=== PATIENT | female | born 1940 | race Caucasian/White ===

== ENCOUNTER → 2016-09-16 | Outpatient (CLI) | payer MEDICARE ==
[~2016-09-16] MED LIST: ALENDRONATE SOD70 M1 PO; ASPIRIN 81MG TA81 MG PO; ATENOLOL25 MG PO; ATENOLOL50 MG PO; CIPRO 500MG TA500 MG PO; CLOPIDOGREL75 M2 PO; DEXAMETHASONE 4M4 MG PO; EAC TD; FLAGYL500 MG PO; ISOSORBIDE MONO30 MG PO; LASIX20 MG PO; LEVAQUIN 750 M750 MG PO; LEVAQUIN500 MG PO; LORAZEPAM1 MG/TABLE PO; METFORMIN500 MG PO; NICODERM C21 MG/24 H TD; NITRO DUR TD; NOVOLOG MI100 UNITS/ SC; NOVOLOG MI100 UNITS1 SC; NOVOLOG MIX 70/10 M1 SC; OMNICEF 300 MG300 MG PO; PEPCID 20MG TAB20 MG PO; PREDNISONE 10MG10 MG PO; PRILOSEC20 M1 PO; SIMVASTATIN40 MG PO; SYMBICORT1 AER IH; TESSALON PERLE100 MG PO; TRAZODONE150 MG PO
[2016-09-16 08:58] LABS: BUN 17 mg/dL (7-18)
[2016-09-16 08:59] LABS: GFR (ESTIMATED) 54 ML/MIN (59-)
--- NOTE | 2016-09-18 21:43 | RADIOLOGY REPORT PS360 ---
CT ABD PELVIS W/ CONTRAST ORDERING PHYSICIAN : Alan Schulte MD PATIENT AGE: 76 years GENDER: Female INDICATION: SOA, HX OF LUNG AND RENAL CELL CANCER TECHNIQUE: Helical CT scanning performed the abdomen and pelvis following 75 cc Isovue-370. COMPARISON: 04/07/2015 CT abdomen FINDINGS ]. Lower thorax lungs clear no active disease. Heart normal size. Abdomen. Liver spleen pancreas adrenals unremarkable. Gallbladder is been removed. Generous common duct similar to previous study most likely reflects postcholecystectomy changes warrants correlation with serum bilirubin. Pancreas satisfactory. No stones along common duct evident. Aorta. Minor focal dilatation beginning just below renal arteries. Abdominal aorta up to 2.4 cm maximally in this region. . No free fluid. No free air. No acute inflammatory changes. Kidneys.. History states renal cell cancer on right.? No renal mass evident on today's or prior study. Right kidney: No lesions are seen at the right kidney on today's scan. Moderate External pelvis on right is noted right ureter is unremarkable. Left kidney appears satisfactory with no mass lesion either. No calculi or obstruction either kidney. No retroperitoneal adenopathy with no mesenteric or femoral adenopathy. Previous ventral hernia repair. GI tract Large bowel. Diverticulosis throughout the sigmoid and left colon but no diverticulitis. Moderate to generous stool throughout the colon. It The cecum appears satisfactory today. There is a moderate/generous fat at about the ileocecal valve accounts for appearance here.. Calcified area in colon hepatic flexure most likely reflects ingested focus radiopaque material within stool. Terminal ileum unremarkable. No evidence of appendicitis appendix not visualized Small bowel.: No bowel dilatation or obstruction. . Again see several areas in the normal caliber small bowel areas which have rim-like calcification-most likely reflect some form of ingested material. Coronal image [id number] involving the small bowel IMPRESSION: ... 1.No mass lesions. No adenopathy no metastatic disease. 2. No renal mass evident. Kidneys appear stable and unchanged since 2015 CT. Slightly generous right extra renal pelvis of right collecting system is stable & WNL.. 3. Diverticulosis sigmoid and left colon moderately pronounced but no diverticulitis evident. 4.. Generous common duct again noted but appears stable since 2014 most compatible with previous cholecystectomy. Warrants correlation with serum bilirubin. 5. Incidental observations: -note curious rim-like areas calcified areas throughout normal caliber small bowel. Some areas seen in hepatic flexure large bowel. It most likely reflect some form of ingested partially radiopaque material. -There was previous question regarding the cecum but it appears normal on today's study. Moderate to generous stool throughout colon.
--- NOTE | 2016-09-19 23:39 | RADIOLOGY REPORT PS360 ---
CT CHEST W/ CONTRAST ORDERING PHYSICIAN : Alan Schulte MD PATIENT AGE: 76 years GENDER: Female INDICATION: SOA, HX OF LUNG AND RENAL CELL CANCER Procedure. . Helical CT scanning performed through the chest following 75 cc Isovue-370. COMPARISON: November 11, 2015 CT chest with contrast . Also also previous CTA chest from 01/16 and 09/12/2010 FINDINGS . Again see the triangular mass with irregular margins at periphery RUL. Located Just beneath Multiple rib fractures overlying this region... Mass most evident peripherally and tapers towards right angi were and appears generous and associated fibrotic changes.. Overall This area appears Appears very similar in size with no no significant change, measuring up to 3.5 cm transverse X, 2.9 cm cm AP X nearly 15 mm height.. The rather Stellate margins unchanged. There are overlying rib fractures involving the left ribs 4, 5, 6. In fact thefifth rib is fractured in 2 locations. The sequential nature of 3 rib fractures supports old trauma with no additional lesions to be present. hyperexpansion lungs with minor chronic changes. A few areas of minor interstitial coarsening and fibrotic change bilaterally but unimpressive...... Theres minimal linear scarring anteriorly at the lingula. There is been slight progression of the small nodular density right midlung now measuring 7.3 mm previously measuring 5 mm.. It is located at the right lower lobe just posterior to the major fissure.-Best seen on axial image 42, coronal 15, sagittal slice 31. Small calcified granuloma right base just above right hemidiaphragm stable. 4 mm size. Borderline/Upper normal thickness of central airways no hilar no mediastinal adenopathy. Densely calcified coronary arteries with possible coronary stent again noted. Heart upper normal size. No pleural lesions. No hilar adenopathy or mass. No significant mediastinal adenopathy .. Unimpressive 12.5 mm x8.5 mm node at the precarinal region most likely reactive nodes combination of nodes appears stable..... Spine and sternum appear intact with The remaining osseous structures r unremarkable ............IMPRESSION............................................... 1. Slight interval progression of the small nodule right midlung. Now measuring 7.3 mm ( previously seen measuring [address] chest[address].-Warrants ongoing follow-up chest in 4-6 months 2. Stable prominent triangular mass with irregular margins at the periphery the RUL..-No significant interval change since November 2015 3. Multiple rib fractures overlying this area again noted, & unchanged... Fractures right 4, 5, 6, ribs laterally .
== END ==
LOC: RAD 08:37
PROVIDERS: Internal Medicine Adolescent Medicine
DX: R06.02 Shortness of breath (principal); R10.84 Generalized abdominal pain; Z85.118 Personal history of other malignant neoplasm of bronchus and lung; Z85.528 Personal history of other malignant neoplasm of kidney
CPT/HCPCS: Q9967

== ENCOUNTER → 2016-10-03 | Outpatient (CLI) | payer MEDICARE | LOC: CARL-LAB 09:37 | DX: R05 Cough (principal) ==

== ENCOUNTER 2016-11-25 03:54 | Inpatient (IN) | payer MEDICARE ==
[~2016-11-25] VITALS: Ht 154.9 cm; Wt 56.7 kg
[2016-11-25] VITALS (10 sets, daily range): BP systolic 114–155; BP diastolic 56–76
[~2016-11-25 03:54] MED LIST changes: -CLOPIDOGREL75 M2 PO; -PREDNISONE 10MG10 MG PO
[2016-11-25] MEDS ORDERED: CLOPIDOGREL75 M2 PO (04:16)
[2016-11-25] MEDS ORDERED: PREDNISONE 10MG10 MG PO (04:18)
[2016-11-25 04:28] LABS: HEMOGLOBIN 12.3 g/dL (12.2-16.2); LYMPH # 1.6 K/mm3 (0.7-4.5); LYMPH % 15.1 % (10-50.0)
--- NOTE | 2016-11-25 04:59 | Emergency Room Report ---
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 N Clinical Suspician of Infection? Y Mental Status: 1 - Regular (Normal Baseline) Sepsis Risk:Severe Sepsis Risk Have you (or family members/close friends) recently traveled outside the [place]? N If Yes, where/when: Have you had exposure to infectious disease within the past month? N TB? Other? Specify: Source patient, RN notes reviewed, family, RN/MD Exam Limitations clinical condition Comment This is a 76-year-old lady presenting to the emergency room by EMS complaining with shortness of breath, onset 3 days ago, associated with subjective fever, chills, body aches. Patient denies any chest pain, denies any recent travel or exposure to sick contacts. She has been recently diagnosed with RIGHT upper lung mass, consistent with a lung malignancy. She is scheduled to have a PET scan on Monday. She is oxygen dependent at home, she is a known chronic obstructive pulmonary disease patient. ALLERGIES Coded Allergies: Sulfa (Sulfonamide Antibiotics) (08/06/16) codeine (08/06/16) Home Medications Reported Medications BUDESONIDE/FORMOTEROL FUMARATE (Symbicort 80-4.5 Mcg Inhaler) 2 PUFF IH BID Ins Asp-Prt 70/Asp 30(Nvlogmx) (Novolog Mix 70-30 Flexpen Syrn) 0 UNITS SC BID #15 SYR Atenolol (Atenolol) 25 MG PO DAILY OMEPRAZOLE MAGNESIUM (Prilosec 20MG) 20 MG PO DAILY Alendronate Sodium 70 MG PO WEEKLY #4 TAB Trazodone Hcl (Trazodone HCl) 150 MG PO QHS Lorazepam (Lorazepam 1MG) 1 MG PO TID ASPIRIN (Aspirin) 81 MG PO DAILY CLOPIDOGREL BISULFATE (Clopidogrel) 75 MG PO DAILY #30 Prednisone (Prednisone 10MG) 10 MG PO Q48H #9 History Medical History General CAD? Yes Angina: Yes NE: Yes Hypertension? No Hyperlipidemia? Yes CHF? No DVT? No PE? No COPD? Yes Asthma? No Anemia? No GERD? Yes Gastric ulcers? No GI Bleed? No Hernia? Yes Thyroid Problems? No Hypothyroidism? No CVA? Yes Seizures? No Diabetes? 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 No End Stage Renal Disease? No UTI? No Stones? No BPH? No GB Disease: Yes Nephritic Syndrome? No Asplenia? No Hepatitis? No Sickle Cell Disease? No Arthritis? Yes Migraines? No Cataracts? Yes Glaucoma? No MRSA? No HIV? No TB? No Anxiety? Yes Depression? No Cancer? 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 RADIATION LUNG Family History Family Hx Diabetes Yes CAD Yes Hypertension No Hyperlipidemia No Cancer Yes TB No Social History Smoking Hx Smoker: Current Every Day Smoker Tobacco: Yes Type Cigarettes Packs/day < 1 Pack Alcohol Alcohol: No Review of Systems All Other Systems Reviewed and Negative Respiratory shortness of breath, wheezing Physical Exam Vital Signs Vital Signs Date Time Temp Pulse Resp B/P Pulse O2 O2 Flow FiO2 Ox Delivery Rate 11/25 0638 3 11/25 0624 3 11/25 0624 96 OXYGEN 3 11/25 0615 114 11/25 0615 99.0 114 24 123/65 11/25 0615 94 ROOM AIR 11/25 0556 3 11/25 0556 99.0 114 24 123/65 94 11/25 0556 99.0 114 24 123/65 94 ROOM AIR 11/25 0521 99.0 114 24 119/56 94 2 11/25 0507 99.0 114 24 119/56 94 2 11/25 0421 30 96 2 11/25 0357 98.2 122 30 155/76 96 2 General Appearance normal appearance, WD/WN, mild distress Neck normal inspection, non-tender, supple, full range of motion Respiratory Status Yes: trachea midline, chest symmetrical, non tender chest. No: respiratory distress. Lung Sounds anterior: wheezing. posterior: wheezing. bilateral: wheezing. left: wheezing. right: wheezing. 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 No Comment 05:05am-case discussed with Dr. King, covering for Dr. Schulte was of patient's presentation, physical exam, x-ray findings, laboratories. Dr. King agreeable with patient's admission, requested sliding scale insulin, IV steroids, IV abx. Care transferred Dr. King/Eris at this time. I will write bridge admission orders per hospital policy. Upon patient's arrival to the unit, the floor nurse will call Dr. King for full inpatient admission orders. Results/Orders Laboratory Tests 11/25/16 0653: Creatine Kinase Pending, CK-MB (CK-2) Rel Index Pending, CK and CKMB Interp Pending, Troponin I Pending 11/25/16 0451: Influenza Type A Ag NOT DETECTED, Influenza Type B Ag NOT DETECTED 11/25/16 0400: Lactic Acid 1.9 11/25/16 0400: Creatine Kinase 56, CK-MB (CK-2) Rel Index 3.0, CK and CKMB Interp 1.7, Troponin I < 0.02, B-Natriuretic Peptide 37 11/25/16 0400: Sodium 139, Potassium 3.8, Chloride 103, Carbon Dioxide 30, BUN 10, Creatinine 0.9, Estimated Creat Clear 48 L, Estimated GFR (MDRD) 61, Glucose 216 H, Calcium 8.8, Total Bilirubin 0.3, AST 14 L, ALT 22, Alkaline Phosphatase 122 H , Total Protein 7.3, Albumin 3.0 L, Globulin 4.3 H, Albumin/Globulin Ratio 0.7 L, WBC 10.8, RBC 4.24, Hgb 12.3, Hct 39.5, MCV 93.3, RDW 16.0, Plt Count 287, MPV 6.1 L, Gran % 75.3, Gran # 8.2 H, Lymphocytes % 15.1, Monocytes % 3.9, Eosinophils % 5.5, Basophils % 0.3, Lymphocytes # 1.6, Monocytes # 0.4, Eosinophils # 0.6 H, Basophils # 0.0, PUBS MCHC 31.2 L, MCH 29.1 Current Medication Orders Sig/Alona Start time Last Medication Dose Route Stop Time Status Admin Ceftriaxone Sodium 1 GM DAILY 11/25 0900 UNV Sodium Chloride 50 ML IV Methylprednisolone 60 MG Q12 11/25 09 UNV Sodium Succinate IV Diagnostic Test (Pha) 1 EACH W/MEALS&HS 11/25 0700 UNV 11/25 FS 01/24 0659 0611 Diagnostic Test (Pha) 1 EACH W/MEALS&HS 11/25 0700 UNV FS 01/24 0659 Insulin Human [rDNA See Dose W/MEALS&HS 11/25 0700 UNV 11/25 origin] Insts (1) SC 0612 Insulin Human [rDNA See Dose W/MEALS&HS 11/25 07 UNV origin] Insts (2) SC Albuterol/Ipratropium 3 ML Q6H6 11/25 06 UNV INH Methylprednisolone 0 .STK-MED ONE 11/25 043 DC Sodium Succinate .ROUTE Sodium Chloride 100 ML .STK-MED ONE 11/25 043 DC IV Ceftriaxone Sodium 0 .STK-MED ONE 11/25 0429 DC IV Methylprednisolone 0 .STK-MED ONE 11/25 0428 DC Sodium Succinate .ROUTE Ceftriaxone Sodium 1 GM ONCE ONE 11/25 414 DC 11/25 Sodium Chloride 50 ML IV 11/25 0444 0434 Methylprednisolone 125 MG ONCE ONE 11/25 0415 DC 11/25 Sodium Succinate IV 11/25 0416 0435 Albuterol/Ipratropium 0 .STK-MED ONE 11/25 0406 DC INH Albuterol/Ipratropium 3 ML ONCE ONE 11/25 0400 DC 11/25 INH 11/25 040 0410 Sodium Chloride 10 ML PRN PRN 11/25 0400 AC IV 11/26 0400 Dose Instructions: (1)Insulin Human [rDNA origin]: SEE ADMIN CRITERIA FOR LOW INTENSITY SS (2)Insulin Human [rDNA origin]: SEE ADMIN CRITERIA FOR LOW INTENSITY SS Orders Procedure Date/time Status DIET-1999 CALORIE ADA 11/25 B Active CARDIAC ENZYMES 11/25 1100 Active CARDIAC ENZYMES 11/25 0700 Active PT IS SMOKER-DO SMOKE CESSAT. 11/25 06 Active PT ON HOME OXYGEN QUERY NOTICE 11/25 06 Active ADM ASSESS SMOKER RESPONSE 11/25 628 Active RT Pulse Oximetry, Provide 11/25 621 Active RT O2 Installation/Change Set 11/25 06 Active RT O2 Therapy, Monitor/[place] 11/25 06 Active RT Aerosol Treatment, Provide 11/25 06 Active ELECTROCARDIOGRAM REQUEST 11/25 0516 Active Decision to admit 11/25 0508 Active INFLUENZA A&B ANTIGENS 11/25 0451 Complete RT Aerosol Treatment, Provide 11/25 0411 Active CARDIAC ENZYMES 11/25 0404 Complete BRAIN NATRIURETIC PEPTIDE 11/25 0404 Complete RT REQUEST DUONEB 11/25 0400 Active IV SALINE LOCK 11/25 0400 Active CULTURE, BLOOD 11/25 0400 Active LACTIC ACID 11/25 0400 Complete CBC WITH AUTO DIFF 11/25 0400 Complete CHEM 12 PROFILE 11/25 0400 Complete ADMIT PATIENT 11/25 UNK Active PULSE OXIMETRY REQUEST 11/25 UNK Active OXYGEN REQUEST 11/25 UNK Active RT REQUEST DUONEB 11/25 UNK Active VITAL SIGNS 11/25 UNK Active NETBACKUP ENGINEER 11/25 UNK Active POM NURSE MARIANA HOSE ORDER 11/25 UNK Active CODE STATUS 11/25 UNK Active PATIENT ACTIVITY ORDER 11/25 UNK Active 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 of ischemic chgs, no ectopy, normal QRS, normal OK, no EKG for comparison, non-spec. ST/Twave chgs, ST elevation, ST depression, LBBB, RBBB, ectopy, abnormal Q waves XRAY/CT/US XRAY/CT/US XRAY chest XR interpretation by reviewed by me Xray Results abnormal Comment RIGHT upper lung mass, his interstitial markings. Departure Departure Time of Disposition 0511 Disposition Still a Patient Clinical Impression Primary Impression: Chronic obstructive pulmonary disease with (acute) exacerbation Secondary Impressions: Acute exacerbation of chronic bronchitis Condition STABLE Referrals Alan Schulte MD (Family) ED Critical Care Critical Care No at 0700
--- NOTE | 2016-11-25 06:25 | RADIOLOGY REPORT PS360 ---
CHEST-PORTABLE HISTORY: WHEEZING ORDERING PHYSICIAN: Gerardo Green MD PATIENT AGE: 76 years COMPARISON: 08/06/2016 FINDINGS: The cardiomediastinal silhouette and pulmonary vascularity are within normal limits. Chronic parenchymal opacity once again noted involving the right upper lobe. No new areas of consolidation are evident.. No acute bony abnormalities. IMPRESSION: Chronic changes right upper lobe. No change with no acute finding
--- NOTE | 2016-11-25 07:34 | PHARMACY CLINIC NOTE ---
Patient Demographics Patient Demographics Admission date: 11/25/16 Date: 11/25/16 Time: 07 Allergies Coded Allergies: Sulfa (Sulfonamide Antibiotics) (08/06/16) codeine (08/06/16) HEIGHT- FT: 5 IN: 1.00 K.700 VTE General Information Labs: Laboratory Tests 11/25 0400 Hematology Hgb (12.2 - 16.2 g/dL) 12.3 Hct (37.0 - 47.0 %) 39.5 Plt Count (142 - 424 K/mm3) 287 Disclaimer The following section includes nursing documentation that has been pulled in for pharmacy review. Patient's VTE score: 6 Patient's VTE Risk: MOD RISK Clinical trial participant? No VTE prophylaxis NQF [id number] VTE prophylaxis ordered? Yes Type of prophylaxis/treatment: MARIANA at 0734
--- NOTE | 2016-11-25 08:03 | HISTORY AND PHYSICAL REPORT ---
Demographics: Admit date: 11/25/16 Chief complaint: Cough/congestion/shortness of air PRIMARY DIAGNOSIS: COPD EXACERBATION Allergies: Coded Allergies: Sulfa (Sulfonamide Antibiotics) (08/06/16) codeine (08/06/16) History of present illness: History of present illness: 76-year-old white female with history of emphysema, oxygen dependent, history of lung cancer, currently under active workup with possible recurrence. Came to the emergency department by EMS early this morning because of shortness of air, wheezing and coughing, found to have chronic obstructive pulmonary disease exacerbation with cough, shortness of air and slightly elevated white count was admitted to hospital for further evaluation. Past medical history: Family HX Diabetes Yes CAD Yes Hypertension No Hyperlipidemia No Cancer Yes TB No Immunization HX DT/Tetanus 5-10 Years Ago Flu 2015-FSN Pneumonia Received In Past TB Test in last year No General CAD? Yes Angina: Yes IN: Yes Hypertension? No Hyperlipidemia? Yes CHF? No DVT? No PE? No COPD? Yes Asthma? No Anemia? No GERD? Yes Gastric ulcers? No GI Bleed? No Hernia? Yes Thyroid Problems? No Hypothyroidism? No CVA? Yes Seizures? No Diabetes? 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 No UTI? No Stones? No BPH? No GB Disease: Yes Nephritic Syndrome? No Asplenia? No Hepatitis? No Sickle Cell Disease? No Arthritis? Yes Migraines? No Cataracts? Yes Glaucoma? No MRSA? No HIV? No TB? No Anxiety? Yes Depression? No Cancer? 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 Current home meds: Reported Medications BUDESONIDE/FORMOTEROL FUMARATE (Symbicort 80-4.5 Mcg Inhaler) 2 PUFF IH BID Ins Asp-Prt 70/Asp 30(Nvlogmx) (Novolog Mix 70-30 Flexpen Syrn) 0 UNITS SC BID #15 SYR Atenolol (Atenolol) 25 MG PO DAILY OMEPRAZOLE MAGNESIUM (Prilosec 20MG) 20 MG PO DAILY Alendronate Sodium 70 MG PO WEEKLY #4 TAB Trazodone Hcl (Trazodone HCl) 150 MG PO QHS Lorazepam (Lorazepam 1MG) 1 MG PO TID ASPIRIN (Aspirin) 81 MG PO DAILY CLOPIDOGREL BISULFATE (Clopidogrel) 75 MG PO DAILY #30 Prednisone (Prednisone 10MG) 10 MG PO Q48H #9 Social Hx: Smoking HX Tobacco Yes Type Cigarettes Packs/day < 1 PACK Are you/the child exposed to second-hand smoke: Yes Alcohol Alcohol: No Hx of Drug Use Drug Use? No Patien't marital status is Patient's support system is excellent Review of systems: Constitutional fever, malaise, weakness. Respiratory cough, shortness of breath, SOB with excertion. Cardiovascular No no symptoms reported Gastrointestinal/Abdominal No no symptoms reported Genitourinary No: no symptoms reported. Musculoskeletal No: no symptoms reported. Neurological No: see HPI. Exam: Lab data for last 24 hours: Laboratory Tests 11/25/16 0653: Creatine Kinase 63, CK-MB (CK-2) Rel Index 3.2, CK and CKMB Interp 2.0, Troponin I < 0.02 11/25/16 0451: Influenza Type A Ag NOT DETECTED, Influenza Type B Ag NOT DETECTED 11/25/16 0400: Lactic Acid 1.9 11/25/16 0400: Creatine Kinase 56, CK-MB (CK-2) Rel Index 3.0, CK and CKMB Interp 1.7, Troponin I < 0.02, B-Natriuretic Peptide 37 11/25/16 0400: Sodium 139, Potassium 3.8, Chloride 103, Carbon Dioxide 30, BUN 10, Creatinine 0.9, Estimated Creat Clear 48 L, Estimated GFR (MDRD) 61, Glucose 216 H, Calcium 8.8, Total Bilirubin 0.3, AST 14 L, ALT 22, Alkaline Phosphatase 122 H , Total Protein 7.3, Albumin 3.0 L, Globulin 4.3 H, Albumin/Globulin Ratio 0.7 L, WBC 10.8, RBC 4.24, Hgb 12.3, Hct 39.5, MCV 93.3, RDW 16.0, Plt Count 287, MPV 6.1 L, Gran % 75.3, Gran # 8.2 H, Lymphocytes % 15.1, Monocytes % 3.9, Eosinophils % 5.5, Basophils % 0.3, Lymphocytes # 1.6, Monocytes # 0.4, Eosinophils # 0.6 H, Basophils # 0.0, PUBS MCHC 31.2 L, MCH 29.1 Microbiology 11/26 399 BLOOD: Anaerobic Blood Culture - RECD 11/26 399 BLOOD: Aerobic Blood Culture - RECD 11/26 399 BLOOD: Anaerobic Blood Culture - RECD 11/26 399 BLOOD: Aerobic Blood Culture - RECD Admission vital signs: 1ST Vital Signs Result Date Time Pulse Ox 96 11/25 035 B/P 155/76 11/25 035 O2 Flow Rate 2 11/25 356 Temp 98.2 11/25 356 Pulse 122 11/25 035 Resp 30 11/25 035 O2 Delivery ROOM AIR 11/25 0556 Additional information: Patient is pleasant, alert, minimally dyspneic. Heart rate regular, abdomen soft lungs have expiratory wheezing but fairly good air entry with some scattered rhonchi in the RIGHT lower lung field. Plan: Problem List 1. Acute exacerbation of chronic bronchitis 2. Chronic obstructive pulmonary disease with acute exacerbation 3. Lung cancer Plan: Cautious IV steroids. Pulmonary toilet, follow-up oncology next week. at 0802
[2016-11-25 08:37] LABS: CORONAVIRUS 229E NOT DETECTED (NOT DETECTE); CORONAVIRUS HKU 1 NOT DETECTED (NOT DETECTE); CORONAVIRUS NL63 NOT DETECTED (NOT DETECTE); CORONAVIRUS OC43 NOT DETECTED (NOT DETECTE)
[2016-11-25 11:32] LABS: RHINOVIRUS/ENTEROVIRUS DETECTED (NOT DETECTE)
[2016-11-26] VITALS (8 sets, daily range): BP systolic 104–140; BP diastolic 57–67
[2016-11-26 06:20] LABS: HEMOGLOBIN 11.4 g/dL (12.2-16.2); LYMPH # 0.7 K/mm3 (0.7-4.5); LYMPH % 7.1 % (10-50.0)
--- NOTE | 2016-11-26 08:38 | ACUTE CARE PROGRESS NOTE (QUA) ---
Progress Notes Admission Date: 11/25/16 Subjective Date 11/26/16 Time 0837 Note Overall patient feels slightly better. Has had less coughing. Didn't sleep well through the night because of some cough, however. Alert, pleasant, vital signs reviewed. Anterior lung sparks have a little musical wheezing but better air entry, posterior sparks have some scattered rhonchi, heart rate regular. Abdomen soft and nontender and benign.. No edema noted. Objective Findings Last VS-Temp:98.1 B/P:131/64 Pulse:109 Resp:20 SaO2:96 OXYGEN Last weight lbs:125 oz:0 K.700 Method:Bed Scales Assessment/Plan Problem List 1. Acute exacerbation of chronic bronchitis 2. Chronic obstructive pulmonary disease with acute exacerbation 3. Lung cancer Patient condition Improving Plan: continue current care, viral chronic obstructive pulmonary disease exacerbation. Continue supportive care. This inpt stay is expected to cross 2 MNs from start of care Yes at 0838
[2016-11-26 09:53] LABS: NEUTROPHILS 93 % (42-76)
[2016-11-27 04:10] VITALS: BP 107/53
--- NOTE | 2016-11-27 07:35 | ACUTE CARE PROGRESS NOTE (QUA) ---
Progress Notes Admission Date: 11/25/16 Subjective Date 11/27/16 Time 0733 Note Overall patient feels a little better, had some nausea through the night and complains that her urine has somewhat of a malodorous character. Denies dysuria, or abdominal pain, but as noted above did have some nausea through the night. Has had very minimal sputum production. Denies significant shortness of air. On examination has wheezes and rhonchi but slightly clear air movement. Oxygen saturations on 2 L nasal cannula are appropriate and about the same as her regular readings given her oxygen dependent emphysema. Pulse rate regular. Abdomen soft and nontender, no edema. She is pleasant, alert , oriented 3. Objective Findings Last VS-Temp:98.3 B/P:107/53 Pulse:93 Resp:18 SaO2:96 OXYGEN Last weight lbs:125 oz:0 K.700 Method:Bed Scales Reviewed: allergies, medications, lab results, radiology report Assessment/Plan Problem List 1. Acute exacerbation of chronic bronchitis 2. Chronic obstructive pulmonary disease with acute exacerbation 3. Lung cancer Patient condition Improving Plan: continue current care, improving from what seems to be a viral chronic obstructive pulmonary disease exacerbation. Continue supportive care and low- dose steroids. Check urinalysis. Possible discharge tomorrow. This inpt stay is expected to cross 2 MNs from start of care Yes Antibiotic Stewardship (2) Current Culture Results Microbiology 11/25 1255 SPUTUM: Sputum Culture - COMP 11/25 1255 SPUTUM: Gram Stain - COMP 11/25 0400 BLOOD: Anaerobic Blood Culture - RECD 11/25 0400 BLOOD: Aerobic Blood Culture - RECD Infxn that will respond? Yes Right drug,dose,and route? Yes More targeted antbx? No How long atbx needed? 7 at 0753
[2016-11-27 07:46] VITALS: BP 107/53
[2016-11-27 08:00] VITALS: BP 107/57
[2016-11-27 10:35] LABS: URINE BILIRUBIN - DIPSTICK NEGATIVE (NEG); URINE BLOOD NEGATIVE (NEG)
[2016-11-27 10:42] LABS: URINE SQUAMOUS CELLS OCC #/hpf (0-5)
[2016-11-27 16:00] VITALS: BP 108/56
[2016-11-27 19:35] VITALS: BP 113/59
[2016-11-27 21:31] VITALS: BP 113/59
[2016-11-28 03:57] VITALS: BP 117/56
[2016-11-28 06:47] LABS: HEMOGLOBIN 11.9 g/dL (12.2-16.2); LYMPH # 0.7 K/mm3 (0.7-4.5); LYMPH % 9.9 % (10-50.0)
--- NOTE | 2016-11-28 07:50 | ACUTE CARE PROGRESS NOTE (QUA) ---
Progress Notes Admission Date: 11/25/16 Subjective Date 11/28/16 Time 0748 Note Overall patient feels a little better, continues to have cough and shortness of air but is slowly improving. Minimal expiratory wheezing, symmetric air movement bilaterally, heart rate regular. Abdomen soft and nontender. No edema. Objective Findings Last VS-Temp:99.2 B/P:117/56 Pulse:87 Resp:18 SaO2:98 OXYGEN Last weight lbs:125 oz:0 K.700 Method:Bed Scales Assessment/Plan Problem List 1. Acute exacerbation of chronic bronchitis 2. Chronic obstructive pulmonary disease with acute exacerbation 3. Lung cancer Patient condition Improving, Stable Plan: continue current care, very slow improvement with enterovirus infection. Continue supportive care. Possible discharge today. This inpt stay is expected to cross 2 MNs from start of care Yes Antibiotic Stewardship (2) Infxn that will respond? Yes Right drug,dose,and route? Yes More targeted antbx? No at 0763
[2016-11-28 08:00] VITALS: BP 116/74
[2016-11-28 08:49] LABS: NEUTROPHILS 89 % (42-76)
[2016-11-28 09:01] VITALS: BP 116/74
[2016-11-28] MEDS ORDERED: CIPRO 500MG TA500 MG PO (09:15)
[2016-11-28] MEDS ORDERED: DEXAMETHASONE 4M4 MG PO (09:16)
--- NOTE | 2016-11-28 11:55 | DISCHARGE SUMMARY STANDARD ---
Demographics Admit date: 11/25/16 Discharge date: 11/28/16 History of present illness History of present illness 76-year-old white female with history of emphysema, oxygen dependent, history of lung cancer, currently under active workup with possible recurrence. Came to the emergency department by EMS early this morning because of shortness of air, wheezing and coughing, found to have chronic obstructive pulmonary disease exacerbation with cough, shortness of air and slightly elevated white count was admitted to hospital for further evaluation. Hospital Course Hospital Course: Patient was admitted, cultures were done, respiratory PCR was done revealing a rhino/entero virus positivity. She was treated symptomatically with steroids, antibiotics and breathing treatments. She improved slowly but steadily, consistent with a viral illness over the next several days. This morning she was about "80%" back to her baseline and felt well enough to go home and complete therapy at home. She was discharged with Cipro, dexamethasone and followup with her oncologist next week for Discharge diagnoses Problem List 1. Acute exacerbation of chronic bronchitis 2. Chronic obstructive pulmonary disease with acute exacerbation 3. Lung cancer Medications Medications: Discharge meds are as noted. Follow up Follow up in office in: 7 DAYS with: CHRISTOPHER OATES at [id number]
== END 2016-11-28 10:50 | disposition home or self-care (01) | DRG 191 ==
LOC: ER 03:54 → 2ND 05:16
PROVIDERS: Emergency Medicine; Internal Medicine Adolescent Medicine
DX: J44.1 Chronic obstructive pulmonary disease with (acute) exacerbation (principal); C34.90 Malignant neoplasm of unspecified part of unspecified bronchus or lung; Z99.81 Dependence on supplemental oxygen; J20.6 Acute bronchitis due to rhinovirus; J44.0 Chronic obstructive pulmonary disease with (acute) lower respiratory infection; E11.9 Type 2 diabetes mellitus without complications; Z79.4 Long term (current) use of insulin

== ENCOUNTER 2017-01-11 14:30 | Inpatient (IN) | payer MEDICARE ==
[~2017-01-11] VITALS: Ht 157.5 cm; Wt 58.6 kg
[~2017-01-11 14:30] MED LIST changes: +ADULT LOW DOSE81 MG PO; -ASPIRIN 81MG TA81 MG PO; +CLOPIDOGREL75 M2 PO; +PREDNISONE 10MG10 MG PO
[2017-01-11 15:06] VITALS: BP 112/65
[2017-01-11 15:30] VITALS: BP 112/65
[2017-01-11] MEDS ORDERED: PREDNISONE 20MG20 MG PO ×2 (15:40→15:41)
[2017-01-11] MEDS ORDERED: METFORMIN 500M500 M1 PO (15:43)
[2017-01-11] MEDS ORDERED: CYCLOBENZAPRINE10 M1 PO (15:44)
[2017-01-11] MEDS ORDERED: LIVALO4 MG PO (15:44)
--- OUTSIDE RECORDS SUMMARY | 2017-01-11 16:08 | External Medical Summary Rpt ---
Author Author [facility] Organization [facility] Address Unknown Phone Unavailable Care Team Providers Care Salsa Dance Instructor Name Role Phone Johny MCCOY PCP [phone] Encounter [facility] Date(s): 12/12/16 - 12/12/16 [facility] [address] [place] [address]- [phone] Discharge Disposition: OP Self Care or Home Attending Physician: DANIEL MCCOY MD-RDT Admitting Physician: DANIEL MCCOY MD-RDT Referring Physician: DANIEL MCCOY MD-RDT Reason for Visit No data available for this section Vital Signs No data available for this section Problem List Condition Effective Status Health Informant Dates Status Cataract(Con Active patient firmed) Allergic Active patient rhinitis(Con firmed) Angina(Confi Active patient rmed) Arthritis(Co Active patient nfirmed) Back Active patient pain(Confirm ed) Bronchitis(C Active patient onfirmed) CA - Renal Active patient cancer(Confi rmed) Cardiac Active patient arrhythmia(C onfirmed) COPD(Confirm Active patient ed) Coronary Active patient artery disease(Conf irmed) Diabetes Active patient mellitus type II(Confirmed ) Fibroids(Con Active patient firmed) GERD - Active patient Gastro-esoph ageal reflux disease(Conf irmed) H/O: Active patient TIA(Confirme d) Hyperlipidem Active patient ia(Confirmed ) Impaired Active patient vision(Confi rmed) Cancer of Active patient lung(Confirm ed) Myocardial Active patient infarction(C onfirmed) Pneumonia(Co Active patient nfirmed) Sinusitis(Co Active patient nfirmed) Stented Active patient coronary artery(Confi rmed) Urinary Active patient tract infection(Co nfirmed) Allergies, Adverse Reactions, Alerts Substance Reaction Severity Status codeine vomiting Active vomiting sulfADIAZINE can't breath Active can't breath Medications albuterol-ipratropium (albuterol-ipratropium 2.5 mg-0.5 mg/3 mL inhalation solution)3 mL, Nebulized Inhalation , Three Times A Day, Refills: 0 aspirin (Aspirin Low Dose) 81 mg, Oral, Every Day, Refills: 0 atenolol (atenolol 50 mg oral tablet) 0.5 Tab, Oral, Every Day, Refills: 0 atorvastatin (atorvastatin 40 mg oral tablet) 1 Tab, Oral, Every Day, Refills: 0 Ordering provider: PHIL NELSON APRN budesonide-formoterol (Symbicort 80 mcg-4.5 mcg/inh inhalation aerosol)2 Puff, Inhalation, Two Times A Day, Refills: 0 cefdinir (cefdinir 300 mg oral capsule)1 Cap, Oral, every 12 hours, 14 Day(s), Refills: 0 clopidogrel (Plavix 75 mg oral tablet) 1 Tab, Oral, Every Day, Refills: 0 insulin aspart-insulin aspart protamine (NovoLog Mix 70/30 FlexPen)20 Units, SubCutaneous , Before Breakfast, Refills: 0 insulin aspart-insulin aspart protamine (NovoLOG Mix 70/30)30 Units, SubCutaneous , At Bedtime, Refills: 0 LORazepam (lorazepam 1 mg oral tablet)1 Tab, Oral, Three Times A Day, As Needed, for anxiety, Refills: 0 magnesium oxide (magnesium oxide 400 mg (241.3 mg elemental magnesium) oral tablet)1 Tab, Oral, Every Day, Refills: 0 nitroglycerin (Nitrostat 0.4 mg sublingual tablet)1 Tab, SubLINgual , every 5 minutes, As Needed, Chest Pain, Refills: 0 omeprazole (omeprazole 20 mg oral delayed release capsule)1 Cap, Oral, Every Day, Refills: 0 traZODone (trazodone 150 mg oral tablet) 1 Tab, Oral, At Bedtime, Refills: 0 Results No data available for this section Immunizations No data available for this section Procedures No data available for this section Social History Social History Response Type Smoking Status Current every day smoker; Years of Tobacco Use 55; Packs/Tins Daily 0.5; Month Tobacco Last Used yesterday Assessment and Plan No data available for this section Hospital Discharge Instructions No data available for this section
--- OUTSIDE RECORDS SUMMARY | 2017-01-11 16:08 | External Medical Summary Rpt ---
Author Author [facility] Organization [facility] Address Unknown Phone Unavailable Care Team Providers Care Communication Technician Name Role Phone Johny MCCOY PCP [phone] Encounter [facility] Date(s): 12/12/16 - 12/12/16 [facility] [address] [place] [address]- [phone] Discharge Disposition: OP Self Care or Home [...]
--- OUTSIDE RECORDS SUMMARY | 2017-01-11 16:08 | External Medical Summary Rpt ---
Author Author [facility] Organization [facility] Address Unknown Phone Unavailable Care Team Providers Care Rigging Man Name Role Phone Johny MCCOY PCP [phone] Encounter [facility] [id number] Date(s): 12/21/16 - 12/21/16 [facility] [address] [place] [address]- Discharge Disposition: OP Self Care or Home [...]
--- OUTSIDE RECORDS SUMMARY | 2017-01-11 16:08 | External Medical Summary Rpt ---
Author Author [facility] Organization [facility] Address Unknown Phone Unavailable Care Team Providers Care Cooling System Operator Name Role Phone Johny MCCOY PCP [phone] Encounter [facility] [id number] Date(s): 12/21/16 - 12/21/16 [facility] [address] [place] [address]- Discharge Disposition: OP Self Care or Home [...]
--- OUTSIDE RECORDS SUMMARY | 2017-01-11 16:09 | External Medical Summary Rpt ---
Author Author [facility] Organization [facility] Address Unknown Phone Unavailable Care Team Providers Care Gift Manager Name Role Phone RAUL, (REF) PCP [phone] [facility] Date(s): 08/23/16 - 08/23/16 [facility] [address] [place] [address]- Discharge Disposition: OP Self Care or Home Attending Physician: MT GARCIA MD-CAR Admitting Physician: MT GARCIA MD-CAR Referring Physician: MT GARCIA MD-CAR Reason for Visit ILLNESS, UNSPECIFIED Vital Signs Most recent 1 2 3 to oldest [Reference Range]: Temperature Oral (08/23/16 Source 6:54 AM) Temperature Fahrenheit Mode (08/23/16 6:54 AM) Temperature, 98.4 Deg F Fahrenheit (08/23/16 6:54 [96.8-99.7 AM) Deg F] Clinical 36.9 Deg C Temperature, (08/23/16 6:54 C AM) Peripheral 78 bpm (08/23/16 Pulse Rate 6:54 AM) [60-100 bpm] Heart Rate 68 bpm (08/23/16 68 bpm (08/23/16 68 bpm (08/23/16 Monitored 4:45 PM) 4:30 PM) 4:15 PM) [60-100 bpm] Respiratory 31 Breaths/Min 31 Breaths/Min 26 Breaths/Min Rate [14-20 *HI*(08/23/16 *HI*(08/23/16 *HI*(08/23/16 Breaths/Min] 4:45 PM) 4:30 PM) 4:15 PM) Blood 117/59 mmHg 117/59 mmHg 110/56 mmHg Pressure (08/23/16 4:30 (08/23/16 4:15 (08/23/16 4:00 [90-140/60-9 PM) PM) PM) 0 mmHg] Mean 81 (08/23/16 4:30 81 (08/23/16 4:15 78 (08/23/16 4:00 Arterial PM) PM) PM) Pressure (MAP)-BMDI Oxygen 97 % (08/23/16 97 % (08/23/16 97 % (08/23/16 Saturation 4:45 PM) 4:30 PM) 4:15 PM) [94-100 %] Oxygen Nasal cannula Therapy Mode (08/23/16 2:24 PM) Oxygen Flow 2 Liter/Min Rate (08/23/16 2:24 PM) Vital oxygen sat - 96 Measurements percent (08/23/16 Comment 6:54 AM) Problem List Condition Effective Status Health Informant [...] sulfADIAZINE can't breath Active can't breath Medications omeprazole (omeprazole 20 mg oral delayed release capsule)1 Cap, Oral, Every Day, Refills: 0 Results BLOOD GASES Most recent 1 2 3 to oldest [Reference Range]: tCO2 Yehuda POC 29.0 mmol/L [24.0-29.0 (08/23/16 7:08 mmol/L] AM) GENERAL CHEMISTRY Most recent 1 2 3 to oldest [Reference Range]: eGFR 99 mL/min/1.73m2 [>=60 (08/23/16 7:08 mL/min/1.73m AM) 2] eGFR 82 mL/min/1.73m2 NonAfrican (08/23/16 7:08 [>=60 AM) mL/min/1.73m 2] Sodium POC 140 mmol/L [138-146 (08/23/16 7:08 mmol/L] AM) Potassium 4.3 mmol/L POC [3.5-4.9 (08/23/16 7:08 mmol/L] AM) Chloride POC 100 mmol/L [98-109 (08/23/16 7:08 mmol/L] AM) Anion Gap 16.0 mmol/L POC (08/23/16 7:08 [10.0-20.0 AM) mmol/L] Glucose POC 229 mg/dL [70-105 *HI*(08/23/16 mg/dL] 7:08 AM) Glucose POC2 203 mg/dL [60-110 1*HI*(08/23/16 mg/dL] 11:42 AM) BUN POC 14 mg/dL [8-26 mg/dL] (08/23/16 7:08 AM) Creatinine 0.7 mg/dL POC [0.6-1.3 (08/23/16 7:08 mg/dL] AM) Ca Ioniz POC 1.23 mmol/L [1.12-1.32 (08/23/16 7:08 mmol/L] AM) 1Result Comment: Nurse Notified of ResultHEMATOLOGY Most recent 1 2 3 to oldest [Reference Range]: Platelet 222 K/uL Count (08/23/16 6:32 [163-369 AM) K/uL] Hematocrit 40.0 % (08/23/16 POC 7:08 AM) [38.0-51.0 %] Hemoglobin 13.6 Gram/dL POC (08/23/16 7:08 [12.0-17.0 AM) Gram/dL] COAGULATION Most recent 1 2 3 to oldest [Reference Range]: ACT POC 152 Second(s) 173 Second(s) 188 Second(s) [79-149 *HI*(08/23/16 *HI*(08/23/16 *HI*(08/23/16 Second(s)] 12:33 PM) 11:09 AM) 10:23 AM) Immunizations No data available for this section Procedures Procedure Date Related Body Site Diagnosis heart cath with stent Social History Social History Response Type Smoking Status Current every day smoker; Years of Tobacco Use 55; Packs/Tins Daily 0.5; Month Tobacco Last Used yesterday Assessment and Plan No data available for this section Hospital Discharge Instructions Patient EducationAngiogram, Angioplasty, or Stent Placement, Care After (Custom) (Custom) Conscious Sedation, Adult, Care After
--- OUTSIDE RECORDS SUMMARY | 2017-01-11 16:09 | External Medical Summary Rpt ---
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 LUNG Vital Signs No data available for this [...] ia(Confirmed ) Impaired Active patient vision(Confi rmed) Liver Active patient cancer(Confi rmed) Cancer of Active patient lung(Confirm ed) Myocardial Active patient infarction(C onfirmed) Pneumonia(Co Active patient nfirmed) Sinusitis(Co Active patient nfirmed) Stented Active patient coronary artery(Confi rmed) Urinary Active patient tract infection(Co nfirmed) Allergies, Adverse Reactions, Alerts Substance Reaction Severity Status codeine vomiting Active vomiting sulfADIAZINE can't breath Active can't breath Medications No data available for this section Results No data available for this section [...]
--- OUTSIDE RECORDS SUMMARY | 2017-01-11 16:09 | External Medical Summary Rpt ---
Author Author [facility] Organization [facility] Address Unknown Phone Unavailable Care Team Providers Care Food Tray Assembler Name Role Phone RAUL, (REF) PCP [phone] Encounter [facility] Date(s): 08/23/16 - 08/23/16 [facility] [address] [place] [address] Discharge Disposition: OP Self Care or Home [...]
--- OUTSIDE RECORDS SUMMARY | 2017-01-11 16:09 | External Medical Summary Rpt ---
Author Author [facility] Organization [facility] Address Unknown Phone Unavailable Care Team Providers Care Maple Products Supervisor Name Role Phone RAUL, (REF) PCP [phone] Encounter [facility] [id number] Date(s): 08/16/16 - 08/16/16 [facility] [address] [place] [address]- [phone] Discharge Disposition: OP Self Care or Home Attending Physician: CHRISTOPHER OATES MD-ONC Admitting Physician: CHRISTOPHER OATES MD-ONC Referring Physician: CHRISTOPHER OATES MD-ONC Reason for Visit No data available for [...]
--- OUTSIDE RECORDS SUMMARY | 2017-01-11 16:09 | External Medical Summary Rpt ---
Author Author [facility] Organization [facility] Address Unknown Phone Unavailable Care Team Providers Care Supervisor [employer] Products Name Role Phone RAUL, (REF) PCP [phone] Encounter [facility] Date(s): 08/15/16 - 08/16/16 [facility] [address] [place] [address]- [phone] Discharge Disposition: OP Self Care or Home [...]
--- OUTSIDE RECORDS SUMMARY | 2017-01-11 16:09 | External Medical Summary Rpt ---
Author Author [facility] Organization [facility] Address Unknown Phone Unavailable Care Team Providers Care Pie Filler Name Role Phone RAUL, (REF) PCP [phone] Encounter [facility] [id number] Date(s): 08/16/16 - 08/16/16 [facility] [address] [place] [address]- [phone] Discharge Disposition: OP Self Care or Home [...]
--- OUTSIDE RECORDS SUMMARY | 2017-01-11 16:10 | External Medical Summary Rpt ---
Author Author [facility] Organization [facility] Address Unknown Phone Unavailable Care Team Providers Care Cyber Reverse Engineer Name Role Phone RAUL, (REF) PCP [phone] Encounter [facility] [id number] Date(s): 11/14/16 - 11/15/16 [facility] [address] [place] [phone] Discharge Disposition: OP Self Care or Home [...]
--- OUTSIDE RECORDS SUMMARY | 2017-01-11 16:10 | External Medical Summary Rpt ---
Author Author , Organization [employer] Address Unknown Phone Unavailable Purpose Continuity of Care Document - through 2016
--- OUTSIDE RECORDS SUMMARY | 2017-01-11 16:10 | External Medical Summary Rpt ---
Author Author [facility] Organization [facility] Address Unknown Phone Unavailable Care Team Providers Care Transactional Attorney Name Role Phone RAUL, (REF) PCP [phone] Encounter [facility] [id number] Date(s): 11/15/16 - 11/15/16 [facility] [address] [place] [address]- [phone] Discharge Disposition: OP Self Care or Home [...]
--- OUTSIDE RECORDS SUMMARY | 2017-01-11 16:10 | External Medical Summary Rpt ---
Author Author [facility] Organization [facility] Address Unknown Phone Unavailable Care Team Providers Care Weight Inspector Name Role Phone RAUL, (REF) PCP [phone] Encounter [facility] Date(s): 08/31/16 - 09/01/16 [facility] [address] [place] [id number]- Discharge Disposition: OP Self Care or Home Attending Physician: TODD THORNTON MD-CAR Admitting Physician: TODD THORNTON MD-CAR Referring Physician: TODD THORNTON MD-CAR Reason for Visit CHEST PAIN, UNSPECIFIED Vital Signs Most recent 1 2 3 to oldest [Reference Range]: Temperature Oral (09/01/16 Oral (08/31/16 Axillary Source 3:30 AM) 7:45 PM) (08/31/16 3:30 PM) Temperature Fahrenheit Fahrenheit Fahrenheit Mode (09/01/16 3:30 (08/31/16 7:45 (08/31/16 3:30 AM) PM) PM) Temperature, 98.5 Deg F 97.4 Deg F 97.4 Deg F Fahrenheit (09/01/16 3:30 (08/31/16 6:58 (08/31/16 3:30 [96.8-99.7 AM) PM) PM) Deg F] Clinical 36.9 Deg C 36.3 Deg C 36.3 Deg C Temperature, (09/01/16 3:30 (08/31/16 6:58 (08/31/16 3:30 C AM) PM) PM) Heart Rate, 18 bpm Apical *LOW*(09/01/16 [60-100 bpm] 3:30 AM) Heart Rate 72 bpm (09/01/16 79 bpm (09/01/16 75 bpm (09/01/16 Monitored 10:30 AM) 9:04 AM) 8:57 AM) [60-100 bpm] Respiratory 18 Breaths/Min 18 Breaths/Min 18 Breaths/Min Rate [14-20 (09/01/16 3:00 (08/31/16 4:14 (08/31/16 4:08 Breaths/Min] AM) PM) PM) Blood 136/68 mmHg 137/69 mmHg 135/69 mmHg Pressure (09/01/16 10:30 (09/01/16 7:00 (09/01/16 5:25 [90-140/60-9 AM) AM) AM) 0 mmHg] Mean 86 (09/01/16 8:00 87 (09/01/16 7:00 85 (09/01/16 5:25 Arterial AM) AM) AM) Pressure (MAP)-BMDI Oxygen 99 % (09/01/16 100 % (09/01/16 100 % (09/01/16 Saturation 10:30 AM) 9:05 AM) 9:04 AM) [94-100 %] Oxygen Room air Nasal cannula Nasal cannula Therapy Mode (09/01/16 10:30 (09/01/16 9:05 (09/01/16 3:00 AM) AM) AM) Oxygen Flow 1 Liter/Min 2 Liter/Min 2 Liter/Min Rate (09/01/16 9:05 (09/01/16 3:00 (08/31/16 7:45 AM) AM) PM) Problem List Condition Effective Status Health Informant [...] sulfADIAZINE can't breath Active can't breath Medications atorvastatin (atorvastatin 40 mg oral tablet) 1 Tab, Oral, Every Day, Refills: 0 Ordering provider: PHIL NELSON APRN cefdinir (cefdinir 300 mg oral capsule)1 Cap, Oral, every 12 hours, 14 Day(s), Refills: 0 clopidogrel (Plavix 75 mg oral tablet) 1 Tab, Oral, Every Day, Refills: 0 insulin aspart-insulin aspart protamine (NovoLOG Mix 70/30)30 Units, SubCutaneous , At Bedtime, Refills: 0 Results BLOOD GASES Most recent to oldest [Reference Range]: tCO2 Yehuda POC 27.0 mmol/L [24.0-29.0 (08/31/16 8:16 mmol/L] AM) GENERAL CHEMISTRY Most recent to oldest [Reference Range]: Sodium Level 139 mmol/L [136-146 (09/01/16 3:04 mmol/L] AM) Potassium 4.5 mmol/L Level (09/01/16 3:04 [3.5-5.1 AM) mmol/L] Chloride 105 mmol/L Level (09/01/16 3:04 [102-112 AM) mmol/L] Carbon 26 mmol/L Dioxide (09/01/16 3:04 Level [21-32 AM) mmol/L] Anion Gap 12 (09/01/16 3:04 [9-20] AM) Glucose 254 mg/dL Level *HI*(09/01/16 [74-106 3:04 AM) mg/dL] Blood Urea 15 mg/dL Nitrogen (09/01/16 3:04 [7-22 mg/dL] AM) Creatinine 0.80 mg/dL Level (09/01/16 3:04 [0.55-1.02 AM) mg/dL] eGFR 85 mL/min/1.73m2 85 mL/min/1.73m2 [>=60 (09/01/16 3:04 (08/31/16 8:16 mL/min/1.73m AM) AM) 2] eGFR 70 mL/min/1.73m2 70 mL/min/1.73m2 NonAfrican (09/01/16 3:04 (08/31/16 8:16 [>=60 AM) AM) mL/min/1.73m 2] Bun/Creatini 18.8 (09/01/16 ne 3:04 AM) [8.0-20.0] Calcium 8.2 mg/dL Level *LOW*(09/01/16 [8.5-10.1 3:04 AM) mg/dL] Protein 5.5 Gram/dL Total *LOW*(09/01/16 [6.4-8.2 3:04 AM) Gram/dL] Albumin 2.8 Gram/dL Level *LOW*(09/01/16 [3.4-5.0 3:04 AM) Gram/dL] Globulin 2.7 Gram/dL [1.5-4.5 (09/01/16 3:04 Gram/dL] AM) A/G Ratio 1.0 [1.1-2.5] *LOW*(09/01/16 3:04 AM) Bilirubin 0.6 mg/dL Total (09/01/16 3:04 [0.2-1.0 AM) mg/dL] Alk Phos 106 Units/Liter [27-136 (09/01/16 3:04 Units/Liter] AM) AST [5-37 11 Units/Liter Units/Liter] (09/01/16 3:04 AM) ALT [12-78 17 Units/Liter Units/Liter] (09/01/16 3:04 AM) Sodium POC 138 mmol/L [138-146 (08/31/16 8:16 mmol/L] AM) Potassium 4.3 mmol/L POC [3.5-4.9 (08/31/16 8:16 mmol/L] AM) Chloride POC 104 mmol/L [98-109 (08/31/16 8:16 mmol/L] AM) Anion Gap 13.0 mmol/L POC (08/31/16 8:16 [10.0-20.0 AM) mmol/L] Glucose POC 118 mg/dL [70-105 *HI*(12/28/16 mg/dL] 8:16 AM) Glucose POC2 274 mg/dL 228 mg/dL 261 mg/dL [60-110 *HI*(09/01/16 *HI*(09/01/16 1*HI*(08/31/16 mg/dL] 6:39 AM) 3:17 AM) 11:41 PM) BUN POC 19 mg/dL [8-26 mg/dL] (08/31/16 8:16 AM) Creatinine 0.8 mg/dL POC [0.6-1.3 (08/31/16 8:16 mg/dL] AM) Ca Ioniz POC 1.17 mmol/L [1.12-1.32 (08/31/16 8:16 mmol/L] AM) 1Result Comment: Patient or Family Refuses Medication or treatmentHEMATOLOGY Most recent 1 2 3 to oldest [Reference Range]: WBC 6.4 K/uL [4.0-10.0 (09/01/16 3:04 K/uL] AM) RBC 3.40 Million/uL [3.93-5.22 *LOW*(09/01/16 Million/uL] 3:04 AM) Hgb 10.1 g/dL [11.2-15.7 *LOW*(09/01/16 g/dL] 3:04 AM) Hct 32.2 % [34.1-44.9 *LOW*(09/01/16 %] 3:04 AM) MCV 94.7 fL (09/01/16 [79.0-94.8 3:04 AM) fL] MCH 29.7 pg (09/01/16 [25.6-32.2 3:04 AM) pg] MCHC 31.4 Gram/dL [32.2-36.5 *LOW*(09/01/16 Gram/dL] 3:04 AM) Platelet 220 K/uL 282 K/uL Count (09/01/16 3:04 (08/31/16 8:30 [163-369 AM) AM) K/uL] MPV 9.8 fL (09/01/16 [9.4-12.4 3:04 AM) fL] RDW 16.8 % [11.6-14.4 *HI*(09/01/16 %] 3:04 AM) Neut % 59.0 % (09/01/16 [34.0-71.0 3:04 AM) %] Neut # 3.76 K/uL [1.56-6.13 (09/01/16 3:04 K/uL] AM) Lymph % 20.9 % (09/01/16 [19.3-53.1 3:04 AM) %] Lymph # 1.33 x10(3)/uL [1.00-3.90 (09/01/16 3:04 x10(3)/uL] AM) [place] % 10.2 % [3.0-9.0 %] *HI*(09/01/16 3:04 AM) [place] # 0.65 K/uL [0.16-1.00 (09/01/16 3:04 K/uL] AM) Eos % 8.5 % [0.0-7.0 %] *HI*(09/01/16 3:04 AM) Eos # 0.54 x10(3)/uL [0.00-0.80 (09/01/16 3:04 x10(3)/uL] AM) Baso % 0.5 % (09/01/16 [0.0-1.5 %] 3:04 AM) Baso # 0.03 x10(3)/uL [0.00-0.20 (09/01/16 3:04 x10(3)/uL] AM) Hematocrit 36.0 % POC *LOW*(08/31/16 [38.0-51.0 8:16 AM) %] Hemoglobin 12.2 Gram/dL POC (08/31/16 8:16 [12.0-17.0 AM) Gram/dL] Slide Review No (09/01/16 3:04 AM) IG# 0.06 x10(3)/uL [0.00-0.05 *HI*(09/01/16 x10(3)/uL] 3:04 AM) IG% 0.90 % [0.00-0.60 *HI*(09/01/16 %] 3:04 AM) COAGULATION Most recent 1 2 3 to oldest [Reference Range]: ACT POC 204 Second(s) [79-149 *HI*(08/31/16 Second(s)] 10:29 AM) Immunizations No data available for this section Procedures Procedure Date Related Body Site Diagnosis heart cath - multi Social History Social History Response Type Smoking Status Current every day smoker; Years of Tobacco Use 55; Packs/Tins Daily 0.5; Month Tobacco Last Used yesterday Assessment and Plan Extracted from: Title: [place] Author: LESLIE, Date: 09/01/16 [facility] daily progress note Subjective NAD. Sitting on bedside and denies any new CV sx. Ready to go home Health StatusProblem list:All ProblemsCataract / SNOMED CT [id number] / ConfirmedAllergic rhinitis / SNOMED CT 052056206 / ConfirmedAngina / SNOMED CT 409235171 / ConfirmedArthritis / SNOMED CT 4857744 / ConfirmedBack pain / SNOMED CT 766342251 / ConfirmedBronchitis / SNOMED CT 90358820 / ConfirmedCA - Renal cancer / SNOMED CT 0812112157 / ConfirmedCardiac arrhythmia / SNOMED CT 2265653533 / ConfirmedCOPD / SNOMED CT 03992208 / ConfirmedCoronary artery disease / SNOMED CT 9013293810 / ConfirmedDiabetes mellitus type II / SNOMED CT 96062298 / ConfirmedFibroids / SNOMED CT 953060859 / ConfirmedGERD - Gastro-esophageal reflux disease / SNOMED CT 1149865117 / ConfirmedH/O: TIA / SNOMED CT 475680395 / ConfirmedHyperlipidemia / SNOMED CT 79589609 / ConfirmedImpaired vision / SNOMED CT 59477180 / ConfirmedCancer of lung / SNOMED CT 546485232 / ConfirmedMyocardial infarction / SNOMED CT 42647079 / ConfirmedPneumonia / SNOMED CT 618967293 / ConfirmedSinusitis / SNOMED CT 11746965 / ConfirmedStented coronary artery / SNOMED CT 6701853843 / ConfirmedUrinary tract infection / SNOMED CT 293140973 / Confirmed,Active Problems (22)Allergic rhinitis Angina Arthritis Back pain Bronchitis CA - Renal cancer Cancer of lung Cardiac arrhythmia Cataract COPD Coronary artery disease Diabetes mellitus type II Fibroids GERD - Gastro-esophageal reflux disease H/O: TIA Hyperlipidemia Impaired vision Myocardial infarction Pneumonia Sinusitis Stented coronary artery Urinary tract infection Urinary tract infection / SNOMED CT 825936071 / Confirmed, Active Problems (22) Allergic rhinitis Angina Arthritis Back pain Bronchitis CA - Renal cancer Cancer of lung Cardiac arrhythmia Cataract COPD Coronary artery disease Diabetes mellitus type II Fibroids GERD - Gastro-esophageal reflux disease H/O: TIA Hyperlipidemia Impaired vision Myocardial infarction Pneumonia Sinusitis Stented coronary artery Urinary tract infection ObjectiveIntake and Ehqbfj18 hour intake, 24 hour outputVS/MeasurementsVitals Signs (last 24 hrs) Last Charted Minimum MaximumTemp 98.5 (SEP 01 03:30)97.4 (AUG 31 18:58)98.5 (SEP 01:30)Apical HR L 18 (SEP 01:30)L 18 (SEP 01:30)L 18 (SEP 01:30)Mon HR 79 (SEP 01 09:04)59 (AUG 31 16:14)85 (AUG 31 20:30)Resp Rate 18 (SEP 01 03:00)18 (AUG 31 16:08)H 28 (AUG 31 15:30)SBP 135 (SEP 01 05:25)92 (AUG 31 17:30)H 143 (AUG 31 20:00)DBP 69 (SEP 01 05:25)L 44 (SEP 01 03:30)89 (AUG 31 20:00)MAP 85 (SEP 01 05:25)60 (SEP 01 01:45)100 (AUG 31 20:45)SpO2 100 (SEP 01 09:05)L 92 (AUG 31 20:30)100 (AUG 31 16:14)General: Alert and oriented.Eye: Pupils are equal, round and reactive to light.Neck: Supple, Non-tender, No jugular venous distention.Respiratory: Lungs are clear to auscultation.Cardiovascular: Normal rate, Regular rhythm, Rt groin cath site w/o hematoma.Gastrointestinal: Soft, Non-tender.Musculoskeletal: Normal range of motion, Normal strength.Integumentary: Warm, Dry.Neurologic: Alert, Oriented.Psychiatric: Cooperative. Gastrointestinal: Soft, Non-tender. Musculoskeletal: Normal range of motion, Normal strength. Integumentary: Warm, Dry. Neurologic: Alert, Oriented. Psychiatric: Cooperative. Results Review Telemetry: SEP 01 03:04 139 | 105 | 15 / H 254 4.5 | 26 | 0.80 \\ SEP 01 03:04 \\ L 10.1 / 6.4 220 / L 32.2 \\ Cardiac Markers (Current Encounter/Past 24 Hours) No Cardiac Marker Results Found (Past 24 Hours) No Radiology Results Found Impression and PlanIMPRESSION:CAD; s/p STORM to Rt PDAHTNCOPDHLP - untxDM-type 2Hx of renal and lung CAOSAPLAN:Discharge home today. Continue current CV meds + Lipitor. Recommend TCR. F/U with Dr. Herring as scheduled. CAD; s/p STORM to Rt PDA HTN COPD HLP - untx DM-type 2 Hx of renal and lung CA LESTER PLAN: Discharge home today. Continue current CV meds + Lipitor. Recommend TCR. F/U with Dr. Herring as scheduled. Hospital Discharge Instructions Patient EducationAcute Coronary Syndrome Coronary Angiogram With Stent, Care After Groin Site Care (Custom) (Custom) ([facility]) Heart-Healthy Eating Plan, [id number]"
--- OUTSIDE RECORDS SUMMARY | 2017-01-11 16:10 | External Medical Summary Rpt ---
Author Author [facility] Organization [facility] Address Unknown Phone Unavailable Care Team Providers Care Air/Ocean Export Clerk Name Role Phone RAUL, (REF) PCP [phone] Encounter [facility] Date(s): 08/31/16 - 09/01/16 [facility] [address] [place] [id number]- Discharge Disposition: OP Self Care or Home [...] 1.33 x10(3)/uL [1.00-3.90 (09/01/16 3:04 x10(3)/uL] AM) [place] % 10.2 % [3.0-9.0 %] *HI*(09/01/16 3:04 AM) [place] # 0.65 K/uL [0.16-1.00 (09/01/16 3:04 K/uL] [...] Health StatusProblem list:All ProblemsCataract / SNOMED CT [id number] / ConfirmedAllergic rhinitis / SNOMED CT 905764970 / ConfirmedAngina / SNOMED CT 764114956 / ConfirmedArthritis / SNOMED CT 0375874 / ConfirmedBack pain / SNOMED CT 723883231 / ConfirmedBronchitis / SNOMED CT 00925035 / ConfirmedCA - Renal cancer / SNOMED CT 6410774106 / ConfirmedCardiac arrhythmia / SNOMED CT 2202611865 / ConfirmedCOPD / SNOMED CT 84787666 / ConfirmedCoronary artery disease / SNOMED CT 2814856568 / ConfirmedDiabetes mellitus type II / SNOMED CT 04169697 / ConfirmedFibroids / SNOMED CT 097289428 / ConfirmedGERD - Gastro-esophageal reflux disease / SNOMED CT 4551130261 / ConfirmedH/O: TIA / SNOMED CT 124394457 / ConfirmedHyperlipidemia / SNOMED CT 30083263 / ConfirmedImpaired vision / SNOMED CT 53323346 / ConfirmedCancer of lung / SNOMED CT 656148140 / ConfirmedMyocardial infarction / SNOMED CT 27594528 / ConfirmedPneumonia / SNOMED CT 559578059 / ConfirmedSinusitis / SNOMED CT 69706854 / ConfirmedStented coronary artery / SNOMED CT 7911368159 / ConfirmedUrinary tract infection / SNOMED CT 365812124 / Confirmed,Active Problems (22)Allergic rhinitis Angina Arthritis Back pain Bronchitis CA - Renal cancer Cancer of lung Cardiac arrhythmia Cataract COPD Coronary artery disease Diabetes mellitus type II Fibroids GERD - Gastro-esophageal reflux disease H/O: TIA Hyperlipidemia Impaired vision Myocardial infarction Pneumonia Sinusitis Stented coronary artery Urinary tract infection Urinary tract infection / SNOMED CT 734602017 / Confirmed, Active Problems (22) Allergic rhinitis Angina Arthritis Back pain Bronchitis CA - Renal cancer Cancer of lung Cardiac arrhythmia Cataract COPD Coronary artery disease Diabetes mellitus type II Fibroids GERD - Gastro-esophageal reflux disease H/O: TIA Hyperlipidemia Impaired vision Myocardial infarction Pneumonia Sinusitis Stented coronary artery Urinary tract infection ObjectiveIntake and Crivhe51 hour intake, 24 hour outputVS/MeasurementsVitals Signs (last [...] Care After Groin Site Care (Custom) (Custom) ([facility]) Heart-Healthy Eating Plan, [id number]-er-[id number]"
--- OUTSIDE RECORDS SUMMARY | 2017-01-11 16:10 | External Medical Summary Rpt ---
Author Author [facility] Organization [facility] Address Unknown Phone Unavailable Purpose Continuity of Care Document - through 2016
--- OUTSIDE RECORDS SUMMARY | 2017-01-11 16:10 | External Medical Summary Rpt ---
Author Author [facility] Organization [facility] Address Unknown Phone Unavailable Care Team Providers Care Traffic Division Commanding Officer Name Role Phone RAUL, (REF) PCP [phone] [facility] DANIE [id number] Date(s): 11/15/16 - 11/15/16 [facility] [address] [place] [address]- Discharge Disposition: OP Self Care or Home [...]
--- OUTSIDE RECORDS SUMMARY | 2017-01-11 16:10 | External Medical Summary Rpt ---
Author Author [facility] Organization [facility] Address Unknown Phone Unavailable Care Team Providers Care Freight Flow Sales Leader Name Role Phone RAUL, (REF) PCP [phone] Encounter [facility] [id number] Date(s): 11/14/16 - 11/15/16 [facility] [address] [place] [address]- [phone] Discharge Disposition: OP Self Care or Home [...]
--- OUTSIDE RECORDS SUMMARY | 2017-01-11 16:11 | External Medical Summary Rpt ---
Author Author [facility], [facility] Organization [employer] [employer] Address Unknown Phone Unavailable
--- OUTSIDE RECORDS SUMMARY | 2017-01-11 16:11 | External Medical Summary Rpt ---
Demographics Preferred Language Romanian Marital Status Unknown Caodaism Affiliation Unknown Race Unknown Ethnic Group Unknown Author Author , Organization [employer] Address Unknown Phone Unavailable Purpose Continuity of Care Document - through 2016 Immunization No patient found.
--- OUTSIDE RECORDS SUMMARY | 2017-01-11 16:11 | External Medical Summary Rpt ---
Demographics Preferred Language Canadian Marital Status Unknown Quaker Affiliation Unknown Race Unknown Ethnic Group Unknown Author Author , Organization [employer] Address Unknown Phone Unavailable Purpose Continuity of Care Document - through 2016 Immunization No patient found.
[2017-01-11 16:31] LABS: HEMOGLOBIN 10.9 g/dL (12.2-16.2); LYMPH # 1.3 K/mm3 (0.7-4.5); LYMPH % 10.3 % (10-50.0)
[2017-01-11 16:57] LABS: NEUTROPHILS 88 % (42-76)
--- NOTE | 2017-01-11 16:59 | RADIOLOGY REPORT PS360 ---
CHEST(2 VIEWS-NOT PORTABLE) HISTORY: Cough and congestion R/O PNEUMONIA ORDERING PHYSICIAN: Alan Schulte MD PATIENT AGE: 77 years COMPARISON: 11/25/2016 FINDINGS: The cardiomediastinal silhouette and pulmonary vascularity are within normal limits. Chronic parenchymal changes are once again noted in the right upper lobe. Old right-sided rib fractures are also present.. COPD. No lobar consolidation or collapse. Chronic changes are present in the lingula unchanged. No acute bony anomalies. IMPRESSION: Chronic changes, no change with no acute finding.
[2017-01-11 19:32] VITALS: BP 133/64
[2017-01-11 19:54] VITALS: BP 133/64
[2017-01-11 20:00] VITALS: BP 133/64
[2017-01-12 04:22] VITALS: BP 116/69
[2017-01-12 06:39] LABS: HEMOGLOBIN 10.4 g/dL (12.2-16.2); LYMPH % 9.5 % (10-50.0)
--- NOTE | 2017-01-12 07:21 | PHARMACY CLINIC NOTE ---
Patient Demographics Patient Demographics Admission date: 01/11/17 Date: 01/12/17 Time: 07 Allergies Coded Allergies: Sulfa (Sulfonamide Antibiotics) (08/06/16) codeine (08/06/16) HEIGHT- FT: 5 IN: 2.00 K.926 VTE General Information Labs: Laboratory Tests 01/12 01/11 0605 1610 Hematology Hgb (12.2 - 16.2 g/dL) 10.4 L 10.9 L Hct (37.0 - 47.0 %) 33.3 L 35.3 L Plt Count (142 - 424 K/mm3) 259 296 Disclaimer The following section includes nursing documentation that has been pulled in for pharmacy review. Patient's VTE score: 5 Patient's VTE Risk: LOW RISK Clinical trial participant? No VTE prophylaxis [id number] VTE prophylaxis ordered? Yes Type of prophylaxis/treatment: MARIANA at 0721
[2017-01-12 07:42] VITALS: BP 134/66
--- NOTE | 2017-01-12 08:08 | ACUTE CARE PROGRESS NOTE (QUA) ---
Progress Notes Subjective Date 01/12/17 Time 0715 Note Patient is sitting on the side of the bed eating breakfast. Reports "I don't feel good." CXR showed no acute pathology and WBC is down this morning. Alert and oriented x3. NAD. Rate and rhythm regular. Lung sounds with wheezes throughout, air flow improved, loose rhonchi on left. Abdomen soft and non- tender. No LE edema. Patient/family reports: feeling better Nursing reports: no complaints Objective Findings Last VS-Temp:97.5 B/P:134/66 Pulse:97 Resp:18 SaO2:98 OXYGEN Last weight lbs:125 oz:8 K.926 Method:Bed Scales Reviewed: medications, vital signs, lab results, radiology report Assessment/Plan Problem List 1. Acute exacerbation of chronic bronchitis Assessment/Plan: Continue IV antibiotics, duonebs and solumedrol. Sputum culture pending. Patient condition Improving Plan: continue current care This inpt stay is expected to cross 2 MNs from start of care Yes at 0807
[2017-01-12 09:00] VITALS: BP 109/48
[2017-01-12] MEDS ORDERED: ALBUTEROL2.5 MG/NEB INH (09:24)
[2017-01-12] MEDS ORDERED: IPRATROPIUM 2.2.5 ML INH (09:32)
[2017-01-12 16:07] VITALS: BP 109/48
[2017-01-12 20:06] VITALS: BP 127/62
[2017-01-12 21:04] VITALS: BP 127/62
[2017-01-13 04:56] VITALS: BP 111/57
--- NOTE | 2017-01-13 07:40 | ACUTE CARE PROGRESS NOTE (QUA) ---
Progress Notes Subjective Date 01/13/17 Time 0738 Note Overall patient feels a little better vis--vis breathing, but continues to have some shortness of air with exertion such as going to the restroom and some chest pains. She is pleasant, alert. Oriented 3. Oropharynx clear. Heart rate regular without murmurs. Lungs continue to have expiratory wheezing and some loose rhonchi but fairly symmetric air entry into both bases. No edema noted. Objective Findings Last VS-Temp:97.8 B/P:111/57 Pulse:90 Resp:20 SaO2:98 OXYGEN Last weight lbs:125 oz:8 K.926 Method:Bed Scales Assessment/Plan Problem List 1. Acute exacerbation of chronic bronchitis 2. Coronary atherosclerosis Patient condition Improving, patient is improving, albeit slowly. Continue current therapy. Add Mucomyst for sputum clearance. Echocardiogram to evaluate valve function, shortness of air and chest pain in this patient with known coronary atherosclerotic disease. This inpt stay is expected to cross 2 MNs from start of care Yes Antibiotic Stewardship (2) Current Culture Results Microbiology 01/11 1630 BLOOD: Anaerobic Blood Culture - RECD 01/11 1630 BLOOD: Aerobic Blood Culture - RECD Infxn that will respond? Yes Right drug,dose,and route? Yes More targeted antbx? No How long atbx needed? 7 at 0740
[2017-01-13 08:00] VITALS: BP 130/68
[2017-01-13 16:00] VITALS: BP 118/56
[2017-01-13 16:43] VITALS: BP 130/68
[2017-01-13 20:30] VITALS: BP 130/46
[2017-01-13 20:35] VITALS: BP 130/46
[2017-01-14] VITALS (7 sets, daily range): BP systolic 118–152; BP diastolic 52–77
[2017-01-14 07:28] LABS: HEMOGLOBIN 10.1 g/dL (12.2-16.2); LYMPH # 1.2 K/mm3 (0.7-4.5); LYMPH % 10.1 % (10-50.0)
--- NOTE | 2017-01-14 07:54 | ACUTE CARE PROGRESS NOTE (QUA) ---
Progress Notes Subjective Date 01/14/17 Time 0752 Note Patient feels somewhat better with the addition of Mucomyst nebulizer treatments. No fevers. Less chest pain. Lungs are clearer with looser rhonchi but still with fairly significant crackles in the LEFT lower lung field. RIGHT side is fairly clear. Heart rate regular. No edema. Alert, pleasant,had a good breakfast. Objective Findings Last VS-Temp:97.5 B/P:128/60 Pulse:88 Resp:18 SaO2:98 OXYGEN Last weight lbs:130 oz:3 K.052 Method:Bed Scales Assessment/Plan Problem List 1. Acute exacerbation of chronic bronchitis 2. Coronary atherosclerosis 3. Streptococcal bacteremia Patient condition Improving Plan: continue current care, long discussion last night with family. They would prefer swing bed placement. PICC line placement on Monday. Continue current antibiotic therapy. Sputum culture if possible. This inpt stay is expected to cross 2 MNs from start of care Yes Antibiotic Stewardship (2) Current Culture Results Microbiology 01/11 1630 BLOOD: Anaerobic Blood Culture - RECD 01/11 1630 BLOOD: Aerobic Blood Culture - RECD Infxn that will respond? Yes Right drug,dose,and route? Yes More targeted antbx? No How long atbx needed? 14 at 0754
[2017-01-14 10:33] LABS: NEUTROPHILS 88 % (42-76)
[2017-01-15 04:00] VITALS: BP 142/68
--- NOTE | 2017-01-15 07:27 | ACUTE CARE PROGRESS NOTE (QUA) ---
Progress Notes Subjective Date 01/15/17 Time 0726 Note Overall patient feels a little better this morning. She had trace ankle edema last night and we discontinued her IV fluids. She is eating and drinking well. Lungs have rhonchi in the LEFT base, improved. No wheezing. No use of accessory muscles. Pulse rate regular. No edema this morning. Objective Findings Last VS-Temp:97.8 B/P:142/68 Pulse:91 Resp:20 SaO2:98 OXYGEN Last weight lbs:131 oz:5 K.562 Method:Bed Scales Assessment/Plan Problem List 1. Acute exacerbation of chronic bronchitis 2. Coronary atherosclerosis 3. Streptococcal bacteremia Patient condition Improving Plan: continue current care, await final culture results. Probable swing bed transfer tomorrow. Will also need PICC line placement. This inpt stay is expected to cross 2 MNs from start of care Yes Antibiotic Stewardship (2) Infxn that will respond? Yes Right drug,dose,and route? Yes More targeted antbx? No at 6026
[2017-01-15 08:00] VITALS: BP 141/75
[2017-01-15 09:26] VITALS: BP 141/75
[2017-01-15 16:09] VITALS: BP 144/79
[2017-01-15 20:18] VITALS: BP 140/60
[2017-01-15 21:01] VITALS: BP 140/60
[2017-01-16 04:30] VITALS: BP 108/58
--- NOTE | 2017-01-16 07:26 | ACUTE CARE PROGRESS NOTE (QUA) ---
Progress Notes Subjective Date 01/16/17 Time 0725 Note Overall patient feels pretty good. No further leg swelling. Breathing is about the same. Eating breakfast well. Lungs have some rhonchi in the LEFT lung field. Good air movement. Abdomen soft and nontender. Objective Findings Last VS-Temp:97.5 B/P:108/58 Pulse:86 Resp:18 SaO2:97 OXYGEN Last weight lbs:129 oz:2 K.57 Method:Bed Scales Assessment/Plan Problem List 1. Acute exacerbation of chronic bronchitis 2. Coronary atherosclerosis 3. Streptococcal bacteremia Patient condition Improving Plan: continue current care, given streptococcal sepsis change to better coverage with ampicillin/sulbactam 3 times a day. Swing bed evaluation today. This inpt stay is expected to cross 2 MNs from start of care Yes Antibiotic Stewardship (2) Infxn that will respond? Yes Right drug,dose,and route? Yes More targeted antbx? No at 0797
[2017-01-16 08:33] VITALS: BP 123/60
--- NOTE | 2017-01-16 08:34 | RADIOLOGY REPORT PS360 ---
PROCEDURE: INDICATIONS FOR THE TEST: Chest pain X COPD Heart Murmur Tobacco SmokingX Palpitations Fatigue Syncope Edema HypertensionXDiabetes Mellitus Rheumatic Fever SOBXDOEXObesity HyperlipidemiaX Family History HD Additional History CAD PATIENT INFORMATION HEIGHT: 62 WEIGHT:125 GENDER: Female B/P:111/57 2-D/M-MODE INTERPRETATION: 2-D MEASUREMENTS OBSERVED VALUES IN CMS Right Ventricular Dimension (RVDd) 1.4 Interventricular Septum (Thickness)(IVsd) .9 Left Ventricular Internal Dimensions(LVIDd) 4.2 Left Ventricular Posterior Wall (Thickness)(LVPWd) .8 Aortic Root 2.9 Aortic Cusp Separation 1.2 Left Atrial Dimensions (LAD) 2.5 2D 1. The left atrium is normal size, left ventricle is normal size, there is no concentric left ventricular hypertrophy, visually estimated ejection fraction approximately 50%, there appears to be inferobasal wall hypokinesis. Endocardial surfaces are somewhat poorly visualized. 2. The right atrium and right ventricle are relatively normal size and function. 3. The aortic valve is minimally thickened and calcified. 4. The mitral and tricuspid valve is structurally normal. 5. Pulmonic valve is not well visualized. 6. No significant pericardial effusion noted. DOPPLER INTERROGATION: Doppler interrogation of the aortic mitral and tricuspid valvular presence of mild mitral and tricuspid regurgitation, tricuspid regurgitant jet velocity insufficient for calculation of the right ventricular systolic pressure, grade 1 diastolic dysfunction seen with tissue Doppler evidence of raised left atrial pressure. CONCLUSION: 1. Mildly enlarged left atrium, normal left ventricular size, visually estimated ejection fraction 50% with segmental wall motion abnormality described above, endocardial surfaces are somewhat poorly visualized, grade 1 diastolic dysfunction seen with tissue Doppler evidence of raised left atrial pressure. 2. Mild mitral and tricuspid regurgitation. 3. No significant pericardial effusion noted.
[2017-01-16 09:00] VITALS: BP 123/60
--- NOTE | 2017-01-16 10:56 | DISCHARGE SUMMARY STANDARD ---
Demographics Admit date: 01/11/17 Discharge date: 01/16/17 History of present illness History of present illness 77-year-old white female with long history of emphysema with recurrent exacerbations and recurrent pneumonia, who we admitted from the office on January 11. She was admitted for IV antibiotics. Please see scanned H&P in the chart for details of admission diagnoses. Hospital Course Hospital Course: Patient was admitted acute [facility]. Levaquin therapy was started and patient improved nicely. Blood cultures returned positive for Streptococcus species in the aerobic bottles from her admission culture. Sputum culture may nondiagnostic. Because of her need for long-term IV antibiotics she was transferred to the swing bed today for ongoing IV antibiotics, dual coverage for streptococcal sepsis and continued pulmonary toilet and hygiene. Of note echocardiogram and cardiac enzymes were done during her hospitalization for chest pain syndromes. These were unremarkable compared to prior evaluations. Discharge diagnoses Problem List 1. Acute exacerbation of chronic bronchitis 2. Coronary atherosclerosis 3. Streptococcal bacteremia Medications Medications: Discharge meds are as noted. Follow up Follow up in office in: 1 DAY with: Alan Schulte MD at 1316
--- NOTE | 2017-01-16 10:56 | DISCHARGE SUMMARY STANDARD ---
Demographics Admit date: 01/11/17 Discharge date: 01/16/17 History of present illness History of present illness 77-year-old white female with long history of emphysema with recurrent exacerbations and recurrent pneumonia, who we admitted from the office on January 11. She was admitted for IV antibiotics. Please see scanned H&P in the chart for details of admission diagnoses. Hospital Course Hospital Course: Patient was admitted acute [facility]. Levaquin therapy was started and patient improved nicely. Blood cultures returned positive for Streptococcus species in the aerobic bottles from her admission culture. Sputum culture may nondiagnostic. Because of her need for long-term IV antibiotics she was transferred to the swing bed today for ongoing IV antibiotics, dual coverage for streptococcal sepsis and continued pulmonary toilet and hygiene. Of note echocardiogram and cardiac enzymes were done during her hospitalization for chest pain syndromes. These were unremarkable compared to prior evaluations. Discharge diagnoses Problem List 1. Acute exacerbation of chronic bronchitis 2. Coronary atherosclerosis 3. Streptococcal bacteremia Medications Medications: Discharge meds are as noted. Follow up Follow up in office in: 1 DAY with: Alan Schulte MD at [id number]
[2017-01-16 11:10] VITALS: BP 123/60
--- NOTE | 2017-01-16 11:27 | RADIOLOGY REPORT PS360 ---
CHEST PORTABLE-PICC PLACEMENT Ordering Physician: Alan Schulte MD Patient Age: 77 years: Female HISTORY: PICC LINE INSERTIONrib density right chest. TECHNIQUE: AP portable upright chest FINDINGS PICC line Enters from right arm, transversing right subclavian vein with tip at SVC just superior to the right atria. Good position. The lungs appear stable, again noted the triangular density at the periphery of the right upper lobe is similar to studies dating back to 2015 and 16. Appears be relatively stable feature. Overlying right fourth fifth and sixth rib healing slight irregular appearing healing rib fractures noted. The left lung remains clear. Heart and mediastinal structures stable. IMPRESSION: PICC line in place. Stable position . triangular density at periphery right upper lobe again noted and similar to previous 2017 2016 chest study.Warrants ongoing follow-up... Again noting the associated slight irregular healing rib fractures overlying this area.
== END 2017-01-16 11:27 | disposition swing bed (61) | DRG 190 ==
LOC: 2ND 14:30
PROVIDERS: Internal Medicine Adolescent Medicine
PROC: 05H933Z Insertion of Infusion Device into Right Brachial Vein, Percutaneous Approach (ICD-10-PCS; principal; 2017-01-16)
DX: J44.1 Chronic obstructive pulmonary disease with (acute) exacerbation (principal); J18.9 Pneumonia, unspecified organism; E11.9 Type 2 diabetes mellitus without complications; J20.9 Acute bronchitis, unspecified; B95.5 Unspecified streptococcus as the cause of diseases classified elsewhere; Z85.118 Personal history of other malignant neoplasm of bronchus and lung; J44.0 Chronic obstructive pulmonary disease with (acute) lower respiratory infection; Z85.528 Personal history of other malignant neoplasm of kidney
CPT/HCPCS: C1751

== ENCOUNTER → 2017-02-02 | Outpatient (CLI) | payer MEDICARE ==
[~2017-02-02] MED LIST changes: +ALBUTEROL2.5 MG/NEB INH; -ATENOLOL25 MG PO; +CYCLOBENZAPRINE10 M1 PO; +HUMULIN 70100 UNITS/ SC; +IPRATROPIUM 2.2.5 ML INH; +LIVALO4 MG PO; +METFORMIN 500M500 M1 PO; +PHENERGAN W/CO473 M1 PO; +PREDNISONE 20MG20 MG PO; +ZITHROMAX Z-PA250 M2 PO
== END ==
LOC: CARL-LAB 11:40
DX: E11.9 Type 2 diabetes mellitus without complications (principal)

== ENCOUNTER → 2017-03-14 | Outpatient (CLI) | payer MEDICARE ==
[2017-03-14 13:31] LABS: URINE BILIRUBIN - DIPSTICK NEGATIVE (NEG); URINE BLOOD 3+ (NEG)
[2017-03-14 13:50] LABS: URINE SQUAMOUS CELLS OCC #/hpf (0-5)
== END ==
LOC: CARL-LAB 10:29
PROVIDERS: Internal Medicine Adolescent Medicine
DX: R35.0 Frequency of micturition (principal)

== ENCOUNTER 2017-04-02 19:55 | Inpatient (IN) | payer MEDICARE ==
[~2017-04-02] VITALS: Ht 157.5 cm; Wt 57.0 kg
[2017-04-02 20:07] VITALS: BP 153/117
--- NOTE | 2017-04-02 20:31 | Emergency Room Report ---
History of Present Illness Time Seen by 2004 Presenting Problem in Triage Pt arrived:Wheelchair Presenting Problem:AT ABOUT LUNCH TIME TODAY SHE BEGAN HAVING SOME ISSUES WITH BREATHING. FAMILY STATES THAT SHE HAS DONE WELL FOR ABOUT 10 DAYS UNTIL TODAY. HURTS WHEN SHE PEES. 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 N Clinical Suspician of Infection? N Mental Status: 1 - Regular (Normal Baseline) Sepsis Risk:Low Sepsis Risk Have you (or family members/close friends) recently traveled outside the [facility]? N If Yes, where/when: Have you had exposure to infectious disease within the past month? N TB? Other? Specify: Comment The patient has multiple complaints, states "everything" is bothering her. Her main complaint is difficulty breathing and cough. She has been battling pneumonia for 6 months. She was just released from [facility] about 10 days ago. She was sent from here because of possible problems with her heart, but family states she has no problems with her heart, but was diagnosed with pneumonia and acute kidney injury. She just finished Augmentin today. For the past 3 days her cough is worsened. Today she has increased shortness of breath. She also complains of a backache and pain on her side, which have been symptoms of her pneumonia. She has not had a fever. Sputum is clear. She has also had a couple of urinary tract infections recently, and is still complaining of dysuria. She has seen her PCP, Dr. Schulte, in follow-up on 3 days ago. She was told "her lungs sound as well as can be expected" and her creatinine had decreased from 3.1 at discharge to 2.8 on that date. ALLERGIES Coded Allergies: Sulfa (Sulfonamide Antibiotics) (03/18/17) Home Medications Active Scripts Lorazepam (Lorazepam 1MG) 1 MG PO TID #60 TAB Prov: 02/06/17 Azithromycin (Zithromax) 250 MG PO DAILY #6 TAB Prov: 02/16/17 INSUL REG 30%ISOPHAN 70% HUMAN (Humulin 70-30 Vial) 10 UNITS SC BID #1 INJ Prov: 02/16/17 Reported Medications BUDESONIDE/FORMOTEROL FUMARATE (Symbicort 80-4.5 Mcg Inhaler) 2 PUFF IH BID Ipratropium [place] (Ipratropium 0.5MG Neb Soln) 0.5 MG INH TID Aspirin (Adult Low Dose Aspirin EC) 81 MG PO DAILY ATENOLOL (Atenolol 50MG) 25 MG PO DAILY OMEPRAZOLE MAGNESIUM (Prilosec 20MG) 20 MG PO DAILY Metformin HCl (Metformin) 1,000 MG PO BID #270 TAB Pitavastatin Calcium (Livalo) 4 MG PO DAILY #30 TAB ALBUTEROL (Albuterol 0.083% Neb) 1.25 MG INH TID Fluoxetine Hcl (Fluoxetine 10MG) 10 MG PO DAILY Temazepam (Restoril 30MG) 30 MG PO QHS LISINOPRIL (Lisinopril) 5 MG PO DAILY Trazodone Hcl (Trazodone HCl) 150 MG PO QHS History Medical History General CAD? Yes Angina: Yes [place]: Yes Hypertension? No Hyperlipidemia? Yes CHF? No DVT? No PE? No COPD? Yes Asthma? No Anemia? No GERD? Yes Gastric ulcers? No GI Bleed? No Hernia? Yes Thyroid Problems? No Hypothyroidism? No CVA? Yes Seizures? No Diabetes? 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 No End Stage Renal Disease? No UTI? No Stones? No BPH? No GB Disease: Yes Nephritic Syndrome? No Asplenia? No Hepatitis? No Sickle Cell Disease? No Arthritis? Yes Migraines? No Cataracts? Yes Glaucoma? No MRSA? No HIV? No TB? No Anxiety? Yes Depression? 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 No Immunization Hx Ped.Immunizations UTD Yes DT/Tetanus 5-10 Years Ago Flu 2015-FSN Pneumonia Received In Past Surgical Hx Previous Surgery?Y PARTIAL HYSTERECTOMY - 83 COMPLETE HYST - 88 HEART ATTACK - 89 GALLBLADDER SURG - 90 HERNIA REPAIR 06/14 BILAT CATARACTS CARDIAC STENTS 2003 BLADDER CA-"LASER " SURG CYBERKNIFE RADIATION LUNG Family History Family Hx Diabetes Yes CAD Yes Hypertension No Hyperlipidemia No Cancer Yes TB No Social History Smoking Hx Smoker: Never Smoker Tobacco: No Packs/day < 1 Pack Alcohol Alcohol: No Review of Systems All Other Systems Reviewed and Negative Constitutional denies fever Respiratory cough, shortness of breath Cardiovascular chest pain Genitourinary dysuria. Musculoskeletal back pain Physical Exam Vital Signs Vital Signs Date Time Temp Pulse Resp B/P Pulse O2 O2 Flow FiO2 Ox Delivery Rate 04/02 2226 98.7 54 16 142/72 97 2 04/022 54 16 142/72 97 04/02 2150 14 04/027 86 20 176/89 98 2 04/02 2007 98.7 83 20 153/117 93 2 General Appearance normal appearance, WD/WN Eye Exam - bilateral eye normal exam, bilateral eye PERRL, bilateral eye EOMI Ear, Nose, Throat hearing grossly normal, normal ENT inspection Neck normal inspection, non-tender, supple, full range of motion Respiratory Status Yes: trachea midline, chest symmetrical, non productive cough. No: respiratory distress. Lung Sounds bilateral: normal breath sounds, lungs clear. 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 Yes Bao was queried for this patient? No Reason not queried - emergent pt cond=no time Results/Orders Laboratory Tests 04/02/170: Lactic Acid 1.9 04/02/172024: Lactic Acid Cancelled 04/02/172022: Lactic Acid 2.1 H 04/02/172022: Creatine Kinase 62, CK-MB (CK-2) Rel Index 0.8, CK and CKMB Interp < 0.5, Troponin I < 0.02 04/02/172022: B-Natriuretic Peptide 1410 H 04/02/172022: Sodium 133 L, Potassium 4.7, Chloride 95 L, Carbon Dioxide 31, BUN 21 H, Creatinine 2.3 H, Estimated Creat Clear 18 L, Estimated GFR (MDRD) 21 L, Glucose 230 H, Calcium 8.3 L, Total Bilirubin 0.4, AST 29, ALT 20, Alkaline Phosphatase 141 H, Total Protein 6.9, Albumin 2.3 L, Globulin 4.6 H, Albumin/ Globulin Ratio 0.5 L, WBC 10.1, RBC 3.39 L, Hgb 9.5 L, Hct 30.7 L, MCV 90.6, RDW 16.6, Plt Count 244, MPV 8.7, Gran % 74.8, Gran # 7.6, Lymphocytes % 18.2, Monocytes % 5.3, Eosinophils % 1.4, Basophils % 0.3, Lymphocytes # 1.9, Monocytes # 0.5, Eosinophils # 0.1, Basophils # 0.0, PUBS MCHC 30.9 L, MCH 28.0 04/02/172004: Urine Color YELLOW, Urine Appearance CLEAR, Urine pH 7.0, Ur Specific [place] <= 1.005, Urine Protein NEGATIVE, Urine Ketones NEGATIVE, Urine Blood 3+ H, Urine Nitrate NEGATIVE, Urine Bilirubin NEGATIVE, Urine Urobilinogen 0.2, Ur Leukocyte Esterase NEGATIVE, Urine RBC 20-50, Ur Squamous Epith Cells 5-10, Urine Yeast OCC, Urine Glucose 1+ H Current Medication Orders Sig/[place] Start time Last Medication Dose Route Stop Time Status Admin Aspirin 81 MG DAILY 04/03 900 UNV PO Atenolol 25 MG DAILY 04/03 900 UNV PO Lorazepam 1 MG TID 04/03 900 UNV PO Diagnostic Test (Pha) 1 EACH W/MEALS&HS 04/03 700 UNV FS 06/02 06 Insulin Human [rDNA See Dose W/MEALS&HS 04/03 700 UNV origin] Insts (1) SC Albuterol/Ipratropium 3 ML QIDRT 04/03 600 UNV INH Acetaminophen 650 MG Q4HP PRN 04/02 2215 UNV PO Miscellaneous 0 CONSULT PHARMACY 04/02 2215 UNV Information * 04/03 1012 Miscellaneous 0 CONSULT PHARMACY 04/02 2215 UNV Information * 04/03 1013 Nicotine 21 MG DAILYP PRN 04/02 2215 UNV TD Ondansetron HCl 4 MG Q8HP PRN 04/02 2215 UNV 04/02 IV 2306 Sodium Chloride 10 ML PRN PRN 04/02 2215 UNV IV Sodium Chloride 100 ML .STK-MED ONE 04/02 2156 DC IV Cefepime HCl 1 GM ONCE ONE 04/02 2145 DC 04/02 Sodium Chloride 50 ML IV 04/02 2214 2151 Fluconazole 150 MG ONCE ONE 04/02 2145 DC 04/02 PO 04/02 2146 2150 Levofloxacin/Dextrose 100 ML ONCE ONE 04/02 2145 DCr 04/02 IV 04/02 2244 2151 Cefepime HCl 0 .STK-MED ONE 04/02 2140 DC IV Fluconazole 0 .STK-MED ONE 04/02 214 DC PO Levofloxacin/Dextrose 100 ML .STK-MED ONE 04/02 214 DC IV Sodium Chloride 50 ML .STK-MED ONE 04/02 2140 DC IV Lorazepam 0 .STK-MED ONE 04/02 2139 DC .ROUTE Lorazepam 1 MG ONCE ONE 04/02 2115 DC 04/02 PO 04/02 2116 215 Sodium Chloride 10 ML PRN PRN 04/02 2015 AC IV 04/03 2014 Dose Instructions: (1)Insulin Human [rDNA origin]: SEE ADMIN CRITERIA FOR MEDIUM INTENSITY Orders Procedure Date/time Status DIET-2000 CALORIE ADA 04/03 B Active CBC WITH AUTO DIFF 04/03 600 Active BASIC METABOLIC PROFILE 04/03 600 Active LACTIC ACID FOLLOW UP 04/02 2146 Complete Decision to admit 04/02 2130 Active CARDIAC ENZYMES 04/02 2053 Complete BRAIN NATRIURETIC PEPTIDE 04/02 2053 Complete CULTURE, SPUTUM 04/02 2025 Active CULTURE, BLOOD 04/02 2025 Active URINALYSIS/COMPLETE 04/02 2025 Complete ELECTROCARDIOGRAM REQUEST 04/02 2015 Active CHEST-PORTABLE 04/02 2015 Active IV SALINE LOCK 04/02 2015 Active LACTIC ACID 04/02 2015 Complete CBC WITH AUTO DIFF 04/02 2015 Complete CHEM 12 PROFILE 04/02 2015 Complete ADMIT PATIENT 04/02 UNK Active 12 LEAD EKG-[place] (INITIAL) 04/02 UNK Active PULSE OXIMETRY REQUEST 04/02 UNK Active OXYGEN REQUEST 04/02 UNK Active RT REQUEST DUONEB 04/02 UNK Active VITAL SIGNS 04/02 UNK Active POM NURSE MARIANA HOSE ORDER 04/02 UNK Active IV SALINE LOCK 04/02 UNK Active CODE STATUS 04/02 UNK Active PATIENT ACTIVITY ORDER 04/02 UNK Active CM/EKG CM/EKG Comments EKG interpreted by Ed Landry MD: Rhythm: sinus Rate: 81 [place]: normal Ectopy: none Conduction: normal ST Segment Changes: none T Wave Changes: none Q Waves: none No evidence of acute ischemia or injury The patient is tremulous and there is significant baseline artifact present, unable to obtain a better tracing XRAY/CT/US XRAY/CT/US XRAY chest Comment X-ray interpreted by Ed Landry M.D.: chronic scar RIGHT upper lobe. Bibasilar airspace disease, LEFT pleural effusion Progress - 9:14 PM: Patient and family request medication for her nerves. She has an active prescription for lorazepam 1 mg. 9:29 PM: I have discussed the case with Dr. King for Dr. Schulte who agrees to admit the patient to the hospital. We discussed the patient's clinical information, including history, exam, laboratory and radiology results and ED course. Per hospital procedure, I will write temporary bridge inpatient orders on the patient. Specific orders requested by the admitting physician: Levaquin and cefepime. One dose of Diflucan. Recheck labs in the morning. Departure Departure Disposition Still a Patient Clinical Impression Primary Impression: Pneumonia Qualifiers: Pneumonia type: due to unspecified organism Laterality: bilateral Lung location: lower lobe of lung Qualified Code: J18.9 - Pneumonia, unspecified organism Condition STABLE Referrals Alan Schulte MD (Family) ED Critical Care Critical Care No at [id number]
[2017-04-02 20:38] LABS: HEMOGLOBIN 9.5 g/dL (12.2-16.2); LYMPH # 1.9 K/mm3 (0.7-4.5); LYMPH % 18.2 % (10-50.0)
[2017-04-02 20:48] LABS: URINE BILIRUBIN - DIPSTICK NEGATIVE (NEG); URINE BLOOD 3+ (NEG)
--- OUTSIDE RECORDS SUMMARY | 2017-04-02 21:02 | External Medical Summary Rpt ---
Author Author [facility] Organization [facility] Address Unknown Phone Unavailable Care Team Providers Care Marketing Information Coordinator Name Role Phone Johny MCCOY PCP [phone] Encounter [facility] Date(s): 03/18/17 - 03/22/17 [facility] [address] [id number] [phone] Discharge Disposition: IP Self Care / Home Attending Physician: IRMA SALGUERO Admitting Physician: IRMA SALGUERO Referring Physician: IRMA SALGUERO Reason for Visit CHEST PAIN, UNSPECIFIED Vital Signs Most recent 1 2 3 to oldest [Reference Range]: Temperature Oral Oral Oral Source (03/22/17 7:13 AM) (03/22/17 4:10 AM) (03/22/17 3:41 AM) Temperature Fahrenheit Fahrenheit Fahrenheit Mode (03/22/17 7:13 AM) (03/22/17 4:10 AM) (03/22/17 3:41 AM) Temperature, 98.3 Deg F 97.9 Deg F 97.6 Deg F Fahrenheit (03/22/17 7:13 AM) (03/22/17 4:10 AM) (03/22/17 3:41 AM) [96.8-99.7 Deg F] Clinical 36.8 Deg C 36.6 Deg C 36.4 Deg C Temperature, (03/22/17 7:13 AM) (03/22/17 4:10 AM) (03/22/17 3:41 AM) C Heart Rate 82 bpm 80 bpm 81 bpm Monitored (03/22/17 8:06 AM) (03/22/17 7:48 AM) (03/22/17 7:13 AM) [60-100 bpm] Respiratory 18 Breaths/Min 18 Breaths/Min 20 Breaths/Min Rate [14-20 (03/22/17 8:06 AM) (03/22/17 7:48 AM) (03/22/17 7:00 AM) Breaths/Min] Blood 145/65 mmHg 154/85 mmHg 135/76 mmHg Pressure *HI* *HI* (03/21/17 11:10 [90-140/60-9 (03/22/17 7:13 AM) (03/22/17 4:10 AM) PM) 0 mmHg] Mean 92 mmHg 108 mmHg 96 mmHg (03/21/17 Arterial (03/22/17 7:13 AM) (03/22/17 4:10 AM) 11:10 PM) Pressure (MAP) Mean 101 103 94 (03/21/17 11:10 Arterial (03/22/17 7:13 AM) (03/22/17 4:10 AM) PM) Pressure (MAP)-BMDI Oxygen 98 % 97 % 97 % (03/21/17 Saturation (03/22/17 7:13 AM) (03/22/17 4:10 AM) 11:10 PM) [94-100 %] Oxygen Nasal cannula Nasal cannula Nasal cannula Therapy Mode (03/22/17 7:53 AM) (03/22/17 7:48 AM) (03/22/17 7:13 AM) Oxygen Flow 2.5 Liter/Min 2 Liter/Min 2 Liter/Min Rate (03/22/17 7:48 AM) (03/22/17 7:13 AM) (03/22/17 12:32 AM) Height Estimated Source (03/18/17 2:05 PM) Height Entry [place] Format (03/18/17 2:05 PM) Height/Lengt 5 ft h, LIBYAN (03/18/17 2:05 PM) (ft) Height/Lengt 2 Inch h LIBYAN (03/18/17 2:05 PM) CLINICALHEIG 157.48 cm HT (03/18/17 2:05 PM) Weight Bed scale Source (03/18/17 2:05 PM) Weight Entry [place] Format (03/18/17 2:05 PM) Weight 118 lb [place] lb (03/18/17 2:05 PM) CLINICALWEIG 53.64 kg HT (03/18/17 2:05 PM) Body Surface 1.53 m2 Area (BSA) (03/18/17 2:05 PM) Body Mass 21.6 kg/m2 Index (03/18/17 2:05 PM) [19.0-24.0 kg/m2] Transfer Body 50 kg Weight (03/18/17 2:05 PM) Problem List Condition Effective Status Health Informant Dates Status Cataract(Con Active patient firmed) Allergic Active patient rhinitis(Con firmed) Anemia(Confi Active patient rmed) Angina(Confi Active patient rmed) Arthritis(Co Active patient [...] TIA(Confirme d) Hyperlipidem Active patient ia(Confirmed ) Hypokalemia( Active patient Confirmed) Hypomagnesem Active patient ia(Confirmed ) Hyponatremia Active patient (Confirmed) Impaired Active patient vision(Confi rmed) Cancer of Active patient lung(Confirm ed) Myocardial Active patient infarction(C onfirmed) Pneumonia(Co Active patient nfirmed) Sinusitis(Co Active patient nfirmed) Stented Active patient coronary artery(Confi rmed) Urinary Active patient tract infection(Co nfirmed) Allergies, Adverse Reactions, Alerts Substance Reaction Severity Status codeine vomiting Active vomiting erythromycin Active sulfADIAZINE can't breath Active can't breath Medications albuterol-ipratropium (albuterol-ipratropium 2.5 mg-0.5 mg/3 mL inhalation solution)3 mL, Nebulized Inhalation , Three Times A Day, Refills: 0 aspirin (Aspirin Low Dose) 81 mg, Oral, Every Day, Refills: 0 atenolol (atenolol 50 mg oral tablet) 0.5 Tab, Oral, Every Day, Refills: 0 atorvastatin (atorvastatin 40 mg oral tablet) 1 Tab, Oral, At Bedtime, Refills: 0 bifidobacterium-lactobacillus (Probiotic Formula oral capsule)1 Cap, Oral, Every Day, Refills: 0 budesonide-formoterol (Symbicort 80 mcg-4.5 mcg/inh inhalation aerosol)2 Puff, Inhalation, Two Times A Day, Refills: 0 clopidogrel (Plavix 75 mg oral tablet) 1 Tab, Oral, Every Day, , Refills: 0 insulin aspart-insulin aspart protamine (insulin aspart-insulin aspart protamine 70/30)20 Units, SubCutaneous , Before Breakfast, Refills: 0 insulin aspart-insulin aspart protamine (insulin aspart-insulin aspart protamine 70/30)15 Units, SubCutaneous , Before Dinner, Refills: 0 LORazepam (lorazepam 1 mg oral tablet)1 Tab, Oral, Three Times A Day, As Needed, for anxiety, Refills: 0 nitroglycerin (Nitrostat 0.4 mg sublingual tablet)1 Tab, SubLINgual , every 5 minutes, As Needed, Chest Pain, Refills: 0 omeprazole (omeprazole 20 mg oral delayed release capsule)1 Cap, Oral, Every Day, Refills: 0 traZODone (trazodone 150 mg oral tablet) 1 Tab, Oral, At Bedtime, Refills: 0 Results GENERAL CHEMISTRY Most recent 1 2 3 to oldest [Reference Range]: Sodium Level 138 mmol/L 132 mmol/L 131 mmol/L [136-146 (03/22/17 5:23 AM) *LOW*(03/21/17 *LOW*(03/20/17 mmol/L] 4:56 AM) 6:44 AM) Potassium 4.3 mmol/L 4.4 mmol/L 4.5 mmol/L Level (03/22/17 5:23 AM) (03/21/17 4:56 AM) (03/20/17 6:44 AM) [3.5-5.1 mmol/L] Chloride 107 mmol/L 102 mmol/L 97 mmol/L Level (03/22/17 5:23 AM) (03/21/17 4:56 AM) *LOW*(03/20/17 [102-112 6:44 AM) mmol/L] Carbon 20 mmol/L 20 mmol/L 22 mmol/L Dioxide *LOW*(03/22/17 *LOW*(03/21/17 (03/20/17 6:44 AM) Level [21-32 5:23 AM) 4:56 AM) mmol/L] Anion Gap 15 (03/22/17 5:23 14 (03/21/17 4:56 16 (03/20/17 6:44 [9-20] AM) AM) AM) Glucose 155 mg/dL 136 mg/dL 121 mg/dL Level *HI*(03/22/17 5:23 *HI*(03/21/17 4:56 *HI*(03/20/17 6:44 [74-106 AM) AM) AM) mg/dL] Blood Urea 29 mg/dL 34 mg/dL 35 mg/dL Nitrogen *HI*(03/22/17 5:23 *HI*(03/21/17 4:56 *HI*(03/20/17 6:44 [7-22 mg/dL] AM) AM) AM) Creatinine 3.10 mg/dL 3.20 mg/dL 3.00 mg/dL Level *HI*(03/22/17 5:23 *HI*(03/21/17 4:56 *HI*(03/20/17 6:44 [0.55-1.02 AM) AM) AM) mg/dL] eGFR 18 mL/min/1.73m2 17 mL/min/1.73m2 18 mL/min/1.73m2 [>=60 *LOW*(03/22/17 *LOW*(03/21/17 *LOW*(03/20/17 mL/min/1.73m 5:23 AM) 4:56 AM) 6:44 AM) 2] eGFR 15 mL/min/1.73m2 14 mL/min/1.73m2 15 mL/min/1.73m2 NonAfrican *LOW*(03/22/17 *LOW*(03/21/17 *LOW*(03/20/17 [>=60 5:23 AM) 4:56 AM) 6:44 AM) mL/min/1.73m 2] Bun/Creatini 9.4 (03/22/17 5:23 10.6 (03/21/17 11.7 (03/20/17 ne AM) 4:56 AM) 6:44 AM) [8.0-20.0] Calcium 8.3 mg/dL 8.1 mg/dL 8.2 mg/dL Level *LOW*(03/22/17 *LOW*(03/21/17 *LOW*(03/20/17 [8.5-10.1 5:23 AM) 4:56 AM) 6:44 AM) mg/dL] Protein 6.0 Gram/dL 7.0 Gram/dL Total *LOW*(03/19/17 1(03/18/17 6:10 [6.4-8.2 12:30 AM) PM) Gram/dL] Albumin 2.2 Gram/dL 2.6 Gram/dL Level *LOW*(03/19/17 *LOW*(03/18/17 [3.4-5.0 12:30 AM) 6:10 PM) Gram/dL] Globulin 3.8 Gram/dL 4.4 Gram/dL [1.5-4.5 (03/19/17 12:30 (03/18/17 6:10 PM) Gram/dL] AM) A/G Ratio 0.6 *LOW*(03/19/17 0.6 *LOW*(03/18/17 [1.1-2.5] 12:30 AM) 6:10 PM) (03/19/17 12:30 AM) (03/18/17 6:10 PM) Bilirubin 0.5 mg/dL 0.8 mg/dL Total (03/19/17 12:30 2(03/18/17 6:10 [0.2-1.3 AM) PM) mg/dL] Alk Phos 110 Units/Liter 131 Units/Liter [27-136 (03/19/17 12:30 3(03/18/17 6:10 Units/Liter] AM) PM) AST [5-37 24 Units/Liter 32 Units/Liter Units/Liter] (03/19/17 12:30 (03/18/17 6:10 PM) AM) ALT [12-78 25 Units/Liter 28 Units/Liter Units/Liter] (03/19/17 12:30 (03/18/17 6:10 PM) AM) Magnesium 1.8 mg/dL Level (03/18/17 6:10 PM) [1.5-2.4 mg/dL] Phosphorus 4.8 mg/dL [2.3-4.9 (03/19/17 12:30 mg/dL] AM) Device Notified Nurse Notified Nurse No action Require Comment 1 RBV *NA*(03/22/17 RBV *NA*(03/21/17 *NA*(03/21/17 6:39 AM) 9:20 PM) 7:16 PM) Glucose POC2 160 mg/dL 112 mg/dL 204 mg/dL [70-110 *HI*(03/22/17 6:39 *HI*(03/21/17 9:20 *HI*(03/21/17 7:16 mg/dL] AM) PM) PM) Hgb A1C 8.60 % [4.20-6.30 *HI*(03/19/17 %] 12:30 AM) Lipase Level 63 Units/Liter [73-393 *LOW*(03/18/17 Units/Liter] 6:10 PM) eAVG Glucose 200 mg/dL *NA*(03/19/17 12:30 AM) 1Result Comment: Released without repeat.2Result Comment: Released without repeat.3Result Comment: Released without repeat.CARDIAC SPECIFIC MARKERS Most recent 1 2 3 to oldest [Reference Range]: CK [26-192 25 Units/Liter 20 Units/Liter 39 Units/Liter Units/Liter] *LOW*(03/21/17 *LOW*(03/19/17 (03/18/17 6:10 PM) 4:56 AM) 12:30 AM) Troponin I <0.015 ng/mL <0.015 ng/mL Ultra (03/18/17 10:40 (03/18/17 6:25 PM) [0.015-0.045 PM) ng/mL] CK MB <0.50 ng/mL <0.50 ng/mL 0.80 ng/mL [0.50-3.60 (03/19/17 9:00 AM) (03/19/17 12:30 1(03/18/17 6:10 ng/mL] AM) PM) 1Result Comment: Released without repeat.HEMATOLOGY Most recent 1 2 3 to oldest [Reference Range]: WBC 9.1 K/uL (03/21/17 10.7 K/uL 12.8 K/uL [4.0-10.0 4:56 AM) *HI*(03/20/17 6:44 *HI*(03/19/17 K/uL] AM) 12:30 AM) RBC 3.25 Million/uL 3.43 Million/uL 3.64 Million/uL [3.93-5.22 *LOW*(03/21/17 *LOW*(03/20/17 *LOW*(03/19/17 Million/uL] 4:56 AM) 6:44 AM) 12:30 AM) Hgb 8.9 g/dL 9.4 g/dL 9.9 g/dL [11.2-15.7 *LOW*(03/21/17 *LOW*(03/20/17 *LOW*(03/19/17 g/dL] 4:56 AM) 6:44 AM) 12:30 AM) Hct 29.1 % 30.2 % 32.6 % [34.1-44.9 *LOW*(03/21/17 *LOW*(03/20/17 *LOW*(03/19/17 %] 4:56 AM) 6:44 AM) 12:30 AM) MCV 89.5 fL (03/21/17 88.0 fL (03/20/17 89.6 fL (03/19/17 [79.0-94.8 4:56 AM) 6:44 AM) 12:30 AM) fL] MCH 27.4 pg (03/21/17 27.4 pg (03/20/17 27.2 pg (03/19/17 [25.6-32.2 4:56 AM) 6:44 AM) 12:30 AM) pg] MCHC 30.6 Gram/dL 31.1 Gram/dL 30.4 Gram/dL [32.2-36.5 *LOW*(03/21/17 *LOW*(03/20/17 *LOW*(03/19/17 Gram/dL] 4:56 AM) 6:44 AM) 12:30 AM) Platelet 224 K/uL (03/21/17 211 K/uL (03/20/17 210 K/uL (03/19/17 Count 4:56 AM) 6:44 AM) 12:30 AM) [163-369 K/uL] MPV 10.8 fL (03/21/17 10.9 fL (03/20/17 10.4 fL (03/19/17 [9.4-12.4 4:56 AM) 6:44 AM) 12:30 AM) fL] RDW 18.1 % 17.6 % 17.5 % [11.6-14.4 *HI*(03/21/17 4:56 *HI*(03/20/17 6:44 *HI*(03/19/17 %] AM) AM) 12:30 AM) Neut % 76.4 % 74.1 % 77.6 % [34.0-71.0 *HI*(03/21/17 4:56 *HI*(03/20/17 6:44 *HI*(03/19/17 %] AM) AM) 12:30 AM) Neut # 6.93 K/uL 7.94 K/uL 9.95 K/uL [1.56-6.13 *HI*(03/21/17 4:56 *HI*(03/20/17 6:44 *HI*(03/19/17 K/uL] AM) AM) 12:30 AM) Lymph % 13.6 % 15.6 % 13.6 % [19.3-53.1 *LOW*(03/21/17 *LOW*(03/20/17 *LOW*(03/19/17 %] 4:56 AM) 6:44 AM) 12:30 AM) Lymph # 1.23 x10(3)/uL 1.67 x10(3)/uL 1.74 x10(3)/uL [1.00-3.90 (03/21/17 4:56 AM) (03/20/17 6:44 AM) (03/19/17 12:30 x10(3)/uL] AM) [place] % 7.2 % (03/21/17 8.2 % (03/20/17 7.3 % (03/19/17 [3.0-9.0 %] 4:56 AM) 6:44 AM) 12:30 AM) [place] # 0.65 K/uL 0.88 K/uL 0.94 K/uL [0.16-1.00 (03/21/17 4:56 AM) (03/20/17 6:44 AM) (03/19/17 12:30 K/uL] AM) Eos % 1.4 % (03/21/17 0.9 % (03/20/17 0.5 % (03/19/17 [0.0-7.0 %] 4:56 AM) 6:44 AM) 12:30 AM) Eos # 0.13 x10(3)/uL 0.10 x10(3)/uL 0.07 x10(3)/uL [0.00-0.80 (03/21/17 4:56 AM) (03/20/17 6:44 AM) (03/19/17 12:30 x10(3)/uL] AM) Baso % 0.3 % (03/21/17 0.3 % (03/20/17 0.2 % (03/19/17 [0.0-1.5 %] 4:56 AM) 6:44 AM) 12:30 AM) Baso # 0.03 x10(3)/uL 0.03 x10(3)/uL 0.03 x10(3)/uL [0.00-0.20 (03/21/17 4:56 AM) (03/20/17 6:44 AM) (03/19/17 12:30 x10(3)/uL] AM) Slide Review No (03/21/17 4:56 No (03/20/17 6:44 No (03/19/17 12:30 AM) AM) AM) IG# 0.10 x10(3)/uL 0.10 x10(3)/uL 0.10 x10(3)/uL [0.00-0.05 *HI*(03/21/17 4:56 *HI*(03/20/17 6:44 *HI*(03/19/17 x10(3)/uL] AM) AM) 12:30 AM) IG% 1.10 % 0.90 % 0.80 % [0.00-0.60 *HI*(03/21/17 4:56 *HI*(03/20/17 6:44 *HI*(03/19/17 %] AM) AM) 12:30 AM) COAGULATION Most recent 1 2 3 to oldest [Reference Range]: PT [9.5-11.3 10.7 Second(s) Second(s)] (03/18/17 6:10 PM) INR 1.0 (03/18/17 6:10 [0.0-1.1] PM) PTT 29.9 Second(s) [24.5-29.5 *HI*(03/18/17 6:10 Second(s)] PM) URINALYSIS Most recent 1 2 3 to oldest [Reference Range]: Urine Type. U CleanCatch *NA*(03/18/17 4:04 PM) Urine Color Hetal *NA*(03/18/17 4:04 PM) Urine Cloudy Appearance *ABN*(03/18/17 4:04 PM) Urine 1.013 (03/18/17 Specific 4:04 PM) [place] [1.005-1.030 ] Urine pH 5.5 *LOW*(03/18/17 Dipstick 4:04 PM) [6.0-8.0] (03/18/17 4:04 PM) Urine Trace Leukocyte *ABN*(03/18/17 Esterase 4:04 PM) [Negative] Urine Negative (03/18/17 Nitrite 4:04 PM) [Negative] Urine 100 *ABN*(03/18/17 Protein 4:04 PM) Dipstick (03/18/17 4:04 PM) [Negative] Urine 100 *ABN*(03/18/17 Glucose 4:04 PM) Dipstick (03/18/17 4:04 PM) [Negative] Urine Negative (03/18/17 Ketones 4:04 PM) Dipstick [Negative] Urine 0.2 EU/dL Urobilinogen (03/18/17 4:04 PM) Dipstick Urine Negative (03/18/17 Bilirubin 4:04 PM) Dipstick [Negative] Urine Blood Large Dipstick *ABN*(03/18/17 [Negative] 4:04 PM) Ur RBC 50-100 /HPF *ABN*(03/18/17 4:04 PM) Ur WBC 2-5 /HPF *ABN*(03/18/17 4:04 PM) Ur Bacteria 1+ *ABN*(03/18/17 4:04 PM) (03/18/17 4:04 PM) Ur Squamous 2-5 /HPF Epithelial *ABN*(03/18/17 Cells 4:04 PM) Ur Renal 0-2 /HPF Epithelial *ABN*(03/18/17 Cells 4:04 PM) Ur Granular 5-10 /LPF Casts *ABN*(03/18/17 4:04 PM) Microbiology Reports TEST: Blood Culture STATUS: Order in Progress BODY SITE: SOURCE: Blood COLLECTED DATE/TIME: 03/18/17 4:14 PMPRELIMINARY REPORTNo growth at 4 days.TEST: Urine Culture STATUS: Auth (Verified) BODY SITE: SOURCE: Urine, Clean Catch COLLECTED DATE/TIME: 03/18/17 3:59 PMFINAL REPORTNo growthTEST: Blood Culture STATUS: Order in Progress BODY SITE: SOURCE: Blood COLLECTED DATE/TIME: 03/18/17 3:59 PMPRELIMINARY REPORTNo growth at 4 days.TEST: MRSA Surveillance STATUS: Auth (Verified) BODY SITE: SOURCE: Nasal COLLECTED DATE/TIME: 03/18/17 3:23 PMFINAL REPORTNo MRSA isolated For Infection Control surveillance only Immunizations No data available for this section Procedures No data available for this section Social History Social History Response Type Smoking Status Current every day smoker; Years of Tobacco Use 55; Packs/Tins Daily 0.5; Month Tobacco Last Used yesterday Assessment and Plan Extracted from: Title: Discharge Note Author: ORQUIDEA GALLARDO Date: 03/22/17 Milady, DO-INT Discharge Plan Non small cell lung cancer-recently treated for post obs pneumonia Known RLL mass Chest pain most likely sec to above. Cardiology signed off acute renal failure cr likely plateau'ing poss contrast induced nephropathy had dye exposure earlier this month 03/10 cr was 1.1; bun is elevated c/w intravasc volume depletion pt insistent upon keeping cbh appt for rad onc eval, declines to consider furlough out to appt and return to inpt here for further tx hx Renal Cancer with chronic hematuria no evidence uti as culture data negative CAD s/p stents >6months ago -okay to hold plavix per cardiology in view of hematuria Advanced COPD Moderate Malnutrition DM 2 , uncontrolled a1c 8.6 Physical deconditioning Hyponatremia -resolved anemia of chronic disease stable ck was good at 25 GI px pepcid DVT px: PCS only. No chemical px due to hematuria DNR Discussed with patient,daughter . Signature Line Electronically Signed on 03/21/2017 01:59 PM ORQUIDEA GALLARDO DO-INT [3] Discharge Orders Discharge - Ordered -- Start: 03/22/17 9:45:00 EDT, Discharge to: Home, Other DC instructions: Plan for home in am if Cr <3 If Cr > 3 pt to remain inpt, contact me for further instructions Patient Discharge Condition stable f/u/ with pcp and/or Dr. Cardona within the next couple of days ada, renal diet Discharge Disposition home greater than 50% time spent in counseling and care coordination time 44 mins anemia of chronic disease stable ck was good at 25 GI px pepcid DVT px: PCS only. No chemical px due to hematuria DNR Discussed with patient,daughter . Signature Line Electronically Signed on 03/21/2017 01:59 PM ORQUIDEA GALLARDO DO-INT [3] Discharge Orders Discharge - Ordered -- Start: 03/22/17 9:45:00 EDT, Discharge to: Home, Other DC instructions: Plan for home in am if Cr <3 If Cr > 3 pt to remain inpt, contact me for further instructions Patient Discharge Condition stable f/u/ with pcp and/or Dr. Cardona within the next couple of days ada, renal diet Discharge Disposition home greater than 50% time spent in counseling and care coordination time 44 mins Extracted from: Title: Progress Note Author: ORQUIDEA GALLARDO Date: 03/21/17 Milady DO-CARIN Basic Information feeling generally ok no new complaints states is urinating quite a lot, at least 5 times daily eating without problem chronic cough Review of SystemsConstitutional: No fever, No chills.Respiratory: Cough, No shortness of breath, No hemoptysis, No wheezing.Gastrointestinal: No nausea.Hematology/LymphaticsMusculoskeletal: No back pain.IntegumentaryNeurologic: Alert and oriented X4. Musculoskeletal: No back pain. Integumentary Neurologic: Alert and oriented X4. Health StatusAllergies:Allergic Reactions (Selected)Severity Not DocumentedCodeine- Vomiting and vomiting.Erythromycin- No reactions were documented.SulfADIAZINE- Can't breath and can't breath.,Allergies (1) ActiveReactionerythromycinNone DocumentedCurrent medications: (Selected)Inpatient MedicationsOrderedLORazepam: 1 mg, Oral, TID, PRN: AnxietyMarinol: 2.5 mg, Oral, BIDACMiraLax: 17 Gram, Oral, Daily, PRN: ConstipationNitrostat: 0.4 mg, SubLINgual, Q5Min, PRN: Chest PainNorco 5 mg-325 mg oral tablet: 1 Tab, Oral, Q4H, PRN: Pain (Moderate 4-6)Normal Saline Flush: 10 mL, IntraVENous, [id number] Saline Flush: 10 mL, IntraVENous, Q12H, PRN: IV UseNovoLOG Mix 70/30: 15 Units, SubCutaneous, AC DinnerNovoLOG Mix 70/30: 20 Units, SubCutaneous, AC BreakfastPepcid: 20 mg, Oral, DailySodium Chloride 0.9% 1,000 mL: 150 mL/Hr, IntraVENousTylenol: 650 mg, Oral, Q4H, PRN: Pain (Mild 1-3)Zofran: 4 mg, IV Push, Q4H, PRN: Nauseaalbuterol-ipratropium 2.5 mg-0.5 mg/3 mL inhalation solution: 3 mL, Nebulized Inhalation, [id number]: 81 mg, Oral, Dailyatenolol: 25 mg, Oral, Dailyatorvastatin: 40 mg, Oral, At Bedtimebudesonide: 0.5 mg, Nebulized Inhalation, BIDdoxycycline: 100 mg, Oral, BIDinsulin regular sliding scale: Scale A, SubCutaneous, K5Qggpiqhuvkjpua acidophilus: 1 Cap, Oral, BIDmorphine: 2 mg, IV Push, Q4H, PRN: Pain (Severe 7-10)traZODone: 150 mg, Oral, At BedtimeDocumented MedicationsDocumentedAspirin Low Dose: 81 mg, Oral, Daily, 0 Refill(s)Macrobid 100 mg oral capsule: 1 Cap, Oral, BID, for 10 Day(s), 20 Cap, 0 Refill(s)Nitrostat 0.4 mg sublingual tablet: 1 Tab, SubLINgual, Q5Min, PRN: Chest Pain, 100 Tab, 0 Refill(s)NovoLOG Mix 70/30: 20 Units, SubCutaneous, At Bedtime, 0 Refill(s)NovoLog Mix 70/30 FlexPen: 30 Units, SubCutaneous, AC Breakfast, 0 Refill(s)Plavix 75 mg oral tablet: 1 Tab, Oral, Daily, 90 Tab, 0 Refill(s)Probiotic Formula oral capsule: 1 Cap, Oral, Daily, 0 Refill(s)Symbicort 80 mcg-4.5 mcg/inh inhalation aerosol: 2 Puff, Inhalation, BID, 0 Refill(s)albuterol-ipratropium 2.5 mg-0.5 mg/3 mL inhalation solution: 3 mL, Nebulized Inhalation, TID, 0 Refill(s)atenolol 50 mg oral tablet: 0.5 Tab, Oral, Daily, 30 Tab, 0 Refill(s)atorvastatin 40 mg oral tablet: 1 Tab, Oral, At Bedtime, 0 Refill(s)lorazepam 1 mg oral tablet: 1 Tab, Oral, TID, PRN: for anxiety, 0 Refill(s)omeprazole 20 mg oral delayed release capsule: 1 Cap, Oral, Daily, 30 Cap, 0 Refill(s)trazodone 150 mg oral tablet: 1 Tab, Oral, At Bedtime, 30 Tab, 0 Refill(s),Medications (23) ActiveScheduled: (14)#NaCl 0.9% *FLUSH* inj 10 mL 10 mL, IntraVENous, [id number]-buudhemsnde inh 3 mL 3 mL, Nebulized Inhalation, [id number] 81 mg chew tab 81 mg 1 Tab, Oral, Dailyatenolol 25 mg tab 25 mg 1 Tab, Oral, Dailyatorvastatin 40 mg tab 40 mg 1 Tab, Oral, At Bedtimebudesonide 0.5 mg/2 mL inh susp 0.5 mg 2 mL, Nebulized Inhalation, BIDdoxycycline hyclate 100 mg cap 100 mg 1 Cap, Oral, BIDdronabinol 2.5 mg cap 2.5 mg 1 Cap, Oral, BIDACfamotidine 20 mg tab 20 mg 1 Tab, Oral, Dailyinsulin NovoLOG 70/30 1 unit/0.01 mL inj 20 Units 0.2 mL, SubCutaneous, AC Breakfastinsulin NovoLOG 70/30 1 unit/0.01 mL inj 15 Units 0.15 mL, SubCutaneous, AC Dinnerinsulin regular 1 unit/0.01 mL inj 3mL Scale A, SubCutaneous, U2Unngxirretanzf acidophilus cap 1 Cap, Oral, BIDtraZODone 50 mg tab 150 mg 3 Tab, Oral, At BedtimeContinuous: (1)NaCl 0.9% 1,000 mL 1,000 mL, IntraVENous, 150 mL/HrPRN: (8)#NaCl 0.9% *FLUSH* inj 10 mL 10 mL, IntraVENous, C83Fgrsetbmdvetbk 325 mg tab 650 mg 2 Tab, Oral, X5Qwbmdabcweyymj/HYDROcodone 325/5 mg tab 1 Tab, Oral, D4EZWKiojlgj 1 mg tab 1 mg 1 Tab, Oral, TIDmorphine 2 mg/1 ml cpjt inj 2 mg 1 mL, IV Push, C3Silvsdnkglfmzp 0.4 mg tab # 25 btl 0.4 mg 1 Tab, SubLINgual, K7Ttviypprmllvch 4 mg/2 mL inj 4 mg 2 mL, IV Push, T0Ooiibrymaeytf glycol 3350 pwd 17 g pkt 17 Gram 1 Packet, Oral, DailyProblem list:No problem items selected or recorded.,Active Problems (26)Allergic rhinitis Anemia Angina Arthritis Back pain Bronchitis CA - Renal cancer Cancer of lung Cardiac arrhythmia Cataract COPD Coronary artery disease Diabetes mellitus type II Fibroids GERD - Gastro-esophageal reflux disease H/O: TIA Hyperlipidemia Hypokalemia Hypomagnesemia Hyponatremia Impaired vision Myocardial infarction Pneumonia Sinusitis Stented coronary artery Urinary tract infection insulin NovoLOG 70/30 1 unit/0.01 mL inj 15 Units 0.15 mL, SubCutaneous, AC Dinner insulin regular 1 unit/0.01 mL inj 3mL Scale A, SubCutaneous, Q6H lactobacillus acidophilus cap 1 Cap, Oral, BID traZODone 50 mg tab 150 mg 3 Tab, Oral, At Bedtime Continuous: (1) NaCl 0.9% 1,000 mL 1,000 mL, IntraVENous, 150 mL/Hr PRN: (8) #NaCl 0.9% *FLUSH* inj 10 mL 10 mL, IntraVENous, Q12H acetaminophen 325 mg tab 650 mg 2 Tab, Oral, Q4H acetaminophen/HYDROcodone 325/5 mg tab 1 Tab, Oral, Q4H LORazepam 1 mg tab 1 mg 1 Tab, Oral, TID morphine 2 mg/1 ml cpjt inj 2 mg 1 mL, IV Push, Q4H nitroglycerin 0.4 mg tab # 25 btl 0.4 mg 1 Tab, SubLINgual, Q5Min ondansetron 4 mg/2 mL inj 4 mg 2 mL, IV Push, Q4H polyethylene glycol 3350 pwd 17 g pkt 17 Gram 1 Packet, Oral, Daily Problem list: No problem items selected or recorded., Active Problems (26) Allergic rhinitis Anemia Angina Arthritis Back pain Bronchitis CA - Renal cancer Cancer of lung Cardiac arrhythmia Cataract COPD Coronary artery disease Diabetes mellitus type II Fibroids GERD - Gastro-esophageal reflux disease H/O: TIA Hyperlipidemia Hypokalemia Hypomagnesemia Hyponatremia Impaired vision Myocardial infarction Pneumonia Sinusitis Stented coronary artery Urinary tract infection Physical ExaminationI/O: VS/MeasurementsVitals Signs (last 24 hrs) Last Charted Minimum MaximumTemp 97.6 (MAR 21 10:51)97.6 (MAR 21 10:51)98 (MAR 21 08:21)Mon HR 78 (MAR 21 12:38)70 (MAR 21 03:12)84 (MAR 20 16:45)Resp Rate 20 (MAR 21 10:51)18 (MAR 20 20:02)20 (MAR 21 10:51)SBP 136 (MAR 21 10:51)115 (MAR 20 20:02)H 152 (MAR 21 08:21)DBP 83 (MAR 21 10:51)63 (MAR 20 20:02)84 (MAR 21 08:21)MAP 102 (MAR 21 10:51)80 (MAR 20 20:02)107 (MAR 21 08:21)SpO2 96 (MAR 21 10:51)95 (MAR 21 08:21)97 (MAR 21 08:31)General: Alert and oriented, No acute distress, lying comfortably in bed, some moist cough.Eye: Pupils are equal, round and reactive to light, Extraocular movements are intact, Normal conjunctiva.HENT: Normocephalic, No pharyngeal erythema.Respiratory: Respirations are non-labored, Symmetrical chest wall expansion, scattered rhonchi.Cardiovascular: Regular rhythm, No murmur, Normal peripheral perfusion, No edema.Gastrointestinal: Soft, Non-tender, Non-distended, Normal bowel sounds.Integumentary: Warm, Dry, Intact.Neurologic: Alert, Oriented, No focal deficits, Cranial Nerves II-XII are grossly intact.Psychiatric: Cooperative, Appropriate mood & affect. Integumentary: Warm, Dry, Intact. Neurologic: Alert, Oriented, No focal deficits, Cranial Nerves II-XII are grossly intact. Psychiatric: Cooperative, Appropriate mood & affect. Review / Management MAR 21 04:56 L 132 | 102 | H 34 / H 136 4.4 | L 20 | H 3.20 \\ MAR 21 04:56 \\ L 8.9 / 9.1 224 / L 29.1 \\No Radiology Results FoundResults review:Labs (Last four charted values)WBC 9.1(MAR 21)H 10.7(MAR 20)H 12.8(MAR 19)H 13.2(MAR 18)HB L 8.9(MAR 21)L 9.4(MAR 17)L 9.9(MAR 16)L 11.0(MAR 18)HCT L 29.1(MAR 21)L 30.2(MAR 20)L 32.6(MAR 19)35.8(MAR 18)Plt 224(MAR 21)211(MAR 17)210(MAR 16)231(MAR 15)Na L 132(MAR 21)L 131(MAR 17)L 131(MAR 16)L 128(MAR 15)K 4.4(MAR 21)4.5(MAR 20)3.8(MAR 19)4.3(MAR 15)Cl 102(MAR 21)L 97(MAR 17)L 97(MAR 16)L 94(MAR 15)CO2 L 20(MAR 21)22(MAR 17)24(MAR 19)23(MAR 18)BUN H 34(MAR 18)H 35(MAR 17)H 26(MAR 16)H 23(MAR 15)Cr H 3.20(MAR 18)H 3.00(MAR 17)H 2.00(MAR 16)H 1.90(MAR 15)Glu R H 136(MAR 18)H 121(MAR 17)H 218(MAR 16)H 264(MAR 18)Ca L 8.1(MAR 18)L 8.2(MAR 17)L 7.8(MAR 16)L 8.4(MAR 15)PT 10.7(MAR 18)INR 1.0(MAR 18)PTT H 29.9(MAR 18)AST 24(MAR 16)32(MAR 18)ALT 25(CORETTA 16)28(MAR 18)ALK P 110(MAR 16)131(MAR 15)T Bili 0.5(MAR 16)0.8(MAR 18)PTN L 6.0(MAR 16)7.0(MAR 18)ALB L 2.2(MAR 16)L 2.6(MAR 18)Lipase L 63(MAR 18)Troponin <0.015(MAR 15)<0.015(MAR 18). Plt 224(MAR 21)211(MAR 17)210(MAR 16)231(MAR 15) Na L 132(MAR 18)L 131(MAR 17)L 131(MAR 16)L 128(MAR 15) K 4.4(MAR 18)4.5(MAR 20)3.8(MAR 19)4.3(MAR 18) Cl 102(MAR 21)L 97(MAR 17)L 97(MAR 16)L 94(MAR 15) CO2 L 20(MAR 21)22(MAR 20)24(MAR 19)23(MAR 18) BUN H 34(MAR 21)H 35(MAR 17)H 26(MAR 16)H 23(MAR 15) Cr H 3.20(MAR 18)H 3.00(MAR 17)H 2.00(MAR 16)H 1.90(MAR 18) Glu R H 136(MAR 18)H 121(MAR 17)H 218(MAR 16)H 264(MAR 15) Ca L 8.1(MAR 18)L 8.2(MAR 17)L 7.8(MAR 19)L 8.4(MAR 18) PT 10.7(MAR 18) INR 1.0(MAR 18) PTT H 29.9(MAR 15) AST 24(MAR 16)32(MAR 15) ALT 25(MAR 16)28(MAR 15) ALK P 110(MAR 16)131(MAR 15) T Bili 0.5(MAR 16)0.8(MAR 18) PTN L 6.0(MAR 16)7.0(MAR 18) ALB L 2.2(MAR 16)L 2.6(MAR 18) Lipase L 63(MAR 18) Troponin <0.015(MAR 15)<0.015(MAR 18) . Impression and PlanImpression:-Non small cell lung cancer-recently treated for post obs pneumoniaKnown RLL massChest pain most likely sec to above. Cardiology signed offacute renal failure cr likely plateau'ing poss contrast induced nephropathy had dye exposure earlier this month 03/10 cr was 1.1; bun is elevated c/w intravasc volume depletion cont ivf, repeat am cr; pt greatly desiring to keep [facility] appt tomorrow for rad onc eval d/w her that if cr same/better she could be discharged with close f/u as outpt if worsened, would like to keep inpt for further eval/tx, and we could likely let her out on furlough for her appthx Renal Cancer with chronic hematuria no evidence uti as culture data negativeCAD s/p stents >6months ago -okay to hold plavix per cardiology in view of hematuriaAdvanced COPDModerate MalnutritionDM 2 , uncontrolled a1c 8.6Physical deconditioningHyponatremia -change ivf to nsanemia of chronic disease stableck was good at 25GI px pepcidDVT px: PCS only. No chemical px due to hematuriaDNRDiscussed with patient, rnpt eager to return home and wants to be able to keep her appt with rad onc at [facility] tomorrowdispo will be dependent upon renal function at this pointtime spent 32 minutes. CAD s/p stents >6months ago -okay to hold plavix per cardiology in view of hematuria Advanced COPD Moderate Malnutrition DM 2 , uncontrolled a1c 8.6 Physical deconditioning Hyponatremia -change ivf to ns anemia of chronic disease stable ck was good at 25 GI px pepcid DVT px: PCS only. No chemical px due to hematuria DNR Discussed with patient, rn pt eager to return home and wants to be able to keep her appt with rad onc at [facility] tomorrow dispo will be dependent upon renal function at this point time spent 32 minutes . 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 Patient denies any hematuria over the last few days, and reports no changes to her baseline voiding symptoms, denies any flank pain. -No further urologic recommendations -Urine culture negative -Follow up with Dr. Cardona in the office as previously scheduled Adde I have seen patient and discussed with resident. I agree with ndum resident exam, assessment and plan. by SEJAL VIDES JR, MD-U RO on 21 March 2017 16:3 6:12 EDT Extracted from: Title: Progress Note Author: ORQUIDEA GALLARDO Date: 03/20/17 E, DO-INT Basic Information feeling quite a bit better hoping to go home urinating a lot, eating and drinking chest pain mostly gone Review of SystemsConstitutional: No fever, No chills.Respiratory: Cough, No shortness of breath, No hemoptysis, No wheezing.Gastrointestinal: No nausea.Genitourinary: Hematuria, pt states unchanged, No dysuria.Hematology/LymphaticsMusculoskeletal: No back pain.IntegumentaryNeurologic: Alert and oriented X4.Psychiatric: No anxiety, No depression. Musculoskeletal: No back pain. Integumentary Neurologic: Alert and oriented X4. Psychiatric: No anxiety, No depression. Health StatusAllergies:Allergic Reactions (Selected)Severity Not DocumentedCodeine- Vomiting and vomiting.Erythromycin- No reactions were documented.SulfADIAZINE- Can't breath and can't breath.,Allergies (1) ActiveReactionerythromycinNone DocumentedCurrent medications: (Selected)Inpatient MedicationsOrderedLORazepam: 1 mg, Oral, TID, PRN: AnxietyMarinol: 2.5 mg, Oral, BIDACMiraLax: 17 Gram, Oral, Daily, PRN: ConstipationNitrostat: 0.4 mg, SubLINgual, Q5Min, PRN: Chest PainNorco 5 mg-325 mg oral tablet: 1 Tab, Oral, Q4H, PRN: Pain (Moderate 4-6)Normal Saline Flush: 10 mL, IntraVENous, [id number] Saline Flush: 10 mL, IntraVENous, Q12H, PRN: IV UseNovoLOG Mix 70/30: 15 Units, SubCutaneous, AC DinnerNovoLOG Mix 70/30: 20 Units, SubCutaneous, AC BreakfastPepcid: 20 mg, Oral, DailySodium Chloride 0.45% 1,000 mL: 150 mL/Hr, IntraVENousSodium Chloride 0.9%: 500 mL, 500 mL/Hr, IntraVENous, 1-TimeTylenol: 650 mg, Oral, Q4H, PRN: Pain (Mild 1-3)Zofran: 4 mg, IV Push, Q4H, PRN: Nauseaalbuterol-ipratropium 2.5 mg-0.5 mg/3 mL inhalation solution: 3 mL, Nebulized Inhalation, I7KTtzokznlsb: 81 mg, Oral, Dailyatenolol: 25 mg, Oral, Dailyatorvastatin: 40 mg, Oral, At Bedtimebudesonide: 0.5 mg, Nebulized Inhalation, BIDdoxycycline: 100 mg, Oral, BIDinsulin regular sliding scale: Scale A, SubCutaneous, I8Qijvfdoxvrnjmg acidophilus: 1 Cap, Oral, BIDmorphine: 2 mg, IV Push, Q4H, PRN: Pain (Severe 7-10)traZODone: 150 mg, Oral, At BedtimeDocumented MedicationsDocumentedAspirin Low Dose: 81 mg, Oral, Daily, 0 Refill(s)Macrobid 100 mg oral capsule: 1 Cap, Oral, BID, for 10 Day(s), 20 Cap, 0 Refill(s)Nitrostat 0.4 mg sublingual tablet: 1 Tab, SubLINgual, Q5Min, PRN: Chest Pain, 100 Tab, 0 Refill(s)NovoLOG Mix 70/30: 20 Units, SubCutaneous, At Bedtime, 0 Refill(s)NovoLog Mix 70/30 FlexPen: 30 Units, SubCutaneous, AC Breakfast, 0 Refill(s)Plavix 75 mg oral tablet: 1 Tab, Oral, Daily, 90 Tab, 0 Refill(s)Probiotic Formula oral capsule: 1 Cap, Oral, Daily, 0 Refill(s)Symbicort 80 mcg-4.5 mcg/inh inhalation aerosol: 2 Puff, Inhalation, BID, 0 Refill(s)albuterol-ipratropium 2.5 mg-0.5 mg/3 mL inhalation solution: 3 mL, Nebulized Inhalation, TID, 0 Refill(s)atenolol 50 mg oral tablet: 0.5 Tab, Oral, Daily, 30 Tab, 0 Refill(s)atorvastatin 40 mg oral tablet: 1 Tab, Oral, At Bedtime, 0 Refill(s)lorazepam 1 mg oral tablet: 1 Tab, Oral, TID, PRN: for anxiety, 0 Refill(s)omeprazole 20 mg oral delayed release capsule: 1 Cap, Oral, Daily, 30 Cap, 0 Refill(s)trazodone 150 mg oral tablet: 1 Tab, Oral, At Bedtime, 30 Tab, 0 Refill(s),Medications (24) ActiveScheduled: (15)#NaCl 0.9% *FLUSH* inj 10 mL 10 mL, IntraVENous, F11Jjnhndcwqa-vaxipygmbsa inh 3 mL 3 mL, Nebulized Inhalation, V0WPrkqojdvnn 81 mg chew tab 81 mg 1 Tab, Oral, Dailyatenolol 25 mg tab 25 mg 1 Tab, Oral, Dailyatorvastatin 40 mg tab 40 mg 1 Tab, Oral, At Bedtimebudesonide 0.5 mg/2 mL inh susp 0.5 mg 2 mL, Nebulized Inhalation, BIDdoxycycline hyclate 100 mg cap 100 mg 1 Cap, Oral, BIDdronabinol 2.5 mg cap 2.5 mg 1 Cap, Oral, BIDACfamotidine 20 mg tab 20 mg 1 Tab, Oral, Dailyinsulin NovoLOG 70/30 1 unit/0.01 mL inj 20 Units 0.2 mL, SubCutaneous, AC Breakfastinsulin NovoLOG 70/30 1 unit/0.01 mL inj 15 Units 0.15 mL, SubCutaneous, AC Dinnerinsulin regular 1 unit/0.01 mL inj 3mL Scale A, SubCutaneous, A2Igrpfpzwiadekh acidophilus cap 1 Cap, Oral, BIDNaCl 0.9% 500 mL, IntraVENous, 1-TimetraZODone 50 mg tab 150 mg 3 Tab, Oral, At BedtimeContinuous: (1)NaCl 0.45% 1,000 mL 1,000 mL, IntraVENous, 150 mL/HrPRN: (8)#NaCl 0.9% *FLUSH* inj 10 mL 10 mL, IntraVENous, Z20Ijwnubgshcrbxm 325 mg tab 650 mg 2 Tab, Oral, K6Snsytrkylquelu/HYDROcodone 325/5 mg tab 1 Tab, Oral, Y8EZSBrseihc 1 mg tab 1 mg 1 Tab, Oral, TIDmorphine 2 mg/1 ml cpjt inj 2 mg 1 mL, IV Push, L2Pmjezroncqcgvd 0.4 mg tab # 25 btl 0.4 mg 1 Tab, SubLINgual, B8Spypabyvxjpvcs 4 mg/2 mL inj 4 mg 2 mL, IV Push, J2Qtfhecbaupzli glycol 3350 pwd 17 g pkt 17 Gram 1 Packet, Oral, DailyProblem list:No problem items selected or recorded.,Active Problems (26)Allergic rhinitis Anemia Angina Arthritis Back pain Bronchitis CA - Renal cancer Cancer of lung Cardiac arrhythmia Cataract COPD Coronary artery disease Diabetes mellitus type II Fibroids GERD - Gastro-esophageal reflux disease H/O: TIA Hyperlipidemia Hypokalemia Hypomagnesemia Hyponatremia Impaired vision Myocardial infarction Pneumonia Sinusitis Stented coronary artery Urinary tract infection insulin NovoLOG 70/30 1 unit/0.01 mL inj 15 Units 0.15 mL, SubCutaneous, AC Dinner insulin regular 1 unit/0.01 mL inj 3mL Scale A, SubCutaneous, Q6H lactobacillus acidophilus cap 1 Cap, Oral, BID NaCl 0.9% 500 mL, IntraVENous, 1-Time traZODone 50 mg tab 150 mg 3 Tab, Oral, At Bedtime Continuous: (1) NaCl 0.45% 1,000 mL 1,000 mL, IntraVENous, 150 mL/Hr PRN: (8) #NaCl 0.9% *FLUSH* inj 10 mL 10 mL, IntraVENous, Q12H acetaminophen 325 mg tab 650 mg 2 Tab, Oral, Q4H acetaminophen/HYDROcodone 325/5 mg tab 1 Tab, Oral, Q4H LORazepam 1 mg tab 1 mg 1 Tab, Oral, TID morphine 2 mg/1 ml cpjt inj 2 mg 1 mL, IV Push, Q4H nitroglycerin 0.4 mg tab # 25 btl 0.4 mg 1 Tab, SubLINgual, Q5Min ondansetron 4 mg/2 mL inj 4 mg 2 mL, IV Push, Q4H polyethylene glycol 3350 pwd 17 g pkt 17 Gram 1 Packet, Oral, Daily Problem list: No problem items selected or recorded., Active Problems (26) Allergic rhinitis Anemia Angina Arthritis Back pain Bronchitis CA - Renal cancer Cancer of lung Cardiac arrhythmia Cataract COPD Coronary artery disease Diabetes mellitus type II Fibroids GERD - Gastro-esophageal reflux disease H/O: TIA Hyperlipidemia Hypokalemia Hypomagnesemia Hyponatremia Impaired vision Myocardial infarction Pneumonia Sinusitis Stented coronary artery Urinary tract infection Physical ExaminationI/O: VS/MeasurementsVitals Signs (last 24 hrs) Last Charted Minimum MaximumTemp 98.7 (MAR 20 11:30)96.9 (MAR 20 03:00)98.7 (MAR 20 07:06)Mon HR 84 (MAR 20 16:57)76 (MAR 19 20:22)95 (MAR 20 00:00)Resp Rate 16 (MAR 20 11:30)16 (MAR 20 11:30)18 (MAR 20 00:00)SBP 127 (MAR 20:30)106 (MAR 20 07:06)131 (MAR 20 03:00)DBP 64 (MAR 20 11:30)63 (MAR 20 07:06)H 94 (MAR 20 03:00)MAP 85 (MAR 20 11:30)77 (MAR 20 07:06)106 (MAR 20 03:00)SpO2 97 (MAR 20:30)L 91 (MAR 20 03:00)97 (MAR 20 00:00)General: Alert and oriented, No acute distress, sitting up in chair in dressing gown/pajamasnad, nontoxic, pleasant.Eye: Pupils are equal, round and reactive to light, Extraocular movements are intact, Normal conjunctiva.HENT: Normocephalic, No pharyngeal erythema.Neck: Supple, Non-tender, No thyromegaly.Respiratory: Respirations are non-labored, Symmetrical chest wall expansion, No chest wall tenderness, Decreased breath sounds bilaterally; rll very diminished with some few ralesno wheezes.Cardiovascular: Regular rhythm, No murmur, Normal peripheral perfusion, No edema.Gastrointestinal: Soft, Non-tender, Non-distended, Normal bowel sounds.Integumentary: Warm, Dry, Intact.Neurologic: Alert, Oriented, No focal deficits, Cranial Nerves II-XII are grossly intact.Psychiatric: Cooperative, Appropriate mood & affect. Gastrointestinal: Soft, Non-tender, Non-distended, Normal bowel sounds. Integumentary: Warm, Dry, Intact. Neurologic: Alert, Oriented, No focal deficits, Cranial Nerves II-XII are grossly intact. Psychiatric: Cooperative, Appropriate mood & affect. Review / Management MAR 20 06:44 L 131 | L 97 | H 35 / H 121 4.5 | 22 | H 3.00 \\ MAR 20 06:44 \\ L 9.4 / H 10.7 211 / L 30.2 \\ No Radiology Results Found Results review: Labs (Last four charted values) WBC H 10.7(MAR 20)H 12.8(MAR 19)H 13.2(MAR 18) HB L 9.4(MAR 20)L 9.9(MAR 19)L 11.0(MAR 18) HCT L 30.2(MAR 20)L 32.6(MAR 19)35.8(MAR 18) Plt 211(MAR 20)210(MAR 16)231(MAR 18) Na L 131(MAR 20)L 131(MAR 19)L 128(MAR 18) K 4.5(MAR 20)3.8(MAR 19)4.3(MAR 18) Cl L 97(MAR 20)L 97(MAR 19)L 94(MAR 18) CO2 22(MAR 20)24(MAR 19)23(MAR 18) BUN H 35(MAR 20)H 26(MAR 19)H 23(MAR 18) Cr H 3.00(MAR 20)H 2.00(MAR 19)H 1.90(MAR 18) Glu R H 121(MAR 20)H 218(MAR 19)H 264(MAR 18) Ca L 8.2(MAR 20)L 7.8(MAR 19)L 8.4(MAR 18) PT 10.7(MAR 18) INR 1.0(MAR 18) PTT H 29.9(MAR 18) AST 24(MAR 19)32(MAR 18) ALT 25(MAR 19)28(MAR 18) ALK P 110(MAR 19)131(MAR 18) T Bili 0.5(MAR 19)0.8(MAR 18) PTN L 6.0(MAR 19)7.0(MAR 18) ALB L 2.2(MAR 19)L 2.6(MAR 18) Lipase L 63(MAR 18) Troponin <0.015(MAR 18)<0.015(MAR 18) . Impression and PlanImpression:-Non small cell lung cancer-recently treated for post obs pneumoniaKnown RLL massChest pain most likely sec to above. Cardiology signed offacute renal failure cr still climbing had dye exposure earlier this month 03/10 cr was 1.1; bun is elevated c/w intravasc volume depletion increase ivf and bolus; will need recheck cr am; if not plateau'd/improving, will need renal u/s, further evaluationhx Renal Cancer with chronic hematuria no evidence uti as culture data negativeCAD s/p stents >6months ago -okay to hold plavix per cardiology in view of hematuriaAdvanced COPDModerate MalnutritionDM 2 , uncontrolled a1c 8.6Physical deconditioningHyponatremia -change ivf to nsanemia of chronic disease recheck am also chronic blood losses d/t hematuriacheck ck as pt on statinGI px pepcidDVT px: PCS only. No chemical px due to hematuriaDNRDiscussed with patient and family, rnpt eager to return home and wants to be able to keep her appt with rad onc at [facility] on mondaydispo will be dependent upon renal function at this pointtime spent 39 minutes. CAD s/p stents >6months ago -okay to hold plavix per cardiology in view of hematuria Advanced COPD Moderate Malnutrition DM 2 , uncontrolled a1c 8.6 Physical deconditioning Hyponatremia -change ivf to ns anemia of chronic disease recheck am also chronic blood losses d/t hematuria check ck as pt on statin GI px pepcid DVT px: PCS only. No chemical px due to hematuria DNR Discussed with patient and family, rn pt eager to return home and wants to be able to keep her appt with rad onc at [facility] on monday dispo will be dependent upon renal function at this point time spent 39 minutes . Extracted from: Title: Progress Note Author: IRMA SALGUERO Date: 03/19/17 Basic Information Subjective: -continues to have chest tightness -would like better pain control Review of SystemsConstitutional: Weakness, Fatigue, No fever, No chills.Eye: No visual disturbances.Ear/Nose/Mouth/ThroatRespiratory: Shortness of breath, Cough, Sputum production, No hemoptysis, No wheezing.Cardiovascular: No palpitations Chest pain: Anterior.Gastrointestinal: No nausea.Genitourinary: Hematuria, No dysuria.Hematology/LymphaticsMusculoskeletal: No back pain.IntegumentaryNeurologic: Alert and oriented X4.Psychiatric: No anxiety, No depression. Hematology/Lymphatics Musculoskeletal: No back pain. Integumentary Neurologic: Alert and oriented X4. Psychiatric: No anxiety, No depression. Health StatusAllergies:Allergic Reactions (Selected)Severity Not DocumentedCodeine- Vomiting and vomiting.Erythromycin- No reactions were documented.SulfADIAZINE- Can't breath and can't breath.,Allergies (1) ActiveReactionerythromycinNone DocumentedCurrent medications: (Selected)Inpatient MedicationsOrderedLORazepam: 1 mg, Oral, TID, PRN: AnxietyMiraLax: 17 Gram, Oral, Daily, PRN: ConstipationNitrostat: 0.4 mg, SubLINgual, Q5Min, PRN: Chest PainNorco 5 mg-325 mg oral tablet: 1 Tab, Oral, Q4H, PRN: Pain (Moderate 4-6)Normal Saline Flush: 10 mL, IntraVENous, R27CYskoay Saline Flush: 10 mL, IntraVENous, Q12H, PRN: IV UseNovoLOG Mix 70/30: 15 Units, SubCutaneous, AC DinnerNovoLOG Mix 70/30: 20 Units, SubCutaneous, AC BreakfastPepcid: 20 mg, Oral, DailySodium Chloride 0.45% 1,000 mL: 75 mL/Hr, IntraVENousTylenol: 650 mg, Oral, Q4H, PRN: Pain (Mild 1-3)Zofran: 4 mg, IV Push, Q4H, PRN: NauseaZosyn + Sodium Chloride 0.9% 50 mL: 2.25 Gram, 16.67 mL/Hr, IV Piggyback, K8Xyhhxabady-muozqlohjhi 2.5 mg-0.5 mg/3 mL inhalation solution: 3 mL, Nebulized Inhalation, W8OMmhqjiwsvr: 81 mg, Oral, Dailyatenolol: 25 mg, Oral, Dailyatorvastatin: 40 mg, Oral, At Bedtimebudesonide: 0.5 mg, Nebulized Inhalation, BIDdoxycycline: 100 mg, Oral, BIDinsulin regular sliding scale: Scale A, SubCutaneous, O6Ynedavhxzkhnxm acidophilus: 1 Cap, Oral, BIDmorphine: 2 mg, IV Push, Q4H, PRN: Pain (Severe 7-10)traZODone: 150 mg, Oral, At BedtimeDocumented MedicationsDocumentedAspirin Low Dose: 81 mg, Oral, Daily, 0 Refill(s)Macrobid 100 mg oral capsule: 1 Cap, Oral, BID, for 10 Day(s), 20 Cap, 0 Refill(s)Nitrostat 0.4 mg sublingual tablet: 1 Tab, SubLINgual, Q5Min, PRN: Chest Pain, 100 Tab, 0 Refill(s)NovoLOG Mix 70/30: 20 Units, SubCutaneous, At Bedtime, 0 Refill(s)NovoLog Mix 70/30 FlexPen: 30 Units, SubCutaneous, AC Breakfast, 0 Refill(s)Plavix 75 mg oral tablet: 1 Tab, Oral, Daily, 90 Tab, 0 Refill(s)Probiotic Formula oral capsule: 1 Cap, Oral, Daily, 0 Refill(s)Symbicort 80 mcg-4.5 mcg/inh inhalation aerosol: 2 Puff, Inhalation, BID, 0 Refill(s)albuterol-ipratropium 2.5 mg-0.5 mg/3 mL inhalation solution: 3 mL, Nebulized Inhalation, TID, 0 Refill(s)atenolol 50 mg oral tablet: 0.5 Tab, Oral, Daily, 30 Tab, 0 Refill(s)atorvastatin 40 mg oral tablet: 1 Tab, Oral, At Bedtime, 0 Refill(s)lorazepam 1 mg oral tablet: 1 Tab, Oral, TID, PRN: for anxiety, 0 Refill(s)omeprazole 20 mg oral delayed release capsule: 1 Cap, Oral, Daily, 30 Cap, 0 Refill(s)trazodone 150 mg oral tablet: 1 Tab, Oral, At Bedtime, 30 Tab, 0 Refill(s),Medications (23) ActiveScheduled: (14)#NaCl 0.9% *FLUSH* inj 10 mL 10 mL, IntraVENous, U36Xclxgnbmip-novmmldehtw inh 3 mL 3 mL, Nebulized Inhalation, T6KWbldhpreja 81 mg chew tab 81 mg 1 Tab, Oral, Dailyatenolol 25 mg tab 25 mg 1 Tab, Oral, Dailyatorvastatin 40 mg tab 40 mg 1 Tab, Oral, At Bedtimebudesonide 0.5 mg/2 mL inh susp 0.5 mg 2 mL, Nebulized Inhalation, BIDdoxycycline hyclate 100 mg cap 100 mg 1 Cap, Oral, BIDfamotidine 20 mg tab 20 mg 1 Tab, Oral, Dailyinsulin NovoLOG 70/30 1 unit/0.01 mL inj 20 Units 0.2 mL, SubCutaneous, AC Breakfastinsulin NovoLOG 70/30 1 unit/0.01 mL inj 15 Units 0.15 mL, SubCutaneous, AC Dinnerinsulin regular 1 unit/0.01 mL inj 3mL Scale A, SubCutaneous, Q7Qnelxotmmtshwu acidophilus cap 1 Cap, Oral, BIDpiperacillin-tazobactam + NaCl 0.9% 50 mL 2.25 Gram, IV Piggyback, Z8MivlSTFnfm 50 mg tab 150 mg 3 Tab, Oral, At BedtimeContinuous: (1)NaCl 0.45% 1,000 mL 1,000 mL, IntraVENous, 75 mL/HrPRN: (8)#NaCl 0.9% *FLUSH* inj 10 mL 10 mL, IntraVENous, K08Qjmwjubpyjzwjp 325 mg tab 650 mg 2 Tab, Oral, S8Mrqzspysbqrgpi/HYDROcodone 325/5 mg tab 1 Tab, Oral, D8QIHUfkrsaq 1 mg tab 1 mg 1 Tab, Oral, TIDmorphine 2 mg/1 ml cpjt inj 2 mg 1 mL, IV Push, F5Axxaneijykkypg 0.4 mg tab # 25 btl 0.4 mg 1 Tab, SubLINgual, B5Icpfsjagmxpnkj 4 mg/2 mL inj 4 mg 2 mL, IV Push, L1Szsbficibgvpu glycol 3350 pwd 17 g pkt 17 Gram 1 Packet, Oral, DailyProblem list:No problem items selected or recorded.,Active Problems (26)Allergic rhinitis Anemia Angina Arthritis Back pain Bronchitis CA - Renal cancer Cancer of lung Cardiac arrhythmia Cataract COPD Coronary artery disease Diabetes mellitus type II Fibroids GERD - Gastro-esophageal reflux disease H/O: TIA Hyperlipidemia Hypokalemia Hypomagnesemia Hyponatremia Impaired vision Myocardial infarction Pneumonia Sinusitis Stented coronary artery Urinary tract infection lactobacillus acidophilus cap 1 Cap, Oral, BID piperacillin-tazobactam + NaCl 0.9% 50 mL 2.25 Gram, IV Piggyback, Q6H traZODone 50 mg tab 150 mg 3 Tab, Oral, At Bedtime Continuous: (1) NaCl 0.45% 1,000 mL 1,000 mL, IntraVENous, 75 mL/Hr PRN: (8) #NaCl 0.9% *FLUSH* inj 10 mL 10 mL, IntraVENous, Q12H acetaminophen 325 mg tab 650 mg 2 Tab, Oral, Q4H acetaminophen/HYDROcodone 325/5 mg tab 1 Tab, Oral, Q4H LORazepam 1 mg tab 1 mg 1 Tab, Oral, TID morphine 2 mg/1 ml cpjt inj 2 mg 1 mL, IV Push, Q4H nitroglycerin 0.4 mg tab # 25 btl 0.4 mg 1 Tab, SubLINgual, Q5Min ondansetron 4 mg/2 mL inj 4 mg 2 mL, IV Push, Q4H polyethylene glycol 3350 pwd 17 g pkt 17 Gram 1 Packet, Oral, Daily Problem list: No problem items selected or recorded., Active Problems (26) Allergic rhinitis Anemia Angina Arthritis Back pain Bronchitis CA - Renal cancer Cancer of lung Cardiac arrhythmia Cataract COPD Coronary artery disease Diabetes mellitus type II Fibroids GERD - Gastro-esophageal reflux disease H/O: TIA Hyperlipidemia Hypokalemia Hypomagnesemia Hyponatremia Impaired vision Myocardial infarction Pneumonia Sinusitis Stented coronary artery Urinary tract infection Physical ExaminationI/O: VS/MeasurementsVitals Signs (last 24 hrs) Last Charted Minimum MaximumTemp 97.4 (MAR 19 11:04)97.4 (MAR 19:04)H 100.2 (MAR 19 03:18)Mon HR 76 (MAR 19 11:55)71 (MAR 18 23:15)89 (MAR 18 15:00)Resp Rate 19 (MAR 19:04)16 (MAR 18 15:00)20 (MAR 18 18:00)SBP 104 (MAR 19:04)102 (MAR 19 03:18)129 (MAR 18 18:26)DBP 77 (MAR 19 11:04)L 36 (MAR 19 06:55)77 (MAR 19 11:04)MAP 86 (MAR 19 11:04)60 (MAR 19 06:55)96 (MAR 18 15:00)SpO2 97 (MAR 19 11:04)L 93 (MAR 18 23:15)97 (MAR 19 06:55)General: Alert and oriented, No acute distress.Eye: Pupils are equal, round and reactive to light, Extraocular movements are intact, Normal conjunctiva, Vision unchanged.HENT: Normocephalic, No pharyngeal erythema.Neck: Supple, Non-tender, No jugular venous distention, No lymphadenopathy, No thyromegaly.Respiratory: Respirations are non-labored, Symmetrical chest wall expansion, No chest wall tenderness, rochi bilaterally , Decreased breath sounds bilaterally.Cardiovascular: Regular rhythm, No murmur, Normal peripheral perfusion, No edema.Gastrointestinal: Soft, Non-tender, Non-distended, Normal bowel sounds.Genitourinary: No costovertebral angle tenderness, No lesions.Lymphatics: No lymphadenopathy neck, axilla, groin.Musculoskeletal: Normal range of motion, No swelling, Decrease strength.Integumentary: Warm, Dry, Intact.Neurologic: Alert, Oriented, No focal deficits.Psychiatric: Cooperative, Appropriate mood & affect. Integumentary: Warm, Dry, Intact. Neurologic: Alert, Oriented, No focal deficits. Psychiatric: Cooperative, Appropriate mood & affect. Review / Management MAR 19 00:30 L 131 | L 97 | H 26 / H 218 3.8 | 24 | H 2.00 \\ MAR 19 00:30 \\ L 9.9 / H 12.8 210 / L 32.6 \\ Radiology Results (Last 48 hours)[id number] -- 03/18/2017 14:39CR Chest 1 Vw Portable (03/18/2017 16:20) Result: PORTABLE CHEST 03/18/2017 3:59 PM HISTORY: Dyspnea.COMPARISON: March 07, 2007.FINDINGS: The heart is stable in size. The lung sparks demonstrate nosignificant change in the right upper lobe masslike opacity. There is nopneumothorax. IMPRESSION: There has been no significant interval change in the rightupper lobe masslike opacity.Continued follow-up recommended. Images reviewed, interpreted, and dictated by Dr. Julieth Argueta.Transcribed by Ellis Crooks have personally viewed, interpreted and dictated the examination. Ihave read and agree with the above final transcribed report.Results review:Labs (Last four charted values)WBC H 12.8(MAR 19)H 13.2(MAR 18)HB L 9.9(MAR 19)L 11.0(MAR 18)HCT L 32.6(MAR 19)35.8(MAR 18)Plt 210(MAR 16)231(MAR 15)Na L 131(MAR 19)L 128(MAR 15)K 3.8(MAR 16)4.3(MAR 18)Cl L 97(MAR 19)L 94(MAR 18)CO2 24(MAR 19)23(MAR 15)BUN H 26(MAR 16)H 23(MAR 15)Cr H 2.00(MAR 16)H 1.90(MAR 18)Glu R H 218(MAR 19)H 264(MAR 18)Ca L 7.8(MAR 19)L 8.4(MAR 18)PT 10.7(MAR 18)INR 1.0(MAR 18)PTT H 29.9(MAR 18)AST 24(MAR 19)32(MAR 18)ALT 25(MAR 19)28(MAR 18)ALK P 110(MAR 19)131(MAR 18)T Bili 0.5(MAR 19)0.8(MAR 18)PTN L 6.0(MAR 19)7.0(MAR 18)ALB L 2.2(MAR 19)L 2.6(MAR 18)Lipase L 63(MAR 18)Troponin <0.015(MAR 18)<0.015(MAR 18). WBC H 12.8(MAR 19)H 13.2(MAR 18) HB L 9.9(MAR 19)L 11.0(MAR 15) HCT L 32.6(MAR 19)35.8(MAR 15) Plt 210(MAR 16)231(MAR 15) Na L 131(MAR 19)L 128(MAR 18) K 3.8(MAR 19)4.3(MAR 18) Cl L 97(MAR 19)L 94(MAR 18) CO2 24(MAR 19)23(MAR 15) BUN H 26(MAR 16)H 23(MAR 15) Cr H 2.00(MAR 16)H 1.90(MAR 18) Glu R H 218(MAR 19)H 264(MAR 15) Ca L 7.8(MAR 19)L 8.4(MAR 18) PT 10.7(MAR 18) INR 1.0(MAR 18) PTT H 29.9(MAR 18) AST 24(MAR 19)32(MAR 15) ALT 25(MAR 19)28(MAR 18) ALK P 110(MAR 19)131(MAR 18) T Bili 0.5(MAR 19)0.8(MAR 18) PTN L 6.0(MAR 19)7.0(MAR 18) ALB L 2.2(MAR 19)L 2.6(MAR 18) Lipase L 63(MAR 18) Troponin <0.015(MAR 18)<0.015(MAR 18) . Impression and PlanImpression:-Non small cell lung cancer-recently treated for post obs pneumoniaKnown RLL mass with ass LADChest pain most likely sec to above. Cardiology signed offRenal Cancer with hematuriaUTICAD s/p stents >6months ago -okay to hold plavix per cardiology in view of hematuriaAdvanced COPDAnorexiaModerate MalnutritionDM 2 a1c 8.6Physical deconditioningHyponatremia -Decrease intake and possible SIADHIncrease IV fluids from 75 to 100Encourage oral intakeContinue zosyn /doxyFollow up on culturesContinue to hold plavixAppreciate Cardiology urology and oncology recommendationsSupportive managementSymptomatic treatment-needs better pain controlMarinol addedNutrition assesment per dietitianPT/OTGI px pepcidDVT px: PCS only. No chemical px due to hematuriaDNRDiscussed with patient and RNtime spent 37 minutesi reviewd chart , consultation notes , lab , imaging , MAR , vitals , made necessary medication changes , ordered lab ,discussed in details with PT , family and RNNote : Voice recognition / audiology technician technology used for some documentation in this chart in attempt to mitigate substantial inefficiencies created by this electronic health record technology. As a result, there may be some typos and/or non-sensical language introduced into the chart that either are overlooked in editing/review and/or that I am unable to correct as patient care needs require me to prioritize my attention to bedside patient care rather than electronic documentation. Supportive management Symptomatic treatment-needs better pain control Marinol added Nutrition assesment per dietitian PT/OT GI px pepcid DVT px: PCS only. No chemical px due to hematuria DNR Discussed with patient and RN time spent 37 minutes i reviewd chart , consultation notes , lab , imaging , MAR , vitals , made necessary medication changes , ordered lab ,discussed in details with PT , family and RN Note : Voice recognition / audiology technician technology used for some documentation in this chart in attempt to mitigate substantial inefficiencies created by this electronic health record technology. As a res ult, there may be some typos and/or non-sensical language introduced into the chart that either are overlooked in editing/review and/or that I am unable to correct as patient care needs require me to prioritize my attention to bedside patient care rather than electronic documentation. Extracted from: Title: [place] Author: TODD GANT Date: 03/19/17 [facility] Ana María-BHARAT daily progress note Subjective NAD. Constant chest tightness. Health StatusCurrent medications: (Selected)Inpatient MedicationsOrderedLORazepam: 1 mg, Oral, TID, PRN: AnxietyMiraLax: 17 Gram, Oral, Daily, PRN: ConstipationNitrostat: 0.4 mg, SubLINgual, Q5Min, PRN: Chest PainNorco 5 mg-325 mg oral tablet: 1 Tab, Oral, Q4H, PRN: Pain (Moderate 4-6)Normal Saline Flush: 10 mL, IntraVENous, O64IOxwqih Saline Flush: 10 mL, IntraVENous, Q12H, PRN: IV UseNovoLOG Mix 70/30: 15 Units, SubCutaneous, AC DinnerNovoLOG Mix 70/30: 20 Units, SubCutaneous, AC BreakfastPepcid: 20 mg, Oral, DailySodium Chloride 0.45% 1,000 mL: 75 mL/Hr, IntraVENousTylenol: 650 mg, Oral, Q4H, PRN: Pain (Mild 1-3)Zofran: 4 mg, IV Push, Q4H, PRN: NauseaZosyn + Sodium Chloride 0.9% 50 mL: 2.25 Gram, 16.67 mL/Hr, IV Piggyback, W9Caomjmtcbu-lpdqxoegikr 2.5 mg-0.5 mg/3 mL inhalation solution: 3 mL, Nebulized Inhalation, J6SKblwjxechr: 81 mg, Oral, Dailyatenolol: 25 mg, Oral, Dailyatorvastatin: 40 mg, Oral, At Bedtimebudesonide: 0.5 mg, Nebulized Inhalation, BIDdoxycycline: 100 mg, Oral, BIDinsulin regular sliding scale: Scale A, SubCutaneous, V5Dcaffiarfrkfib acidophilus: 1 Cap, Oral, BIDmorphine: 2 mg, IV Push, Q4H, PRN: Pain (Severe 7-10)traZODone: 150 mg, Oral, At BedtimeProblem list:Active Problems (26)Allergic rhinitis Anemia Angina Arthritis Back pain Bronchitis CA - Renal cancer Cancer of lung Cardiac arrhythmia Cataract COPD Coronary artery disease Diabetes mellitus type II Fibroids GERD - Gastro-esophageal reflux disease H/O: TIA Hyperlipidemia Hypokalemia Hypomagnesemia Hyponatremia Impaired vision Myocardial infarction Pneumonia Sinusitis Stented coronary artery Urinary tract infection lactobacillus acidophilus: 1 Cap, Oral, BID morphine: 2 mg, IV Push, Q4H, PRN: Pain (Severe 7-10) traZODone: 150 mg, Oral, At Bedtime Problem list: Active Problems (26) Allergic rhinitis Anemia Angina Arthritis Back pain Bronchitis CA - Renal cancer Cancer of lung Cardiac arrhythmia Cataract COPD Coronary artery disease Diabetes mellitus type II Fibroids GERD - Gastro-esophageal reflux disease H/O: TIA Hyperlipidemia Hypokalemia Hypomagnesemia Hyponatremia Impaired vision Myocardial infarction Pneumonia Sinusitis Stented coronary artery Urinary tract infection ObjectiveIntake and Ktswxz38 hour intake, 24 hour outputVS/MeasurementsVital Signs/Vital Measures03/19/2017 7:55 EDT Oxygen Flow Rate 2 Liter/Min03/19/2017 6:55 EDT Temperature, Fahrenheit 99.8 Deg F HI Heart Rate Monitored 84 bpm Respiratory Rate 17 Breaths/Min Systolic Blood Pressure 108 mmHg Diastolic Blood Pressure 36 mmHg LOW Mean Arterial Pressure (MAP) 60 mmHg,Vitals Signs (last 24 hrs) Last Charted Minimum MaximumTemp H 99.8 (MAR 19 06:55)97.8 (MAR 18 15:00)H 100.2 (MAR 19 03:18)Mon HR 81 (MAR 19 08:03)71 (MAR 18 23:15)89 (MAR 18 15:00)Resp Rate 17 (MAR 19 06:55)16 (MAR 18 15:00)20 (MAR 18 18:00)SBP 108 (MAR 19 06:55)102 (MAR 19 03:18)129 (MAR 18 18:26)DBP L 36 (MAR 19:55)L 36 (MAR 19 06:55)64 (MAR 18 23:15)MAP 60 (MAR 19 06:55)60 (MAR 19 06:55)96 (MAR 18 15:00)SpO2 97 (MAR 19 06:55)L 93 (MAR 18 23:15)97 (MAR 19 06:55)General: Alert and oriented, No acute distress.HENT: Oral mucosa is moist.Neck: Supple, Non-tender, No jugular venous distention.Respiratory: bilateral rhonci present.Cardiovascular: Normal rate, Regular rhythm, No murmur.Gastrointestinal: Soft, Normal bowel sounds.Integumentary: Warm, Dry.Neurologic: Alert, Oriented.Psychiatric: Cooperative, Appropriate mood & affect. Neck: Supple, Non-tender, No jugular venous distention. Respiratory: bilateral rhonci present. Cardiovascular: Normal rate, Regular rhythm, No murmur. Gastrointestinal: Soft, Normal bowel sounds. Integumentary: Warm, Dry. Neurologic: Alert, Oriented. Psychiatric: Cooperative, Appropriate mood & affect. Results ReviewTelemetryAdmission WeightTodays Weight MAR 19 00:30 L 131 | L 97 | H 26 / H 218 3.8 | 24 | H 2.00 \\ MAR 19 00:30 \\ L 9.9 / H 12.8 210 / L 32.6 \\Cardiac Markers (Current Encounter/Past 24 Hours)CK MB <0.50 ng/mL 03/19/2017 01:36CK 20 Units/Liter LOW 03/19/2017 01:36 Radiology Results (Last 48 hours)[id number] -- 03/18/2017 14:39CR Chest 1 Vw Portable (03/18/2017 16:20) Result: PORTABLE CHEST 03/18/2017 3:59 PM HISTORY: Dyspnea.COMPARISON: March 07, 2007.FINDINGS: The heart is stable in size. The lung sparks demonstrate nosignificant change in the right upper lobe masslike opacity. There is nopneumothorax. IMPRESSION: There has been no significant interval change in the rightupper lobe masslike opacity.Continued follow-up recommended. Images reviewed, interpreted, and dictated by Dr. Julieth Argueta.Transcribed by Ellis Crooks have personally viewed, interpreted and dictated the examination. Ihave read and agree with the above final transcribed report.08/31/16IMPRESSION:Successful percutaneous coronary intervention of the ostial proximal part ofthe RPDA with one drug-eluting stent.03/10/17 Impression: Visually estimated ejection fraction 60% +/- 5%. Normal left ventricular systolic function. Systolic strain pattern suggests a focal area of hypokinesis of the inferolateral segment. No hemodynamically significant valvular heart disease.03/09/17CONCLUSION:1. Myocardial perfusion imaging showing no evidence of ischemia.There is evidence of a pre-existing inferolateral infarct.2. Normal LV systolic function. Radiology Results (Last 48 hours) [id number] -- 03/18/2017 14:39 CR Chest 1 Vw Portable (03/18/2017 16:20) Result: PORTABLE CHEST 03/18/2017 3:59 PM HISTORY: Dyspnea.COMPARISON: March 07, 2007.FINDINGS: The heart is stable in size. The lung sparks demonstrate nosignificant change in the right up per lobe masslike opacity. There is nopneumothorax. IMPRESSION: There has been no significant interval change in the rightupper lobe masslike opacity.Continued follow-up recommended. Images re viewed, interpreted, and dictated by Dr. Julieth Argueta.Transcribed by Ellis Crooks have personally viewed, interpreted and dictated the examination. Ihave read and agree with the above final transcribed report. 08/31/16 IMPRESSION: Successful percutaneous coronary intervention of the ostial proximal part of the RPDA with one drug-eluting stent. 03/10/17 Impression: Visually estimated ejection fraction 60% +/- 5%. Normal left ventricular systolic function. Systolic strain pattern suggests a focal area of hypokinesis of the inferolateral segment. No hemodynamically significant valvular heart disease. 03/09/17 CONCLUSION: 1. Myocardial perfusion imaging showing no evidence of ischemia. There is evidence of a pre-existing inferolateral infarct. 2. Normal LV systolic function. Impression and PlanIMPRESSION:1. Atypical CP in setting of recent pneumonia and newly diagnosed Adenocarcinoma of the lung2. Hx CAD; s/p STORM to Rt PDA 08/31/16Stress 03/09/17 shows no ischemia and old InfLat MT. Normal EF.3. Acute on chronic respiratory failurea. New progressively enlarging spiculated RLL mass (4 cm)/prominent 16 mm hilar lymph node. Hx of lung CA.b. O2 dependent COPD with ongoing tobacco use4. Gross Hematuria5. HLD6. DM II-Uncontrolled.7. Hx of renal and lung CA8. OSA9. Hrxpnwrvpdfz79. Edvdoyv62. Renal InsuffPLAN;03/19/17Pt has ruled out for MT. Recent negative cardiac workup. Atypical chest pain secondary to noncardiac etiology. Will sign off. Reconsult if needed.03/18/17Spoke with Dr Gant.Atypical chest painin the setting of recently diagnosised right lung mass and pneumonia. Cardiac workup last week negative. Will trend troponins.Pt having gross hematuria. Okay to hold Plavix since last stent was >6 months ago and risk outweighs benefit at this point. Continue ASA and BB. 11. Renal Insuff PLAN; 03/19/17 Pt has ruled out for MT. Recent negative cardiac workup. Atypical chest pain secondary to noncardiac etiology. Will sign off. Reconsult if needed. 03/18/[address] Gant. Atypical chest painin the setting of recently diagnosised right lung mass and pneumonia. Cardiac workup last week negative. Will trend troponins. Pt having gross hematuria. Okay to hold Plavix since last stent was >6 months ago and risk outweighs benefit at this point. Continue ASA and BB. Extracted from: Title: RX Consult: Author: Flor Chan, Date: 03/18/17 Zosyn Pharm.D. Resident Consult: ZosynIndication: Possible UTIConsulted by: Dr. Samantha Palencia: Patient is a 77 year old female with a PMH significant for CAD, non-small cell lung cancer and COPD. The patient complains of chest pain and hematuria and is being evaluated for possible UTI, hematuria and possible pneumonia.Other antibiotics:Doxycycline 100 mg Q12h (03/18, day 1)Zosyn as dosed per pharmacy (03/18, day 1) Allergies (1) ActiveReactionerythromycinNone Documented Vitals Signs (last 24 hrs) Last Charted Minimum MaximumTemp 97.8 (MAR 18 15:00)97.8 (MAR 18 15:00)97.8 (MAR 18 15:00)Mon HR 89 (MAR 18 15:00)89 (MAR 18 15:00)89 ([place] 15 15:00)Resp Rate 16 (MAR 18:00)16 (MAR 18:00)16 (MAR 18:)SBP 128 (MAR 18:00)128 (MAR 18:00)128 (MAR 18:)DBP 60 (MAR 18:00)60 (MAR 18:00)60 (MAR 18:)MAP 83 (MAR 18:00)83 (MAR 18:00)96 (MAR 18:00)SpO2 96 (MAR 18:)96 (MAR 18:00)96 (MAR 18:)I/O - new admitHeight 157 cmWeight 54 kgPrevious admission: The patient received Zosyn load of 4.5 mg IV 1-time, followed by 3.375 mg IV q6h (03/07/2017 - 03/10/2017) for pneumonia. Serum creatinine on 03/10/2017 at discharge was 1.1.Cultures:Blood x2 - pendingUrine - pendingSputum - pendingA/P1. Give Zosyn 4.5 mg IV 1-time (03/18 at 18:00) per pharmacy dose optimazation protocol.2. Patient is new admit. Labs have not been drawn yet. Based on age, and possible site of infection, will start Zosyn 2.25 mg IV Q6h, 03/18 at 00:00.3. Will monitor BMP and dose appropriately based on renal function .4. Pt taking PO meds. Change doxy to po.Thank you for the consult.Flor Chan, [id number] - [id number] Previous admission: The patient received Zosyn load of 4.5 mg IV 1-time, followed by 3.375 mg IV q6h (03/07/2017 - 03/10/2017) for pneumonia. Serum creatinine on 03/10/2017 at discharge was 1.1. Cultures: Blood x2 - pending Urine - pending Sputum - pending A/P 1. Give Zosyn 4.5 mg IV 1-time (03/18 at 18:00) per pharmacy dose optimazation protocol. 2. Patient is new admit. Labs have not been drawn yet. Based on age, and possible site of infection, will start Zosyn 2.25 mg IV Q6h, 7/15 at 00:00. 3. Will monitor BMP and dose appropriately based on renal function . 4. Pt taking PO meds. Change doxy to po. Thank you for the consult. Flor Chan, PharmD [phone] Hospital Discharge Instructions Patient EducationAcute Kidney Injury Blood Glucose Monitoring, Adult Chest Wall Pain Chest Wall Pain, Mkma-ej-Vjgb Diabetes and Sick Day Management Hematuria, Adult Malnutrition Urinary Tract Infection Urinary Tract Infection, Bllu-zo-Mbsr"
--- OUTSIDE RECORDS SUMMARY | 2017-04-02 21:02 | External Medical Summary Rpt ---
Author Author [facility] Organization [facility] Address Unknown Phone Unavailable Care Team Providers Care Buffet Attendant Name Role Phone Johny MCCOY PCP [phone] Encounter [facility] Date(s): 03/18/17 - 03/22/17 [facility] [address] [place] [id number]- Discharge Disposition: IP Self Care / Home [...] Estimated Source (03/18/17 2:05 PM) Height Entry [place] Format (03/18/17 2:05 PM) Height/Lengt 5 ft h, HONDURAN (03/18/17 2:05 PM) (ft) Height/Lengt 2 Inch h HONDURAN (03/18/17 2:05 PM) CLINICALHEIG 157.48 cm HT (03/18/17 2:05 PM) Weight Bed scale Source (03/18/17 2:05 PM) Weight Entry [place] Format (03/18/17 2:05 PM) Weight 118 lb Iranian lb (03/18/17 2:05 PM) CLINICALWEIG 53.64 kg HT (03/18/17 2:05 PM) Body Surface 1.53 m2 Area (BSA) (03/18/17 2:05 PM) Body Mass 21.6 kg/m2 Index (03/18/17 2:05 PM) [19.0-24.0 kg/m2] [place] Body 50 kg Weight (03/18/17 2:05 PM) [...] (03/20/17 6:44 AM) (03/19/17 12:30 x10(3)/uL] AM) [place] % 7.2 % (03/21/17 8.2 % (03/20/17 7.3 % (03/19/17 [3.0-9.0 %] 4:56 AM) 6:44 AM) 12:30 AM) [place] # 0.65 K/uL 0.88 K/uL 0.94 K/uL [...] PM) Urine 1.013 (03/18/17 Specific 4:04 PM) [place] [1.005-1.030 ] Urine pH 5.5 *LOW*(03/18/17 Dipstick [...] (Moderate 4-6)Normal Saline Flush: 10 mL, IntraVENous, N84KRlfxbo Saline Flush: 10 mL, IntraVENous, Q12H, PRN: IV UseNovoLOG Mix 70/30: 15 Units, SubCutaneous, AC DinnerNovoLOG Mix 70/30: 20 Units, SubCutaneous, AC BreakfastPepcid: 20 mg, Oral, DailySodium Chloride 0.9% 1,000 mL: 150 mL/Hr, IntraVENousTylenol: 650 mg, Oral, Q4H, PRN: Pain (Mild 1-3)Zofran: 4 mg, IV Push, Q4H, PRN: Nauseaalbuterol-ipratropium 2.5 mg-0.5 mg/3 mL inhalation solution: 3 mL, Nebulized Inhalation, M8UKhggmnecyn: 81 mg, Oral, Dailyatenolol: 25 mg, Oral, Dailyatorvastatin: 40 mg, Oral, At Bedtimebudesonide: 0.5 mg, Nebulized Inhalation, BIDdoxycycline: 100 mg, Oral, BIDinsulin regular sliding scale: Scale A, SubCutaneous, D2Wxwihsvkhrscae acidophilus: 1 Cap, Oral, BIDmorphine: 2 mg, [...] *FLUSH* inj 10 mL 10 mL, IntraVENous, X54Zaryzgnvjk-wrsdrvxjpgu inh 3 mL 3 mL, Nebulized Inhalation, G1CIssuymfhlz 81 mg chew tab 81 mg 1 [...] unit/0.01 mL inj 3mL Scale A, SubCutaneous, S4Fcqlrkhqgdxbyc acidophilus cap 1 Cap, Oral, BIDtraZODone 50 mg tab 150 mg 3 Tab, Oral, At BedtimeContinuous: (1)NaCl 0.9% 1,000 mL 1,000 mL, IntraVENous, 150 mL/HrPRN: (8)#NaCl 0.9% *FLUSH* inj 10 mL 10 mL, IntraVENous, C75Dvsmvnyoieiamu 325 mg tab 650 mg 2 Tab, Oral, X8Hqoznwgjzcpeyf/HYDROcodone 325/5 mg tab 1 Tab, Oral, R0VGQWyaduvq 1 mg tab 1 mg 1 Tab, Oral, TIDmorphine 2 mg/1 ml cpjt inj 2 mg 1 mL, IV Push, I4Pdlywjfeenrnkg 0.4 mg tab # 25 btl 0.4 mg 1 Tab, SubLINgual, D4Lzdgbiemwavsji 4 mg/2 mL inj 4 mg 2 mL, IV Push, M4Ojwkwxrscokkl glycol 3350 pwd 17 g pkt 17 [...] am cr; pt greatly desiring to keep [facility] appt tomorrow for rad onc eval d/w [...] keep her appt [facility] tomorrowdispo will be dependent upon renal function [...] keep her appt with rad onc at [facility] tomorrow dispo will be dependent upon renal [...] (Moderate 4-6)Normal Saline Flush: 10 mL, IntraVENous, Z99GImxakn Saline Flush: 10 mL, IntraVENous, Q12H, PRN: [...] mL inhalation solution: 3 mL, Nebulized Inhalation, W9AIacnrxotmz: 81 mg, Oral, Dailyatenolol: 25 mg, Oral, Dailyatorvastatin: 40 mg, Oral, At Bedtimebudesonide: 0.5 mg, Nebulized Inhalation, BIDdoxycycline: 100 mg, Oral, BIDinsulin regular sliding scale: Scale A, SubCutaneous, Y3Bzdeheypszmfld acidophilus: 1 Cap, Oral, BIDmorphine: 2 mg, [...] *FLUSH* inj 10 mL 10 mL, IntraVENous, K58Vfzvsyrdpx-qcztwpmhdeu inh 3 mL 3 mL, Nebulized Inhalation, Z5YLuquviinzr 81 mg chew tab 81 mg 1 [...] unit/0.01 mL inj 3mL Scale A, SubCutaneous, P8Gcusyibkrbvghh acidophilus cap 1 Cap, Oral, BIDNaCl 0.9% 500 mL, IntraVENous, 1-TimetraZODone 50 mg tab 150 mg 3 Tab, Oral, At BedtimeContinuous: (1)NaCl 0.45% 1,000 mL 1,000 mL, IntraVENous, 150 mL/HrPRN: (8)#NaCl 0.9% *FLUSH* inj 10 mL 10 mL, IntraVENous, K43Ujfxqbgtqqyktl 325 mg tab 650 mg 2 Tab, Oral, H1Ossgsayiaikjbb/HYDROcodone 325/5 mg tab 1 Tab, Oral, O1CBFSjowlxb 1 mg tab 1 mg 1 Tab, Oral, TIDmorphine 2 mg/1 ml cpjt inj 2 mg 1 mL, IV Push, V5Exxefusvppffwp 0.4 mg tab # 25 btl 0.4 mg 1 Tab, SubLINgual, H4Ivldjguvgbxlbw 4 mg/2 mL inj 4 mg 2 mL, IV Push, P2Rxfwtfvfmhohc glycol 3350 pwd 17 g pkt 17 [...] keep her appt with rad onc at [facility] on mondaydispo will be dependent upon renal [...] keep her appt with rad onc at [facility] on monday dispo will be dependent upon [...] (Moderate 4-6)Normal Saline Flush: 10 mL, IntraVENous, S66TEmdrff Saline Flush: 10 mL, IntraVENous, Q12H, PRN: IV UseNovoLOG Mix 70/30: 15 Units, SubCutaneous, AC DinnerNovoLOG Mix 70/30: 20 Units, SubCutaneous, AC BreakfastPepcid: 20 mg, Oral, DailySodium Chloride 0.45% 1,000 mL: 75 mL/Hr, IntraVENousTylenol: 650 mg, Oral, Q4H, PRN: Pain (Mild 1-3)Zofran: 4 mg, IV Push, Q4H, PRN: NauseaZosyn + Sodium Chloride 0.9% 50 mL: 2.25 Gram, 16.67 mL/Hr, IV Piggyback, R4Kyywfuthum-jkemfsyvuak 2.5 mg-0.5 mg/3 mL inhalation solution: 3 mL, Nebulized Inhalation, A6VJdphzesyop: 81 mg, Oral, Dailyatenolol: 25 mg, Oral, Dailyatorvastatin: 40 mg, Oral, At Bedtimebudesonide: 0.5 mg, Nebulized Inhalation, BIDdoxycycline: 100 mg, Oral, BIDinsulin regular sliding scale: Scale A, SubCutaneous, B4Dhfjjmexaevoiy acidophilus: 1 Cap, Oral, BIDmorphine: 2 mg, [...] *FLUSH* inj 10 mL 10 mL, IntraVENous, C79Pyzgibwgxp-gwevesvihxv inh 3 mL 3 mL, Nebulized Inhalation, P2LOukokwrjmq 81 mg chew tab 81 mg 1 [...] unit/0.01 mL inj 3mL Scale A, SubCutaneous, U7Myedjkkpdlqooi acidophilus cap 1 Cap, Oral, BIDpiperacillin-tazobactam + NaCl 0.9% 50 mL 2.25 Gram, IV Piggyback, O3DpsaQUNsvz 50 mg tab 150 mg 3 Tab, Oral, At BedtimeContinuous: (1)NaCl 0.45% 1,000 mL 1,000 mL, IntraVENous, 75 mL/HrPRN: (8)#NaCl 0.9% *FLUSH* inj 10 mL 10 mL, IntraVENous, X84Aoryudyjfjmopt 325 mg tab 650 mg 2 Tab, Oral, D6Yiemglmahgjnhh/HYDROcodone 325/5 mg tab 1 Tab, Oral, U0ZDVPmhxfge 1 mg tab 1 mg 1 Tab, Oral, TIDmorphine 2 mg/1 ml cpjt inj 2 mg 1 mL, IV Push, P2Nuxjrvqtrrgabu 0.4 mg tab # 25 btl 0.4 mg 1 Tab, SubLINgual, P6Ytyxookyqacbei 4 mg/2 mL inj 4 mg 2 mL, IV Push, N7Jjmmzvjqzxwhv glycol 3350 pwd 17 g pkt 17 [...] L 32.6 \\ Radiology Results (Last 48 hours)[id number] -- 03/18/2017 14:39CR Chest 1 Vw Portable [...] family and RNNote : Voice recognition / tech brazer tester technology used for some documentation in this [...] and RN Note : Voice recognition / tech brazer tester technology used for some documentation in this [...] (Moderate 4-6)Normal Saline Flush: 10 mL, IntraVENous, U16WIdipgc Saline Flush: 10 mL, IntraVENous, Q12H, PRN: IV UseNovoLOG Mix 70/30: 15 Units, SubCutaneous, AC DinnerNovoLOG Mix 70/30: 20 Units, SubCutaneous, AC BreakfastPepcid: 20 mg, Oral, DailySodium Chloride 0.45% 1,000 mL: 75 mL/Hr, IntraVENousTylenol: 650 mg, Oral, Q4H, PRN: Pain (Mild 1-3)Zofran: 4 mg, IV Push, Q4H, PRN: NauseaZosyn + Sodium Chloride 0.9% 50 mL: 2.25 Gram, 16.67 mL/Hr, IV Piggyback, E7Sqylcxhhqc-hzxfxlwkdzb 2.5 mg-0.5 mg/3 mL inhalation solution: 3 mL, Nebulized Inhalation, J3FOefrskkuej: 81 mg, Oral, Dailyatenolol: 25 mg, Oral, Dailyatorvastatin: 40 mg, Oral, At Bedtimebudesonide: 0.5 mg, Nebulized Inhalation, BIDdoxycycline: 100 mg, Oral, BIDinsulin regular sliding scale: Scale A, SubCutaneous, C5Kapkxnxjekvnac acidophilus: 1 Cap, Oral, BIDmorphine: 2 mg, [...] coronary artery Urinary tract infection ObjectiveIntake and Odfrti94 hour intake, 24 hour outputVS/MeasurementsVital Signs/Vital Measures03/19/2017 [...] LOW 03/19/2017 01:36 Radiology Results (Last 48 hours)[id number] -- 03/18/2017 14:39CR Chest 1 Vw Portable [...] systolic function. Radiology Results (Last 48 hours) [id number] -- 03/18/2017 14:39 CR Chest 1 Vw [...] 03/09/17 shows no ischemia and old InfLat [place]. Normal EF.3. Acute on chronic respiratory failurea. New progressively enlarging spiculated RLL mass (4 cm)/prominent 16 mm hilar lymph node. Hx of lung CA.b. O2 dependent COPD with ongoing tobacco use4. Gross Hematuria5. HLD6. DM II-Uncontrolled.7. Hx of renal and lung CA8. OSA9. Xilbceguucaz96. Jnefbng58. Renal InsuffPLAN;03/19/17Pt has ruled out for [place]. Recent negative cardiac workup. Atypical chest pain [...] PLAN; 03/19/17 Pt has ruled out for [place]. Recent negative cardiac workup. Atypical chest pain [...] to po.Thank you for the consult.Flor Chan, [id number] - [phone] Previous admission: The patient received [...] you for the consult. Flor Chan, PharmD [phone] Hospital Discharge Instructions Patient EducationAcute Kidney Injury Blood Glucose Monitoring, Adult Chest Wall Pain Chest Wall Pain, Ycly-jt-Gzsa Diabetes and Sick Day Management Hematuria, Adult Malnutrition Urinary Tract Infection Urinary Tract Infection, Tuep-ey-Zpsi"
--- OUTSIDE RECORDS SUMMARY | 2017-04-02 21:03 | External Medical Summary Rpt ---
Author Author , JUSTIN JEFFRIESABDULKADIR Address Unknown Phone [email or web address] Purpose Continuity of Care Document - 01-11-2017 through 2016 Results Labs Lab Lab Date Result Refere Interp Status Commen Order Detail nces retati t Range on Urinalysis dipstick W Reflex Microscopic panel in Urine (03-18-2017 11:00) Bacteri 4+ O complet a 017 ed [Presen 11:00 ce] in Urine sedimen t by Light microsc opy Coarse 5-10 NONE complet Granula 017 ed r Casts 11:00 [Presen ce] in Urine sedimen t by Light microsc opy Erythro TNTC 0 complet cytes 017 ed [Presen 11:00 ce] in Urine sedimen t by Light microsc opy Epithel 10-20 0#/hp complet ial 017 f - ed cells.s 11:00 5#/hp quamous f [Presen ce] in Urine sedimen t by Microsc opy high power field Leukocy 20-50 O complet gloria 017 wbc/hpf ed [#/volu 11:00 me] in Urine Urinalysis dipstick W Reflex Microscopic panel in Urine (03-18-2017 11:00) Appeara TURBID CLEAR complet nce of 017 ed Urine 11:00 Bilirub NEGATIV NEG complet in 017 E ed [Presen 11:00 ce] in Urine by Test strip Erythro 3+ NEG Abnorma complet cytes 017 l ed [Presen 11:00 ce] in Urine Color DK YELLOW complet of 017 YELLOW ed Urine 11:00 Ketones NEGATIV NEG complet 017 E ed [Presen 11:00 ce] in Urine by Automat ed test strip Mucus NEGATIV NEG complet [Presen 017 E ed ce] in 11:00 Urine sedimen t by Light microsc opy Nitrite NEGATIV NEG complet 017 E ed [Presen 11:00 ce] in Urine by Test strip Urobili 0.2 NEG complet nogen 017 ed [Presen 11:00 ce] in Urine by Test strip Differential panel, method unspecified - (03-18-2017 10:02) Anisocy 1+ complet tosis 017 ed [Presen 10:02 ce] in Blood Hypochr 2+ complet omia 017 ed [Presen 10:02 ce] in Blood LYMPH 10 % 10% - Normal complet 017 50% ed 10:02 Blood 1+ complet smear 017 ed finding 10:02 [Identi fier] in Blood by Light microsc opy Platele NORMAL complet ts 017 ed [Presen 10:02 ce] in Blood by Light microsc opy Blood product special preparation [Type] (02-14-2017 18:26) Blood BLOOD complet product 017 UNIT ed 18:26 RELEASE special prepara tion [Type] Blood product special preparation [Type] (02-14-2017 11:15) Blood BLOOD complet product 017 UNIT ed 11:15 RELEASE special prepara tion [Type] Blood type & Crossmatch panel in Blood (02-14-2017 07:25) Blood NEGATIV NEGATIV complet group 017 E E ed antibod 07:25 y screen [Presen ce] in Serum or Plasma Rh POSITIV complet [Type] 017 E ed in 07:25 Blood ABO O complet group 017 ed [Type] 07:25 in Blood Blood type & Crossmatch panel in Blood (02-14-2017 07:25) Major COMPAT complet crossma 017 ed tch 07:25 [interp retatio n] Major COMPAT complet crossma 017 ed tch 07:25 [interp retatio n] by Immedia te spin Differential panel, method unspecified - (02-09-2017 12:00) LYMPH 9 % 10% - Low complet 017 50% ed 12:00 Platele NORMAL complet ts 017 ed [Presen 12:00 ce] in Blood by Light microsc opy Mycoplasma pneumoniae IgM Ab [Presence] in Serum by Immunoassay (02-09-2017 12:00) Mycopla NON-NAVA NONREAC complet sma 017 CTIVE TIVE ed pneumon 12:00 iae IgM Ab [Presen ce] in Serum by Immunoa ssay Urinalysis dipstick W Reflex Microscopic panel in Urine (02-06-2017 12:45) Bacteri 1+ O complet a 017 ed [Presen 12:45 ce] in Urine sedimen t by Light microsc opy Mucus 1+ OCC complet [Presen 017 ed ce] in 12:45 Urine sedimen t by Light microsc opy Epithel 5-10 0#/hp complet ial 017 f - ed cells.s 12:45 5#/hp quamous f [Presen ce] in Urine sedimen t by Microsc opy high power field Leukocy 5-10 O complet gloria 017 wbc/hpf ed [#/volu 12:45 me] in Urine Urinalysis dipstick W Reflex Microscopic panel in Urine (02-06-2017 12:45) Appeara CLEAR CLEAR complet nce of 017 ed Urine 12:45 Bilirub NEGATIV NEG complet in 017 E ed [Presen 12:45 ce] in Urine by Test strip Erythro TRACE-L NEG complet cytes 017 YSED ed [Presen 12:45 ce] in Urine Color YELLOW YELLOW complet of 017 ed Urine 12:45 Ketones 1+ NEG Abnorma complet 017 l ed [Presen 12:45 ce] in Urine by Automat ed test strip Mucus TRACE NEG Abnorma complet [Presen 017 l ed ce] in 12:45 Urine sedimen t by Light microsc opy Nitrite NEGATIV NEG complet 017 E ed [Presen 12:45 ce] in Urine by Test strip Urobili 1.0 NEG complet nogen 017 ed [Presen 12:45 ce] in Urine by Test strip Hemoglobin A1c in Blood (02-02-2017 10:00) Hemoglo 8.6 % 0.0% High complet bin A1c 017 - ed in 10:00 7.0% Blood Differential panel, method unspecified - (01-23-2017 06:00) Hypochr 1+ complet omia 017 ed [Presen 06:00 ce] in Blood LYMPH 4 % 10% - Low complet 017 50% ed 06:00 Platele NORMAL complet ts 017 ed [Presen 06:00 ce] in Blood by Light microsc opy Bacteria identified in Blood by Aerobe culture (01-11-2017 16:10) Bacteri RESULTS complet a 017 : PCR- ed identif 16:10 STREPTO ied in COCCUS Blood by Aerobe culture Bacteri GRAM complet a 017 STAIN- ed identif 16:10 GRAM ied in POSITIV Blood E COCCI by IN Aerobe CHAINS culture Bacteri ID: complet a 017 STREPTO ed identif 16:10 COCCUS ied in THORALT Blood DENISSE; by SENSITI Aerobe VITY culture SENT TO Bacteri [facility] complet a 017 PER R ed identif 16:10 LARISSA MT ied in Blood by Aerobe culture Bacteri RESULTS complet a 017 CALLED ed identif 16:10 TO: ied in PRICILA.DIM Blood B by Aerobe 7 1005 culture Bacteri [place] complet a 017 yke,Fany ed identif 16:10 herine ied in Blood by Aerobe culture Bacteri Strepto complet a 017 coccus ed identif 16:10 species ied in Blood by Aerobe culture
--- OUTSIDE RECORDS SUMMARY | 2017-04-02 21:03 | External Medical Summary Rpt ---
Author Author , JUSTIN JEFFRIESABDULKADIR Address Unknown Phone [email or web address] Purpose Continuity of Care Document - 01-11-2017 [...]
--- OUTSIDE RECORDS SUMMARY | 2017-04-02 21:03 | External Medical Summary Rpt ---
Demographics Preferred Language [place] Marital Status Unknown Islam Affiliation Unknown Race Unknown Ethnic Group Unknown Author Author , NEERU ANDERSON Address Unknown Phone Immunization Unable to retrieve immunization data due to connection failure with Immunization Registry. Please try again later.
--- OUTSIDE RECORDS SUMMARY | 2017-04-02 21:03 | External Medical Summary Rpt ---
Demographics Preferred Language [place] Marital Status Unknown Anabaptist Affiliation Unknown Race Unknown Ethnic Group Unknown Author Author , NEERU ANDERSON Address Unknown Phone Immunization Unable to retrieve immunization data due to connection failure with Immunization Registry. Please try again later.
--- OUTSIDE RECORDS SUMMARY | 2017-04-02 21:07 | External Medical Summary Rpt ---
Author Author [employer] Banks, [employer] Organization [employer] Address Unknown Phone Unavailable Results Comprehensive metabolic 2000 panel in Serum or Plasma Observa Value Referen Units Interpr Notes Date tion ce etation Range Albumin/G 1.1 - 1.8 No Low No Mar 28 lobulin informati informati 2016 [Mass on in on in 10:15 AM ratio] in source source Serum or data data Plasma Albumin 3.4 - 5.0 gm/dL Low No Mar 28 [Mass/vol informati 2016 ume] in on in 10:15 AM Serum or source Plasma data Alkaline 46 - 116 U/L High No Mar 28 phosphata informati 2016 se on in 10:15 AM [Enzymati source c data activity/ volume] in Serum or Plasma Bilirubin 0.2 - 1.0 mg/dL Normal No Mar 28 .total informati 2016 [Mass/vol on in 10:15 AM ume] in source Serum or data Plasma Urea 7 - 18 mg/dL High No Mar 28 nitrogen informati 2016 [Mass/vol on in 10:15 AM ume] in source Serum or data Plasma Calcium 8.5 - mg/dL Low No Mar 28 [Mass/vol 10.1 informati 2016 ume] in on in 10:15 AM Serum or source Plasma data Chloride 98 - 107 mmoL/L Normal No Mar 28 [Moles/vo informati 2016 lume] in on in 10:15 AM Serum or source Plasma data Carbon 21.0 - mmoL/L Normal No Mar 28 dioxide, 32.0 informati 2016 total on in 10:15 AM [Moles/vo source lume] in data Serum or Plasma Creatinin 0.55 - mg/dL High No Mar 28 e 1.02 informati 2016 [Mass/vol on in 10:15 AM ume] in source Serum or data Plasma Estimated 59- ML/MIN Low alert REFERENCE Mar 28 RANGE: 2017 glomerula >60 10:15 AM r ML/MIN/1. filtratio 73 SQUARE n rate METERSIf (GF this patient is -A merican, then multiply theresult by 1.210. Globulin 1.3 - 3.2 gm/dL High No Mar 28 [Mass/vol informati 2016 ume] in on in 10:15 AM Serum source data Glucose 74 - 106 mg/dL High No Mar 28 [Mass/vol informati 2016 ume] in on in 10:15 AM Serum or source Plasma data Potassium 3.5 - 5.1 mmoL/L High No Mar 28 inform2016 [Moles/vo on in 10:15 AM lume] in source Serum or data Plasma Sodium 136 - 145 mmoL/L Normal No Mar 28 [Moles/vo informati 2016 lume] in on in 10:15 AM Serum or source Plasma data Aspartate 15 - 37 U/L Normal No Mar 282016 aminotran on in 10:15 AM sferase source [Enzymati data c activity/ volume] in Serum or Plasma Alanine 12 - 78 U/L Normal No Mar 28 aminotran 2016 sferase on in 10:15 AM [Enzymati source c data activity/ volume] in Serum or Plasma Protein 6.4 - 8.2 gm/dL Normal No Mar 28 [Mass/vol informati 2016 ume] in on in 10:15 AM Serum or source Plasma data CBC W Auto Differential panel in Blood Observa Value Referen Units Interpr Notes Date tion ce etation Range Basophils 0 - 0.2 K/MM3 Normal No Mar 282016 [#/volume on in 10:15 AM ] in source Blood by data Automated count Basophils 0.1 - 2.0 % Normal No Mar 28 inform2016 leukocyte on in 10:15 AM s in source Blood by data Automated count Eosinophi 0.0 - 0.4 K/mm3 Normal No Mar 28 ls informati 2016 [#/volume on in 10:15 AM ] in source Blood by data Automated count Eosinophi 0.1 - % Normal No Mar 28 ls/100 12.0 inform2016 leukocyte on in 10:15 AM s in source Blood by data Automated count Granulocy 1.8 - 7.8 K/mm3 High No Mar 28 gloria inform2016 [#/volume on in 10:15 AM ] in source Blood by data Automated count Granulocy 37.0 - % High No Mar 28 gloria/100 80.0 informati 2016 leukocyte on in 10:15 AM s in source Blood by data Automated count Hematocri 37.0 - % Low No Mar 28 t [Volume 47.0 informati 2016 on in 10:15 AM Fraction] source of Blood data Hemoglobi 12.2 - g/dL Low No Mar 28 n 16.2 informati 2016 [Mass/vol on in 10:15 AM ume] in source Blood data Lymphocyt 0.7 - 4.5 K/mm3 Normal No Mar 28 es inform2016 [#/volume on in 10:15 AM ] in source Unspecifi data ed specimen by Automated count Lymphocyt 10 - 50.0 % Normal No Mar 28 es informati 2016 [#/volume on in 10:15 AM ] in source Unspecifi data ed specimen by Automated count Erythrocy 27 - 31.2 pg Normal No Mar 28 te mean 2016 corpuscul on in 10:15 AM ar source hemoglobi data n [Entitic mass] Erythrocy 31.8 - g/dl Low No Mar 28 te mean 35.4 inform2016 corpuscul on in 10:15 AM ar source hemoglobi data n concentra tion [Mass/vol ume] by Automated count Erythrocy 82.2 - fl Normal No Mar 28 te mean 97.8 informati 2016 corpuscul on in 10:15 AM ar volume source [Entitic data volume] by Automated count Monocytes 0.1 - 1.0 K/mm3 Normal No Mar 282016 [#/volume on in 10:15 AM ] in source Blood by data Automated count Monocytes 1.7 - 9.3 % Normal No Mar 28 /100 2016 leukocyte on in 10:15 AM s in source Blood by data Automated count Platelet 7.4 - fl Normal No Mar 28 mean 10.4 informati 2016 volume on in 10:15 AM [Entitic source volume] data in Blood by Automated count Platelets 142 - 424 K/mm3 Normal No Mar 28 inform2016 [#/volume on in 10:15 AM ] in source Blood data Erythrocy 4.2 - 5.4 M/mm3 Low No Mar 28 gloria informati 2016 [#/volume on in 10:15 AM ] in source Amniotic data fluid Erythrocy 11.5 - % Normal No Mar 28 te 17.5 2016 distribut on in 10:15 AM ion width source [Entitic data volume] by Automated count Leukocyte 4.8 - K/MM3 High No Mar 28 s 10.8 informati 2017 [#/volume on in 10:15 AM ] in source Blood data Urinalysis dipstick W Reflex Microscopic panel in Urine Observa Value Referen Units Interpr Notes Date tion ce etation Range Appeara TURBID CLEAR No No No Mar 18 nce of informa informa informa 2017 Urine tion in tion in tion in 11:00 source source source AM data data data Bacteri 4+ O No No No Mar 18 a informa informa informa 2016 [Presen tion in tion in tion in 11:00 ce] in source source source AM Urine data data data sedimen t by Light microsc opy Bilirub NEGATIV NEG No No No Mar 18 in E informa informa informa 2016 [Presen tion in tion in tion in 11:00 ce] in source source source AM Urine data data data by Test strip Erythro 3+ NEG No Abnorma No Mar 18 cytes informa l informa 2016 [Presen tion in tion in 11:00 ce] in source source AM Urine data data Coarse 5-10 NONE #/hpf No No Mar 18 Granula informa informa 2017 r Casts tion in tion in 11:00 source source AM [Presen data data ce] in Urine sedimen t by Light microsc opy Color DK YELLOW No No No Mar 18 of YELLOW informa informa informa 2016 Urine tion in tion in tion in 11:00 source source source AM data data data Glucose NEG No High No Mar 18 [Mass/vol informati informati 2017 ume] in on in on in 11:00 AM Urine by source source Test data data strip Ketones NEGATIV NEG mg/dL No No Mar 18 E informa informa 2016 [Presen tion in tion in 11:00 ce] in source source AM Urine data data by Automat ed test strip Mucus NEGATIV NEG No No No Mar 18 [Presen E informa informa informa 2017 ce] in tion in tion in tion in 11:00 Urine source source source AM sedimen data data data t by Light microsc opy Nitrite NEGATIV NEG No No No Mar 18 E informa informa informa 2016 [Presen tion in tion in tion in 11:00 ce] in source source source AM Urine data data data by Test strip pH of 5.0 - 8.5 No Normal No Mar 18 Urine informati informati 2017 on in on in 11:00 AM source source data data Protein NEG mg/dL High No Mar 18 [Mass/vol informati 2017 ume] in on in 11:00 AM Urine by source Automated data test strip Erythro TNTC 0 rbc/hpf No No Mar 18 cytes informa informa 2016 [Presen tion in tion in 11:00 ce] in source source AM Urine data data sedimen t by Light microsc opy Specific 1.005 - No Normal No Mar 18 gravity 1.030 informati informati 2017 of Urine on in on in 11:00 AM source source data data Epithel 10-20 0 - 5 #/hpf No No Mar 18 ial informa informa 2017 cells.s tion in tion in 11:00 quamous source source AM data data [Presen ce] in Urine sedimen t by Microsc opy high power field Urobili 0.2 NEG E.U./dL No No Mar 18 nogen informa informa 2016 [Presen tion in tion in 11:00 ce] in source source AM Urine data data by Test strip Leukocy [20 O wbc/hpf No No Mar 18 gloria wbc/hpf informa informa 2016 [#/volu ; 50 tion in tion in 11:00 me] in wbc/hpf source source AM Urine ] data data Urinalysis dipstick W Reflex Microscopic panel in Urine Observa Value Referen Units Interpr Notes Date tion ce etation Range Appeara TURBID CLEAR No No No Mar 18 nce of informa informa informa 2017 Urine tion in tion in tion in 11:00 source source source AM data data data Bilirub NEGATIV NEG No No No Mar 18 in E informa informa informa 2016 [Presen tion in tion in tion in 11:00 ce] in source source source AM Urine data data data by Test strip Erythro 3+ NEG No Abnorma No Mar 18 cytes informa l informa 2016 [Presen tion in tion in 11:00 ce] in source source AM Urine data data Color DK YELLOW No No No Mar 18 of YELLOW informa informa informa 2017 Urine tion in tion in tion in 11:00 source source source AM data data data Glucose NEG No High No Mar 18 [Mass/vol informati informati 2016 ume] in on in on in 11:00 AM Urine by source source Test data data strip Ketones NEGATIV NEG mg/dL No No Mar 18 E informa informa 2016 [Presen tion in tion in 11:00 ce] in source source AM Urine data data by Automat ed test strip Mucus NEGATIV NEG No No No Mar 18 [Presen E informa informa informa 2016 ce] in tion in tion in tion in 11:00 Urine source source source AM sedimen data data data t by Light microsc opy Nitrite NEGATIV NEG No No No Mar 18 E informa informa informa 2016 [Presen tion in tion in tion in 11:00 ce] in source source source AM Urine data data data by Test strip pH of 5.0 - 8.5 No Normal No Mar 18 Urine informati informati 2016 on in on in 11:00 AM source source data data Protein NEG mg/dL High No Mar 18 [Mass/vol informati 2016 ume] in on in 11:00 AM Urine by source Automated data test strip Specific 1.005 - No Normal No Mar 18 gravity 1.030 informati informati 2016 of Urine on in on in 11:00 AM source source data data Urobili 0.2 NEG E.U./dL No No Mar 18 nogen informa informa 2016 [Presen tion in tion in 11:00 ce] in source source AM Urine data data by Test strip INR in Blood by Coagulation assay Observa Value Referen Units Interpr Notes Date tion ce etation Range IS PATIENT ON ANTICOAGULANTS? N PTT RESULTS MUST BE CALLED IF PT ON HEPARIN!!! Y INR in 0.9 - 1.1 No Normal INDICATIO Mar 18 Blood by informati N 2017 Coagulati on in 10:02 AM on assay source INR data RANGETHER APY FOR DVT, PE, ATRIAL FIB; 2.0 - 3.0PROPHY LAXIS FOR VTETHERAP Y FOR MECHANICA L HEART 2.5 - 3.5VALVE; PREVENTIO N OF SYSTEMICE MBOLISM SECONDARY TO AMI Prothromb 9.4 - SECONDS Normal No Mar 18 in time 11.8 informati 2016 (PT) in on in 10:02 AM Platelet source poor data plasma by Coagulati on assay Activated partial thrombplastin time (aPTT) in Platelet poor plasma by Coagulation assay Observa Value Referen Units Interpr Notes Date tion ce etation Range IS PATIENT ON ANTICOAGULANTS? N PTT RESULTS MUST BE CALLED IF PT ON HEPARIN!!! Y Activated 23.6 - SECONDS Normal No Mar 18 partial 34.0 2016 thrombpla on in 10:02 AM stin time source (aPTT) data in Platelet poor plasma by Coagulati on assay CBC W Auto Differential panel in Blood Observa Value Referen Units Interpr Notes Date tion ce etation Range Basophils 0 - 0.2 K/MM3 Normal No Mar 182016 [#/volume on in 10:02 AM ] in source Blood by data Automated count Basophils 0.1 - 2.0 % Normal No Mar 182016 leukocyte on in 10:02 AM s in source Blood by data Automated count Eosinophi 0.0 - 0.4 K/mm3 Normal No Mar 18 ls 2016 [#/volume on in 10:02 AM ] in source Blood by data Automated count Eosinophi 0.1 - % Normal No Mar 18 ls/100 12.0 2016 leukocyte on in 10:02 AM s in source Blood by data Automated count Granulocy 1.8 - 7.8 K/mm3 High No Mar 18 gloria 2016 [#/volume on in 10:02 AM ] in source Blood by data Automated count Granulocy 37.0 - % High No Mar 18 gloria/100 80.0 2016 leukocyte on in 10:02 AM s in source Blood by data Automated count Hematocri 37.0 - % Low No Mar 18 t [Volume 47.0 2016 on in 10:02 AM Fraction] source of Blood data Hemoglobi 12.2 - g/dL Low No Mar 18 n 16.2 2016 [Mass/vol on in 10:02 AM ume] in source Blood data Lymphocyt 0.7 - 4.5 K/mm3 Normal No Mar 18 es 2016 [#/volume on in 10:02 AM ] in source Unspecifi data ed specimen by Automated count Lymphocyt 10 - 50.0 % Low No Mar 18 es 2016 [#/volume on in 10:02 AM ] in source Unspecifi data ed specimen by Automated count Erythrocy 27 - 31.2 pg Normal No Mar 18 te mean 2016 corpuscul on in 10:02 AM ar source hemoglobi data n [Entitic mass] Erythrocy 31.8 - g/dl Low No Mar 18 te mean 35.4 2016 corpuscul on in 10:02 AM ar source hemoglobi data n concentra tion [Mass/vol ume] by Automated count Erythrocy 82.2 - fl Normal No Mar 18 te mean 97.8 2016 corpuscul on in 10:02 AM ar volume source [Entitic data volume] by Automated count Monocytes 0.1 - 1.0 K/mm3 Normal No Mar 182016 [#/volume on in 10:02 AM ] in source Blood by data Automated count Monocytes 1.7 - 9.3 % Normal No Mar 18 /100 inform2016 leukocyte on in 10:02 AM s in source Blood by data Automated count Platelet 7.4 - fl Normal No Mar 18 mean 10.4 2016 volume on in 10:02 AM [Entitic source volume] data in Blood by Automated count Platelets 142 - 424 K/mm3 Normal No Mar 182016 [#/volume on in 10:02 AM ] in source Blood data Erythrocy 4.2 - 5.4 M/mm3 Low No Mar 18 gloria 2016 [#/volume on in 10:02 AM ] in source Amniotic data fluid Erythrocy 11.5 - % Normal No Mar 18 te 17.5 2016 distribut on in 10:02 AM ion width source [Entitic data volume] by Automated count Leukocyte 4.8 - K/MM3 High No Mar 18 s 10.8 2016 [#/volume on in 10:02 AM ] in source Blood data Differential panel, method unspecified - Observa Value Referen Units Interpr Notes Date tion ce etation Range Anisocy 1+ No No No No Mar 18 tosis informa informa informa informa 2016 [Presen tion in tion in tion in tion in 10:02 ce] in source source source source AM Blood data data data data Neutrophi 0 - 8 % Normal No Mar 18 ls.band informati 2017 form/100 on in 10:02 AM leukocyte source s in data Blood by Automated count Hypochr 2+ No No No No Mar 18 omia informa informa informa informa 2017 [Presen tion in tion in tion in tion in 10:02 ce] in source source source source AM Blood data data data data LYMPH 10 10 - 50 % Normal No Mar 18 informa 2017 tion in 10:02 source AM data Blood 1+ No No No No Mar 18 smear informa informa informa informa 2017 finding tion in tion in tion in tion in 10:02 source source source source AM [Identi data data data data fier] in Blood by Light microsc opy Monocytes 2 - 9 % Normal No Mar 18 / informati 2017 leukocyte on in 10:02 AM s in source Blood by data Automated count Platele NORMAL No No No No Mar 18 ts informa informa informa informa 2016 [Presen tion in tion in tion in tion in 10:02 ce] in source source source source AM Blood data data data data by Light microsc opy Neutrophi 42 - 76 % High No Mar 18 ls ati 2016 [#/volume on in 10:02 AM ] in source Blood by data Automated count Cells No #CELLS No No Mar 18 Counted informati informati informati 2016 Total [#] on in on in on in 10:02 AM in Blood source source source data data data Lactate [Moles/volume] in Blood Observa Value Referen Units Interpr Notes Date ti ce etation Range Lactate 0.4 - 2.0 mmol/L Normal No Mar 18 [Moles/vo informati 2016 lume] in on in 10:02 AM Blood source data Comprehensive metabolic 2000 panel in Serum or Plasma Observa Value Referen Units Interpr Notes Date ti ce etation Range Albumin/G 1.1 - 1.8 No Low No Feb 21 lobulin informati informati 2016 [Mass on in on in 10:00 AM ratio] in source source Serum or data data Plasma Albumin 3.4 - 5.0 gm/dL Low No Feb 21 [Mass/vol informati 2016 ume] in on in 10:00 AM Serum or source Plasma data Alkaline 46 - 116 U/L High No Feb 21 phosphata informati 2016 se on in 10:00 AM [Enzymati source c data activity/ volume] in Serum or Plasma Bilirubin 0.2 - 1.0 mg/dL Normal No Feb 21 .total informati 2016 [Mass/vol on in 10:00 AM ume] in source Serum or data Plasma Urea 7 - 18 mg/dL Normal No Feb 20 nitrogen informati 2017 [Mass/vol on in 10:00 AM ume] in source Serum or data Plasma Calcium 8.5 - mg/dL Normal No Feb 20 [Mass/vol 10.1 informati 2017 ume] in on in 10:00 AM Serum or source Plasma data Chloride 98 - 107 mmoL/L Low No Feb 20 [Moles/vo informati 2017 lume] in on in 10:00 AM Serum or source Plasma data Carbon 21.0 - mmoL/L Normal No Feb 21 dioxide, 32.0 informati 2017 total on in 10:00 AM [Moles/vo source lume] in data Serum or Plasma Creatinin 0.55 - mg/dL Normal No Feb 21 e 1.02 informati 2016 [Mass/vol on in 10:00 AM ume] in source Serum or data Plasma Estimated 59- ML/MIN No REFERENCE Feb 21 informati RANGE: 2017 glomerula on in >60 10:00 AM r source ML/MIN/1. filtratio data 73 SQUARE n rate METERSIf (GF this patient is -A merican, then multiply theresult by 1.210. Globulin 1.3 - 3.2 gm/dL High No Feb 20 [Mass/vol informati 2016 ume] in on in 10:00 AM Serum source data Glucose 74 - 106 mg/dL High No Feb 20 [Mass/vol informati 2017 ume] in on in 10:00 AM Serum or source Plasma data Potassium 3.5 - 5.1 mmoL/L Normal No Feb 20 informati 2016 [Moles/vo on in 10:00 AM lume] in source Serum or data Plasma Sodium 136 - 145 mmoL/L Low No Chris 20 [Moles/vo informati 2017 lume] in on in 10:00 AM Serum or source Plasma data Aspartate 15 - 37 U/L Low No Feb 21 informati 2016 aminotran on in 10:00 AM sferase source [Enzymati data c activity/ volume] in Serum or Plasma Alanine 12 - 78 U/L Normal No Feb 20 aminotran informati 2017 sferase on in 10:00 AM [Enzymati source c data activity/ volume] in Serum or Plasma Protein 6.4 - 8.2 gm/dL Low No Chris 20 [Mass/vol informati 2017 ume] in on in 10:00 AM Serum or source Plasma data CBC W Auto Differential panel in Blood Observa Value Referen Units Interpr Notes Date tion ce etation Range Basophils 0 - 0.2 K/MM3 Normal No Feb 212016 [#/volume on in 10:00 AM ] in source Blood by data Automated count Basophils 0.1 - 2.0 % Normal No Feb 21 /100 inform2016 leukocyte on in 10:00 AM s in source Blood by data Automated count Eosinophi 0.0 - 0.4 K/mm3 Normal No Feb 21 ls informati 2016 [#/volume on in 10:00 AM ] in source Blood by data Automated count Eosinophi 0.1 - % Normal No Feb 21 ls/100 12.0 inform2016 leukocyte on in 10:00 AM s in source Blood by data Automated count Granulocy 1.8 - 7.8 K/mm3 Normal No Feb 21 gloria 2016 [#/volume on in 10:00 AM ] in source Blood by data Automated count Granulocy 37.0 - % Normal No Feb 21 gloria/100 80.0 2016 leukocyte on in 10:00 AM s in source Blood by data Automated count Hematocri 37.0 - % Normal No Feb 21 t [Volume 47.0 2016 on in 10:00 AM Fraction] source of Blood data Hemoglobi 12.2 - g/dL No No Feb 21 n 16.2 informati 2016 [Mass/vol on in on in 10:00 AM ume] in source source Blood data data Lymphocyt 0.7 - 4.5 K/mm3 Normal No Feb 21 es 2016 [#/volume on in 10:00 AM ] in source Unspecifi data ed specimen by Automated count Lymphocyt 10 - 50.0 % Normal No Feb 21 es 2016 [#/volume on in 10:00 AM ] in source Unspecifi data ed specimen by Automated count Erythrocy 27 - 31.2 pg Normal No Feb 21 te mean 2016 corpuscul on in 10:00 AM ar source hemoglobi data n [Entitic mass] Erythrocy 31.8 - g/dl Low No Feb 21 te mean 35.4 2016 corpuscul on in 10:00 AM ar source hemoglobi data n concentra tion [Mass/vol ume] by Automated count Erythrocy 82.2 - fl Normal No Feb 20 te mean 97.8 2016 corpuscul on in 10:00 AM ar volume source [Entitic data volume] by Automated count Monocytes 0.1 - 1.0 K/mm3 Normal No Feb 20 inform2016 [#/volume on in 10:00 AM ] in source Blood by data Automated count Monocytes 1.7 - 9.3 % Normal No Feb 20 /100 inform2016 leukocyte on in 10:00 AM s in source Blood by data Automated count Platelet 7.4 - fl Normal No Feb 20 mean 10.4 inform2016 volume on in 10:00 AM [Entitic source volume] data in Blood by Automated count Platelets 142 - 424 K/mm3 No No Feb 20 ati 2016 [#/volume on in on in 10:00 AM ] in source source Blood data data Erythrocy 4.2 - 5.4 M/mm3 Normal No Feb 21 gloria 2016 [#/volume on in 10:00 AM ] in source Amniotic data fluid Erythrocy 11.5 - % High No Feb 21 te 17.5 2016 distribut on in 10:00 AM ion width source [Entitic data volume] by Automated count Leukocyte 4.8 - K/MM3 Normal No Feb 20 s 10.8 2016 [#/volume on in 10:00 AM ] in source Blood data CBC W Auto Differential panel in Blood Observa Value Referen Units Interpr Notes Date tion ce etation Range Basophils 0 - 0.2 K/MM3 Normal No Feb 15 2016 6:15 [#/volume on in AM ] in source Blood by data Automated count Basophils 0.1 - 2.0 % Normal No Feb 15 /100 informati 2016 6:15 leukocyte on in AM s in source Blood by data Automated count Eosinophi 0.0 - 0.4 K/mm3 Normal No Feb 15 ls informati 2016 6:15 [#/volume on in AM ] in source Blood by data Automated count Eosinophi 0.1 - % Low No Feb 15 ls/100 12.0 inform2016 6:15 leukocyte on in AM s in source Blood by data Automated count Granulocy 1.8 - 7.8 K/mm3 Normal No Feb 15 gloria informati 2016 6:15 [#/volume on in AM ] in source Blood by data Automated count Granulocy 37.0 - % High No Feb 15 gloria/100 80.0 informati 2017 6:15 leukocyte on in AM s in source Blood by data Automated count Hematocri 37.0 - % Low No Feb 15 t [Volume 47.0 informati 2017 6:15 on in AM Fraction] source of Blood data Hemoglobi 12.2 - g/dL Low No Feb 15 n 16.2 informati 2017 6:15 [Mass/vol on in AM ume] in source Blood data Lymphocyt 0.7 - 4.5 K/mm3 Normal No Feb 15 es informati 2017 6:15 [#/volume on in AM ] in source Unspecifi data ed specimen by Automated count Lymphocyt 10 - 50.0 % Normal No Feb 15 es informati 2017 6:15 [#/volume on in AM ] in source Unspecifi data ed specimen by Automated count Erythrocy 27 - 31.2 pg Normal No Feb 15 te mean informati 2016 6:15 corpuscul on in AM ar source hemoglobi data n [Entitic mass] Erythrocy 31.8 - g/dl Low No Feb 15 te mean 35.4 informati 2017 6:15 corpuscul on in AM ar source hemoglobi data n concentra tion [Mass/vol ume] by Automated count Erythrocy 82.2 - fl Normal No Feb 15 te mean 97.8 informati 2017 6:15 corpuscul on in AM ar volume source [Entitic data volume] by Automated count Monocytes 0.1 - 1.0 K/mm3 Normal No Feb 15 informati 2017 6:15 [#/volume on in AM ] in source Blood by data Automated count Monocytes 1.7 - 9.3 % Normal No Chris 15 /100 informati 2017 6:15 leukocyte on in AM s in source Blood by data Automated count Platelet 7.4 - fl Normal No Feb 15 mean 10.4 informati 2017 6:15 volume on in AM [Entitic source volume] data in Blood by Automated count Platelets 142 - 424 K/mm3 Normal No Feb 15 informati 2017 6:15 [#/volume on in AM ] in source Blood data Erythrocy 4.2 - 5.4 M/mm3 Low No Feb 15 gloria informati 2017 6:15 [#/volume on in AM ] in source Amniotic data fluid Erythrocy 11.5 - % High No Feb 15 te 17.5 informati 2017 6:15 distribut on in AM ion width source [Entitic data volume] by Automated count Leukocyte 4.8 - K/MM3 No No Feb 15 s 10.8 informati informati 2017 6:15 [#/volume on in on in AM ] in source source Blood data data Comprehensive metabolic 2000 panel in Serum or Plasma Observa Value Referen Units Interpr Notes Date tion ce etation Range Albumin/G 1.1 - 1.8 No Low No Feb 15 lobulin informati informati 2017 6:15 [Mass on in on in AM ratio] in source source Serum or data data Plasma Albumin 3.4 - 5.0 gm/dL Low No Feb 15 [Mass/vol informati 2017 6:15 ume] in on in AM Serum or source Plasma data Alkaline 46 - 116 U/L Normal No Feb 15 phosphata informati 2017 6:15 se on in AM [Enzymati source c data activity/ volume] in Serum or Plasma Bilirubin 0.2 - 1.0 mg/dL Normal No Chris 15 .total informati 2017 6:15 [Mass/vol on in AM ume] in source Serum or data Plasma Urea 7 - 18 mg/dL No No Feb 15 nitrogen informati informati 2017 6:15 [Mass/vol on in on in AM ume] in source source Serum or data data Plasma Calcium 8.5 - mg/dL Low No Feb 15 [Mass/vol 10.1 informati 2017 6:15 ume] in on in AM Serum or source Plasma data Chloride 98 - 107 mmoL/L Normal No Feb 15 [Moles/vo informati 2017 6:15 lume] in on in AM Serum or source Plasma data Carbon 21.0 - mmoL/L Normal No Feb 15 dioxide, 32.0 informati 2017 6:15 total on in AM [Moles/vo source lume] in data Serum or Plasma Creatinin 0.55 - mg/dL Normal No Feb 15 e 1.02 informati 2017 6:15 [Mass/vol on in AM ume] in source Serum or data Plasma Creatinin 50 - 200 ML/MIN Normal No Feb 15 e renal informati 2017 6:15 clearance on in AM source predicted data by Cockcroft -Gault formula Estimated 59- ML/MIN No REFERENCE Chris 15 informati RANGE: 2017 6:15 glomerula on in >60 AM r source ML/MIN/1. filtratio data 73 SQUARE n rate METERSIf (GF this patient is -A merican, then multiply theresult by 1.210. Globulin 1.3 - 3.2 gm/dL High No Feb 15 [Mass/vol informati 2016 6:15 ume] in on in AM Serum source data Glucose 74 - 106 mg/dL High No Feb 15 [Mass/vol informati 2016 6:15 ume] in on in AM Serum or source Plasma data Potassium 3.5 - 5.1 mmoL/L High No Feb 16 informati 2016 6:15 [Moles/vo on in AM lume] in source Serum or data Plasma Sodium 136 - 145 mmoL/L Normal No Feb 15 [Moles/vo informati 2017 6:15 lume] in on in AM Serum or source Plasma data Aspartate 15 - 37 U/L Normal No Feb 16 informati 2016 6:15 aminotran on in AM sferase source [Enzymati data c activity/ volume] in Serum or Plasma Alanine 12 - 78 U/L Normal No Feb 15 aminotran informati 2016 6:15 sferase on in AM [Enzymati source c data activity/ volume] in Serum or Plasma Protein 6.4 - 8.2 gm/dL Low No Feb 15 [Mass/vol informati 2016 6:15 ume] in on in AM Serum or source Plasma data Glucose [Mass/volume] in Capillary blood by Glucometer Observa Value Referen Units Interpr Notes Date ti etation Range Glucose 70 - 110 mg/dl High No Feb 15 [Mass/vol informati 2016 6:09 ume] in on in AM Capillary source blood by data Glucomete r Glucose [Mass/volume] in Capillary blood by Glucometer Observa Value Referen Units Interpr Notes Date ti etation Range Glucose 70 - 110 mg/dl High No Feb 14 [Mass/vol informati 2016 8:06 ume] in on in PM Capillary source blood by data Glucomete r Glucose [Mass/volume] in Capillary blood by Glucometer Observa Value Referen Units Interpr Notes Date ti etation Range Glucose 70 - 110 mg/dl High No Feb 14 [Mass/vol alert informati 2017 4:31 ume] in on in PM Capillary source blood by data Glucomete r MISCELLANEOUS TEST Observa Value Referen Units Interpr Notes Date ti ce etation Range MISC TEST FOR PROCALCITONIN # [id number] TEST: RESULTS: REFERENCE: PROCALCITONIN 0.15 HIGH 0.00-0.08 THE CHANGE OF PCT CONCENTRATION OVER TIME PROVIDES PROGNOSTIC INFORMATION ABOUT THE RISK OF MORTALITY WITHIN 28 DAYS FOR PATIENTS DIAGNOSED WITH SEVERE SEPSIS OR SEPTIC SHOCK COMING FROM THE EMERGENCY DEPARTMENT, ICU, OTHER MEDICAL WARDS, OR DIRECTLY FROM OUTSIDE THE HOSPITAL. DATA SUPPORTS THE USE OF PCT DETERMINATIONS FROM THE DAY DEVERE SEPSIS OR SEPTIC SHOCK IS FIRST DIAGNOSED (DAY 0) OR THE DAY THEREAFTER (DAY 1) AND THE FOURTH DAY AFTER DIAGNOSIS (DAY 4) FOR THE CLASSIFICATION OF PATIENTS INTO HIGHER AND LOWER RISK FOR MORTALITY WITHIN 28 DAYS ACCORDING TO THE WORKFLOW BELOW: DELTA PCT= PCT DAY 0 (OR DAY 1)-PCT DAY 4 X 100% PCT DAY 0 (OR DAY 1) A DECREASE OF PCT LEVELS BELOW OR EQUAL TO 80% DEFINES A POSITIVE DELTA PCT TEST RESULT REPRESENTING A HIGHER RISK FOR 28-DAY ALL-CAUSE MORTALITY OF PATIENTS DIAGNOSED WITH SEVERE SEPSIS OR SEPTIC SHOCK. A DECREASE OF PCT LEVELS OF MORE THAN 80% DEFINES A NEGATIVE DELTA PCT TEST RESULT REPRESENTING A LOWER RISK FPR 28-DAY ALL-CAUSE MORTALITY OF PATIENTS DIAGNOSED WITH SEVERE SEPSIS OR SEPTIC SHOCK. TO DETERMINE DELTA PCT RESULTS FROM THE ABSOLUTE PCT CONCENTRATIONS OF A PATIENT OBTAINED ON THE DAY SEVERE SEPSOS OR SEPTIC SHOCK WAS FIRST DIAGNOSED (OR 24 HOURS LATER) AND ON DAY 4, GO TO [id number] TEST: RESULTS: REFERENCE: PROCALCITONIN 0.15 HIGH 0.00-0.08 THE CHANGE OF PCT CONCENTRATION OVER TIME PROVIDES PROGNOSTIC INFORMATION ABOUT THE RISK OF MORTALITY WITHIN 28 DAYS FOR PATIENTS DIAGNOSED WITH SEVERE SEPSIS OR SEPTIC SHOCK COMING FROM THE EMERGENCY DEPARTMENT, ICU, OTHER MEDICAL WARDS, OR DIRECTLY FROM OUTSIDE THE HOSPITAL. DATA SUPPORTS THE USE OF PCT DETERMINATIONS FROM THE DAY DEVERE SEPSIS OR SEPTIC SHOCK IS FIRST DIAGNOSED (DAY 0) OR THE DAY THEREAFTER (DAY 1) AND THE FOURTH DAY AFTER DIAGNOSIS (DAY 4) FOR THE CLASSIFICATION OF PATIENTS INTO HIGHER AND LOWER RISK FOR MORTALITY WITHIN 28 DAYS ACCORDING TO THE WORKFLOW BELOW: DELTA PCT= PCT DAY 0 (OR DAY 1)-PCT DAY 4 X 100% PCT DAY 0 (OR DAY 1) A DECREASE OF PCT LEVELS BELOW OR EQUAL TO 80% DEFINES A POSITIVE DELTA PCT TEST RESULT REPRESENTING A HIGHER RISK FOR 28-DAY ALL-CAUSE MORTALITY OF PATIENTS DIAGNOSED WITH SEVERE SEPSIS OR SEPTIC SHOCK. A DECREASE OF PCT LEVELS OF MORE THAN 80% DEFINES A NEGATIVE DELTA PCT TEST RESULT REPRESENTING A LOWER RISK FPR 28-DAY ALL-CAUSE MORTALITY OF PATIENTS DIAGNOSED WITH SEVERE SEPSIS OR SEPTIC SHOCK. TO DETERMINE DELTA PCT RESULTS FROM THE ABSOLUTE PCT CONCENTRATIONS OF A PATIENT OBTAINED ON THE DAY SEVERE SEPSOS OR SEPTIC SHOCK WAS FIRST DIAGNOSED (OR 24 HOURS LATER) AND ON DAY 4, GO TO [id number] Glucose [Mass/volume] in Capillary blood by Glucometer Observa Value Referen Units Interpr Notes Date ti ce etation Range Glucose 70 - 110 mg/dl High No Feb 14 [Mass/vol informati 2017 ume] in on in 12:08 PM Capillary source blood by data Glucomete r Glucose [Mass/volume] in Capillary blood by Glucometer Observa Value Referen Units Interpr Notes Date ce etation Range Glucose 70 - 110 mg/dl High No Feb 14 [Mass/vol informati 2017 6:45 ume] in on in AM Capillary source blood by data Glucomete r Glucose [Mass/volume] in Capillary blood by Glucometer Observa Value Referen Units Interpr Notes Date ce etation Range Glucose 70 - 110 mg/dl High No Feb 13 [Mass/vol informati 2017 9:36 ume] in on in PM Capillary source blood by data Glucomete r Hemoglobin & Hematocrit panel in Blood Observa Value Referen Units Interpr Notes Date etation Range 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: POST TRANSFUSION Hematocri 37.0 - % Low No Feb 14 t [Volume 47.0 informati 2017 9:11 on in PM Fraction] source of Blood data Hemoglobi 12.2 - g/dL Low No Feb 14 n 16.2 informati 2017 9:11 [Mass/vol on in PM ume] in source Blood data Blood product special preparation [Type] Observa Value Referen Units Interpr Notes Date ti ce etation Range Blood BLOOD No No No BLOOD Feb 13 product UNIT informa informa informa UNIT # 2017 RELEASE ti in in in : W0382 6:26 PM special source source source 17 data data data [id number] prepara O tion POSRELE [Type] ASED 7 MirA madeleine Glucose [Mass/volume] in Capillary blood by Glucometer Observa Value Referen Units Interpr Notes Date ti ce etation Range Glucose 70 - 110 mg/dl High No Feb 14 [Mass/vol informati 2016 4:37 ume] in on in PM Capillary source blood by data Glucomete r Glucose [Mass/volume] in Capillary blood by Glucometer Observa Value Referen Units Interpr Notes Date ti ce etation Range Glucose 70 - 110 mg/dl High No Feb 14 [Mass/vol informati 2016 ume] in on in 11:53 AM Capillary source blood by data Glucomete r Blood product special preparation [Type] Observa Value Referen Units Interpr Notes Date ti ce etation Range Blood BLOOD No No No BLOOD Feb 14 product UNIT informa informa informa UNIT # 2017 RELEASE tion in ti in in : W0382 11:15 special source source source 17 AM data data data [id number] prepara RELEASE tion D [Type] 7Boyers ,Lucind aO POSITIV E Blood type & Crossmatch panel in Blood Observa Value Referen Units Interpr Notes Date ti ce etation Range Major COMPAT No No No No Feb 14 crossma informa informa informa informa 2017 tch tion in tion in tion in ti in 7:25 AM [interp source source source source retatio data data data data n] Major COMPAT No No No No Feb 14 crossma informa informa informa informa 2017 tch tion in tion in tion in tion in 7:25 AM [interp source source source source retatio data data data data n] by Im[employer] te spin Blood type & Crossmatch panel in Blood Observa Value Referen Units Interpr Notes Date ti ce etation Range Hold? Y Blood NEGATIV NEGATIV No No No Feb 14 group E E informa informa informa 2017 antibod tion in tion in tion in 7:25 AM y source source source screen data data data [Presen ce] in Serum or Plasma Rh POSITIV No No No No Feb 14 [Type] E informa informa informa informa 2017 in tion in tion in tion in tion in 7:25 AM Blood source source source source data data data data ABO O No No No No Feb 14 group informa informa informa informa 2017 [Type] tion in tion in tion in tion in 7:25 AM in source source source source Blood data data data data Blood type & Crossmatch panel in Blood Observa Value Referen Units Interpr Notes Date ti ce etation Range Hold? Y Major COMPAT No No No No Feb 14 crossma informa informa informa informa 2017 tch tion in tion in tion in tion in 7:25 AM [interp source source source source retatio data data data data n] Major COMPAT No No No No Feb 14 crossma informa informa informa informa 2017 tch tion in tion in tion in tion in 7:25 AM [interp source source source source retatio data data data data n] by Immedia te spin Basic metabolic panel in Blood Observa Value Referen Units Interpr Notes Date ce etation Range Urea 7 - 18 mg/dL Low No Feb 14 nitrogen informati 2016 6:30 [Mass/vol on in AM ume] in source Serum or data Plasma Calcium 8.5 - mg/dL Low No Feb 14 [Mass/vol 10.1 informati 2016 6:30 ume] in on in AM Serum or source Plasma data Chloride 98 - 107 mmoL/L Normal No Feb 14 [Moles/vo informati 2016 6:30 lume] in on in AM Serum or source Plasma data Carbon 21.0 - mmoL/L Normal No Feb 14 dioxide, 32.0 informati 2016 6:30 total on in AM [Moles/vo source lume] in data Serum or Plasma Creatinin 0.55 - mg/dL Normal No Feb 14 e 1.02 informati 2017 6:30 [Mass/vol on in AM ume] in source Serum or data Plasma Creatinin 50 - 200 ML/MIN Normal No Feb 14 e renal informati 2017 6:30 clearance on in AM source predicted data by Cockcroft -Gault formula Estimated 59- ML/MIN No REFERENCE Feb 14 informati RANGE: 2017 6:30 glomerula on in >60 AM r source ML/MIN/1. filtratio data 73 SQUARE n rate METERSIf (GF this patient is -A merican, then multiply theresult by 1.210. Glucose 74 - 106 mg/dL High No Feb 14 [Mass/vol informati 2016 6:30 ume] in on in AM Serum or source Plasma data Potassium 3.5 - 5.1 mmoL/L Normal No Feb 14 informati 2016 6:30 [Moles/vo on in AM lume] in source Serum or data Plasma Sodium 136 - 145 mmoL/L Normal No Feb 14 [Moles/vo informati 2016 6:30 lume] in on in AM Serum or source Plasma data CBC W Auto Differential panel in Blood Observa Value Referen Units Interpr Notes Date tion ce etation Range Basophils 0 - 0.2 K/MM3 Normal No Feb 14 informati 2016 6:30 [#/volume on in AM ] in source Blood by data Automated count Basophils 0.1 - 2.0 % Normal No Feb 14 / informati 2017 6:30 leukocyte on in AM s in source Blood by data Automated count Eosinophi 0.0 - 0.4 K/mm3 Normal No Feb 14 ls informati 2016 6:30 [#/volume on in AM ] in source Blood by data Automated count Eosinophi 0.1 - % Normal No Feb 14 ls/100 12.0 informati 2017 6:30 leukocyte on in AM s in source Blood by data Automated count Granulocy 1.8 - 7.8 K/mm3 Normal No Feb 14 gloria informati 2016 6:30 [#/volume on in AM ] in source Blood by data Automated count Granulocy 37.0 - % Normal No Feb 14 gloria/100 80.0 informati 2016 6:30 leukocyte on in AM s in source Blood by data Automated count Hematocri 37.0 - % Low No Feb 14 t [Volume 47.0 informati 2016 6:30 on in AM Fraction] source of Blood data Hemoglobi 12.2 - g/dL Low alert Feb 14 n 16.2 2016 6:30 [Mass/vol CRITICAL AM ume] in RESULTS Blood RESU LTS CALLED TO: IVAN 02/14/17 0646 Clementina Lawrence e Lymphocyt 0.7 - 4.5 K/mm3 Normal No Feb 14 es informati 2016 6:30 [#/volume on in AM ] in source Unspecifi data ed specimen by Automated count Lymphocyt 10 - 50.0 % Normal No Feb 14 es informati 2016 6:30 [#/volume on in AM ] in source Unspecifi data ed specimen by Automated count Erythrocy 27 - 31.2 pg Normal No Feb 13 te mean informati 2016 6:30 corpuscul on in AM ar source hemoglobi data n [Entitic mass] Erythrocy 31.8 - g/dl Low No Feb 14 te mean 35.4 informati 2017 6:30 corpuscul on in AM ar source hemoglobi data n concentra tion [Mass/vol ume] by Automated count Erythrocy 82.2 - fl Normal No Feb 14 te mean 97.8 informati 2016 6:30 corpuscul on in AM ar volume source [Entitic data volume] by Automated count Monocytes 0.1 - 1.0 K/mm3 Normal No Feb 13 informati 2016 6:30 [#/volume on in AM ] in source Blood by data Automated count Monocytes 1.7 - 9.3 % Normal No Feb 13 /100 informati 2017 6:30 leukocyte on in AM s in source Blood by data Automated count Platelet 7.4 - fl Normal No Feb 14 mean 10.4 informati 2017 6:30 volume on in AM [Entitic source volume] data in Blood by Automated count Platelets 142 - 424 K/mm3 Normal No Feb 13 informati 2016 6:30 [#/volume on in AM ] in source Blood data Erythrocy 4.2 - 5.4 M/mm3 Low No Feb 14 gloria informati 2017 6:30 [#/volume on in AM ] in source Amniotic data fluid Erythrocy 11.5 - % High No Feb 14 te 17.5 informati 2017 6:30 distribut on in AM ion width source [Entitic data volume] by Automated count Leukocyte 4.8 - K/MM3 Low No Feb 14 s 10.8 informati 2016 6:30 [#/volume on in AM ] in source Blood data Glucose [Mass/volume] in Capillary blood by Glucometer Observa Value Referen Units Interpr Notes Date tion ce etation Range Glucose 70 - 110 mg/dl High No Feb 14 [Mass/vol informati 2017 6:16 ume] in on in AM Capillary source blood by data Glucomete r Glucose [Mass/volume] in Capillary blood by Glucometer Observa Value Referen Units Interpr Notes Date tion ce etation Range Glucose 70 - 110 mg/dl High No Feb 13 [Mass/vol informati 2017 1:02 ume] in on in AM Capillary source blood by data Glucomete r Glucose [Mass/volume] in Capillary blood by Glucometer Observa Value Referen Units Interpr Notes Date tion ce etation Range Glucose 70 - 110 mg/dl High No Feb 12 [Mass/vol informati 2016 8:48 ume] in on in PM Capillary source blood by data Glucomete r Glucose [Mass/volume] in Capillary blood by Glucometer Observa Value Referen Units Interpr Notes Date tion ce etation Range Glucose 70 - 110 mg/dl Low No Feb 12 [Mass/vol informati 2016 4:57 ume] in on in PM Capillary source blood by data Glucomete r Glucose [Mass/volume] in Capillary blood by Glucometer Observa Value Referen Units Interpr Notes Date ti ce etation Range Glucose 70 - 110 mg/dl High No Feb 12 [Mass/vol informati 2017 ume] in on in 11:48 AM Capillary source blood by data Glucomete r Glucose [Mass/volume] in Capillary blood by Glucometer Observa Value Referen Units Interpr Notes Date ti ce etation Range Glucose 70 - 110 mg/dl High No Feb 13 [Mass/vol informati 2016 5:59 ume] in on in AM Capillary source blood by data Glucomete r Basic metabolic panel in Blood Observa Value Referen Units Interpr Notes Date ti ce etation Range Urea 7 - 18 mg/dL Low No Feb 13 nitrogen informati 2017 5:05 [Mass/vol on in AM ume] in source Serum or data Plasma Calcium 8.5 - mg/dL Low No Feb 12 [Mass/vol 10.1 informati 2017 5:05 ume] in on in AM Serum or source Plasma data Chloride 98 - 107 mmoL/L Normal No Feb 12 [Moles/vo informati 2017 5:05 lume] in on in AM Serum or source Plasma data Carbon 21.0 - mmoL/L Normal No Feb 13 dioxide, 32.0 informati 2017 5:05 total on in AM [Moles/vo source lume] in data Serum or Plasma Creatinin 0.55 - mg/dL Normal No Feb 12 e 1.02 informati 2016 5:05 [Mass/vol on in AM ume] in source Serum or data Plasma Creatinin 50 - 200 ML/MIN Normal No Feb 13 e renal informati 2016 5:05 clearance on in AM source predicted data by Cockcroft -Gault formula Estimated 59- ML/MIN No REFERENCE Feb 13 informati RANGE: 2017 5:05 glomerula on in >60 AM r source ML/MIN/1. filtratio data 73 SQUARE n rate METERSIf (GF this patient is -A merican, then multiply theresult by 1.210. Glucose 74 - 106 mg/dL High No Feb 13 [Mass/vol informati 2016 5:05 ume] in on in AM Serum or source Plasma data Potassium 3.5 - 5.1 mmoL/L Low alert Feb 13 2016 5:05 [Moles/vo CRITICAL AM lume] in RESULTS Serum or Plasma RESU LTS CALLED TO: S CALL RN 02/13/17 0557 Nisha Kirkland Sodium 136 - 145 mmoL/L Normal No Feb 13 [Moles/vo informati 2016 5:05 lume] in on in AM Serum or source Plasma data CBC W Auto Differential panel in Blood Observa Value Referen Units Interpr Notes Date tion ce etation Range Basophils 0 - 0.2 K/MM3 Normal No Feb 13 informati 2016 5:05 [#/volume on in AM ] in source Blood by data Automated count Basophils 0.1 - 2.0 % Normal No Feb 13 informati 2016 5:05 leukocyte on in AM s in source Blood by data Automated count Eosinophi 0.0 - 0.4 K/mm3 Normal No Feb 13 ls informati 2016 5:05 [#/volume on in AM ] in source Blood by data Automated count Eosinophi 0.1 - % Normal No Feb 13 ls/100 12.0 informati 2016 5:05 leukocyte on in AM s in source Blood by data Automated count Granulocy 1.8 - 7.8 K/mm3 Normal No Feb 13 gloria informati 2016 5:05 [#/volume on in AM ] in source Blood by data Automated count Granulocy 37.0 - % Normal No Chris 12 gloria/100 80.0 informati 2017 5:05 leukocyte on in AM s in source Blood by data Automated count Hematocri 37.0 - % Low No Feb 13 t [Volume 47.0 informati 2016 5:05 on in AM Fraction] source of Blood data Hemoglobi 12.2 - g/dL Low No Feb 12 n 16.2 informati 2017 5:05 [Mass/vol on in AM ume] in source Blood data Lymphocyt 0.7 - 4.5 K/mm3 Normal No Feb 13 es informati 2017 5:05 [#/volume on in AM ] in source Unspecifi data ed specimen by Automated count Lymphocyt 10 - 50.0 % Normal No Feb 13 es informati 2016 5:05 [#/volume on in AM ] in source Unspecifi data ed specimen by Automated count Erythrocy 27 - 31.2 pg Normal No Feb 13 te mean informati 2016 5:05 corpuscul on in AM ar source hemoglobi data n [Entitic mass] Erythrocy 31.8 - g/dl Low No Feb 13 te mean 35.4 informati 2016 5:05 corpuscul on in AM ar source hemoglobi data n concentra tion [Mass/vol ume] by Automated count Erythrocy 82.2 - fl Normal No Feb 13 te mean 97.8 informati 2017 5:05 corpuscul on in AM ar volume source [Entitic data volume] by Automated count Monocytes 0.1 - 1.0 K/mm3 Normal No Feb 12 informati 2017 5:05 [#/volume on in AM ] in source Blood by data Automated count Monocytes 1.7 - 9.3 % Normal No Feb 12 /100 informati 2017 5:05 leukocyte on in AM s in source Blood by data Automated count Platelet 7.4 - fl Normal No Feb 12 mean 10.4 informati 2017 5:05 volume on in AM [Entitic source volume] data in Blood by Automated count Platelets 142 - 424 K/mm3 Normal No Feb 12 informati 2017 5:05 [#/volume on in AM ] in source Blood data Erythrocy 4.2 - 5.4 M/mm3 Low No Feb 12 gloria informati 2017 5:05 [#/volume on in AM ] in source Amniotic data fluid Erythrocy 11.5 - % High No Feb 12 te 17.5 informati 2016 5:05 distribut on in AM ion width source [Entitic data volume] by Automated count Leukocyte 4.8 - K/MM3 Low No Feb 12 s 10.8 informati 2017 5:05 [#/volume on in AM ] in source Blood data Glucose [Mass/volume] in Capillary blood by Glucometer Observa Value Referen Units Interpr Notes Date ti ce etation Range Glucose 70 - 110 mg/dl High No Feb 11 [Mass/vol informati 2016 8:26 ume] in on in PM Capillary source blood by data Glucomete r Glucose [Mass/volume] in Capillary blood by Glucometer Observa Value Referen Units Interpr Notes Date ti ce etation Range Glucose 70 - 110 mg/dl High No Feb 11 [Mass/vol informati 2016 5:28 ume] in on in PM Capillary source blood by data Glucomete r Glucose [Mass/volume] in Capillary blood by Glucometer Observa Value Referen Units Interpr Notes Date ti ce etation Range Glucose 70 - 110 mg/dl High No Feb 12 [Mass/vol informati 2016 ume] in on in 11:46 AM Capillary source blood by data Glucomete r Glucose [Mass/volume] in Capillary blood by Glucometer Observa Value Referen Units Interpr Notes Date ti ce etation Range Glucose 70 - 110 mg/dl High No Feb 12 [Mass/vol informati 2016 6:40 ume] in on in AM Capillary source blood by data Glucomete r Basic metabolic panel in Blood Observa Value Referen Units Interpr Notes Date ti etation Range Urea 7 - 18 mg/dL Low No Feb 12 nitrogen informati 2017 4:20 [Mass/vol on in AM ume] in source Serum or data Plasma Calcium 8.5 - mg/dL Low No Feb 12 [Mass/vol 10.1 informati 2017 4:20 ume] in on in AM Serum or source Plasma data Chloride 98 - 107 mmoL/L Normal No Feb 12 [Moles/vo informati 2017 4:20 lume] in on in AM Serum or source Plasma data Carbon 21.0 - mmoL/L Normal No Feb 12 dioxide, 32.0 informati 2017 4:20 total on in AM [Moles/vo source lume] in data Serum or Plasma Creatinin 0.55 - mg/dL Normal No Feb 11 e 1.02 informati 2017 4:20 [Mass/vol on in AM ume] in source Serum or data Plasma Creatinin 50 - 200 ML/MIN Normal No Feb 12 e renal informati 2016 4:20 clearance on in AM source predicted data by Cockcroft -Gault formula Estimated 59- ML/MIN No REFERENCE Feb 12 informati RANGE: 2017 4:20 glomerula on in >60 AM r source ML/MIN/1. filtratio data 73 SQUARE n rate METERSIf (GF this patient is -A merican, then multiply theresult by 1.210. Glucose 74 - 106 mg/dL High No Feb 12 [Mass/vol informati 2016 4:20 ume] in on in AM Serum or source Plasma data Potassium 3.5 - 5.1 mmoL/L Low alert Feb 12 2016 4:20 [Moles/vo CRITICAL AM lume] in RESULTS Serum or Plasma RESU LTS CALLED TO: Sherif CHICAS RN 02/12/17 0559 Nisha Kirkland Sodium 136 - 145 mmoL/L Normal No Feb 12 [Moles/vo informati 2016 4:20 lume] in on in AM Serum or source Plasma data CBC W Auto Differential panel in Blood Observa Value Referen Units Interpr Notes Date tion ce etation Range Basophils 0 - 0.2 K/MM3 Normal No Feb 12 informati 2016 4:20 [#/volume on in AM ] in source Blood by data Automated count Basophils 0.1 - 2.0 % Normal No Feb 12 informati 2016 4:20 leukocyte on in AM s in source Blood by data Automated count Eosinophi 0.0 - 0.4 K/mm3 Normal No Feb 12 ls informati 2016 4:20 [#/volume on in AM ] in source Blood by data Automated count Eosinophi 0.1 - % Normal No Feb 12 ls/100 12.0 informati 2016 4:20 leukocyte on in AM s in source Blood by data Automated count Granulocy 1.8 - 7.8 K/mm3 Normal No Feb 12 gloria informati 2016 4:20 [#/volume on in AM ] in source Blood by data Automated count Granulocy 37.0 - % High No Feb 12 gloria 80.0 informati 2016 4:20 leukocyte on in AM s in source Blood by data Automated count Hematocri 37.0 - % Low No Feb 12 t [Volume 47.0 informati 2017 4:20 on in AM Fraction] source of Blood data Hemoglobi 12.2 - g/dL Low No Feb 12 n 16.2 informati 2017 4:20 [Mass/vol on in AM ume] in source Blood data Lymphocyt 0.7 - 4.5 K/mm3 Low No Feb 12 es informati 2017 4:20 [#/volume on in AM ] in source Unspecifi data ed specimen by Automated count Lymphocyt 10 - 50.0 % Normal No Feb 12 es informati 2017 4:20 [#/volume on in AM ] in source Unspecifi data ed specimen by Automated count Erythrocy 27 - 31.2 pg Normal No Feb 12 te mean informati 2017 4:20 corpuscul on in AM ar source hemoglobi data n [Entitic mass] Erythrocy 31.8 - g/dl Normal No Feb 12 te mean 35.4 informati 2017 4:20 corpuscul on in AM ar source hemoglobi data n concentra tion [Mass/vol ume] by Automated count Erythrocy 82.2 - fl Normal No Feb 12 te mean 97.8 informati 2017 4:20 corpuscul on in AM ar volume source [Entitic data volume] by Automated count Monocytes 0.1 - 1.0 K/mm3 Normal No Feb 12 informati 2017 4:20 [#/volume on in AM ] in source Blood by data Automated count Monocytes 1.7 - 9.3 % Normal No Feb 11 /100 informati 2017 4:20 leukocyte on in AM s in source Blood by data Automated count Platelet 7.4 - fl Normal No Feb 12 mean 10.4 informati 2017 4:20 volume on in AM [Entitic source volume] data in Blood by Automated count Platelets 142 - 424 K/mm3 Normal No Feb 12 informati 2017 4:20 [#/volume on in AM ] in source Blood data Erythrocy 4.2 - 5.4 M/mm3 Low No Feb 12 gloria informati 2017 4:20 [#/volume on in AM ] in source Amniotic data fluid Erythrocy 11.5 - % High No Feb 12 te 17.5 informati 2017 4:20 distribut on in AM ion width source [Entitic data volume] by Automated count Leukocyte 4.8 - K/MM3 Low No Feb 11 s 10.8 informati 2017 4:20 [#/volume on in AM ] in source Blood data Glucose [Mass/volume] in Capillary blood by Glucometer Observa Value Referen Units Interpr Notes Date tion ce etation Range Glucose 70 - 110 mg/dl High No Feb 10 [Mass/vol informati 2017 8:40 ume] in on in PM Capillary source blood by data Glucomete r Glucose [Mass/volume] in Capillary blood by Glucometer Observa Value Referen Units Interpr Notes Date tion ce etation Range Glucose 70 - 110 mg/dl High No Feb 10 [Mass/vol informati 2017 4:58 ume] in on in PM Capillary source blood by data Glucomete r Glucose [Mass/volume] in Capillary blood by Glucometer Observa Value Referen Units Interpr Notes Date ti ce etation Range Glucose 70 - 110 mg/dl High No Feb 10 [Mass/vol alert informati 2017 ume] in on in 11:58 AM Capillary source blood by data Glucomete r Glucose [Mass/volume] in Capillary blood by Glucometer Observa Value Referen Units Interpr Notes Date ti ce etation Range Glucose 70 - 110 mg/dl No No Feb 10 [Mass/vol informati informati 2017 5:56 ume] in on in on in AM Capillary source source blood by data data Glucomete r Glucose [Mass/volume] in Capillary blood by Glucometer Observa Value Referen Units Interpr Notes Date ti ce etation Range Glucose 70 - 110 mg/dl High No Feb 9 [Mass/vol alert informati 2017 8:32 ume] in on in PM Capillary source blood by data Glucomete r Glucose [Mass/volume] in Capillary blood by Glucometer Observa Value Referen Units Interpr Notes Date tion ce etation Range Glucose 70 - 110 mg/dl High No Chris 9 [Mass/vol informati 2017 4:10 ume] in on in PM Capillary source blood by data Glucomete r Glucose [Mass/volume] in Capillary blood by Glucometer Observa Value Referen Units Interpr Notes Date tion ce etation Range Glucose 70 - 110 mg/dl High No Chris 9 [Mass/vol informati 2017 ume] in on in 11:11 AM Capillary source blood by data Glucomete r Basic metabolic panel in Blood Observa Value Referen Units Interpr Notes Date tion ce etation Range Urea 7 - 18 mg/dL No No Feb 9 nitrogen informati informati 2016 6:38 [Mass/vol on in on in AM ume] in source source Serum or data data Plasma Calcium 8.5 - mg/dL Low No Feb 9 [Mass/vol 10.1 informati 2016 6:38 ume] in on in AM Serum or source Plasma data Chloride 98 - 107 mmoL/L Normal No Feb 9 [Moles/vo informati 2016 6:38 lume] in on in AM Serum or source Plasma data Carbon 21.0 - mmoL/L Normal No Feb 10 dioxide, 32.0 informati 2017 6:38 total on in AM [Moles/vo source lume] in data Serum or Plasma Creatinin 0.55 - mg/dL No No Feb 9 e 1.02 informati informati 2016 6:38 [Mass/vol on in on in AM ume] in source source Serum or data data Plasma Creatinin 50 - 200 ML/MIN No No Feb 10 e renal informati informati 2016 6:38 clearance on in on in AM source source predicted data data by Cockcroft -Gault formula Estimated 59- ML/MIN No REFERENCE Feb 10 informati RANGE: 2017 6:38 glomerula on in >60 AM r source ML/MIN/1. filtratio data 73 SQUARE n rate METERSIf (GF this patient is -A merican, then multiply theresult by 1.210. Glucose 74 - 106 mg/dL High No Feb 9 [Mass/vol informati 2016 6:38 ume] in on in AM Serum or source Plasma data Potassium 3.5 - 5.1 mmoL/L Normal No Feb 10 informati 2016 6:38 [Moles/vo on in AM lume] in source Serum or data Plasma Sodium 136 - 145 mmoL/L Low No Feb 9 [Moles/vo informati 2017 6:38 lume] in on in AM Serum or source Plasma data CBC W Auto Differential panel in Blood Observa Value Referen Units Interpr Notes Date tion ce etation Range Basophils 0 - 0.2 K/MM3 Normal No Feb 9 informati 2016 6:38 [#/volume on in AM ] in source Blood by data Automated count Basophils 0.1 - 2.0 % Normal No Feb 10 / informati 2017 6:38 leukocyte on in AM s in source Blood by data Automated count Eosinophi 0.0 - 0.4 K/mm3 Normal No Feb 9 ls informati 2017 6:38 [#/volume on in AM ] in source Blood by data Automated count Eosinophi 0.1 - % Low No Feb 9 ls/100 12.0 informati 2017 6:38 leukocyte on in AM s in source Blood by data Automated count Granulocy 1.8 - 7.8 K/mm3 Normal No Feb 9 gloria informati 2017 6:38 [#/volume on in AM ] in source Blood by data Automated count Granulocy 37.0 - % Normal No Feb 10 gloria/100 80.0 informati 2017 6:38 leukocyte on in AM s in source Blood by data Automated count Hematocri 37.0 - % Low No Feb 10 t [Volume 47.0 informati 2017 6:38 on in AM Fraction] source of Blood data Hemoglobi 12.2 - g/dL Low No Feb 10 n 16.2 informati 2017 6:38 [Mass/vol on in AM ume] in source Blood data Lymphocyt 0.7 - 4.5 K/mm3 Normal No Feb 10 es informati 2017 6:38 [#/volume on in AM ] in source Unspecifi data ed specimen by Automated count Lymphocyt 10 - 50.0 % Normal No Feb 10 es informati 2017 6:38 [#/volume on in AM ] in source Unspecifi data ed specimen by Automated count Erythrocy 27 - 31.2 pg Normal No Feb 9 te mean informati 2017 6:38 corpuscul on in AM ar source hemoglobi data n [Entitic mass] Erythrocy 31.8 - g/dl Normal No Feb 10 te mean 35.4 informati 2017 6:38 corpuscul on in AM ar source hemoglobi data n concentra tion [Mass/vol ume] by Automated count Erythrocy 82.2 - fl Normal No Feb 10 te mean 97.8 informati 2017 6:38 corpuscul on in AM ar volume source [Entitic data volume] by Automated count Monocytes 0.1 - 1.0 K/mm3 Normal No Feb 9 informati 2017 6:38 [#/volume on in AM ] in source Blood by data Automated count Monocytes 1.7 - 9.3 % Normal No Feb 9 /100 informati 2017 6:38 leukocyte on in AM s in source Blood by data Automated count Platelet 7.4 - fl Normal No Feb 9 mean 10.4 informati 2017 6:38 volume on in AM [Entitic source volume] data in Blood by Automated count Platelets 142 - 424 K/mm3 Normal No Chris 9 informati 2017 6:38 [#/volume on in AM ] in source Blood data Erythrocy 4.2 - 5.4 M/mm3 Low No Feb 9 gloria informati 2017 6:38 [#/volume on in AM ] in source Amniotic data fluid Erythrocy 11.5 - % High No Feb 9 te 17.5 informati 2017 6:38 distribut on in AM ion width source [Entitic data volume] by Automated count Leukocyte 4.8 - K/MM3 Low No Feb 9 s 10.8 informati 2017 6:38 [#/volume on in AM ] in source Blood data Glucose [Mass/volume] in Capillary blood by Glucometer Observa Value Referen Units Interpr Notes Date ti ce etation Range Glucose 70 - 110 mg/dl High No Feb 9 [Mass/vol informati 2017 6:03 ume] in on in AM Capillary source blood by data Glucomete r Lactate [Moles/volume] in Serum or Plasma Observa Value Referen Units Interpr Notes Date ti ce etation Range Lactate 0.4 - 2.0 MMOL/L Normal No Feb 8 [Moles/vo informati 2017 lume] in on in 11:15 PM Serum or source Plasma data Glucose [Mass/volume] in Capillary blood by Glucometer Observa Value Referen Units Interpr Notes Date ti ce etation Range Glucose 70 - 110 mg/dl High No Feb 8 [Mass/vol informati 2017 8:48 ume] in on in PM Capillary source blood by data Glucomete r Lactate [Moles/volume] in Blood Observa Value Referen Units Interpr Notes Date ti ce etation Range Lactate 0.4 - 2.0 mmol/L High An Feb 8 [Moles/vo elevated 2017 7:03 lume] in Lactic PM Blood Acid is suggestiv e of sepsis and shouldbe repeated within 6 hours of initial testing. Glucose [Mass/volume] in Capillary blood by Glucometer Observa Value Referen Units Interpr Notes Date tion ce etation Range Glucose 70 - 110 mg/dl High No Feb 8 [Mass/vol alert informati 2017 4:48 ume] in on in PM Capillary source blood by data Glucomete r DIARRHEA PANEL,PCR Observa Value Referen Units Interpr Notes Date tion ce etation Range Adenovi NOT NOT No No No Chris 8 betsy DETECTE DETECTE informa informa informa 2017 40+41 D tion in tion in tion in 2:40 PM Ag source source source [Presen data data data ce] in Stool Aeromon NOT NOT No No No Chris 8 as DETECTE DETECTE informa informa informa 2017 salmoni D tion in tion in tion in 2:40 PM clifton source source source [Presen data data data ce] in Unspeci fied specime n Astrovi NOT NOT No No No Chris 8 betsy DETECTE DETECTE informa informa informa 2017 [Presen D tion in tion in tion in 2:40 PM ce] in source source source Stool data data data by Electro n microsc opy Campylo NOT NOT No No No Chris 8 bacter DETECTE DETECTE informa informa informa 2017 sp Ab D tion in tion in tion in 2:40 PM [Presen source source source ce] in data data data Serum Clostri NOT NOT No No No Chris 8 dium DETECTE DETECTE informa informa informa 2017 diffici D tion in tion in tion in 2:40 PM le source source source toxin data data data A+B [Presen ce] in Stool Cryptos NOT NOT No No No Chris 8 poridiu DETECTE DETECTE informa informa informa 2017 m sp Ag D tion in tion in tion in 2:40 PM source source source [Presen data data data ce] in Unspeci fied specime n Cyclosp NOT NOT No No No Chris 8 ora DETECTE DETECTE informa informa informa 2017 cayetan D tion in tion in tion in 2:40 PM denisse source source source [Presen data data data ce] in Unspeci fied specime n Escheri NOT NOT No No No Chris 8 adria DETECTE DETECTE informa informa informa 2017 coli D tion in tion in tion in 2:40 PM [Presen source source source ce] in data data data Unspeci fied specime n by Culture FDA method Escheri NOT NOT No No No Chris 8 adria DETECTE DETECTE informa informa informa 2017 coli D tion in tion in tion in 2:40 PM [Presen source source source ce] in data data data Unspeci fied specime n by Culture FDA method Escheri NOT NOT No No No Feb 09 adria DETECTE DETECTE informa informa informa 2016 coli D tion in tion in tion in 2:40 PM Shiga-l source source source jovi data data data toxin 1 assa Escheri NOT NOT No No No Feb 09 adria DETECTE DETECTE informa informa informa 2016 coli D tion in tion in tion in 2:40 PM [id number] source source source data data data [Presen ce] in Stool by Organis m specifi c culture Entamoe NOT NOT No No No Feb 09 ba DETECTE DETECTE informa informa informa 2017 histoly D tion in tion in tion in 2:40 PM juan antonio source source source [Presen data data data ce] in Stool by Trichro me stain Giardia NOT NOT No No No Feb 09 DETECTE DETECTE informa informa informa 2016 lamblia D tion in tion in tion in 2:40 PM Ag source source source [Presen data data data ce] in Stool Norovir NOT NOT No No No Feb 09 us Ag DETECTE DETECTE informa informa informa 2016 [Presen D tion in tion in tion in 2:40 PM ce] in source source source Stool data data data Stool NOT NOT No No No Feb 09 Plesiom DETECTE DETECTE informa informa informa 2017 onas D tion in tion in tion in 2:40 PM shigell source source source oides data data data DNA detec Rotavir NOT NOT No No No Feb 09 us RNA DETECTE DETECTE informa informa informa 2017 detecti D tion in tion in tion in 2:40 PM on by source source source probe data data data and tar Salmone NOT NOT No No No Feb 09 lla sp DETECTE DETECTE informa informa informa 2017 DNA D tion in tion in tion in 2:40 PM [Identi source source source fier] data data data in Unspeci fied specime n by Probe & target amplifi cation method Caliciv NOT NOT No No No Feb 09 irus DETECTE DETECTE informa informa informa 2016 [Identi D tion in tion in tion in 2:40 PM fier] source source source in data data data Stool by Electro n microsc opy Escheri NOT NOT No No No Feb 09 adria DETECTE DETECTE informa informa informa 2016 coli D tion in tion in tion in 2:40 PM [Presen source source source ce] in data data data Unspeci fied specime n by Culture FDA method Escheri NOT NOT No No No Feb 09 adria DETECTE DETECTE informa informa informa 2016 coli D tion in tion in tion in 2:40 PM SXT source source source gene+H7 data data data gene [Identi fier] in Unspeci fied specime n by Probe & target amplifi cation method Vibrio NOT NOT No No No Feb 09 cholera DETECTE DETECTE informa informa informa 2016 e DNA D tion in tion in tion in 2:40 PM [Presen source source source ce] in data data data Unspeci fied specime n by Probe & target amplifi cation method Vibrio NOT NOT No No No Feb 09 sp DNA DETECTE DETECTE informa informa informa 2016 [Identi D tion in tion in tion in 2:40 PM fier] source source source in data data data Unspeci fied specime n by Probe & target amplifi cation method Vibrio NOT NOT No No No Feb 09 sp DETECTE DETECTE informa informa informa 2016 identif D tion in tion in tion in 2:40 PM ied in source source source Stool data data data by Organis m specifi c culture CBC W Auto Differential panel in Blood Observa Value Referen Units Interpr Notes Date tion ce etation Range Granulocy 1.8 - 7.8 K/mm3 Normal No Feb 09 gloria 2016 [#/volume on in 12:00 PM ] in source Blood by data Automated count Granulocy 37.0 - % High No Feb 09 gloria/100 80.0 2016 leukocyte on in 12:00 PM s in source Blood by data Automated count Hematocri 37.0 - % Low No Feb 09 t [Volume 47.0 ati 2016 on in 12:00 PM Fraction] source of Blood data Hemoglobi 12.2 - g/dL Low No Feb 09 n 16.2 2016 [Mass/vol on in 12:00 PM ume] in source Blood data Lymphocyt 0.7 - 4.5 K/mm3 Low No Feb 8 es 2016 [#/volume on in 12:00 PM ] in source Unspecifi data ed specimen by Automated count Lymphocyt 10 - 50.0 % Low No Feb 8 es 2016 [#/volume on in 12:00 PM ] in source Unspecifi data ed specimen by Automated count Erythrocy 27 - 31.2 pg Normal No Feb 8 te mean 2016 corpuscul on in 12:00 PM ar source hemoglobi data n [Entitic mass] Erythrocy 31.8 - g/dl Normal No Feb 09 te mean 35.4 2016 corpuscul on in 12:00 PM ar source hemoglobi data n concentra tion [Mass/vol ume] by Automated count Erythrocy 82.2 - fL Normal No Feb 09 te mean 97.8 2016 corpuscul on in 12:00 PM ar volume source [Entitic data volume] by Automated count Monocytes 0.1 - 1.0 K/mm3 Normal No Feb 092016 [#/volume on in 12:00 PM ] in source Blood by data Automated count Monocytes 1.7 - 9.3 % Normal No Feb 8 2016 leukocyte on in 12:00 PM s in source Blood by data Automated count Platelets 142 - 424 K/mm3 Normal No Feb 8 2016 [#/volume on in 12:00 PM ] in source Blood data Erythrocy 4.2 - 5.4 M/mm3 Low No Feb 8 gloria 2016 [#/volume on in 12:00 PM ] in source Amniotic data fluid Erythrocy 11.5 - % High No Feb 8 te 17.5 2016 distribut on in 12:00 PM ion width source [Entitic data volume] by Automated count Leukocyte 4.8 - K/mm3 Normal No Feb 09 s 10.8 2016 [#/volume on in 12:00 PM ] in source Blood data Differential panel, method unspecified - Observa Value Referen Units Interpr Notes Date tion ce etation Range LYMPH 9 10 - 50 % Low No Feb 8 inform2016 tion in 12:00 source PM data Monocytes 2 - 9 % Normal No Feb 8 /100 2016 leukocyte on in 12:00 PM s in source Blood by data Automated count Platele NORMAL No No No No Chris 8 ts informa informa informa informa 2016 [Presen tion in tion in tion in tion in 12:00 ce] in source source source source PM Blood data data data data by Light microsc opy Neutrophi 42 - 76 % High No Chris 8 ls informati 2016 [#/volume on in 12:00 PM ] in source Blood by data Automated count Cells No #CELLS No No Chris 8 Counted informati informati informati 2016 Total [#] on in on in on in 12:00 PM in Blood source source source data data data Mycoplasma pneumoniae IgM Ab [Presence] in Serum by Immunoassay Observa Value Referen Units Interpr Notes Date tion ce etation Range Mycopla NON-NAVA NONREAC No No No Chris 8 sma CTIVE TIVE informa informa informa 2016 pneumon tion in tion in tion in 12:00 iae IgM source source source PM Ab data data data [Presen ce] in Serum by Immunoa ssay Basic metabolic panel in Blood Observa Value Referen Units Interpr Notes Date tion ce etation Range Urea 7 - 18 mg/dL Normal No Chris 8 nitrogen inform2016 [Mass/vol on in 12:00 PM ume] in source Serum or data Plasma Calcium 8.5 - mg/dL Normal No Chris 8 [Mass/vol 10.1 informati 2016 ume] in on in 12:00 PM Serum or source Plasma data Chloride 98 - 107 mmoL/L Low No Feb 8 [Moles/vo informati 2017 lume] in on in 12:00 PM Serum or source Plasma data Carbon 21.0 - mmoL/L Normal No Feb 8 dioxide, 32.0 informati 2017 total on in 12:00 PM [Moles/vo source lume] in data Serum or Plasma Creatinin 0.55 - mg/dL Normal No Feb 8 e 1.02 informati 2016 [Mass/vol on in 12:00 PM ume] in source Serum or data Plasma Estimated 59- ML/MIN No REFERENCE Chris 8 informati RANGE: 2017 glomerula on in >60 12:00 PM r source ML/MIN/1. filtratio data 73 SQUARE n rate METERSIf (GF this patient is -A merican, then multiply theresult by 1.210. Glucose 74 - 106 mg/dL High No Chris 8 [Mass/vol informati 2017 ume] in on in 12:00 PM Serum or source Plasma data Potassium 3.5 - 5.1 mmoL/L Normal No Feb 09 inform2016 [Moles/vo on in 12:00 PM lume] in source Serum or data Plasma Sodium 136 - 145 mmoL/L Low No Feb 8 [Moles/vo informati 2017 lume] in on in 12:00 PM Serum or source Plasma data Urinalysis dipstick W Reflex Microscopic panel in Urine Observa Value Referen Units Interpr Notes Date tion ce etation Range Collected by nurse? Y Hold specimen in OE? N Appeara CLEAR CLEAR No No No Feb 06 nce of informa informa informa 2017 Urine tion in tion in tion in 12:45 source source source PM data data data Bacteri 1+ O No No No Feb 06 a informa informa informa 2016 [Presen tion in tion in tion in 12:45 ce] in source source source PM Urine data data data sedimen t by Light microsc opy Bilirub NEGATIV NEG No No No Feb 06 in E informa informa informa 2016 [Presen tion in tion in tion in 12:45 ce] in source source source PM Urine data data data by Test strip Erythro TRACE-L NEG No No No Feb 06 cytes YSED informa informa informa 2016 [Presen tion in tion in tion in 12:45 ce] in source source source PM Urine data data data Color YELLOW YELLOW No No No Feb 06 of informa informa informa 2017 Urine tion in tion in tion in 12:45 source source source PM data data data Eosinophi NONE #/lpf No No Feb 06 ls/100 informati informati 2017 leukocyte on in on in 12:45 PM s in source source Urine data data sediment by Manual count Glucose NEG No High No Feb 06 [Mass/vol informati informati 2017 ume] in on in on in 12:45 PM Urine by source source Test data data strip Ketones 1+ NEG mg/dL Abnorma No Feb 06 l informa 2017 [Presen tion in 12:45 ce] in source PM Urine data by Automat ed test strip Mucus TRACE NEG No Abnorma No Feb 06 [Presen informa l informa 2016 ce] in tion in tion in 12:45 Urine source source PM sedimen data data t by Light microsc opy Mucus 1+ OCC No No No Feb 06 [Presen informa informa informa 2016 ce] in tion in tion in tion in 12:45 Urine source source source PM sedimen data data data t by Light microsc opy Nitrite NEGATIV NEG No No No Feb 06 E informa informa informa 2016 [Presen tion in tion in tion in 12:45 ce] in source source source PM Urine data data data by Test strip pH of 5.0 - 8.5 No Normal No Chris 5 Urine informati informati 2017 on in on in 12:45 PM source source data data Protein NEG mg/dL High No Feb 5 [Mass/vol informati 2017 ume] in on in 12:45 PM Urine by source Automated data test strip Specific 1.005 - No Normal No Chris 5 gravity 1.030 informati informati 2017 of Urine on in on in 12:45 PM source source data data Epithel 5-10 0 - 5 #/hpf No No Feb 5 ial informa informa 2017 cells.s tion in tion in 12:45 quamous source source PM data data [Presen ce] in Urine sedimen t by Microsc opy high power field Urobili 1.0 NEG E.U./dL No No Chris 5 nogen informa informa 2016 [Presen tion in tion in 12:45 ce] in source source PM Urine data data by Test strip Leukocy [5 O wbc/hpf No No Chris 5 gloria wbc/hpf informa informa 2016 [#/volu ; 10 tion in tion in 12:45 me] in wbc/hpf source source PM Urine ] data data Urinalysis dipstick W Reflex Microscopic panel in Urine Observa Value Referen Units Interpr Notes Date tion ce etation Range Collected by nurse? Y Hold specimen in OE? N Appeara CLEAR CLEAR No No No Chris 5 nce of informa informa informa 2017 Urine tion in tion in tion in 12:45 source source source PM data data data Bilirub NEGATIV NEG No No No Chris 5 in E informa informa informa 2016 [Presen tion in tion in tion in 12:45 ce] in source source source PM Urine data data data by Test strip Erythro TRACE-L NEG No No No Chris 5 cytes YSED informa informa informa 2017 [Presen tion in tion in tion in 12:45 ce] in source source source PM Urine data data data Color YELLOW YELLOW No No No Chris 5 of informa informa informa 2017 Urine tion in tion in tion in 12:45 source source source PM data data data Glucose NEG No High No Chris 5 [Mass/vol informati informati 2017 ume] in on in on in 12:45 PM Urine by source source Test data data strip Ketones 1+ NEG mg/dL Abnorma No Chris 5 l informa 2017 [Presen tion in 12:45 ce] in source PM Urine data by Automat ed test strip Mucus TRACE NEG No Abnorma No Chris 5 [Presen informa l informa 2016 ce] in tion in tion in 12:45 Urine source source PM sedimen data data t by Light microsc opy Nitrite NEGATIV NEG No No No Chris 5 E informa informa informa 2016 [Presen tion in tion in tion in 12:45 ce] in source source source PM Urine data data data by Test strip pH of 5.0 - 8.5 No Normal No Chris 5 Urine informati informati 2017 on in on in 12:45 PM source source data data Protein NEG mg/dL High No Chris 5 [Mass/vol informati 2017 ume] in on in 12:45 PM Urine by source Automated data test strip Specific 1.005 - No Normal No Chris 5 gravity 1.030 informati informati 2017 of Urine on in on in 12:45 PM source source data data Urobili 1.0 NEG E.U./dL No No Chris 5 nogen informa informa 2017 [Presen tion in tion in 12:45 ce] in source source PM Urine data data by Test strip Glucose [Mass/volume] in Capillary blood by Glucometer Observa Value Referen Units Interpr Notes Date tion ce etation Range Glucose 70 - 110 mg/dl High No Chris 5 [Mass/vol informati 2017 ume] in on in 12:22 PM Capillary source blood by data Glucomete r Comprehensive metabolic 2000 panel in Serum or Plasma Observa Value Referen Units Interpr Notes Date tion ce etation Range Albumin/G 1.1 - 1.8 No Low No Chris 5 lobulin informati informati 2017 6:25 [Mass on in on in AM ratio] in source source Serum or data data Plasma Albumin 3.4 - 5.0 gm/dL Low No Chris 5 [Mass/vol informati 2017 6:25 ume] in on in AM Serum or source Plasma data Alkaline 46 - 116 U/L Normal No Chris 5 phosphata informati 2017 6:25 se on in AM [Enzymati source c data activity/ volume] in Serum or Plasma Bilirubin 0.2 - 1.0 mg/dL Normal No Chris 5 .total informati 2017 6:25 [Mass/vol on in AM ume] in source Serum or data Plasma Urea 7 - 18 mg/dL Normal No Chris 5 nitrogen informati 2017 6:25 [Mass/vol on in AM ume] in source Serum or data Plasma Calcium 8.5 - mg/dL Low No Chris 5 [Mass/vol 10.1 informati 2017 6:25 ume] in on in AM Serum or source Plasma data Chloride 98 - 107 mmoL/L Low No Chris 5 [Moles/vo informati 2017 6:25 lume] in on in AM Serum or source Plasma data Carbon 21.0 - mmoL/L Normal No Chris 5 dioxide, 32.0 informati 2017 6:25 total on in AM [Moles/vo source lume] in data Serum or Plasma Creatinin 0.55 - mg/dL Normal No Chris 5 e 1.02 informati 2017 6:25 [Mass/vol on in AM ume] in source Serum or data Plasma Creatinin 50 - 200 ML/MIN Normal No Chris 5 e renal informati 2017 6:25 clearance on in AM source predicted data by Cockcroft -Gault formula Estimated 59- ML/MIN No REFERENCE Chris 5 informati RANGE: 2017 6:25 glomerula on in >60 AM r source ML/MIN/1. filtratio data 73 SQUARE n rate METERSIf (GF this patient is -A merican, then multiply theresult by 1.210. Globulin 1.3 - 3.2 gm/dL High No Chris 5 [Mass/vol informati 2017 6:25 ume] in on in AM Serum source data Glucose 74 - 106 mg/dL High No Chris 5 [Mass/vol informati 2017 6:25 ume] in on in AM Serum or source Plasma data Potassium 3.5 - 5.1 mmoL/L Normal No Chris 5 informati 2016 6:25 [Moles/vo on in AM lume] in source Serum or data Plasma Sodium 136 - 145 mmoL/L Low No Chris 5 [Moles/vo informati 2016 6:25 lume] in on in AM Serum or source Plasma data Aspartate 15 - 37 U/L No No Chris 5 informati informati 2016 6:25 aminotran on in on in AM sferase source source [Enzymati data data c activity/ volume] in Serum or Plasma Alanine 12 - 78 U/L Normal No Feb 5 aminotran informati 2016 6:25 sferase on in AM [Enzymati source c data activity/ volume] in Serum or Plasma Protein 6.4 - 8.2 gm/dL Low No Feb 5 [Mass/vol informati 2016 6:25 ume] in on in AM Serum or source Plasma data CBC W Auto Differential panel in Blood Observa Value Referen Units Interpr Notes Date tion ce etation Range Basophils 0 - 0.2 K/MM3 Normal No Feb 5 informati 2016 6:25 [#/volume on in AM ] in source Blood by data Automated count Basophils 0.1 - 2.0 % Normal No Chris 5 /100 informati 2017 6:25 leukocyte on in AM s in source Blood by data Automated count Eosinophi 0.0 - 0.4 K/mm3 Normal No Chris 5 ls informati 2016 6:25 [#/volume on in AM ] in source Blood by data Automated count Eosinophi 0.1 - % Normal No Chris 5 ls/100 12.0 informati 2016 6:25 leukocyte on in AM s in source Blood by data Automated count Granulocy 1.8 - 7.8 K/mm3 Normal No Chris 5 gloria informati 2016 6:25 [#/volume on in AM ] in source Blood by data Automated count Granulocy 37.0 - % Normal No Chris 5 gloria/100 80.0 informati 2016 6:25 leukocyte on in AM s in source Blood by data Automated count Hematocri 37.0 - % Low No Feb 5 t [Volume 47.0 informati 2016 6:25 on in AM Fraction] source of Blood data Hemoglobi 12.2 - g/dL Low No Feb 5 n 16.2 informati 2016 6:25 [Mass/vol on in AM ume] in source Blood data Lymphocyt 0.7 - 4.5 K/mm3 Normal No Chris 5 es informati 2017 6:25 [#/volume on in AM ] in source Unspecifi data ed specimen by Automated count Lymphocyt 10 - 50.0 % Normal No Chris 5 es informati 2017 6:25 [#/volume on in AM ] in source Unspecifi data ed specimen by Automated count Erythrocy 27 - 31.2 pg Normal No Feb 5 te mean informati 2016 6:25 corpuscul on in AM ar source hemoglobi data n [Entitic mass] Erythrocy 31.8 - g/dl Low No Feb 06 te mean 35.4 informati 2017 6:25 corpuscul on in AM ar source hemoglobi data n concentra tion [Mass/vol ume] by Automated count Erythrocy 82.2 - fl Normal No Feb 06 te mean 97.8 informati 2016 6:25 corpuscul on in AM ar volume source [Entitic data volume] by Automated count Monocytes 0.1 - 1.0 K/mm3 Normal No Feb 5 informati 2017 6:25 [#/volume on in AM ] in source Blood by data Automated count Monocytes 1.7 - 9.3 % Normal No Chris 5 /100 informati 2017 6:25 leukocyte on in AM s in source Blood by data Automated count Platelet 7.4 - fl Low No Feb 06 mean 10.4 informati 2017 6:25 volume on in AM [Entitic source volume] data in Blood by Automated count Platelets 142 - 424 K/mm3 Normal No Chris 5 informati 2017 6:25 [#/volume on in AM ] in source Blood data Erythrocy 4.2 - 5.4 M/mm3 Low No Feb 5 gloria informati 2017 6:25 [#/volume on in AM ] in source Amniotic data fluid Erythrocy 11.5 - % High No Feb 5 te 17.5 informati 2017 6:25 distribut on in AM ion width source [Entitic data volume] by Automated count Leukocyte 4.8 - K/MM3 Low No Feb 5 s 10.8 informati 2017 6:25 [#/volume on in AM ] in source Blood data Glucose [Mass/volume] in Capillary blood by Glucometer Observa Value Referen Units Interpr Notes Date tion ce etation Range Glucose 70 - 110 mg/dl High No Feb 5 [Mass/vol informati 2017 6:23 ume] in on in AM Capillary source blood by data Glucomete r Glucose [Mass/volume] in Capillary blood by Glucometer Observa Value Referen Units Interpr Notes Date tion ce etation Range Glucose 70 - 110 mg/dl High No Chris 4 [Mass/vol alert informati 2017 8:08 ume] in on in PM Capillary source blood by data Glucomete r Lactate [Moles/volume] in Blood Observa Value Referen Units Interpr Notes Date tion ce etation Range Lactate 0.4 - 2.0 mmol/L Normal No Chris 4 [Moles/vo informati 2017 lume] in on in 12:15 PM Blood source data Acetone [Mass/volume] in Serum or Plasma Observa Value Referen Units Interpr Notes Date tion ce etation Range Acetone NOT No No No Chris 4 [Mass/vol DETECTD informati informati informati 2017 ume] in on in on in on in 11:45 AM Serum or source source source Plasma data data data Comprehensive metabolic 2000 panel in Serum or Plasma Observa Value Referen Units Interpr Notes Date tion ce etation Range Albumin/G 1.1 - 1.8 No Low No Chris 4 lobulin informati informati 2017 [Mass on in on in 11:45 AM ratio] in source source Serum or data data Plasma Albumin 3.4 - 5.0 gm/dL Low No Chris 4 [Mass/vol informati 2017 ume] in on in 11:45 AM Serum or source Plasma data Alkaline 46 - 116 U/L Normal No Chris 4 phosphata informati 2017 se on in 11:45 AM [Enzymati source c data activity/ volume] in Serum or Plasma Bilirubin 0.2 - 1.0 mg/dL Normal No Chris 4 .total informati 2017 [Mass/vol on in 11:45 AM ume] in source Serum or data Plasma Urea 7 - 18 mg/dL Normal No Chris 4 nitrogen informati 2017 [Mass/vol on in 11:45 AM ume] in source Serum or data Plasma Calcium 8.5 - mg/dL Normal No Chris 4 [Mass/vol 10.1 informati 2017 ume] in on in 11:45 AM Serum or source Plasma data Chloride 98 - 107 mmoL/L Low No Chris 4 [Moles/vo informati 2017 lume] in on in 11:45 AM Serum or source Plasma data Carbon 21.0 - mmoL/L Normal No Feb 05 dioxide, 32.0 informati 2017 total on in 11:45 AM [Moles/vo source lume] in data Serum or Plasma Creatinin 0.55 - mg/dL Normal No Feb 4 e 1.02 informati 2017 [Mass/vol on in 11:45 AM ume] in source Serum or data Plasma Creatinin 50 - 200 ML/MIN Normal No Feb 05 e renal informati 2017 clearance on in 11:45 AM source predicted data by Cockcroft -Gault formula Estimated 59- ML/MIN No REFERENCE Chris 4 informati RANGE: 2017 glomerula on in >60 11:45 AM r source ML/MIN/1. filtratio data 73 SQUARE n rate METERSIf (GF this patient is -A merican, then multiply theresult by 1.210. Globulin 1.3 - 3.2 gm/dL High No Feb 4 [Mass/vol informati 2016 ume] in on in 11:45 AM Serum source data Glucose 74 - 106 mg/dL High No Feb 4 [Mass/vol informati 2016 ume] in on in 11:45 AM Serum or source Plasma data Potassium 3.5 - 5.1 mmoL/L Normal MAY BE Chris 4 ELEVATED 2016 [Moles/vo DUE TO 11:45 AM lume] in SLIGHT Serum or HEMOLYSIS Plasma Sodium 136 - 145 mmoL/L Low No Feb 4 [Moles/vo informati 2017 lume] in on in 11:45 AM Serum or source Plasma data Aspartate 15 - 37 U/L Normal MAY BE Chris ELEVATED 2017 aminotran DUE TO 11:45 AM sferase SLIGHT [Enzymati HEMOLYSIS c activity/ volume] in Serum or Plasma Alanine 12 - 78 U/L Normal No Chris 4 aminotran informati 2017 sferase on in 11:45 AM [Enzymati source c data activity/ volume] in Serum or Plasma Protein 6.4 - 8.2 gm/dL Normal No Feb 4 [Mass/vol informati 2016 ume] in on in 11:45 AM Serum or source Plasma data CBC W Auto Differential panel in Blood Observa Value Referen Units Interpr Notes Date tion ce etation Range Basophils 0 - 0.2 K/MM3 Normal No Feb 05 inform2016 [#/volume on in 11:45 AM ] in source Blood by data Automated count Basophils 0.1 - 2.0 % Normal No Feb 4 /100 inform2016 leukocyte on in 11:45 AM s in source Blood by data Automated count Eosinophi 0.0 - 0.4 K/mm3 Normal No Chris 4 ls informati 2016 [#/volume on in 11:45 AM ] in source Blood by data Automated count Eosinophi 0.1 - % Normal No Feb 4 ls/100 12.0 inform2016 leukocyte on in 11:45 AM s in source Blood by data Automated count Granulocy 1.8 - 7.8 K/mm3 Normal No Chris 4 gloria inform2016 [#/volume on in 11:45 AM ] in source Blood by data Automated count Granulocy 37.0 - % High No Chris 4 gloria/100 80.0 inform2016 leukocyte on in 11:45 AM s in source Blood by data Automated count Hematocri 37.0 - % Low No Feb 4 t [Volume 47.0 informati 2016 on in 11:45 AM Fraction] source of Blood data Hemoglobi 12.2 - g/dL Low No Feb 05 n 16.2 inform2016 [Mass/vol on in 11:45 AM ume] in source Blood data Lymphocyt 0.7 - 4.5 K/mm3 Low No Feb 4 es inform2016 [#/volume on in 11:45 AM ] in source Unspecifi data ed specimen by Automated count Lymphocyt 10 - 50.0 % Normal No Feb 4 es inform2016 [#/volume on in 11:45 AM ] in source Unspecifi data ed specimen by Automated count Erythrocy 27 - 31.2 pg Normal No Feb 05 te mean inform2016 corpuscul on in 11:45 AM ar source hemoglobi data n [Entitic mass] Erythrocy 31.8 - g/dl Low No Feb 05 te mean 35.4 inform2016 corpuscul on in 11:45 AM ar source hemoglobi data n concentra tion [Mass/vol ume] by Automated count Erythrocy 82.2 - fl Normal No Feb 05 te mean 97.8 inform2016 corpuscul on in 11:45 AM ar volume source [Entitic data volume] by Automated count Monocytes 0.1 - 1.0 K/mm3 Normal No Feb 4 inform2016 [#/volume on in 11:45 AM ] in source Blood by data Automated count Monocytes 1.7 - 9.3 % Normal No Chris 4 /100 inform 2017 leukocyte on in 11:45 AM s in source Blood by data Automated count Platelet 7.4 - fl Low No Feb 4 mean 10.4 inform2016 volume on in 11:45 AM [Entitic source volume] data in Blood by Automated count Platelets 142 - 424 K/mm3 Normal No Feb 4 inform2016 [#/volume on in 11:45 AM ] in source Blood data Erythrocy 4.2 - 5.4 M/mm3 Low No Feb 4 gloria inform2016 [#/volume on in 11:45 AM ] in source Amniotic data fluid Erythrocy 11.5 - % High No Feb 05 te 17.5 informati 2016 distribut on in 11:45 AM ion width source [Entitic data volume] by Automated count Leukocyte 4.8 - K/MM3 Normal No Feb 4 s 10.8 inform2016 [#/volume on in 11:45 AM ] in source Blood data Hemoglobin A1c in Blood Observa Value Referen Units Interpr Notes ti etation Range Hemoglo 8.6 0.0 - % High < 6% Feb 02 bin A1c 7.0 NON-MARIELA 2017 in BETIC 10:00 Blood LEVEL< AM 7% CONTROL LED DIABETI C LEVEL> 8% POORLY CONTROL LED DIABETI C LEVEL Glucose [Mass/volume] in Capillary blood by Glucometer Observa Value Referen Units Interpr Notes Date ti etation Range Glucose 70 - 110 mg/dl No No January 27 [Mass/vol informati informati 2017 6:34 ume] in on in on in AM Capillary source source blood by data data Glucomete r Glucose [Mass/volume] in Capillary blood by Glucometer Observa Value Referen Units Interpr Notes Date tion ce etation Range Glucose 70 - 110 mg/dl High No January 26 [Mass/vol informati 2016 9:02 ume] in on in PM Capillary source blood by data Glucomete r Glucose [Mass/volume] in Capillary blood by Glucometer Observa Value Referen Units Interpr Notes Date ti ce etation Range Glucose 70 - 110 mg/dl High No January 26 [Mass/vol alert informati 2017 4:23 ume] in on in PM Capillary source blood by data Glucomete r Glucose [Mass/volume] in Capillary blood by Glucometer Observa Value Referen Units Interpr Notes Date tion ce etation Range Glucose 70 - 110 mg/dl No No January 26 [Mass/vol informati informati 2016 ume] in on in on in 11:20 AM Capillary source source blood by data data Glucomete r Glucose [Mass/volume] in Capillary blood by Glucometer Observa Value Referen Units Interpr Notes Date tion ce etation Range Glucose 70 - 110 mg/dl High No January 26 [Mass/vol informati 2016 9:21 ume] in on in AM Capillary source blood by data Glucomete r Glucose [Mass/volume] in Capillary blood by Glucometer Observa Value Referen Units Interpr Notes Date tion ce etation Range Glucose 70 - 110 mg/dl No No January 26 [Mass/vol informati informati 2016 6:39 ume] in on in on in AM Capillary source source blood by data data Glucomete r Glucose [Mass/volume] in Capillary blood by Glucometer Observa Value Referen Units Interpr Notes Date tion ce etation Range Glucose 70 - 110 mg/dl High No January 25 [Mass/vol informati 2016 8:21 ume] in on in PM Capillary source blood by data Glucomete r Glucose [Mass/volume] in Capillary blood by Glucometer Observa Value Referen Units Interpr Notes Date tion ce etation Range Glucose 70 - 110 mg/dl High No January 25 [Mass/vol informati 2016 4:34 ume] in on in PM Capillary source blood by data Glucomete r Glucose [Mass/volume] in Capillary blood by Glucometer Observa Value Referen Units Interpr Notes Date tion ce etation Range Glucose 70 - 110 mg/dl High No January 25 [Mass/vol informati 2016 ume] in on in 11:57 AM Capillary source blood by data Glucomete r Glucose [Mass/volume] in Capillary blood by Glucometer Observa Value Referen Units Interpr Notes Date tion ce etation Range Glucose 70 - 110 mg/dl Normal No January 25 [Mass/vol informati 2016 6:53 ume] in on in AM Capillary source blood by data Glucomete r Glucose [Mass/volume] in Capillary blood by Glucometer Observa Value Referen Units Interpr Notes Date tion ce etation Range Glucose 70 - 110 mg/dl No No January 25 [Mass/vol informati informati 2016 2:15 ume] in on in on in AM Capillary source source blood by data data Glucomete r Glucose [Mass/volume] in Serum or Plasma Observa Value Referen Units Interpr Notes Date tion ce etation Range 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: FINGERSTICK TO LOW TO READ Glucose 74 - 106 mg/dL Low alert No January 25 [Mass/vol informati 2016 1:44 ume] in on in AM Serum or source Plasma data Glucose [Mass/volume] in Capillary blood by Glucometer Observa Value Referen Units Interpr Notes Date ti ce etation Range Glucose 70 - 110 mg/dl High No January 24 [Mass/vol informati 2016 8:22 ume] in on in PM Capillary source blood by data Glucomete r Glucose [Mass/volume] in Capillary blood by Glucometer Observa Value Referen Units Interpr Notes Date ti etation Range Glucose 70 - 110 mg/dl High No January 24 [Mass/vol alert informati 2016 5:11 ume] in on in PM Capillary source blood by data Glucomete r Glucose [Mass/volume] in Capillary blood by Glucometer Observa Value Referen Units Interpr Notes Date ti etation Range Glucose 70 - 110 mg/dl No No January 24 [Mass/vol informati informati 2017 ume] in on in on in 11:54 AM Capillary source source blood by data data Glucomete r Glucose [Mass/volume] in Capillary blood by Glucometer Observa Value Referen Units Interpr Notes Date ti etation Range Glucose 70 - 110 mg/dl High No January 24 [Mass/vol informati 2016 6:14 ume] in on in AM Capillary source blood by data Glucomete r Glucose [Mass/volume] in Capillary blood by Glucometer Observa Value Referen Units Interpr Notes Date ti ce etation Range Glucose 70 - 110 mg/dl High No January 23 [Mass/vol informati 2016 8:52 ume] in on in PM Capillary source blood by data Glucomete r Glucose [Mass/volume] in Capillary blood by Glucometer Observa Value Referen Units Interpr Notes Date ti ce etation Range Glucose 70 - 110 mg/dl High No January 23 [Mass/vol informati 2016 4:52 ume] in on in PM Capillary source blood by data Glucomete r Glucose [Mass/volume] in Capillary blood by Glucometer Observa Value Referen Units Interpr Notes Date ti etation Range Glucose 70 - 110 mg/dl High No January 23 [Mass/vol informati 2016 ume] in on in 11:21 AM Capillary source blood by data Glucomete r Glucose [Mass/volume] in Capillary blood by Glucometer Observa Value Referen Units Interpr Notes Date ti ce etation Range Glucose 70 - 110 mg/dl High No January 23 [Mass/vol informati 2016 6:27 ume] in on in AM Capillary source blood by data Glucomete r CBC W Auto Differential panel in Blood Observa Value Referen Units Interpr Notes Date ti ce etation Range Basophils 0 - 0.2 K/MM3 Normal No January 23 informati 2016 6:00 [#/volume on in AM ] in source Blood by data Automated count Basophils 0.1 - 2.0 % Low No January 23 / informati 2016 6:00 leukocyte on in AM s in source Blood by data Automated count Eosinophi 0.0 - 0.4 K/mm3 Normal No January 23 ls informati 2016 6:00 [#/volume on in AM ] in source Blood by data Automated count Eosinophi 0.1 - % Low January 23 ls/100 12.0 informati 2016 6:00 leukocyte on in AM s in source Blood by data Automated count Granulocy 1.8 - 7.8 K/mm3 High No January 23 gloria informati 2016 6:00 [#/volume on in AM ] in source Blood by data Automated count Granulocy 37.0 - % High No January 23 gloria/100 80.0 informati 2016 6:00 leukocyte on in AM s in source Blood by data Automated count Hematocri 37.0 - % Low No January 23 t [Volume 47.0 informati 2016 6:00 on in AM Fraction] source of Blood data Hemoglobi 12.2 - g/dL Low No January 23 n 16.2 informati 2016 6:00 [Mass/vol on in AM ume] in source Blood data Lymphocyt 0.7 - 4.5 K/mm3 Normal No January 23 es informati 2016 6:00 [#/volume on in AM ] in source Unspecifi data ed specimen by Automated count Lymphocyt 10 - 50.0 % Low No January 23 es informati 2016 6:00 [#/volume on in AM ] in source Unspecifi data ed specimen by Automated count Erythrocy 27 - 31.2 pg Normal No January 23 te mean informati 2016 6:00 corpuscul on in AM ar source hemoglobi data n [Entitic mass] Erythrocy 31.8 - g/dl Low No January 23 te mean 35.4 informati 2016 6:00 corpuscul on in AM ar source hemoglobi data n concentra tion [Mass/vol ume] by Automated count Erythrocy 82.2 - fl Normal No January 23 te mean 97.8 informati 2016 6:00 corpuscul on in AM ar volume source [Entitic data volume] by Automated count Monocytes 0.1 - 1.0 K/mm3 Normal No January 23 informati 2016 6:00 [#/volume on in AM ] in source Blood by data Automated count Monocytes 1.7 - 9.3 % Normal No January 23 / informati 2016 6:00 leukocyte on in AM s in source Blood by data Automated count Platelet 7.4 - fl Low No January 23 mean 10.4 informati 2016 6:00 volume on in AM [Entitic source volume] data in Blood by Automated count Platelets 142 - 424 K/mm3 No No January 23 informati informati 2016 6:00 [#/volume on in on in AM ] in source source Blood data data Erythrocy 4.2 - 5.4 M/mm3 Low No January 23 gloria informati 2016 6:00 [#/volume on in AM ] in source Amniotic data fluid Erythrocy 11.5 - % Normal No January 23 te 17.5 informati 2016 6:00 distribut on in AM ion width source [Entitic data volume] by Automated count Leukocyte 4.8 - K/MM3 High No January 23 s 10.8 informati 2016 6:00 [#/volume on in AM ] in source Blood data Differential panel, method unspecified - Observa Value Referen Units Interpr Notes Date tion ce etation Range Neutrophi 0 - 8 % Normal No January 23 ls.band informati 2016 6:00 form/100 on in AM leukocyte source s in data Blood by Automated count Hypochr 1+ No No No No January 23 omia informa informa informa informa 2016 [Presen tion in tion in tion in tion in 6:00 AM ce] in source source source source Blood data data data data LYMPH 4 10 - 50 % Low No January 23 informa 2017 tion in 6:00 AM source data Monocytes 2 - 9 % Low No January 23 /100 informati 2017 6:00 leukocyte on in AM s in source Blood by data Automated count Platele NORMAL No No No No January 23 ts informa informa informa informa 2016 [Presen tion in tion in tion in tion in 6:00 AM ce] in source source source source Blood data data data data by Light microsc opy Neutrophi 42 - 76 % High No January 23 ls informati 2016 6:00 [#/volume on in AM ] in source Blood by data Automated count Cells No #CELLS No No January 23 Counted informati informati informati 2016 6:00 Total [#] on in on in on in AM in Blood source source source data data data Basic metabolic panel in Blood Observa Value Referen Units Interpr Notes Date tion ce etation Range Urea 7 - 18 mg/dL Normal No January 23 nitrogen informati 2016 6:00 [Mass/vol on in AM ume] in source Serum or data Plasma Calcium 8.5 - mg/dL Low No January 23 [Mass/vol 10.1 informati 2016 6:00 ume] in on in AM Serum or source Plasma data Chloride 98 - 107 mmoL/L Low No January 23 [Moles/vo informati 2016 6:00 lume] in on in AM Serum or source Plasma data Carbon 21.0 - mmoL/L High No January 23 dioxide, 32.0 informati 2016 6:00 total on in AM [Moles/vo source lume] in data Serum or Plasma Creatinin 0.55 - mg/dL Normal No January 23 e 1.02 informati 2016 6:00 [Mass/vol on in AM ume] in source Serum or data Plasma Creatinin 50 - 200 ML/MIN Normal No January 23 e renal informati 2016 6:00 clearance on in AM source predicted data by Cockcroft -Gault formula Estimated 59- ML/MIN No REFERENCE January 23 informati RANGE: 2017 6:00 glomerula on in >60 AM r source ML/MIN/1. filtratio data 73 SQUARE n rate METERSIf (GF this patient is -A merican, then multiply theresult by 1.210. Glucose 74 - 106 mg/dL High No January 23 [Mass/vol informati 2016 6:00 ume] in on in AM Serum or source Plasma data Potassium 3.5 - 5.1 mmoL/L Normal No January 23 informati 2016 6:00 [Moles/vo on in AM lume] in source Serum or data Plasma Sodium 136 - 145 mmoL/L Low No January 23 [Moles/vo informati 2016 6:00 lume] in on in AM Serum or source Plasma data Glucose [Mass/volume] in Capillary blood by Glucometer Observa Value Referen Units Interpr Notes Date tion ce etation Range Glucose 70 - 110 mg/dl High No January 23 [Mass/vol informati 2016 ume] in on in 12:17 AM Capillary source blood by data Glucomete r Glucose [Mass/volume] in Capillary blood by Glucometer Observa Value Referen Units Interpr Notes Date tion ce etation Range Glucose 70 - 110 mg/dl High No January 22 [Mass/vol alert informati 2016 9:16 ume] in on in PM Capillary source blood by data Glucomete r Glucose [Mass/volume] in Capillary blood by Glucometer Observa Value Referen Units Interpr Notes Date tion ce etation Range Glucose 70 - 110 mg/dl High No January 22 [Mass/vol informati 2016 4:25 ume] in on in PM Capillary source blood by data Glucomete r Glucose [Mass/volume] in Capillary blood by Glucometer Observa Value Referen Units Interpr Notes Date tion ce etation Range Glucose 70 - 110 mg/dl High No January 22 [Mass/vol informati 2016 ume] in on in 11:22 AM Capillary source blood by data Glucomete r Glucose [Mass/volume] in Capillary blood by Glucometer Observa Value Referen Units Interpr Notes Date tion ce etation Range Glucose 70 - 110 mg/dl High No January 22 [Mass/vol informati 2016 ume] in on in 10:44 AM Capillary source blood by data Glucomete r Glucose [Mass/volume] in Capillary blood by Glucometer Observa Value Referen Units Interpr Notes Date tion ce etation Range Glucose 70 - 110 mg/dl High No January 22 [Mass/vol informati 2016 6:43 ume] in on in AM Capillary source blood by data Glucomete r Glucose [Mass/volume] in Capillary blood by Glucometer Observa Value Referen Units Interpr Notes Date tion ce etation Range Glucose 70 - 110 mg/dl High No January 21 [Mass/vol informati 2016 8:05 ume] in on in PM Capillary source blood by data Glucomete r Glucose [Mass/volume] in Capillary blood by Glucometer Observa Value Referen Units Interpr Notes Date etation Range Glucose 70 - 110 mg/dl High No January 21 [Mass/vol informati 2016 4:14 ume] in on in PM Capillary source blood by data Glucomete r Glucose [Mass/volume] in Capillary blood by Glucometer Observa Value Referen Units Interpr Notes Date ti etation Range Glucose 70 - 110 mg/dl High No January 21 [Mass/vol informati 2016 3:12 ume] in on in PM Capillary source blood by data Glucomete r Glucose [Mass/volume] in Capillary blood by Glucometer Observa Value Referen Units Interpr Notes Date etation Range Glucose 70 - 110 mg/dl High No January 21 [Mass/vol alert informati 2016 1:06 ume] in on in PM Capillary source blood by data Glucomete r Glucose [Mass/volume] in Capillary blood by Glucometer Observa Value Referen Units Interpr Notes Date etation Range Glucose 70 - 110 mg/dl High No January 21 [Mass/vol alert informati 2016 ume] in on in 11:15 AM Capillary source blood by data Glucomete r Glucose [Mass/volume] in Capillary blood by Glucometer Observa Value Referen Units Interpr Notes Date etation Range Glucose 70 - 110 mg/dl High No January 21 [Mass/vol alert informati 2016 6:21 ume] in on in AM Capillary source blood by data Glucomete r Glucose [Mass/volume] in Capillary blood by Glucometer Observa Value Referen Units Interpr Notes Date ti etation Range Glucose 70 - 110 mg/dl High No January 20 [Mass/vol alert informati 2016 9:43 ume] in on in PM Capillary source blood by data Glucomete r Glucose [Mass/volume] in Capillary blood by Glucometer Observa Value Referen Units Interpr Notes Date ti etation Range Glucose 70 - 110 mg/dl High No January 20 [Mass/vol informati 2016 4:40 ume] in on in PM Capillary source blood by data Glucomete r Glucose [Mass/volume] in Capillary blood by Glucometer Observa Value Referen Units Interpr Notes Date tion ce etation Range Glucose 70 - 110 mg/dl No No January 20 [Mass/vol informati informati 2016 ume] in on in on in 12:03 PM Capillary source source blood by data data Glucomete r Glucose [Mass/volume] in Capillary blood by Glucometer Observa Value Referen Units Interpr Notes Date ti ce etation Range Glucose 70 - 110 mg/dl High No January 20 [Mass/vol informati 2016 8:24 ume] in on in AM Capillary source blood by data Glucomete r Glucose [Mass/volume] in Capillary blood by Glucometer Observa Value Referen Units Interpr Notes Date ti ce etation Range Glucose 70 - 110 mg/dl High No January 20 [Mass/vol informati 2016 6:34 ume] in on in AM Capillary source blood by data Glucomete r Glucose [Mass/volume] in Capillary blood by Glucometer Observa Value Referen Units Interpr Notes Date ti etation Range Glucose 70 - 110 mg/dl High No January 19 [Mass/vol informati 2016 9:04 ume] in on in PM Capillary source blood by data Glucomete r Glucose [Mass/volume] in Capillary blood by Glucometer Observa Value Referen Units Interpr Notes Date ti etation Range Glucose 70 - 110 mg/dl High No January 19 [Mass/vol alert informati 2016 4:12 ume] in on in PM Capillary source blood by data Glucomete r Glucose [Mass/volume] in Capillary blood by Glucometer Observa Value Referen Units Interpr Notes Date ti etation Range Glucose 70 - 110 mg/dl High No January 19 [Mass/vol informati 2016 ume] in on in 11:27 AM Capillary source blood by data Glucomete r Glucose [Mass/volume] in Capillary blood by Glucometer Observa Value Referen Units Interpr Notes Date ti ce etation Range Glucose 70 - 110 mg/dl High No January 19 [Mass/vol informati 2016 7:00 ume] in on in AM Capillary source blood by data Glucomete r Glucose [Mass/volume] in Capillary blood by Glucometer Observa Value Referen Units Interpr Notes Date ti ce etation Range Glucose 70 - 110 mg/dl High No January 18 [Mass/vol informati 2017 8:54 ume] in on in PM Capillary source blood by data Glucomete r Glucose [Mass/volume] in Capillary blood by Glucometer Observa Value Referen Units Interpr Notes Date ti ce etation Range Glucose 70 - 110 mg/dl High No January 18 [Mass/vol alert informati 2016 4:56 ume] in on in PM Capillary source blood by data Glucomete r Glucose [Mass/volume] in Capillary blood by Glucometer Observa Value Referen Units Interpr Notes Date tion ce etation Range Glucose 70 - 110 mg/dl High No January 18 [Mass/vol informati 2016 ume] in on in 11:22 AM Capillary source blood by data Glucomete r Glucose [Mass/volume] in Capillary blood by Glucometer Observa Value Referen Units Interpr Notes Date ti ce etation Range Glucose 70 - 110 mg/dl High No January 18 [Mass/vol informati 2016 6:45 ume] in on in AM Capillary source blood by data Glucomete r Glucose [Mass/volume] in Capillary blood by Glucometer Observa Value Referen Units Interpr Notes Date ti ce etation Range Glucose 70 - 110 mg/dl High No January 17 [Mass/vol informati 2016 8:30 ume] in on in PM Capillary source blood by data Glucomete r Glucose [Mass/volume] in Capillary blood by Glucometer Observa Value Referen Units Interpr Notes Date etation Range Glucose 70 - 110 mg/dl High No January 17 [Mass/vol alert informati 2016 4:41 ume] in on in PM Capillary source blood by data Glucomete r Glucose [Mass/volume] in Capillary blood by Glucometer Observa Value Referen Units Interpr Notes Date ti ce etation Range Glucose 70 - 110 mg/dl High No January 17 [Mass/vol informati 2016 ume] in on in 11:06 AM Capillary source blood by data Glucomete r Glucose [Mass/volume] in Capillary blood by Glucometer Observa Value Referen Units Interpr Notes Date ti ce etation Range Glucose 70 - 110 mg/dl High No January 17 [Mass/vol informati 2016 6:29 ume] in on in AM Capillary source blood by data Glucomete r Glucose [Mass/volume] in Capillary blood by Glucometer Observa Value Referen Units Interpr Notes Date tion ce etation Range Glucose 70 - 110 mg/dl High No January 15 [Mass/vol alert informati 2016 9:14 ume] in on in PM Capillary source blood by data Glucomete r Glucose [Mass/volume] in Capillary blood by Glucometer Observa Value Referen Units Interpr Notes Date ti ce etation Range Glucose 70 - 110 mg/dl High No January 16 [Mass/vol informati 2016 4:54 ume] in on in PM Capillary source blood by data Glucomete r Glucose [Mass/volume] in Capillary blood by Glucometer Observa Value Referen Units Interpr Notes Date ce etation Range Glucose 70 - 110 mg/dl High No January 15 [Mass/vol informati 2016 ume] in on in 11:34 AM Capillary source blood by data Glucomete r Glucose [Mass/volume] in Capillary blood by Glucometer Observa Value Referen Units Interpr Notes Date etation Range Glucose 70 - 110 mg/dl High No January 16 [Mass/vol informati 2016 6:06 ume] in on in AM Capillary source blood by data Glucomete r Bacteria identified in Blood by Aerobe culture Observa Value Referen Units Interpr Notes Date ti ce etation Range Is patient on antibiotics? N Bacteri RESULTS No No No No January 11 a : PCR- informa informa informa informa 2016 identif STREPTO tion in tion in tion in ti in 4:10 PM ied in COCCUS source source source source Blood data data data data by Aerobe culture Bacteri GRAM No No No No January 11 a STAIN- informa informa informa informa 2016 identif GRAM tion in tion in tion in tion in 4:10 PM ied in POSITIV source source source source Blood E COCCI data data data data by IN Aerobe CHAINS culture Bacteri ID: No No No No January 11 a STREPTO informa informa informa informa 2016 identif COCCUS tion in tion in tion in tion in 4:10 PM ied in THORALT source source source source Blood DENISSE; data data data data by SENSITI Aerobe VITY culture SENT TO Bacteri [facility] No No No No January 11 a PER R informa informa informa informa 2016 identif LARISSA MT tion in tion in tion in tion in 4:10 PM ied in source source source source Blood data data data data by Aerobe culture Bacteri RESULTS No No No No January 11 a CALLED informa informa informa informa 2016 identif TO: tion in tion in tion in tion in 4:10 PM ied in [email or web address].DIM source source source source Blood B data data data data by Aerobe 7 1005 culture Bacteri Meulend No No No No January 11 a taraFany informa informa informa informa 2016 identif herine tion in tion in tion in tion in 4:10 PM ied in source source source source Blood data data data data by Aerobe culture Bacteri Strepto No No No No January 11 a coccus informa informa informa informa 2016 identif species tion in tion in tion in tion in 4:10 PM ied in source source source source Blood data data data data by Aerobe culture
--- OUTSIDE RECORDS SUMMARY | 2017-04-02 21:07 | External Medical Summary Rpt ---
[...] etation Range MISC TEST FOR PROCALCITONIN # [id number] TEST: RESULTS: REFERENCE: PROCALCITONIN 0.15 HIGH 0.00-0.08 [...] LATER) AND ON DAY 4, GO TO [employer]HGBUTQ-NEM-PTFMORPRBBUIBLUEPRINT TEST: RESULTS: REFERENCE: PROCALCITONIN 0.15 HIGH 0.00-0.08 [...] LATER) AND ON DAY 4, GO TO [email or web address] Glucose [Mass/volume] in Capillary blood by Glucometer [...] Interpr Notes Date etation Range COMMENTS TO LOGISTICS ANALYTICS MANAGER: POST TRANSFUSION Hematocri 37.0 - % [...] source source source 17 data data data [id number] prepara O tion POSRELE [Type] ASED 7 [...] source source 17 AM data data data [id number] prepara RELEASE tion D [Type] 7[place] ,Lucind [...] - 5.4 M/mm3 Low No Feb 12 lgoria informati 2017 5:05 [#/volume on in AM [...] Date tion ce etation Range COMMENTS TO LOGISTICS ANALYTICS MANAGER: FINGERSTICK TO LOW TO READ Glucose [...]
--- OUTSIDE RECORDS SUMMARY | 2017-04-02 21:43 | External Medical Summary Rpt ---
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 F41.9 Anxiety disorder, unspecified G47.33 Obstructive sleep apnea (adult) (pediatric) I10 Essential (primary) hypertensio n 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.2 Old myocardial infarction J18.9 Pneumonia, unspecified organism J20.9 ACUTE BRONCHITIS, UNSPECIFIED J32.9 CHRONIC SINUSITIS, UNSPECIFIED J44.0 CHRONIC OBSTRUCTIVE PULMON DISEASE W ACUTE LOWER RESP INFCT J44.1 CHRONIC OBSTRUCTIVE PULMONARY DISEASE W (ACUTE) EXACERBATIO N J44.9 Chronic obstructive pulmonary disease, unspecified J96.21 Acute and chronic respiratory failure with hypoxia K21.9 Gastro-esop hageal reflux disease without esophagitis N39.0 URINARY TRACT INFECTION, SITE NOT SPECIFIED R06.02 Shortness of breath R07.9 CHEST PAIN, UNSPECIFIED R22.2 LOCALIZED SWELLING, MASS AND LUMP, TRUNK R42 DIZZINESS AND GIDDINESS R53.1 WEAKNESS R59.0 Localized enlarged lymph nodes R65.20 Severe sepsis without septic shock R68.83 CHILLS (WITHOUT FEVER) R94.31 ABNORMAL ELECTROCARD IOGRAM [ECG] [EKG] W19.XXXA UNSPECIFIED FALL, INITIAL ENCOUNTER Z68.20 Body mass index (BMI) 20.0-20.9, adult Z78.0 ASYMPTOMATI C MENOPAUSAL STATE Z79.4 assisted (current) use of insulin Z85.528 Personal history of other malignant neoplasm of kidney Z87.891 Personal history of nicotine dependence Z95.5 Presence of coronary angioplasty implant and graft Results Labs Lab Lab Date Result Refere [...]
--- OUTSIDE RECORDS SUMMARY | 2017-04-02 21:43 | External Medical Summary Rpt ---
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
--- OUTSIDE RECORDS SUMMARY | 2017-04-02 21:44 | External Medical Summary Rpt ---
Demographics Preferred Language Luxembour[place] Marital Status Unknown Hindu Affiliation Unknown Race Unknown Ethnic Group Unknown Author Author , NEERU ANDERSON Address Unknown Phone Immunization Unable to retrieve immunization data due to connection failure with Immunization Registry. Please try again later.
--- OUTSIDE RECORDS SUMMARY | 2017-04-02 21:44 | External Medical Summary Rpt ---
Demographics Preferred Language [place] Marital Status Unknown Uatsdin Affiliation Unknown Race Unknown Ethnic Group Unknown Author Author , NEERU ANDERSON Address Unknown Phone Immunization Unable to retrieve immunization data due to connection failure with Immunization Registry. Please try again later.
--- OUTSIDE RECORDS SUMMARY | 2017-04-02 21:48 | External Medical Summary Rpt ---
Author Author [facility] Banks, NESHAABDULKADIR [employer] Organization [employer] Address Unknown Phone Unavailable Results Natriutietic peptide B [Mass/volume] in Serum or Plasma Observa Value Referen Units Interpr Notes Date tion ce etation Range Natriutie 0 - 100 pg/mL High No Apr 02 tic informati 2017 8:23 peptide B on in PM source [Mass/vol data ume] in Serum or Plasma Lactate [Moles/volume] in Blood Observa Value Referen Units Interpr Notes Date tion ce etation Range Lactate 0.4 - 2.0 mmol/L High An Apr 02 [Moles/vo elevated 2017 8:23 lume] in Lactic PM Blood Acid is suggestiv e of sepsis and shouldbe repeated within 6 hours of initial testing. Comprehensive metabolic 2000 panel in Serum or Plasma Observa Value Referen Units Interpr Notes Date tion ce etation Range Albumin/G 1.1 - 1.8 No Low No Apr 02 lobulin informati informati 2016 8:23 [Mass on in on in PM ratio] in source source Serum or data data Plasma Albumin 3.4 - 5.0 gm/dL Low No Apr 02 [Mass/vol informati 2016 8:23 ume] in on in PM Serum or source Plasma data Alkaline 46 - 116 U/L High No Apr 02 phosphata informati 2016 8:23 se on in PM [Enzymati source c data activity/ volume] in Serum or Plasma Bilirubin 0.2 - 1.0 mg/dL Normal No Apr 02 .total informati 2017 8:23 [Mass/vol on in PM ume] in source Serum or data Plasma Urea 7 - 18 mg/dL High No Apr 02 nitrogen informati 2017 8:23 [Mass/vol on in PM ume] in source Serum or data Plasma Calcium 8.5 - mg/dL Low No Apr 02 [Mass/vol 10.1 informati 2017 8:23 ume] in on in PM Serum or source Plasma data Chloride 98 - 107 mmoL/L Low No Apr 02 [Moles/vo informati 2017 8:23 lume] in on in PM Serum or source Plasma data Carbon 21.0 - mmoL/L Normal No Apr 02 dioxide, 32.0 informati 2016 8:23 total on in PM [Moles/vo source lume] in data Serum or Plasma Creatinin 0.55 - mg/dL High No Apr 02 e 1.02 informati 2016 8:23 [Mass/vol on in PM ume] in source Serum or data Plasma Creatinin 50 - 200 ML/MIN Low No Apr 02 e renal informati 2016 8:23 clearance on in PM source predicted data by Cockcroft -Gault formula Estimated 59- ML/MIN Low REFERENCE Apr 02 RANGE: 2016 8:23 glomerula >60 PM r ML/MIN/1. filtratio 73 SQUARE n rate METERSIf (GF this patient is -A merican, then multiply theresult by 1.210. Globulin 1.3 - 3.2 gm/dL High No Apr 02 [Mass/vol informati 2016 8:23 ume] in on in PM Serum source data Glucose 74 - 106 mg/dL High No Apr 02 [Mass/vol informati 2016 8:23 ume] in on in PM Serum or source Plasma data Potassium 3.5 - 5.1 mmoL/L Normal No Apr 02ati 2016 8:23 [Moles/vo on in PM lume] in source Serum or data Plasma Sodium 136 - 145 mmoL/L Low No Apr 02 [Moles/vo informati 2016 8:23 lume] in on in PM Serum or source Plasma data Aspartate 15 - 37 U/L Normal No Apr 02 informati 2016 8:23 aminotran on in PM sferase source [Enzymati data c activity/ volume] in Serum or Plasma Alanine 12 - 78 U/L Normal No Apr 02 aminotran informati 2016 8:23 sferase on in PM [Enzymati source c data activity/ volume] in Serum or Plasma Protein 6.4 - 8.2 gm/dL Normal No Apr 02 [Mass/vol informati 2016 8:23 ume] in on in PM Serum or source Plasma data CBC W Auto Differential panel in Blood Observa Value Referen Units Interpr Notes Date tion ce etation Range Basophils 0 - 0.2 K/MM3 Normal No Apr 02 informati 2016 8:23 [#/volume on in PM ] in source Blood by data Automated count Basophils 0.1 - 2.0 % Normal No Apr 02 / informati 2017 8:23 leukocyte on in PM s in source Blood by data Automated count Eosinophi 0.0 - 0.4 K/mm3 Normal No Apr 02 ls informati 2016 8:23 [#/volume on in PM ] in source Blood by data Automated count Eosinophi 0.1 - % Normal No Apr 02 ls/100 12.0 informati 2016 8:23 leukocyte on in PM s in source Blood by data Automated count Granulocy 1.8 - 7.8 K/mm3 Normal No Apr 02 gloria informati 2016 8:23 [#/volume on in PM ] in source Blood by data Automated count Granulocy 37.0 - % Normal No Apr 02 gloria/100 80.0 informati 2016 8:23 leukocyte on in PM s in source Blood by data Automated count Hematocri 37.0 - % Low No Apr 02 t [Volume 47.0 informati 2016 8:23 on in PM Fraction] source of Blood data Hemoglobi 12.2 - g/dL Low No Apr 02 n 16.2 informati 2016 8:23 [Mass/vol on in PM ume] in source Blood data Lymphocyt 0.7 - 4.5 K/mm3 Normal No Apr 02 es informati 2017 8:23 [#/volume on in PM ] in source Unspecifi data ed specimen by Automated count Lymphocyt 10 - 50.0 % Normal No Apr 02 es informati 2016 8:23 [#/volume on in PM ] in source Unspecifi data ed specimen by Automated count Erythrocy 27 - 31.2 pg Normal No Apr 02 te mean informati 2016 8:23 corpuscul on in PM ar source hemoglobi data n [Entitic mass] Erythrocy 31.8 - g/dl Low No Apr 02 te mean 35.4 informati 2017 8:23 corpuscul on in PM ar source hemoglobi data n concentra tion [Mass/vol ume] by Automated count Erythrocy 82.2 - fl Normal No Apr 02 te mean 97.8 informati 2016 8:23 corpuscul on in PM ar volume source [Entitic data volume] by Automated count Monocytes 0.1 - 1.0 K/mm3 Normal No Apr 02 informati 2016 8:23 [#/volume on in PM ] in source Blood by data Automated count Monocytes 1.7 - 9.3 % Normal No Apr 02 /100 informati 2016 8:23 leukocyte on in PM s in source Blood by data Automated count Platelet 7.4 - fl Normal No Apr 02 mean 10.4 informati 2016 8:23 volume on in PM [Entitic source volume] data in Blood by Automated count Platelets 142 - 424 K/mm3 Normal No Apr 02 informati 2016 8:23 [#/volume on in PM ] in source Blood data Erythrocy 4.2 - 5.4 M/mm3 Low No Apr 02 gloria informati 2016 8:23 [#/volume on in PM ] in source Amniotic data fluid Erythrocy 11.5 - % Normal No Apr 02 te 17.5 informati 2016 8:23 distribut on in PM ion width source [Entitic data volume] by Automated count Leukocyte 4.8 - K/MM3 Normal No Apr 02 s 10.8 informati 2016 8:23 [#/volume on in PM ] in source Blood data Comprehensive metabolic 2000 panel in Serum [...] 116 U/L High No Mar 28 phosphata 2016 se on in 10:15 AM [Enzymati source c data activity/ volume] in Serum or Plasma Bilirubin 0.2 - 1.0 mg/dL Normal No Mar 28 .total inform2016 [Mass/vol on in 10:15 AM ume] in [...] mmoL/L Normal No Mar 28 dioxide, 32.0 2016 total on in 10:15 AM [Moles/vo source lume] in data Serum or Plasma Creatinin 0.55 - mg/dL High No Mar 28 e 1.02 inform2016 [Mass/vol on in 10:15 AM ume] in [...] 3.5 - 5.1 mmoL/L High No Mar 282016 [Moles/vo on in 10:15 AM lume] in [...] - 2.0 % Normal No Mar 28 /100 2016 leukocyte on in 10:15 AM s in source Blood by data Automated count Eosinophi 0.0 - 0.4 K/mm3 Normal No Mar 28 ls 2016 [#/volume on in 10:15 AM ] in source Blood by data Automated count Eosinophi 0.1 - % Normal No Mar 28 ls/100 12.0 informati 2016 leukocyte on in 10:15 AM s in source Blood by data Automated count Granulocy 1.8 - 7.8 K/mm3 High No Mar 28 gloria informati 2016 [#/volume [...] 4.5 K/mm3 Normal No Mar 28 es informati 2016 [...] Normal No Mar 28 te mean 97.8 inform2016 corpuscul on in 10:15 AM ar volume source [Entitic data volume] by Automated count Monocytes 0.1 - 1.0 K/mm3 Normal No Mar 28 inform2016 [#/volume on in 10:15 AM ] in source Blood by data Automated count Monocytes 1.7 - 9.3 % Normal No Mar 28 /100 informati 2016 leukocyte on in 10:15 AM s in source Blood by data Automated count Platelet 7.4 - fl Normal No Mar 28 mean 10.4 informati 2016 volume on in 10:15 AM [Entitic source volume] data in Blood by Automated count Platelets 142 - 424 K/mm3 Normal No Mar 28 informati 2016 [#/volume on in 10:15 AM ] in source Blood data Erythrocy 4.2 - 5.4 M/mm3 Low No Mar 28 gloria inform2016 [#/volume on in 10:15 AM ] in source Amniotic data fluid Erythrocy 11.5 - % Normal No Mar 28 te 17.5 informati 2016 distribut on in 10:15 AM ion width source [Entitic data volume] by Automated count Leukocyte 4.8 - K/MM3 High No Mar 28 s 10.8 informati 2016 [#/volume on in 10:15 AM ] in source Blood data Urinalysis dipstick W Reflex Microscopic panel in Urine Observa Value Referen Units Interpr Notes Date tion ce etation Range Appeara TURBID CLEAR No No No Mar 18 nce of informa informa informa 2016 Urine tion in [...] No No Mar 18 E informa informa 2017 [Presen tion in tion in 11:00 ce] [...] No Mar 18 gloria wbc/hpf informa informa 2017 [#/volu ; 50 tion in tion in [...] INDICATIO Mar 18 Blood by informati N 2016 Coagulati on in 10:02 AM on assay source INR data RANGETHER APY FOR DVT, PE, ATRIAL FIB; 2.0 - 3.0PROPHY LAXIS FOR VTETHERAP Y FOR MECHANICA L HEART 2.5 - 3.5VALVE; PREVENTIO N OF SYSTEMICE MBOLISM SECONDARY TO AMI Prothromb 9.4 - SECONDS Normal No Mar 18 in time 11.8 inform2016 (PT) in on in 10:02 AM Platelet [...] 0.1 - 2.0 % Normal No Mar 18 /2016 leukocyte on in 10:02 AM s in [...] Automated count Hematocri 37.0 - % Low Mar 18 t [Volume 47.0 2016 on in 10:02 AM Fraction] source of Blood data Hemoglobi 12.2 - g/dL Low No Mar 18 n 16.2 inform2016 [Mass/vol on in 10:02 AM ume] in source Blood data Lymphocyt 0.7 - 4.5 K/mm3 Normal No Mar 18 es 2016 [#/volume on in 10:02 AM ] in source Unspecifi data ed specimen by Automated count Lymphocyt 10 - 50.0 % Low No Mar 18 es inform2016 [#/volume on in 10:02 AM ] in [...] 9.3 % Normal No Mar 18 /100 2016 leukocyte on in 10:02 AM s [...] 5.4 M/mm3 Low No Mar 18 gloria inform2016 [#/volume on in 10:02 AM ] in [...] Interpr Notes Date ti ce etation Range Anisocy 1+ No No [...] 50 % Normal No Mar 18 informa 2016 tion in 10:02 source AM data Blood 1+ No No No No Mar 18 smear informa informa informa informa 2017 finding tion in tion in tion in tion in 10:02 source source source source AM [Identi data data data data fier] in Blood by Light microsc opy Monocytes 2 - 9 % Normal No Mar 18 / inform2016 leukocyte on in 10:02 AM s [...] 76 % High No Mar 18 ls informati 2016 [#/volume on in 10:02 AM ] in source Blood by data Automated count Cells No #CELLS No No Mar 18 Counted informati informati informati 2017 Total [#] on in on in on [...] Low No Feb 21 lobulin informati informati 2017 [Mass on in on in 10:00 AM ratio] in source source Serum or data data Plasma Albumin 3.4 - 5.0 gm/dL Low No Feb 20 [Mass/vol informati 2017 ume] in on in 10:00 AM Serum or source Plasma data Alkaline 46 - 116 U/L High No Chris 20 phosphata informati 2017 se on in 10:00 AM [Enzymati source c data activity/ volume] in Serum or Plasma Bilirubin 0.2 - 1.0 mg/dL Normal No Feb 21 .total informati 2016 [Mass/vol on in 10:00 AM ume] in source Serum or data Plasma Urea 7 - 18 mg/dL Normal No Feb 21 nitrogen informati 2017 [Mass/vol on in 10:00 AM ume] in source Serum or data Plasma Calcium 8.5 - mg/dL Normal No Chris 20 [Mass/vol 10.1 informati 2017 ume] in on in 10:00 AM Serum or source Plasma data Chloride 98 - 107 mmoL/L Low No Feb 21 [Moles/vo informati 2017 lume] in on in 10:00 AM Serum or source Plasma data Carbon 21.0 - mmoL/L Normal No Feb 21 dioxide, 32.0 informati 2016 total on in 10:00 AM [Moles/vo source lume] in data Serum or Plasma Creatinin 0.55 - mg/dL Normal No Feb 21 e 1.02 informati 2016 [Mass/vol on in 10:00 AM ume] in source Serum or data Plasma Estimated 59- ML/MIN No REFERENCE Chris 20 informati RANGE: 2017 glomerula on in >60 10:00 AM r source ML/MIN/1. filtratio data 73 SQUARE n rate METERSIf (GF this patient is -A merican, then multiply theresult by 1.210. Globulin 1.3 - 3.2 gm/dL High No Chris 20 [Mass/vol informati 2017 ume] in on in 10:00 AM Serum source data Glucose 74 - 106 mg/dL High No Chris 20 [Mass/vol informati 2017 ume] in on in 10:00 AM Serum or source Plasma data Potassium 3.5 - 5.1 mmoL/L Normal No Chris 20 informati 2017 [Moles/vo on in 10:00 AM lume] in source Serum or data Plasma Sodium 136 - 145 mmoL/L Low No Chris 20 [Moles/vo 2016 lume] in on in 10:00 AM Serum or source Plasma data Aspartate 15 - 37 U/L Low No Feb 212016 aminotran on in 10:00 AM sferase source [Enzymati data c activity/ volume] in Serum or Plasma Alanine 12 - 78 U/L Normal No Feb 21 aminotran 2016 sferase on in 10:00 AM [Enzymati source c data activity/ volume] in Serum or Plasma Protein 6.4 - 8.2 gm/dL Low No Feb 21 [Mass/vol inform2016 ume] in on in 10:00 AM Serum or source Plasma data CBC W Auto Differential panel in Blood Observa Value Referen Units Interpr Notes Date tion ce etation Range Basophils 0 - 0.2 K/MM3 Normal No Feb 212016 [#/volume on in 10:00 AM ] in source Blood by data Automated count Basophils 0.1 - 2.0 % Normal No Feb 21 /2016 leukocyte on in 10:00 AM s in source Blood by data Automated count Eosinophi 0.0 - 0.4 K/mm3 Normal No Feb 21 ls 2016 [#/volume on in 10:00 AM ] in source Blood by data Automated count Eosinophi 0.1 - % Normal No Feb 21 ls/100 12.0 2016 leukocyte on in 10:00 AM s [...] Erythrocy 82.2 - fl Normal No Feb 21 te mean 97.8 2016 corpuscul on in 10:00 AM ar volume source [Entitic data volume] by Automated count Monocytes 0.1 - 1.0 K/mm3 Normal No Feb 212016 [#/volume on in 10:00 AM ] in source Blood by data Automated count Monocytes 1.7 - 9.3 % Normal No Feb 212016 leukocyte on in 10:00 AM s in source Blood by data Automated count Platelet 7.4 - fl Normal No Feb 21 mean 10.4 2016 volume on in 10:00 AM [Entitic source volume] data in Blood by Automated count Platelets 142 - 424 K/mm3 No No Feb 21 informati 2016 [#/volume on in on in 10:00 [...] Leukocyte 4.8 - K/MM3 Normal No Feb 21 s 10.8 2016 [#/volume on in 10:00 AM ] in source Blood data CBC W Auto Differential panel in Blood Observa Value Referen Units Interpr Notes Date tion ce etation Range Basophils 0 - 0.2 K/MM3 Normal No Feb 162016 6:15 [#/volume on in AM ] in source Blood by data Automated count Basophils 0.1 - 2.0 % Normal No Feb 162016 6:15 leukocyte on in AM s in source Blood by data Automated count Eosinophi 0.0 - 0.4 K/mm3 Normal No Feb 15 ls informati 2016 6:15 [#/volume on in AM ] in source Blood by data Automated count Eosinophi 0.1 - % Low No Feb 15 ls/100 12.0 informati 2016 6:15 leukocyte on in AM [...] No Feb 15 t [Volume 47.0 informati 2016 6:15 on in AM Fraction] source of Blood data Hemoglobi 12.2 - g/dL Low No Feb 15 n 16.2 informati 2016 6:15 [Mass/vol on in AM ume] in source Blood data Lymphocyt 0.7 - 4.5 K/mm3 Normal No Feb 15 es informati 2016 6:15 [#/volume on in AM ] in source Unspecifi data ed specimen by Automated count Lymphocyt 10 - 50.0 % Normal No Feb 15 es informati 2016 6:15 [#/volume on in AM ] in source Unspecifi data ed specimen by Automated count Erythrocy 27 - 31.2 pg Normal No Feb 15 te mean informati 2016 6:15 corpuscul on in AM ar source hemoglobi data n [Entitic mass] Erythrocy 31.8 - g/dl Low No Feb 15 te mean 35.4 informati 2016 6:15 corpuscul on in AM ar source hemoglobi data n concentra tion [Mass/vol ume] by Automated count Erythrocy 82.2 - fl Normal No Feb 15 te mean 97.8 informati 2016 6:15 corpuscul on in AM ar volume source [Entitic data volume] by Automated count Monocytes 0.1 - 1.0 K/mm3 Normal No Chris 15 informati 2016 6:15 [#/volume on in AM ] in source Blood by data Automated count Monocytes 1.7 - 9.3 % Normal No Chris 15 /100 informati 2017 6:15 leukocyte on in AM s in source Blood by data Automated count Platelet 7.4 - fl Normal No Chris 15 mean 10.4 informati 2017 6:15 volume on in AM [Entitic source volume] data in Blood by Automated count Platelets 142 - 424 K/mm3 Normal No Chris 15 informati 2017 6:15 [#/volume on in [...] Urea 7 - 18 mg/dL No No Chris 15 nitrogen informati informati 2017 6:15 [Mass/vol on in on in AM ume] in source source Serum or data data Plasma Calcium 8.5 - mg/dL Low No Feb 15 [Mass/vol 10.1 informati 2017 6:15 ume] in on in AM Serum or source Plasma data Chloride 98 - 107 mmoL/L Normal No Chris 15 [Moles/vo informati 2017 6:15 lume] in on in AM Serum or source Plasma data Carbon 21.0 - mmoL/L Normal No Feb 15 dioxide, 32.0 informati 2017 6:15 total on in AM [Moles/vo source lume] in data Serum or Plasma Creatinin 0.55 - mg/dL Normal No Feb 15 e 1.02 informati 2016 6:15 [Mass/vol on in AM ume] in source Serum or data Plasma Creatinin 50 - 200 ML/MIN Normal No Feb 15 e renal informati 2017 6:15 clearance on in AM source predicted data by Cockcroft -Gault formula Estimated 59- ML/MIN No REFERENCE Feb 16 informati RANGE: 2017 6:15 glomerula on in [...] 37 U/L Normal No Feb 16 informati 2017 6:15 aminotran on in AM sferase source [Enzymati data c activity/ volume] in Serum or Plasma Alanine 12 - 78 U/L Normal No Feb 16 aminotran informati 2016 6:15 sferase on in [...] mg/dl High No Feb 15 [Mass/vol informati 2017 6:09 ume] in on in AM Capillary [...] High No Feb 14 [Mass/vol alert informati 2016 4:31 ume] in on in PM Capillary source blood by data Glucomete r MISCELLANEOUS TEST Observa Value Referen Units Interpr Notes Date ti ce etation Range MISC TEST FOR PROCALCITONIN # [id number] TEST: RESULTS: REFERENCE: PROCALCITONIN 0.15 HIGH 0.00-0.08 [...] LATER) AND ON DAY 4, GO TO [id number] TEST: RESULTS: REFERENCE: PROCALCITONIN 0.15 HIGH 0.00-0.08 [...] LATER) AND ON DAY 4, GO TO [id number] Glucose [Mass/volume] in Capillary blood by Glucometer Observa Value Referen Units Interpr Notes Date ti etation Range Glucose 70 - 110 mg/dl High No Feb 15 [Mass/vol informati 2017 ume] in on in 12:08 PM Capillary source blood by data Glucomete r Glucose [Mass/volume] in Capillary blood by Glucometer Observa Value Referen Units Interpr Notes Date etation Range Glucose 70 - 110 mg/dl High No Feb 15 [Mass/vol informati 2017 6:45 ume] in on in AM Capillary source blood by data Glucomete r Glucose [Mass/volume] in Capillary blood by Glucometer Observa Value Referen Units Interpr Notes Date ti ce etation Range Glucose 70 - 110 mg/dl High No Feb 14 [Mass/vol informati 2017 9:36 ume] in on in PM Capillary source blood by data Glucomete r Hemoglobin & Hematocrit panel in Blood Observa Value Referen Units Interpr Notes Date ti ce etation Range COMMENTS TO SHOWER MAID: POST TRANSFUSION Hematocri 37.0 - % Low No Feb 14 t [Volume 47.0 informati 2017 9:11 on in PM Fraction] source of Blood data Hemoglobi 12.2 - g/dL Low No Feb 14 n 16.2 informati 2017 9:11 [Mass/vol on in PM ume] in source Blood data Blood product special preparation [Type] Observa Value Referen Units Interpr Notes Date tion ce etation Range Blood BLOOD No No No BLOOD Feb 14 product UNIT informa informa informa UNIT # 2017 RELEASE tion in tion in ti in : W0382 6:26 PM special source source source 17 data data data [id number] prepara O tion POSRELE [Type] ASED 7 Mir,A madeleine Glucose [Mass/volume] in Capillary blood by Glucometer Observa Value Referen Units Interpr Notes Date tion ce etation Range Glucose 70 - 110 mg/dl High No Feb 14 [Mass/vol informati 2017 4:37 ume] in on in PM Capillary [...] Interpr Notes Date tion ce etation Range Blood BLOOD No No No BLOOD Feb 14 product UNIT informa informa informa UNIT # 2017 RELEASE tion in in in : W0382 11:15 special source source source 17 AM data data data [id number] prepara RELEASE tion D [Type] 7Boyers ,Lucind aO POSITIV E Blood type & Crossmatch panel in Blood Observa Value Referen Units Interpr Notes Date tion ce etation Range Major COMPAT No No [...] Interpr Notes Date tion ce etation Range Hold? Y Blood NEGATIV [...] Normal No Feb 14 dioxide, 32.0 informati 2017 6:30 total on in AM [Moles/vo source lume] in data Serum or Plasma Creatinin 0.55 - mg/dL Normal No Feb 14 e 1.02 informati 2016 6:30 [Mass/vol on in AM ume] in source Serum or data Plasma Creatinin 50 - 200 ML/MIN Normal No Feb 14 e renal informati 2016 6:30 clearance on in AM source predicted [...] Normal No Feb 14 ls/100 12.0 informati 2016 6:30 leukocyte on in AM [...] Feb 14 t [Volume 47.0 informati 2017 6:30 on in AM Fraction] source of Blood data Hemoglobi 12.2 - g/dL Low alert Feb 14 n 16.2 2016 6:30 [Mass/vol CRITICAL AM ume] in RESULTS Blood RESU LTS CALLED TO: IVAN 02/14/17 0646 Clementina Lawrence Lymphocyt 0.7 - 4.5 K/mm3 Normal No Feb 14 es informati 2016 6:30 [#/volume on in AM ] in source Unspecifi data ed specimen by Automated count Lymphocyt 10 - 50.0 % Normal No Feb 14 es informati 2016 6:30 [#/volume on in AM ] in source Unspecifi data ed specimen by Automated count Erythrocy 27 - 31.2 pg Normal No Feb 14 te mean informati 2016 6:30 corpuscul on in AM ar source hemoglobi data n [Entitic mass] Erythrocy 31.8 - g/dl Low No Feb 14 te mean 35.4 informati 2016 6:30 corpuscul on in AM ar source hemoglobi data n concentra tion [Mass/vol ume] by Automated count Erythrocy 82.2 - fl Normal No Feb 14 te mean 97.8 informati 2016 6:30 corpuscul on in AM ar volume source [Entitic data volume] by Automated count Monocytes 0.1 - 1.0 K/mm3 Normal No Feb 14 informati 2016 6:30 [#/volume on in AM ] in source Blood by data Automated count Monocytes 1.7 - 9.3 % Normal No Feb 14 /100 informati 2017 6:30 leukocyte on in AM s in source Blood by data Automated count Platelet 7.4 - fl Normal No Feb 14 mean 10.4 informati 2017 6:30 volume on in AM [Entitic source volume] data in Blood by Automated count Platelets 142 - 424 K/mm3 Normal No Feb 14 informati 2017 6:30 [#/volume on in AM [...] Leukocyte 4.8 - K/MM3 Low No Feb 13 s 10.8 informati 2017 6:30 [#/volume on in AM ] in source Blood data Glucose [Mass/volume] in Capillary blood by Glucometer Observa Value Referen Units Interpr Notes Date tion ce etation Range Glucose 70 - 110 mg/dl High No Feb 13 [Mass/vol informati 2016 6:16 ume] in on in AM Capillary [...] High No Feb 13 [Mass/vol informati 2017 8:48 ume] in on in PM Capillary source blood by data Glucomete r Glucose [Mass/volume] in Capillary blood by Glucometer Observa Value Referen Units Interpr Notes Date ti ce etation Range Glucose 70 - 110 mg/dl Low No Feb 13 [Mass/vol informati 2017 4:57 ume] in on in PM Capillary [...] High No Feb 12 [Mass/vol informati 2017 5:59 ume] in on in AM Capillary source blood by data Glucomete r Basic metabolic panel in Blood Observa Value Referen Units Interpr Notes Date ti ce etation Range Urea 7 - 18 mg/dL Low No Feb 12 nitrogen informati 2017 5:05 [Mass/vol on in AM ume] in source Serum or data Plasma Calcium 8.5 - mg/dL Low No Feb 13 [Mass/vol 10.1 informati 2016 5:05 ume] in on in AM Serum or source Plasma data Chloride 98 - 107 mmoL/L Normal No Feb 13 [Moles/vo informati 2016 5:05 lume] in on in AM Serum or source Plasma data Carbon 21.0 - mmoL/L Normal No Feb 13 dioxide, 32.0 informati 2017 5:05 total on in AM [Moles/vo source lume] in data Serum or Plasma Creatinin 0.55 - mg/dL Normal No Feb 13 e 1.02 informati 2016 5:05 [Mass/vol on in AM ume] in source Serum or data Plasma Creatinin 50 - 200 ML/MIN Normal No Feb 13 e renal informati 2017 5:05 clearance on in AM source predicted [...] Normal No Feb 12 ls informati 2016 5:05 [#/volume on in AM ] in source Blood by data Automated count Eosinophi 0.1 - % Normal No Feb 12 ls/100 12.0 informati 2016 5:05 leukocyte on in AM s in source Blood by data Automated count Granulocy 1.8 - 7.8 K/mm3 Normal No Feb 12 gloria informati 2016 5:05 [#/volume on in AM ] in source Blood by data Automated count Granulocy 37.0 - % Normal No Feb 13 gloria/100 80.0 informati 2016 5:05 leukocyte on in AM s in source Blood by data Automated count Hematocri 37.0 - % Low No Feb 13 t [Volume 47.0 informati 2016 5:05 on in AM Fraction] source of Blood data Hemoglobi 12.2 - g/dL Low No Feb 13 n 16.2 informati 2016 5:05 [Mass/vol on in AM ume] in source Blood data Lymphocyt 0.7 - 4.5 K/mm3 Normal No Feb 13 es informati 2016 5:05 [#/volume on in AM ] in source Unspecifi data ed specimen by Automated count Lymphocyt 10 - 50.0 % Normal No Feb 13 es informati 2016 5:05 [#/volume on in AM ] in source Unspecifi data ed specimen by Automated count Erythrocy 27 - 31.2 pg Normal No Feb 12 te mean informati 2016 5:05 corpuscul on in AM ar source hemoglobi data n [Entitic mass] Erythrocy 31.8 - g/dl Low No Feb 13 te mean 35.4 informati 2016 5:05 corpuscul on in AM ar source hemoglobi data n concentra tion [Mass/vol ume] by Automated count Erythrocy 82.2 - fl Normal No Feb 13 te mean 97.8 informati 2016 5:05 corpuscul on in AM ar volume source [Entitic data volume] by Automated count Monocytes 0.1 - 1.0 K/mm3 Normal No Feb 12 informati 2016 5:05 [#/volume on in AM ] in source Blood by data Automated count Monocytes 1.7 - 9.3 % Normal No Feb 12 /100 informati 2016 5:05 leukocyte on in AM [...] No Feb 12 te 17.5 informati 2017 5:05 distribut on in AM ion width [...] mg/dl High No Feb 11 [Mass/vol informati 2017 8:26 ume] in on in PM Capillary source blood by data Glucomete r Glucose [Mass/volume] in Capillary blood by Glucometer Observa Value Referen Units Interpr Notes Date tion ce etation Range Glucose 70 - 110 mg/dl High No Feb 11 [Mass/vol informati 2017 5:28 ume] in on in PM Capillary source blood by data Glucomete r Glucose [Mass/volume] in Capillary blood by Glucometer Observa Value Referen Units Interpr Notes Date ti ce etation Range Glucose 70 - 110 mg/dl High No Feb 11 [Mass/vol informati 2017 ume] in on in 11:46 AM Capillary source blood by data Glucomete r Glucose [Mass/volume] in Capillary blood by Glucometer Observa Value Referen Units Interpr Notes Date tion ce etation Range Glucose 70 - 110 mg/dl High No Feb 11 [Mass/vol informati 2017 6:40 ume] in on in AM Capillary source blood by data Glucomete r Basic metabolic panel in Blood Observa Value Referen Units Interpr Notes Date ti ce etation Range Urea 7 - 18 mg/dL Low No Feb 11 nitrogen informati 2017 4:20 [Mass/vol on in AM ume] in source Serum or data Plasma Calcium 8.5 - mg/dL Low No Feb 11 [Mass/vol 10.1 informati 2017 4:20 ume] in [...] No Feb 12 e 1.02 informati 2016 4:20 [Mass/vol on in AM ume] in source Serum or data Plasma Creatinin 50 - 200 ML/MIN Normal No Feb 12 e renal informati 2017 4:20 clearance on in AM source predicted [...] 2.0 % Normal No Feb 12 informati 2017 4:20 leukocyte on in AM s in source Blood by data Automated count Eosinophi 0.0 - 0.4 K/mm3 Normal No Feb 12 ls informati 2017 4:20 [#/volume on in AM ] in source Blood by data Automated count Eosinophi 0.1 - % Normal No Feb 12 ls/100 12.0 informati 2017 4:20 leukocyte on in AM s in source Blood by data Automated count Granulocy 1.8 - 7.8 K/mm3 Normal No Feb 12 gloria informati 2017 4:20 [#/volume on in AM ] in source Blood by data Automated count Granulocy 37.0 - % High No Feb 12 gloria/100 80.0 informati 2017 4:20 leukocyte on in AM [...] No Feb 12 te mean 35.4 informati 2016 4:20 corpuscul on in AM ar source hemoglobi data n concentra tion [Mass/vol ume] by Automated count Erythrocy 82.2 - fl Normal No Feb 12 te mean 97.8 informati 2017 4:20 corpuscul on in AM ar volume source [Entitic data volume] by Automated count Monocytes 0.1 - 1.0 K/mm3 Normal No Feb 11 informati 2017 4:20 [#/volume on in AM ] in source Blood by data Automated count Monocytes 1.7 - 9.3 % Normal No Feb 11 /100 informati 2017 4:20 leukocyte on in AM s in source Blood by data Automated count Platelet 7.4 - fl Normal No Feb 12 mean 10.4 informati 2016 4:20 volume on in AM [Entitic source volume] data in Blood by Automated count Platelets 142 - 424 K/mm3 Normal No Feb 11 informati 2017 4:20 [#/volume on in AM [...] High No Feb 9 [Mass/vol informati 2017 4:10 ume] in on in PM Capillary source blood by data Glucomete r Glucose [Mass/volume] in Capillary blood by Glucometer Observa Value Referen Units Interpr Notes Date tion ce etation Range Glucose 70 - 110 mg/dl High No Feb 9 [Mass/vol informati 2016 ume] in on in 11:11 AM Capillary source blood by data Glucomete r Basic metabolic panel in Blood Observa Value Referen Units Interpr Notes Date tion ce etation Range Urea 7 - 18 mg/dL No No Chris 9 nitrogen informati informati 2016 6:38 [Mass/vol on in on in AM ume] in source source Serum or data data Plasma Calcium 8.5 - mg/dL Low No Feb 9 [Mass/vol 10.1 informati 2017 6:38 ume] in on in AM Serum or source Plasma data Chloride 98 - 107 mmoL/L Normal No Feb 9 [Moles/vo informati 2017 6:38 lume] in on in AM Serum or source Plasma data Carbon 21.0 - mmoL/L Normal No Chris 9 dioxide, 32.0 informati 2017 6:38 total on in AM [Moles/vo source lume] in data Serum or Plasma Creatinin 0.55 - mg/dL No No Feb 9 e 1.02 informati informati 2017 6:38 [Mass/vol on in on in AM ume] in source source Serum or data data Plasma Creatinin 50 - 200 ML/MIN No No Feb 9 e renal informati informati 2017 6:38 clearance on in on in AM source source predicted data data by Cockcroft -Gault formula Estimated 59- ML/MIN No REFERENCE Chris 9 informati RANGE: 2017 6:38 glomerula on in >60 AM r source ML/MIN/1. filtratio data 73 SQUARE n rate METERSIf (GF this patient is -A merican, then multiply theresult by 1.210. Glucose 74 - 106 mg/dL High No Feb 9 [Mass/vol informati 2017 6:38 ume] in on in AM Serum or source Plasma data Potassium 3.5 - 5.1 mmoL/L Normal No Feb 9 informati 2017 6:38 [Moles/vo on in AM lume] in source Serum or data Plasma Sodium 136 - 145 mmoL/L Low No Feb 9 [Moles/vo informati 2017 6:38 lume] in on in AM Serum or source Plasma data CBC W Auto Differential panel in Blood Observa Value Referen Units Interpr Notes Date tion ce etation Range Basophils 0 - 0.2 K/MM3 Normal No Feb 9 informati 2017 6:38 [#/volume on in AM ] in source Blood by data Automated count Basophils 0.1 - 2.0 % Normal No Feb 9 /100 informati 2017 6:38 leukocyte on in AM s in source Blood by data Automated count Eosinophi 0.0 - 0.4 K/mm3 Normal No Feb 9 ls informati 2017 6:38 [#/volume on in AM ] in source Blood by data Automated count Eosinophi 0.1 - % Low No Feb 10 ls/100 12.0 informati 2017 6:38 leukocyte on in AM s in source Blood by data Automated count Granulocy 1.8 - 7.8 K/mm3 Normal No Feb 10 gloria informati 2017 6:38 [#/volume on in [...] No Feb 10 te mean 35.4 informati 2016 6:38 corpuscul on in AM ar source hemoglobi data n concentra tion [Mass/vol ume] by Automated count Erythrocy 82.2 - fl Normal No Feb 9 te mean 97.8 informati 2017 6:38 corpuscul [...] 142 - 424 K/mm3 Normal No Feb 9 informati 2017 6:38 [#/volume on in AM ] in source Blood data Erythrocy 4.2 - 5.4 M/mm3 Low No Feb 9 gloria informati 2016 6:38 [#/volume on in AM ] in source Amniotic data fluid Erythrocy 11.5 - % High No Feb 9 te 17.5 informati 2017 6:38 distribut on in AM ion width source [Entitic data volume] by Automated count Leukocyte 4.8 - K/MM3 Low No Feb 9 s 10.8 informati 2016 6:38 [#/volume on in AM ] in source Blood data Glucose [Mass/volume] in Capillary blood by Glucometer Observa Value Referen Units Interpr Notes Date ti ce etation Range Glucose 70 - 110 mg/dl High No Feb 9 [Mass/vol informati 2016 6:03 ume] in on in AM Capillary [...] mg/dl High No Feb 8 [Mass/vol informati 2016 8:48 ume] in on in PM Capillary source blood by data Glucomete r Lactate [Moles/volume] in Blood Observa Value Referen Units Interpr Notes Date tion ce etation Range Lactate 0.4 - 2.0 mmol/L High An Feb 8 [Moles/vo elevated 2016 7:03 lume] in Lactic PM Blood Acid is suggestiv e of sepsis and shouldbe repeated within 6 hours of initial testing. Glucose [Mass/volume] in Capillary blood by Glucometer Observa Value Referen Units Interpr Notes Date tion ce etation Range Glucose 70 - 110 mg/dl High No Chris 8 [Mass/vol alert informati 2017 4:48 ume] in on in PM Capillary source blood by data Glucomete r DIARRHEA PANEL,PCR Observa Value Referen Units Interpr Notes Date tion ce etation Range Adenovi NOT NOT No No No Feb 8 betsy DETECTE DETECTE informa informa informa 2016 40+41 D tion in tion in tion in 2:40 PM Ag source source source [Presen data data data ce] in Stool Aeromon NOT NOT No No No Feb 09 as DETECTE DETECTE informa informa informa 2016 salmoni D tion in tion in tion in 2:40 PM clifton source source source [Presen data data data ce] in Unspeci fied specime n Astrovi NOT NOT No No No Feb 09 betsy DETECTE DETECTE informa informa informa 2016 [Presen D tion in tion in tion in 2:40 PM ce] in source source source Stool data data data by Electro n microsc opy Campylo NOT NOT No No No Feb 09 bacter DETECTE DETECTE informa informa informa 2016 sp Ab D tion in tion in tion in 2:40 PM [Presen source source source ce] in data data data Serum Clostri NOT NOT No No No Feb 8 dium DETECTE DETECTE informa informa informa 2017 diffici D tion in tion in tion in 2:40 PM le source source source toxin data data data A+B [Presen ce] in Stool Cryptos NOT NOT No No No Feb 8 poridiu DETECTE DETECTE informa informa informa 2017 m sp Ag D tion in tion in tion in 2:40 PM source source source [Presen data data data ce] in Unspeci fied specime n Cyclosp NOT NOT No No No Feb 8 ora DETECTE DETECTE informa informa informa [...] assa Escheri NOT NOT No No No Chris 8 adria DETECTE DETECTE informa informa informa 2017 coli D tion in tion in tion in 2:40 PM [id number] source source source data data data [Presen ce] in Stool by Organis m specifi c culture Entamoe NOT NOT No No No Chris 8 ba DETECTE DETECTE informa informa informa 2017 histoly D tion in tion in tion in 2:40 PM juan antonio source source source [Presen data data data ce] in Stool by Trichro me stain Giardia NOT NOT No No No Chris 8 DETECTE DETECTE informa informa informa 2017 lamblia D tion in tion in tion in 2:40 PM Ag source source source [Presen data data data ce] in Stool Norovir NOT NOT No No No Chris 8 us Ag DETECTE DETECTE informa informa informa 2017 [Presen D tion in tion in tion in 2:40 PM ce] in source source source Stool data data data Stool NOT NOT No No No Chris 8 Plesiom DETECTE DETECTE informa informa informa 2017 onas D tion in tion in tion in 2:40 PM shigell source source source oides data data data DNA detec Rotavir NOT NOT No No No Chris 8 us RNA DETECTE DETECTE informa informa informa 2017 detecti D tion in tion in tion in 2:40 PM on by source source source probe data data data and tar Salmone NOT NOT No No No Feb 8 lla sp DETECTE DETECTE informa informa informa 2016 DNA D tion in tion in tion in 2:40 PM [Identi source source source fier] data data data in Unspeci fied specime n by Probe & target amplifi cation method Caliciv NOT NOT No No No Feb 8 irus DETECTE DETECTE informa informa informa 2016 [...] 1.8 - 7.8 K/mm3 Normal No Feb 8 gloria inform2016 [#/volume on in 12:00 PM ] in source Blood by data Automated count Granulocy 37.0 - % High No Feb 8 gloria/100 80.0 inform2016 leukocyte on in 12:00 PM s in source Blood by data Automated count Hematocri 37.0 - % Low No Feb 8 t [Volume 47.0 informati 2016 on in 12:00 PM Fraction] source of Blood data Hemoglobi 12.2 - g/dL Low No Feb 8 n 16.2 informati 2016 [Mass/vol on in 12:00 PM ume] in source Blood data Lymphocyt 0.7 - 4.5 K/mm3 Low No Feb 8 es inform2016 [#/volume on in 12:00 PM ] in source Unspecifi data ed specimen by Automated count Lymphocyt 10 - 50.0 % Low No Feb 8 es inform2016 [#/volume on in 12:00 PM ] in source Unspecifi data ed specimen by Automated count Erythrocy 27 - 31.2 pg Normal No Feb 8 te mean 2016 corpuscul on in 12:00 PM ar source hemoglobi data n [Entitic mass] Erythrocy 31.8 - g/dl Normal No Feb 09 te mean 35.4 inform2016 corpuscul on in 12:00 PM ar source hemoglobi data n concentra tion [Mass/vol ume] by Automated count Erythrocy 82.2 - fL Normal No Feb 09 te mean 97.8 2016 corpuscul on in 12:00 PM ar volume source [Entitic data volume] by Automated count Monocytes 0.1 - 1.0 K/mm3 Normal No Feb 8 2016 [#/volume on in 12:00 PM ] in source Blood by data Automated count Monocytes 1.7 - 9.3 % Normal No Feb 8 /100 informati 2017 leukocyte on in 12:00 PM s in source Blood by data Automated count Platelets 142 - 424 K/mm3 Normal No Feb 8 inform2016 [#/volume on in 12:00 PM ] in source Blood data Erythrocy 4.2 - 5.4 M/mm3 Low No Feb 8 gloria inform2016 [#/volume on in 12:00 PM ] in source Amniotic data fluid Erythrocy 11.5 - % High No Feb 8 te 17.5 informati 2016 distribut on in 12:00 PM ion width source [Entitic data volume] by Automated count Leukocyte 4.8 - K/mm3 Normal No Chris 8 s 10.8 inform2016 [#/volume on in 12:00 PM ] in source Blood data Differential panel, method unspecified - Observa Value Referen Units Interpr Notes Date tion ce etation Range LYMPH 9 10 - 50 % Low No Chris 8 informa 2016 tion in 12:00 source PM data Monocytes 2 - 9 % Normal No Chris 8 /100 2016 leukocyte on in 12:00 PM s in source Blood by data Automated count Platele NORMAL No No No No Chris 8 ts informa informa informa informa 2016 [Presen tion in tion in tion in tion in 12:00 ce] in source source source source PM Blood data data data data by Light microsc opy Neutrophi 42 - 76 % High No Feb 8 ls 2016 [#/volume on in 12:00 PM ] in source Blood by data Automated count Cells No #CELLS No No Chris 8 Counted informati 2016 Total [#] on in on in on in 12:00 PM in Blood source source source data data data Mycoplasma pneumoniae IgM Ab [Presence] in Serum by Immunoassay Observa Value Referen Units Interpr Notes Date tion ce etation Range Mycopla NON-NAVA NONREAC No No No Feb 8 sma CTIVE TIVE informa informa inform2016 pneumon tion in tion in tion in 12:00 iae IgM source source source PM Ab data data data [Presen ce] in Serum by Immunoa ssay Basic metabolic panel in Blood Observa Value Referen Units Interpr Notes Date tion ce etation Range Urea 7 - 18 mg/dL Normal No Chris 8 nitrogen 2016 [Mass/vol on in 12:00 PM ume] in source Serum or data Plasma Calcium 8.5 - mg/dL Normal No Feb 8 [Mass/vol 10.1 informati 2016 ume] in on in 12:00 PM Serum or source Plasma data Chloride 98 - 107 mmoL/L Low No Chris 8 [Moles/vo informati 2016 lume] in on in 12:00 PM Serum or source Plasma data Carbon 21.0 - mmoL/L Normal No Feb 8 dioxide, 32.0 informati 2016 total on in 12:00 PM [Moles/vo source lume] in data Serum or Plasma Creatinin 0.55 - mg/dL Normal No Feb 8 e 1.02 informati 2017 [Mass/vol on in 12:00 PM ume] in source Serum or data Plasma Estimated 59- ML/MIN No REFERENCE Feb 8 informati RANGE: 2017 glomerula on in >60 12:00 PM r source ML/MIN/1. filtratio data 73 SQUARE n rate METERSIf (GF this patient is -A merican, then multiply theresult by 1.210. Glucose 74 - 106 mg/dL High No Feb 09 [Mass/vol informati 2016 ume] in on in 12:00 PM Serum or source Plasma data Potassium 3.5 - 5.1 mmoL/L Normal No Feb 09 inform2016 [Moles/vo on in 12:00 PM lume] in source Serum or data Plasma Sodium 136 - 145 mmoL/L Low No Feb 09 [Moles/vo informati 2017 lume] in on in [...] Manual count Glucose NEG No High No Chris 5 [...] No Chris 5 [Presen informa l informa 2017 ce] in tion in tion in 12:45 Urine source source PM sedimen data data t by Light microsc opy Mucus 1+ OCC No No No Chris 5 [Presen informa informa informa 2017 ce] in tion in tion in tion in 12:45 Urine source source source PM sedimen data data data t by Light microsc opy Nitrite NEGATIV NEG No No No Chris 5 E informa informa informa 2017 [Presen tion in [...] 5-10 0 - 5 #/hpf No No Chris 5 ial informa informa 2017 cells.s tion [...] No Chris 5 gloria wbc/hpf informa informa 2017 [#/volu ; 10 tion in tion in [...] data Bilirub NEGATIV NEG No No No Feb 5 in E informa informa informa 2016 [...] data data Glucose NEG No High No Feb 5 [Mass/vol informati informati 2017 ume] in on in on in 12:45 PM Urine by source source Test data data strip Ketones 1+ NEG mg/dL Abnorma No Chris 5 l informa 2016 [Presen tion in 12:45 ce] in source [...] 1.3 - 3.2 gm/dL High No Feb 5 [Mass/vol informati 2016 6:25 ume] in on in AM Serum source data Glucose 74 - 106 mg/dL High No Feb 06 [Mass/vol informati 2016 6:25 ume] in on in AM Serum or source Plasma data Potassium 3.5 - 5.1 mmoL/L Normal No Feb 06 inform2016 6:25 [Moles/vo on in AM lume] in source Serum or data Plasma Sodium 136 - 145 mmoL/L Low No Feb 06 [Moles/vo informati 2016 6:25 lume] in on in AM Serum or source Plasma data Aspartate 15 - 37 U/L No No Feb 06 informati informati 2016 6:25 aminotran on in on in AM sferase source source [Enzymati data data c activity/ volume] in Serum or Plasma Alanine 12 - 78 U/L Normal No Feb 06 aminotran informati 2016 6:25 sferase on in AM [Enzymati source c data activity/ volume] in Serum or Plasma Protein 6.4 - 8.2 gm/dL Low No Feb 06 [Mass/vol informati 2016 6:25 ume] in on in AM Serum or source Plasma data CBC W Auto Differential panel in Blood Observa Value Referen Units Interpr Notes Date tion ce etation Range Basophils 0 - 0.2 K/MM3 Normal No Feb 06 inform2016 6:25 [#/volume on in AM ] in source Blood by data Automated count Basophils 0.1 - 2.0 % Normal No Feb 5 /100 informati 2016 6:25 leukocyte on in AM s in source Blood by data Automated count Eosinophi 0.0 - 0.4 K/mm3 Normal No Feb 06 ls informati 2016 6:25 [#/volume on in AM ] in source Blood by data Automated count Eosinophi 0.1 - % Normal No Feb 06 ls/100 12.0 informati 2016 6:25 leukocyte on in AM s in source Blood by data Automated count Granulocy 1.8 - 7.8 K/mm3 Normal No Feb 06 gloria informati 2017 6:25 [#/volume on in AM ] in source Blood by data Automated count Granulocy 37.0 - % Normal No Feb 5 gloria/100 80.0 informati 2017 6:25 leukocyte on in AM s in source Blood by data Automated count Hematocri 37.0 - % Low No Feb 5 t [Volume 47.0 informati 2017 6:25 on in AM Fraction] source of Blood data Hemoglobi 12.2 - g/dL Low No Feb 5 n 16.2 informati 2017 6:25 [Mass/vol on in AM ume] in source Blood data Lymphocyt 0.7 - 4.5 K/mm3 Normal No Feb 5 es informati 2017 6:25 [#/volume on in AM ] in source Unspecifi data ed specimen by Automated count Lymphocyt 10 - 50.0 % Normal No Feb 5 es informati 2017 6:25 [#/volume on in AM ] in source Unspecifi data ed specimen by Automated count Erythrocy 27 - 31.2 pg Normal No Feb 06 te mean informati 2016 6:25 corpuscul on in AM ar source hemoglobi data n [Entitic mass] Erythrocy 31.8 - g/dl Low No Feb 06 te mean 35.4 informati 2017 6:25 corpuscul on in AM ar source hemoglobi data n concentra tion [Mass/vol ume] by Automated count Erythrocy 82.2 - fl Normal No Feb 5 te mean 97.8 informati 2017 6:25 corpuscul on in AM ar volume [...] count Platelet 7.4 - fl Low No Chris 5 mean 10.4 informati 2017 6:25 volume on [...] fluid Erythrocy 11.5 - % High No Chris 5 te 17.5 informati 2017 6:25 distribut on in AM ion width source [Entitic data volume] by Automated count Leukocyte 4.8 - K/MM3 Low No Chris 5 s 10.8 informati 2017 6:25 [#/volume on in AM ] in source Blood data Glucose [Mass/volume] in Capillary blood by Glucometer Observa Value Referen Units Interpr Notes Date tion ce etation Range Glucose 70 - 110 mg/dl High No Chris 5 [Mass/vol informati 2016 6:23 ume] in on in AM Capillary source blood by data Glucomete r Glucose [Mass/volume] in Capillary blood by Glucometer Observa Value Referen Units Interpr Notes Date tion ce etation Range Glucose 70 - 110 mg/dl High No Chris 4 [Mass/vol alert informati 2016 8:08 ume] in on in PM Capillary source blood by data Glucomete r Lactate [Moles/volume] in Blood Observa Value Referen Units Interpr Notes Date ti ce etation Range Lactate 0.4 - 2.0 mmol/L Normal No Chris 4 [Moles/vo informati 2016 lume] in on in 12:15 PM Blood [...] Low No Chris 4 lobulin informati informati 2016 [Mass on in on in 11:45 AM [...] Carbon 21.0 - mmoL/L Normal No Chris 4 dioxide, 32.0 informati 2017 total on in 11:45 AM [Moles/vo source lume] in data Serum or Plasma Creatinin 0.55 - mg/dL Normal No Chris 4 e 1.02 informati 2017 [Mass/vol on in 11:45 AM ume] in source Serum or data Plasma Creatinin 50 - 200 ML/MIN Normal No Chris 4 e renal informati 2017 clearance on in 11:45 AM source predicted data by Cockcroft -Gault formula Estimated 59- ML/MIN No REFERENCE Chris 4 informati RANGE: 2017 glomerula on in >60 11:45 AM r source ML/MIN/1. filtratio data 73 SQUARE n rate METERSIf (GF this patient is -A merican, then multiply theresult by 1.210. Globulin 1.3 - 3.2 gm/dL High No Chris 4 [Mass/vol informati 2016 ume] in on in 11:45 AM Serum source data Glucose 74 - 106 mg/dL High No Chris 4 [Mass/vol informati 2017 ume] in on in 11:45 AM Serum or source Plasma data Potassium 3.5 - 5.1 mmoL/L Normal MAY BE Chris 4 ELEVATED 2017 [Moles/vo DUE TO 11:45 AM lume] in SLIGHT Serum or HEMOLYSIS Plasma Sodium 136 - 145 mmoL/L Low No Chris 4 [Moles/vo informati 2017 lume] in on in 11:45 AM Serum or source Plasma data Aspartate 15 - 37 U/L Normal MAY BE Chris 4 ELEVATED 2017 aminotran DUE TO 11:45 AM sferase SLIGHT [Enzymati HEMOLYSIS c activity/ volume] in Serum or Plasma Alanine 12 - 78 U/L Normal No Chris 4 aminotran informati 2017 sferase on in 11:45 AM [Enzymati source c data activity/ volume] in Serum or Plasma Protein 6.4 - 8.2 gm/dL Normal No Feb 4 [Mass/vol inform2016 ume] in on in 11:45 AM Serum or source Plasma data CBC W Auto Differential panel in Blood Observa Value Referen Units Interpr Notes Date tion ce etation Range Basophils 0 - 0.2 K/MM3 Normal No Feb 4 inform2016 [#/volume on in 11:45 AM ] in source Blood by data Automated count Basophils 0.1 - 2.0 % Normal No Chris 4 /100 inform 2017 leukocyte on in 11:45 AM s in source Blood by data Automated count Eosinophi 0.0 - 0.4 K/mm3 Normal No Feb 4 ls inform2016 [#/volume on in 11:45 AM ] in source Blood by data Automated count Eosinophi 0.1 - % Normal No Feb 4 ls/100 12.0 inform2016 leukocyte on in 11:45 AM s in source Blood by data Automated count Granulocy 1.8 - 7.8 K/mm3 Normal No Feb 4 gloria 2016 [#/volume on in 11:45 AM ] in source Blood by data Automated count Granulocy 37.0 - % High No Feb 4 gloria/100 80.0 inform2016 leukocyte on in 11:45 AM s in source Blood by data Automated count Hematocri 37.0 - % Low No Feb 05 t [Volume 47.0 inform2016 on in 11:45 AM Fraction] source of [...] 10 - 50.0 % Normal No Feb 05 es inform2016 [#/volume on in 11:45 AM ] in source Unspecifi data ed specimen by Automated count Erythrocy 27 - 31.2 pg Normal No Feb 4 te mean inform2016 corpuscul on in 11:45 AM ar source hemoglobi data n [Entitic mass] Erythrocy 31.8 - g/dl Low No Feb 4 te mean 35.4 inform2016 corpuscul on in 11:45 AM ar source hemoglobi data n concentra tion [Mass/vol ume] by Automated count Erythrocy 82.2 - fl Normal No Feb 4 te mean 97.8 2016 corpuscul on in 11:45 AM ar volume source [Entitic data volume] by Automated count Monocytes 0.1 - 1.0 K/mm3 Normal No Feb 4 inform2016 [#/volume on in 11:45 AM ] in source Blood by data Automated count Monocytes 1.7 - 9.3 % Normal No Feb 4 /100 inform2016 [...] % High No Feb 05 te 17.5 2016 distribut on in 11:45 AM ion width source [Entitic data volume] by Automated count Leukocyte 4.8 - K/MM3 Normal No Feb 4 s 10.8 2016 [#/volume on in 11:45 AM ] in source Blood data Hemoglobin A1c in Blood Observa Value Referen Units Interpr Notes etation Range Hemoglo 8.6 0.0 - % [...] No No January 27 [Mass/vol informati informati 2016 6:34 ume] in on in on in [...] High No January 26 [Mass/vol alert informati 2016 4:23 ume] in on in PM Capillary [...] Interpr Notes Date ti ce etation Range COMMENTS TO SHOWER MAID: FINGERSTICK TO LOW TO READ Glucose 74 [...] Units Interpr Notes Date ti etation Range Basophils 0 - 0.2 K/MM3 Normal No January 23 informati 2016 6:00 [#/volume on in AM ] in source Blood by data Automated count Basophils 0.1 - 2.0 % Low No January 23 informati 2016 6:00 leukocyte on in AM s in source Blood by data Automated count Eosinophi 0.0 - 0.4 K/mm3 Normal No January 23 ls informati 2016 6:00 [#/volume on in AM ] in source Blood by data Automated count Eosinophi 0.1 - % Low No January 23 ls/100 12.0 informati 2016 6:00 [...] Automated count Platelet 7.4 - fl Low January 23 mean 10.4 informati 2016 6:00 volume on in AM [Entitic source volume] data in Blood by Automated count Platelets 142 - 424 K/mm3 No January 23 informati informati 2016 6:00 [...] 50 % Low No January 23 informa 2016 tion in 6:00 AM source data Monocytes 2 - 9 % Low No January 23 informati 2016 6:00 leukocyte on in AM [...] Referen Units Interpr Notes Date etation Range Urea 7 - 18 mg/dL [...] Normal No January 23 e renal informati 2017 6:00 clearance on in AM source predicted [...] mg/dl High No January 22 [Mass/vol informati 2017 ume] in on in 10:44 AM Capillary [...] High No January 18 [Mass/vol informati 2016 8:54 ume] in on in PM Capillary [...] High No January 18 [Mass/vol informati 2017 ume] in on in 11:22 AM Capillary [...] Glucose 70 - 110 mg/dl High No May 16 [Mass/vol informati 2016 ume] in on in 11:06 AM Capillary source blood by data Glucomete r Glucose [Mass/volume] in Capillary blood by Glucometer Observa Value Referen Units Interpr Notes Date ti ce etation Range Glucose 70 - 110 mg/dl High No January 16 [Mass/vol informati 2016 6:29 ume] in on [...] High No January 15 [Mass/vol informati 2016 4:54 ume] in on [...] High No January 15 [Mass/vol informati 2016 6:06 ume] in on in AM Capillary source blood by data Glucomete r Bacteria identified in Blood by Aerobe culture Observa Value Referen Units Interpr Notes Date tion ce etation Range Is patient on antibiotics? N Bacteri RESULTS No No No No January 11 a : PCR- informa informa informa informa 2016 identif STREPTO tion in tion in tion in tion in 4:10 PM ied in COCCUS source [...] 11 a STREPTO informa informa informa informa 2017 identif COCCUS tion in tion in tion in tion in 4:10 PM ied in THORALT source source source source Blood DENISSE; data data data data by SENSITI Aerobe VITY culture SENT TO Bacteri [facility] No No No No January 11 a PER R informa informa informa informa 2017 identif LARISSA MT tion in tion in tion in tion in 4:10 PM ied in source source source source Blood data data data data by Aerobe culture Bacteri RESULTS No No No No January 11 a CALLED informa informa informa informa 2017 identif TO: tion in tion in tion in tion in 4:10 PM ied in [email or web address].[email or web address] source source source source Blood B data data data data by Aerobe 7 1005 culture Bacteri Meulend No No No No January 11 a faniFany reynolds informa informa informa informa 2016 identif herine tion in tion in tion in tion in 4:10 PM ied in source source source source Blood data data data data by Aerobe culture Bacteri Strepto No No No No January 11 a coccus informa informa informa informa 2017 identif species tion in tion in tion in tion in 4:10 PM ied in source source source source Blood data data data data by Aerobe culture
--- OUTSIDE RECORDS SUMMARY | 2017-04-02 21:48 | External Medical Summary Rpt ---
[...] etation Range MISC TEST FOR PROCALCITONIN # [id number] TEST: RESULTS: REFERENCE: PROCALCITONIN 0.15 HIGH 0.00-0.08 [...] LATER) AND ON DAY 4, GO TO [email or web address] TEST: RESULTS: REFERENCE: PROCALCITONIN 0.15 HIGH 0.00-0.08 [...] LATER) AND ON DAY 4, GO TO [email or web address] Glucose [Mass/volume] in Capillary blood by Glucometer [...] Date ti ce etation Range COMMENTS TO TOBACCO SCRAP SIFTER: POST TRANSFUSION Hematocri 37.0 - % Low [...] source source source 17 data data data [id number] prepara O tion POSRELE [Type] ASED 7 [...] source source 17 AM data data data [id number] prepara RELEASE tion D [Type] 7[place] ,Lucind [...] Date ti ce etation Range COMMENTS TO TOBACCO SCRAP SIFTER: FINGERSTICK TO LOW TO READ Glucose 74 [...]
[2017-04-02 22:34] VITALS: BP 138/72
[2017-04-02 23:21] VITALS: BP 157/75
[2017-04-02 23:30] VITALS: BP 157/75
[2017-04-02] MEDS ORDERED: FLUOXETINE 10MG10 MG PO (23:52)
[2017-04-02] MEDS ORDERED: RESTORIL 30MG C30 MG PO (23:52)
[2017-04-03] VITALS (7 sets, daily range): BP systolic 118–148; BP diastolic 58–78
[2017-04-03] MEDS ORDERED: LISINOPRIL 5MG T5 MG PO
[2017-04-03 07:20] LABS: HEMOGLOBIN 9.7 g/dL (12.2-16.2); LYMPH # 2.2 K/mm3 (0.7-4.5); LYMPH % 23.1 % (10-50.0)
--- NOTE | 2017-04-03 07:51 | HISTORY AND PHYSICAL REPORT ---
Demographics: Admit date: 04/02/17 Chief complaint: Shortness of air/cough PRIMARY DIAGNOSIS: PNUEMONIA Allergies: Coded Allergies: Sulfa (Sulfonamide Antibiotics) (03/18/17) History of present illness: History of present illness: 77-year-old white female with ongoing lung cancer, type 2 diabetes, renal insufficiency, chronic end-stage oxygen requiring COPD and chronic anxiety disorder with recurrent insomnia, presented to the emergency department on the day of admission with cough, shortness of air, fatigue. Found to be hypoxic. Found to have infiltrates in her chest, over above her baseline, admitted hospital for IV antibiotics given recurrent need for antibiotics at home. Past medical history: Family HX Diabetes Yes CAD Yes Hypertension No Hyperlipidemia No Cancer Yes TB No Immunization HX Ped.Immunizations UTD Yes DT/Tetanus 5-10 Years Ago Flu 2015-FSN Pneumonia Received In Past TB Test in last year No General CAD? Yes Angina: Yes NH: Yes Hypertension? No Hyperlipidemia? Yes CHF? No DVT? No PE? No COPD? Yes Asthma? No Anemia? No GERD? Yes Gastric ulcers? No GI Bleed? No Hernia? Yes Thyroid Problems? No Hypothyroidism? No CVA? Yes Seizures? No Diabetes? 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 No UTI? No Stones? No BPH? No GB Disease: Yes Nephritic Syndrome? No Asplenia? No Hepatitis? No Sickle Cell Disease? No Arthritis? Yes Migraines? No Cataracts? Yes Glaucoma? No MRSA? No HIV? No TB? No Anxiety? Yes Depression? 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 Current home meds: Active Scripts Lorazepam (Lorazepam 1MG) 1 MG PO TID #60 TAB Prov: 02/06/17 Azithromycin (Zithromax) 250 MG PO DAILY #6 TAB Prov: 02/16/17 INSUL REG 30%ISOPHAN 70% HUMAN (Humulin 70-30 Vial) 10 UNITS SC BID #1 INJ Prov: 02/16/17 Reported Medications BUDESONIDE/FORMOTEROL FUMARATE (Symbicort 80-4.5 Mcg Inhaler) 2 PUFF IH BID Ipratropium [place] (Ipratropium 0.5MG Neb Soln) 0.5 MG INH TID Aspirin (Adult Low Dose Aspirin EC) 81 MG PO DAILY ATENOLOL (Atenolol 50MG) 25 MG PO DAILY OMEPRAZOLE MAGNESIUM (Prilosec 20MG) 20 MG PO DAILY Metformin HCl (Metformin) 1,000 MG PO BID #270 TAB Pitavastatin Calcium (Livalo) 4 MG PO DAILY #30 TAB ALBUTEROL (Albuterol 0.083% Neb) 1.25 MG INH TID Fluoxetine Hcl (Fluoxetine 10MG) 10 MG PO DAILY Temazepam (Restoril 30MG) 30 MG PO QHS LISINOPRIL (Lisinopril) 5 MG PO DAILY Trazodone Hcl (Trazodone HCl) 150 MG PO QHS Social Hx: Smoking HX Tobacco No Packs/day < 1 PACK Are you/the child exposed to second-hand smoke: No Alcohol Alcohol: No Hx of Drug Use Drug Use? No Patien't marital status is Patient's support system is excellent Review of systems: Constitutional fever, malaise, weakness. Respiratory cough, shortness of breath, SOB with excertion, SOB at rest, wheezing. Cardiovascular No no symptoms reported Gastrointestinal/Abdominal difficulty swallowing, nausea, poor appetite, poor fluid intake Genitourinary dysuria. Musculoskeletal back pain, joint pain. Neurological Yes: weakness. Exam: Lab data for last 24 hours: Laboratory Tests 04/03/17 0655: Sodium 134 L, Potassium 3.9, Chloride 97 L, Carbon Dioxide 33 H, BUN 19 H, Creatinine 2.3 H, Estimated Creat Clear 19 L, Estimated GFR (MDRD) 21 L, Glucose 150 H, Calcium 8.8, WBC 9.4, RBC 3.49 L, Hgb 9.7 L, Hct 31.1 L, MCV 89.3, RDW 16.5, Plt Count 263, MPV 7.8, Gran % 70.2, Gran # 6.6, Lymphocytes % 23.1, Monocytes % 5.1, Eosinophils % 1.2, Basophils % 0.5, Lymphocytes # 2.2, Monocytes # 0.5, Eosinophils # 0.1, Basophils # 0.0, PUBS MCHC 31.2 L, MCH 27.9 04/03/17 0639: POC Glucose 150 H 04/02/172139: Lactic Acid 1.9 04/02/172022: Lactic Acid 2.1 H 04/02/172022: Creatine Kinase 62, CK-MB (CK-2) Rel Index 0.8, CK and CKMB Interp < 0.5, Troponin I < 0.02 04/02/172022: B-Natriuretic Peptide 1410 H 04/02/172022: Sodium 133 L, Potassium 4.7, Chloride 95 L, Carbon Dioxide 31, BUN 21 H, Creatinine 2.3 H, Estimated Creat Clear 18 L, Estimated GFR (MDRD) 21 L, Glucose 230 H, Calcium 8.3 L, Total Bilirubin 0.4, AST 29, ALT 20, Alkaline Phosphatase 141 H, Total Protein 6.9, Albumin 2.3 L, Globulin 4.6 H, Albumin/ Globulin Ratio 0.5 L, WBC 10.1, RBC 3.39 L, Hgb 9.5 L, Hct 30.7 L, MCV 90.6, RDW 16.6, Plt Count 244, MPV 8.7, Gran % 74.8, Gran # 7.6, Lymphocytes % 18.2, Monocytes % 5.3, Eosinophils % 1.4, Basophils % 0.3, Lymphocytes # 1.9, Monocytes # 0.5, Eosinophils # 0.1, Basophils # 0.0, PUBS MCHC 30.9 L, MCH 28.0 04/02/172004: Urine Color YELLOW, Urine Appearance CLEAR, Urine pH 7.0, Ur Specific [place] <= 1.005, Urine Protein NEGATIVE, Urine Ketones NEGATIVE, Urine Blood 3+ H, Urine Nitrate NEGATIVE, Urine Bilirubin NEGATIVE, Urine Urobilinogen 0.2, Ur Leukocyte Esterase NEGATIVE, Urine RBC 20-50, Ur Squamous Epith Cells 5-10, Urine Yeast OCC, Urine Glucose 1+ H Microbiology 04/02 2140 BLOOD: Anaerobic Blood Culture - RECD 04/02 2140 BLOOD: Aerobic Blood Culture - RECD 04/02 2140 BLOOD: Anaerobic Blood Culture - RECD 04/02 2140 BLOOD: Aerobic Blood Culture - RECD Admission vital signs: 1ST Vital Signs Result Date Time Pulse Ox 93 04/02 2007 B/P 153/117 04/02 2007 O2 Flow Rate 2 04/02 2007 Temp 98.7 04/02 2007 Pulse 83 04/02 2007 Resp 20 04/02 2007 O2 Delivery OXYGEN 04/02 0978 Additional information: Patient is pleasant, oriented x3. Rhonchi and crackles in both lung sparks, worse on the right lower and midlung field. Heart irregular. Abdomen soft and the patient appears chronically ill, cachectic. No edema noted. Able to move all arms and legs well but is very weak. Plan: Problem List 1. Pneumonia 2. Chronic obstructive pulmonary disease with acute exacerbation 3. Lung cancer Plan: Patient with recurrent COPD exacerbations. Agree with admission for broad spectrum IV antibiotics. Culture will be done of blood, sputum, urine. Supportive care. Patient may need long-term care for rehabilitation. at 0751
--- NOTE | 2017-04-03 08:42 | PHARMACY CLINIC NOTE ---
Patient Demographics Patient Demographics Admission date: 04/02/17 Date: 04/03/17 Time: 0842 Allergies Coded Allergies: Sulfa (Sulfonamide Antibiotics) (03/18/17) HEIGHT- FT: 5 IN: 2.00 K.841 VTE General Information Labs: Laboratory Tests 04/03 04/02 0655 2023 Hematology Hgb (12.2 - 16.2 g/dL) 9.7 L 9.5 L Hct (37.0 - 47.0 %) 31.1 L 30.7 L Plt Count (142 - 424 K/mm3) 263 244 Disclaimer The following section includes nursing documentation that has been pulled in for pharmacy review. Patient's VTE score: 5 Patient's VTE Risk: LOW RISK Clinical trial participant? No VTE prophylaxis NQF [id number] VTE prophylaxis ordered? Yes Type of prophylaxis/treatment: MARIANA at 0842
[2017-04-03 09:19] LABS: URINE BILIRUBIN - DIPSTICK NEGATIVE (NEG); URINE BLOOD 3+ (NEG)
--- NOTE | 2017-04-03 15:30 | RADIOLOGY REPORT PS360 ---
CHEST-PORTABLE Ordering Physician: Alan Schulte MD Patient Age: 77 years: Female HISTORY: SOA TECHNIQUE: AP portable upright chest. COMPARISON is made to previous CT chest 02/15/2017 and portable chest 03/18/2017 FINDINGS Current Limited portable chest rotation to left and slightly distorts the chest on this study Left lower lobe pneumonia: Dense pneumonic throughout infiltrate left lower lobe.Which obliterates obscures left hemidiaphragm on today's study mild perihilar infiltrate on left. Left upper lung sparks clear. Right chest Patchy infiltrate is seen throughout the right lung most evident towards right lung base. . This right lower lobe pneumonia developed since 03/18/2017 Begin the the linear, triangular based density seen medial beneath the multiple upper left rib fractures is again noted and similar to 03/18/2017. This parenchymal density was also seen on February 2017 CT chest in September 2016 chest. Mild cardiomegaly. Mild additional vascular engorgement. But no overt CHF. ...... IMPRESSION --bilateral pneumonia 1. LLL pneumonia Dense LLL consolidation totally obscures left hemidiaphragm 2. RLL pneumonia. Lower density infiltrate right midlung and right base on only partially obscuring right hemidiaphragm 3. Long-standing parenchymal density at the right upper chest is again noted dating back to at least September 2016. Associated rib fractures overlying this area. : 4. Cardiomegaly.
[2017-04-04] VITALS (8 sets, daily range): BP systolic 114–142; BP diastolic 48–80
[2017-04-04 07:04] LABS: HEMOGLOBIN 9.2 g/dL (12.2-16.2); LYMPH # 2.1 K/mm3 (0.7-4.5)
--- NOTE | 2017-04-04 09:14 | ACUTE CARE PROGRESS NOTE (QUA) ---
Progress Notes Subjective Date 04/04/17 Time 0900 Note Patient states "my breathing feels a little better." She was sleeping well this morning; however nursing staff and patient report she was up most of the night. Alert and oriented x3 this morning. Appears chronically ill. Lung sounds with rhonchi and crackles bilateral bases and RML. 1+ BLE edema. Pulses 2+. Abdomen soft, non-tender Patient/family reports: insomnia Nursing reports: insomnia, sun-downing Objective Findings Last VS-Temp:98.4 B/P:114/48 Pulse:79 Resp:22 SaO2:95 OXYGEN Last weight lbs:125 oz:5 K.841 Method:Bed Scales Reviewed: medications, vital signs, lab results Assessment/Plan Problem List 1. Pneumonia Qualifiers: Pneumonia type: due to unspecified organism Laterality: bilateral Lung location : lower lobe of lung Qualified Code: J18.9 - Pneumonia, unspecified organism 2. Chronic obstructive pulmonary disease with acute exacerbation 3. Lung cancer Patient condition Guarded Plan: continue current care This inpt stay is expected to cross 2 MNs from start of care Yes Comments: Continue IV antibiotics. Repeat sputum culture today. Increase risperdal dose tonight. at 0917
[2017-04-05] VITALS (7 sets, daily range): BP systolic 133–164; BP diastolic 55–76
--- NOTE | 2017-04-05 08:19 | ACUTE CARE PROGRESS NOTE (QUA) ---
Progress Notes Subjective Date 04/05/17 Time 0818 Note Her respiratory status is about the same. Unfortunately continued to exhibit a lot of sundowning behaviors and agitation with minimal sleep last night. Lungs are about the same with minimal rhonchi crackles in the right lower and middle lung base. Heart rate regular. Abdomen is soft. Objective Findings Last VS-Temp:97.6 B/P:139/71 Pulse:79 Resp:20 SaO2:98 OXYGEN Last weight lbs:125 oz:5 K.841 Method:Bed Scales Assessment/Plan Problem List 1. Pneumonia Qualifiers: Pneumonia type: due to unspecified organism Laterality: bilateral Lung location : lower lobe of lung Qualified Code: J18.9 - Pneumonia, unspecified organism 2. Chronic obstructive pulmonary disease with acute exacerbation 3. Lung cancer Patient condition Improving, Id like to try to help patient sleep a little bit so we will try trazodone and Restoril 2 mg tonight. Respiratory status is stable. I will discuss with her daughters this morning ongoing plan. This inpt stay is expected to cross 2 MNs from start of care Yes at 0819
[2017-04-06 03:56] VITALS: BP 144/87
[2017-04-06 06:54] LABS: HEMOGLOBIN 8.9 g/dL (12.2-16.2); LYMPH # 1.9 K/mm3 (0.7-4.5); LYMPH % 25.1 % (10-50.0)
[2017-04-06 08:00] VITALS: BP 157/75
[2017-04-06] MEDS ORDERED: TRAZODONE50 MG PO (08:24)
[2017-04-06] MEDS ORDERED: RISPERIDONE1 M2 PO (08:26)
[2017-04-06] MEDS ORDERED: CIPRO 250MG TA250 MG PO (08:27)
[2017-04-06] MEDS ORDERED: CLINDAMYCIN HC300 MG PO (08:28)
--- NOTE | 2017-04-06 09:50 | ACUTE CARE PROGRESS NOTE (QUA) ---
Progress Notes Subjective Date 04/06/17 Time 0745 Note Patient is sitting up in bed reports her breathing is "not much better." She has been able to ambulate to the bathroom on her oxygen. Alert and oriented x3. Rate and rhythm regular. Rhonchi posterior right. Abdomen soft and non-tender. 1+ LE edema. Pulses 2+ Objective Findings Last VS-Temp:97.8 B/P:157/75 Pulse:100 Resp:22 SaO2:92 OXYGEN Last weight lbs:125 oz:9 K.954 Method:Bed Scales Reviewed: medications, vital signs, lab results Assessment/Plan Problem List 1. Pneumonia Qualifiers: Pneumonia type: due to unspecified organism Laterality: bilateral Lung location : lower lobe of lung Qualified Code: J18.9 - Pneumonia, unspecified organism 2. Chronic obstructive pulmonary disease with acute exacerbation 3. Lung cancer Patient condition Improving Plan: initiate discharge plan This inpt stay is expected to cross 2 MNs from start of care Yes at 0950
--- NOTE | 2017-04-06 09:55 | ACUTE CARE PROGRESS NOTE (QUA) ---
Progress Notes Subjective Date 04/06/17 Time 0949 Objective Findings Last VS-Temp:97.8 B/P:157/75 Pulse:100 Resp:22 SaO2:92 OXYGEN Last weight lbs:125 oz:9 K.954 Method:Bed Scales Assessment/Plan Problem List 1. Pneumonia 2. Chronic obstructive pulmonary disease with acute exacerbation 3. Lung cancer This inpt stay is expected to cross 2 MNs from start of care Yes Antibiotic Stewardship (2) Current Culture Results Microbiology 04/04 730 SPUTUM: Sputum Culture - ORD 04/04 730 SPUTUM: Gram Stain - ORD 04/03 800 URINE CC: Urine Culture - COMP 04/02 2140 BLOOD: Anaerobic Blood Culture - RES 04/02 2140 BLOOD: Aerobic Blood Culture - RES Sputum cultures still pending, urine culture no growth, blood culture no growth Infxn that will respond? Yes Right drug,dose,and route? Yes More targeted antbx? No How long atbx needed? 14 Comment: PT on levaquin IV and cefepime (previous hospital admission warrants pseudo coverage), will go home on cipro po and clindamycin po for [address] Schulte. at 0935
--- NOTE | 2017-04-06 10:01 | DISCHARGE SUMMARY STANDARD ---
Demographics Admit date: 04/02/17 Discharge date: 04/06/17 History of present illness History of present illness 77-year-old white female with ongoing lung cancer, type 2 diabetes, renal insufficiency, chronic end-stage oxygen requiring COPD and chronic anxiety disorder with recurrent insomnia, presented to the emergency department on the day of admission with cough, shortness of air, fatigue. Found to be hypoxic. Found to have infiltrates in her chest, over above her baseline, admitted hospital for IV antibiotics given recurrent need for antibiotics at home. Hospital Course Hospital Course: Patient was admitted to acute care for IV antibiotics. Hypoxia and dyspnea have improved. She is able to ambulate to the bathroom on oxygen. Discussed ongoing plan of care with family. Mentioned possible Hospice Evaluation pending oncology FU at the end of the month. She had exhibited sundowning symptoms at home which worsened while she has been admitted. She was started on risperdal which was titrated throughout her stay, along with trazodone. Insomnia has improved, patient reports she slept 4 hours straight last night. Discharge home and clindamycin and cipro. Continue risperdal and trazodone. See medication reconciliation for complete list. Family to stay with patient at night. Keep scheduled FU with oncology. FU in office with Dr. Schulte on Monday. She will need a repeat CBC and CMP as her hemoglobin was noted at 8.9 this morning and creatinine at 2.2 which is her baseline. Lisinopril and metformin were held given her renal status. Advised to check FSBS BID and bring to FU on Monday. Discharge diagnoses Problem List 1. Pneumonia 2. Chronic obstructive pulmonary disease with acute exacerbation 3. Lung cancer Medications Medications: Discharge meds are as noted. Follow up Follow up in office in: 5 DAYS with: Alan Schulte MD at 1000
[2017-04-06 10:29] VITALS: BP 157/75
[2017-04-06 12:00] VITALS: BP 142/86
[2017-04-06 15:55] VITALS: BP 142/86
== END 2017-04-06 16:00 | disposition home or self-care (01) | DRG 194 ==
LOC: ER 19:55 → 2ND 21:38
PROVIDERS: Emergency Medicine; Internal Medicine Adolescent Medicine
DX: J18.9 Pneumonia, unspecified organism (principal); C34.90 Malignant neoplasm of unspecified part of unspecified bronchus or lung; Z99.81 Dependence on supplemental oxygen; E11.9 Type 2 diabetes mellitus without complications; J44.9 Chronic obstructive pulmonary disease, unspecified; Z95.5 Presence of coronary angioplasty implant and graft; I25.10 Atherosclerotic heart disease of native coronary artery without angina pectoris; Z79.4 Long term (current) use of insulin
CPT/HCPCS: G0378; J0692; J2405

== ENCOUNTER → 2017-04-11 | Outpatient (CLI) | payer MEDICARE ==
[~2017-04-11] MED LIST changes: +ATORVASTATIN CA40 MG PO; +CIPRO 250MG TA250 MG PO; +CLINDAMYCIN HC300 MG PO; +FLUOXETINE 10MG10 MG PO; +LISINOPRIL 5MG T5 MG PO; +LORAZEPAM0.5 MG/TAB PO; +METFORMIN 500M500 MG PO; +MORPHINE SUL20 MG/ML NG; +NYSTATIN100000 U/M PO; +ONDANSETRON 4MG4 M1 PO; +PROBIOTIC1 EAC3 PO; +PYRIDIUM200 M2 PO; +REMERON15 MG PO; +RESTORIL 30MG C30 MG PO; +RISPERDAL2 M1 PO; +RISPERIDONE1 M2 PO; +TRAZODONE50 MG PO
[2017-04-11 14:12] LABS: HEMOGLOBIN 8.6 g/dL (12.2-16.2); LYMPH # 1.7 K/mm3 (0.7-4.5)
[2017-04-11 14:37] LABS: BUN 17 mg/dL (7-18)
[2017-04-11 14:56] LABS: GFR (ESTIMATED) 26 ML/MIN (59-)
== END ==
LOC: CARL-LAB 10:23
PROVIDERS: Internal Medicine Adolescent Medicine
DX: J44.9 Chronic obstructive pulmonary disease, unspecified (principal); Z85.118 Personal history of other malignant neoplasm of bronchus and lung

== ENCOUNTER 2017-04-18 00:27 | Inpatient (IN) | payer OTHER, MEDICARE ==
[~2017-04-18] VITALS: Ht 157.5 cm; Wt 54.4 kg
[~2017-04-18 00:27] MED LIST changes: -ATORVASTATIN CA40 MG PO; -LORAZEPAM0.5 MG/TAB PO; -METFORMIN 500M500 MG PO; -MORPHINE SUL20 MG/ML NG; -NYSTATIN100000 U/M PO; -ONDANSETRON 4MG4 M1 PO; -PROBIOTIC1 EAC3 PO; -PYRIDIUM200 M2 PO; -REMERON15 MG PO; -RISPERDAL2 M1 PO
[2017-04-18 00:33] VITALS: BP 155/68
[2017-04-18] MEDS ORDERED: RESTORIL 30MG C30 MG PO (00:50)
[2017-04-18] MEDS ORDERED: PYRIDIUM200 M2 PO ×2 (00:51→04:38)
[2017-04-18] MEDS ORDERED: PROBIOTIC1 EAC3 PO (00:52)
[2017-04-18] MEDS ORDERED: LORAZEPAM0.5 MG/TAB PO (00:56)
[2017-04-18] MEDS ORDERED: RISPERDAL2 M1 PO (00:57)
--- NOTE | 2017-04-18 01:02 | Emergency Room Report ---
History of Present Illness Time Seen by 005Toshia Presenting Problem in Triage Pt arrived:Ambulance Stretcher Presenting Problem:S/P SYNCOPAL EPISODE WHILE GETTING UP TO POTTY CHAIR AT HOME. HOSPICE PATIENT. O2 DEPENDENT AT HOME. ALSO C/O SOB AND NAUSEA. Onset of symptoms date/time:04/18/17/ or onset unknown for:MEDICAL HX UNKNOWN Treatment Prior to Arrival: EMS TRANSPORT PRACTICE MANAGER Provided by:TRASH COLLECTOR SUPERVISOR Sepsis Risk Assessment: Temp: B/P: 155/68 MAP: 97 Pulse: 86 Resp: 20 Recent fever? N Clinical Suspician of Infection? N Mental Status: 1 - Regular (Normal Baseline) Sepsis Risk:Low Sepsis Risk Have you (or family members/close friends) recently traveled outside the [place]? N If Yes, where/when: Have you had exposure to infectious disease within the past month? N TB? Other? Specify: Source patient, RN notes reviewed, family, EMS, old records Exam Limitations no limitations Comment this wf has hx of o2 dep copd/anemia/ht dis and recurrent cap - finishe abx recently and was going to bedside toilet tonight and had brief syncopal episode w/o apnea and no since of palpatations - she has had 2 eval recently at [facility] for card disease and has anemia Cardiac Chest Pain Chest pain indicative of cardiac No Timing/Duration this evening Severity moderate ALLERGIES Coded Allergies: Sulfa (Sulfonamide Antibiotics) (03/18/17) azithromycin (From ZITHROMAX) (04/18/17) codeine (04/18/17) Home Medications Active Scripts INSUL REG 30%ISOPHAN 70% HUMAN (Humulin 70-30 Vial) 10 UNITS SC BID #1 INJ Prov: 02/16/17 Trazodone Hcl (Trazodone HCl) 100 MG PO QHS #30 TAB Prov: 04/06/17 Reported Medications BUDESONIDE/FORMOTEROL FUMARATE (Symbicort 80-4.5 Mcg Inhaler) 2 PUFF IH BID Ipratropium [place] (Ipratropium 0.5MG Neb Soln) 0.5 MG INH TID Aspirin (Adult Low Dose Aspirin EC) 81 MG PO DAILY ATENOLOL (Atenolol 50MG) 25 MG PO DAILY OMEPRAZOLE MAGNESIUM (Prilosec 20MG) 20 MG PO DAILY ALBUTEROL (Albuterol 0.083% Neb) 1.25 MG INH TID Temazepam (Restoril 30MG) 30 MG PO QHS Phenazopyridine HCl (Pyridium) 200 MG PO TID PRN URINARY SPASM Lactobacillus Combo No.11 (Probiotic) 1 EACH PO DAILY Lorazepam (Lorazepam 0.5MG) 0.5 MG FT BID Risperidone (Risperdal) 2 MG PO BEDTIME History Medical History General CAD? Yes Angina: Yes [place]: Yes Hypertension? No Hyperlipidemia? Yes CHF? No DVT? No PE? No COPD? Yes Asthma? No Anemia? No GERD? Yes Gastric ulcers? No GI Bleed? No Hernia? Yes Thyroid Problems? No Hypothyroidism? No CVA? Yes Seizures? No Diabetes? 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 No End Stage Renal Disease? No UTI? No Stones? No BPH? No GB Disease: Yes Nephritic Syndrome? No Asplenia? No Hepatitis? No Sickle Cell Disease? No Arthritis? Yes Migraines? No Cataracts? Yes Glaucoma? No MRSA? No HIV? No TB? No Anxiety? Yes Depression? 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 Respiratory see HPI, denies cough, shortness of breath, denies wheezing Cardiovascular see HPI, denies chest pain, denies palpitations, syncope Gastrointestinal denies abdominal pain, denies vomiting Genitourinary denies: dysuria, frequency, hesitancy, hematuria. Musculoskeletal denies back pain, denies joint pain, denies joint swelling, denies neck pain Skin denies rash Psychiatric/Neurological see HPI, denies headache, denies seizure, weakness Physical Exam Vital Signs Vital Signs Date Time Temp Pulse Resp B/P Pulse O2 O2 Flow FiO2 Ox Delivery Rate 04/18 0142 86 20 140/86 97 2 04/18 0033 86 20 155/68 95 2 - WBC >12,000 or <4,000 or 10% bands? 2 or more SIRS Criteria Met? B/P:155/68 MAP:97 Creatinine >2.0? UA output<0.5ml/kg/hr for 2 hrs? Platelet count >100,000? Lactate >2.0mmol/1? INR >1.2 or PTT > than 60 sec? Evidence of Organ Dysfunction? Provider documented clinical suspician of infection? N Sepsis Criteria Count: 1 Sepsis Risk: Low Sepsis Risk General Appearance no apparent distress Eye Exam - bilateral eye PERRL, bilateral eye EOMI Ear, Nose, Throat normal ENT inspection Neck non-tender, no def bruit heard Respiratory Status No: respiratory distress. Lung Sounds bilateral: decreased breath sounds, rhonchi. 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 No Results/Orders Laboratory Tests 04/18/17 0113: Magnesium 1.4 04/18/17 011: Sodium 133 L, Potassium 4.5, Chloride 96 L, Carbon Dioxide 30, BUN 19 H, Creatinine 1.9 H, Estimated Creat Clear 22 L, Estimated GFR (MDRD) 26 L, Glucose 187 H, Calcium 8.6, Total Bilirubin 0.4, AST 16, ALT 13, Alkaline Phosphatase 91, Creatine Kinase 38, CK-MB (CK-2) Rel Index 2.1, CK and CKMB Interp 0.8, Troponin I < 0.02, Total Protein 7.7, Albumin 2.9 L, Globulin 4.8 H, Albumin/Globulin Ratio 0.6 L, WBC 9.3, RBC 3.12 L, Hgb 8.8 L, Hct 27.6 L, MCV 88.4, RDW 16.7, Plt Count 280, MPV 7.5, Gran % 65.5, Gran # 6.1, Lymphocytes % 25.3, Monocytes % 5.7, Eosinophils % 2.9, Basophils % 0.6, Lymphocytes # 2.3, Monocytes # 0.5, Eosinophils # 0.3, Basophils # 0.1, PUBS MCHC 31.9, MCH 28.2 Current Medication Orders Sig/Alona Start time Last Medication Dose Route Stop Time Status Admin Sodium Chloride 1,000 ML .[id number] 04/18 011 AC IV 04/18 1303 Sodium Chloride 10 ML PRN PRN 04/18 011 AC IV 04/19 0103 Sodium Chloride 10 ML PRN PRN 04/18 0045 AC IV 04/19 0034 Orders Procedure Date/time Status MAGNESIUM 04/18 010 Complete ELECTROCARDIOGRAM REQUEST 04/18 35 Active CHEST-PORTABLE 04/18 35 Active IV SALINE LOCK 04/18 35 Active TOWN CLERK 04/18 35 Active CBC WITH AUTO DIFF 04/18 003 Complete CARDIAC ENZYMES 04/18 003 Complete CHEM 12 PROFILE 04/18 003 Complete CM/EKG CM/manufacturing job titles Rhythm Normal Sinus Rhythm EKG non-spec. ST/Twave chgs XRAY/CT/US XRAY/CT/US XRAY chest XR interpretation by reviewed by me Xray Results abnormal (rt upper lobe changes ) Departure Departure Time of Disposition 0220 Disposition Still a Patient Clinical Impression Primary Impression: Syncope Qualifiers: Syncope type: unspecified Qualified Code: R55 - Syncope and collapse Secondary Impressions: Anemia Qualifiers: Anemia type: unspecified type Qualified Code: D64.9 - Anemia, unspecified Renal insufficiency Condition STABLE Referrals Eris ONEILL,Alan (Family) ED Critical Care Critical Care No at 0223
--- NOTE | 2017-04-18 01:02 | Emergency Room Report ---
History of Present Illness Time Seen by 005Toshia Presenting Problem in Triage Pt arrived:Ambulance Stretcher Presenting Problem:S/P SYNCOPAL EPISODE WHILE GETTING UP TO POTTY CHAIR AT HOME. HOSPICE PATIENT. O2 DEPENDENT AT HOME. ALSO C/O SOB AND NAUSEA. Onset of symptoms date/time:04/18/17/ or onset unknown for:MEDICAL HX UNKNOWN Treatment Prior to Arrival: EMS TRANSPORT TRANSACTION ADVISORY SERVICES MANAGER Provided by:CURRICULUM DIRECTOR Sepsis Risk Assessment: Temp: B/P: 155/68 MAP: 97 Pulse: 86 Resp: 20 Recent fever? N Clinical Suspician of Infection? N Mental Status: 1 - Regular (Normal Baseline) Sepsis Risk:Low Sepsis Risk Have you (or family members/close friends) recently traveled outside the [place]? N If Yes, where/when: Have you had exposure to infectious disease within the past month? N TB? Other? Specify: Source patient, RN notes reviewed, family, EMS, old records Exam Limitations no limitations Comment this wf has hx of o2 dep copd/anemia/ht dis and recurrent cap - finishe abx recently and was going to bedside toilet tonight and had brief syncopal episode w/o apnea and no since of palpatations - she has had 2 eval recently at [facility] [place] for card disease and has anemia Cardiac Chest Pain Chest pain indicative of cardiac No Timing/Duration this evening Severity moderate ALLERGIES Coded Allergies: Sulfa (Sulfonamide Antibiotics) (03/18/17) azithromycin (From ZITHROMAX) (04/18/17) codeine (04/18/17) Home Medications Active Scripts INSUL REG 30%ISOPHAN 70% HUMAN (Humulin 70-30 Vial) 10 UNITS SC BID #1 INJ Prov: 02/16/17 Trazodone Hcl (Trazodone HCl) 100 MG PO QHS #30 TAB Prov: 04/06/17 Reported Medications BUDESONIDE/FORMOTEROL FUMARATE (Symbicort 80-4.5 Mcg Inhaler) 2 PUFF IH BID Ipratropium [place] (Ipratropium 0.5MG Neb Soln) 0.5 MG INH TID Aspirin (Adult Low Dose Aspirin EC) 81 MG PO DAILY ATENOLOL (Atenolol 50MG) 25 MG PO DAILY OMEPRAZOLE MAGNESIUM (Prilosec 20MG) 20 MG PO DAILY ALBUTEROL (Albuterol 0.083% Neb) 1.25 MG INH TID Temazepam (Restoril 30MG) 30 MG PO QHS Phenazopyridine HCl (Pyridium) 200 MG PO TID PRN URINARY SPASM Lactobacillus Combo No.11 (Probiotic) 1 EACH PO DAILY Lorazepam (Lorazepam 0.5MG) 0.5 MG FT BID Risperidone (Risperdal) 2 MG PO BEDTIME History Medical History General CAD? Yes Angina: Yes [place]: Yes Hypertension? No Hyperlipidemia? Yes CHF? No DVT? No PE? No COPD? Yes Asthma? No Anemia? No GERD? Yes Gastric ulcers? No GI Bleed? No Hernia? Yes Thyroid Problems? No Hypothyroidism? No CVA? Yes Seizures? No Diabetes? 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 No End Stage Renal Disease? No UTI? No Stones? No BPH? No GB Disease: Yes Nephritic Syndrome? No Asplenia? No Hepatitis? No Sickle Cell Disease? No Arthritis? Yes Migraines? No Cataracts? Yes Glaucoma? No MRSA? No HIV? No TB? No Anxiety? Yes Depression? 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 Respiratory see HPI, denies cough, shortness of breath, denies wheezing Cardiovascular see HPI, denies chest pain, denies palpitations, syncope Gastrointestinal denies abdominal pain, denies vomiting Genitourinary denies: dysuria, frequency, hesitancy, hematuria. Musculoskeletal denies back pain, denies joint pain, denies joint swelling, denies neck pain Skin denies rash Psychiatric/Neurological see HPI, denies headache, denies seizure, weakness Physical Exam Vital Signs Vital Signs Date Time Temp Pulse Resp B/P Pulse O2 O2 Flow FiO2 Ox Delivery Rate 04/18 0142 86 20 140/86 97 2 04/18 0033 86 20 155/68 95 2 - WBC >12,000 or <4,000 or 10% bands? 2 or more SIRS Criteria Met? B/P:155/68 MAP:97 Creatinine >2.0? UA output<0.5ml/kg/hr for 2 hrs? Platelet count >100,000? Lactate >2.0mmol/1? INR >1.2 or PTT > than 60 sec? Evidence of Organ Dysfunction? Provider documented clinical suspician of infection? N Sepsis Criteria Count: 1 Sepsis Risk: Low Sepsis Risk General Appearance no apparent distress Eye Exam - bilateral eye PERRL, bilateral eye EOMI Ear, Nose, Throat normal ENT inspection Neck non-tender, no def bruit heard Respiratory Status No: respiratory distress. Lung Sounds bilateral: decreased breath sounds, rhonchi. 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 No Results/Orders Laboratory Tests 04/18/17 0113: Magnesium 1.4 04/18/17 011: Sodium 133 L, Potassium 4.5, Chloride 96 L, Carbon Dioxide 30, BUN 19 H, Creatinine 1.9 H, Estimated Creat Clear 22 L, Estimated GFR (MDRD) 26 L, Glucose 187 H, Calcium 8.6, Total Bilirubin 0.4, AST 16, ALT 13, Alkaline Phosphatase 91, Creatine Kinase 38, CK-MB (CK-2) Rel Index 2.1, CK and CKMB Interp 0.8, Troponin I < 0.02, Total Protein 7.7, Albumin 2.9 L, Globulin 4.8 H, Albumin/Globulin Ratio 0.6 L, WBC 9.3, RBC 3.12 L, Hgb 8.8 L, Hct 27.6 L, MCV 88.4, RDW 16.7, Plt Count 280, MPV 7.5, Gran % 65.5, Gran # 6.1, Lymphocytes % 25.3, Monocytes % 5.7, Eosinophils % 2.9, Basophils % 0.6, Lymphocytes # 2.3, Monocytes # 0.5, Eosinophils # 0.3, Basophils # 0.1, PUBS MCHC 31.9, MCH 28.2 Current Medication Orders Sig/Alona Start time Last Medication Dose Route Stop Time Status Admin Sodium Chloride 1,000 ML .[id number] 04/18 011 AC IV 04/18 1303 Sodium Chloride 10 ML PRN PRN 04/18 011 AC IV 04/19 0103 Sodium Chloride 10 ML PRN PRN 04/18 0045 AC IV 04/19 0034 Orders Procedure Date/time Status MAGNESIUM 04/18 010 Complete ELECTROCARDIOGRAM REQUEST 04/18 35 Active CHEST-PORTABLE 04/18 35 Active IV SALINE LOCK 04/18 35 Active EQUIPMENT OPERAT0R 04/18 35 Active CBC WITH AUTO DIFF 04/18 003 Complete CARDIAC ENZYMES 04/18 003 Complete CHEM 12 PROFILE 04/18 003 Complete CM/EKG CM/special effects person Rhythm Normal Sinus Rhythm EKG non-spec. ST/Twave chgs XRAY/CT/US XRAY/CT/US XRAY chest XR interpretation by reviewed by me Xray Results abnormal (rt upper lobe changes ) Departure Departure Time of Disposition 0220 Disposition Still a Patient Clinical Impression Primary Impression: Syncope Qualifiers: Syncope type: unspecified Qualified Code: R55 - Syncope and collapse Secondary Impressions: Anemia Qualifiers: Anemia type: unspecified type Qualified Code: D64.9 - Anemia, unspecified Renal insufficiency Condition STABLE Referrals Eris ONEILL,Alan (Family) ED Critical Care Critical Care No at 0223
[2017-04-18 01:24] LABS: HEMOGLOBIN 8.8 g/dL (12.2-16.2); LYMPH # 2.3 K/mm3 (0.7-4.5); LYMPH % 25.3 % (10-50.0)
--- OUTSIDE RECORDS SUMMARY | 2017-04-18 01:30 | External Medical Summary Rpt ---
Author Author , JUSTIN JEFFRIESABDULKADIR Address Unknown Phone [email or web address] Purpose Continuity of Care Document - 01-11-2017 [...]
--- OUTSIDE RECORDS SUMMARY | 2017-04-18 01:30 | External Medical Summary Rpt ---
Author Author , JUSTIN JEFFRIESABDULKADIR Address Unknown Phone [email or web address] Purpose Continuity of Care Document - 01-11-2017 [...]
--- OUTSIDE RECORDS SUMMARY | 2017-04-18 01:30 | External Medical Summary Rpt ---
Demographics Preferred Language [place]an Marital Status Unknown Evangelical Affiliation Unknown Race Unknown Ethnic Group Unknown Author Author NEERU Address Unknown Phone Immunization No patient found.
--- OUTSIDE RECORDS SUMMARY | 2017-04-18 01:30 | External Medical Summary Rpt ---
Demographics Preferred Language [place] Marital Status Unknown Taoism Affiliation Unknown Race Unknown Ethnic Group Unknown Author Author NEERU Address Unknown Phone Immunization No patient found.
--- OUTSIDE RECORDS SUMMARY | 2017-04-18 01:35 | External Medical Summary Rpt ---
Author Author [facility] Banks, NESHAABDULKADIR [employer] Organization [employer] Address Unknown Phone Unavailable Results Basic metabolic panel in Blood Observa Value Referen Units Interpr Notes Date tion ce etation Range Urea 7 - 18 mg/dL Normal No Apr 11 nitrogen informati 2016 [Mass/vol on in 10:30 AM ume] in source Serum or data Plasma Calcium 8.5 - mg/dL Normal No Apr 11 [Mass/vol 10.1 informati 2016 ume] in on in 10:30 AM Serum or source Plasma data Chloride 98 - 107 mmoL/L Normal No Apr 11 [Moles/vo informati 2016 lume] in on in 10:30 AM Serum or source Plasma data Carbon 21.0 - mmoL/L Normal No Apr 11 dioxide, 32.0 informati 2016 total on in 10:30 AM [Moles/vo source lume] in data Serum or Plasma Creatinin 0.55 - mg/dL High No Apr 11 e 1.02 informati 2016 [Mass/vol on in 10:30 AM ume] in source Serum or data Plasma Estimated 59- ML/MIN Low REFERENCE Apr 11 RANGE: 2017 glomerula >60 10:30 AM r ML/MIN/1. filtratio 73 SQUARE n rate METERSIf (GF this patient is -A merican, then multiply theresult by 1.210. Glucose 74 - 106 mg/dL High No Apr 11 [Mass/vol informati 2016 ume] in on in 10:30 AM Serum or source Plasma data Potassium 3.5 - 5.1 mmoL/L Normal No Apr 11 informati 2016 [Moles/vo on in 10:30 AM lume] in source Serum or data Plasma Sodium 136 - 145 mmoL/L Normal No Apr 11 [Moles/vo informati 2017 lume] in on in 10:30 AM Serum or source Plasma data CBC W Auto Differential panel in Blood Observa Value Referen Units Interpr Notes Date tion ce etation Range Basophils 0 - 0.2 K/MM3 Normal No Apr 11 informati 2016 [#/volume on in 10:30 AM ] in source Blood by data Automated count Basophils 0.1 - 2.0 % Normal No Apr 11 /100 inform2016 leukocyte on in 10:30 AM s in source Blood by data Automated count Eosinophi 0.0 - 0.4 K/mm3 Normal No Apr 11 ls 2016 [#/volume on in 10:30 AM ] in source Blood by data Automated count Eosinophi 0.1 - % Normal No Apr 11 ls/100 12.0 inform2016 leukocyte on in 10:30 AM s in source Blood by data Automated count Granulocy 1.8 - 7.8 K/mm3 Normal No Apr 11 gloria inform2016 [#/volume on in 10:30 AM ] in source Blood by data Automated count Granulocy 37.0 - % Normal No Apr 11 gloria/100 80.0 2016 leukocyte on in 10:30 AM s in source Blood by data Automated count Hematocri 37.0 - % Low No Apr 11 t [Volume 47.0 2016 on in 10:30 AM Fraction] source of Blood data Hemoglobi 12.2 - g/dL Low No Apr 11 n 16.2 2016 [Mass/vol on in 10:30 AM ume] in source Blood data Lymphocyt 0.7 - 4.5 K/mm3 Normal No Apr 11 es 2016 [#/volume on in 10:30 AM ] in source Unspecifi data ed specimen by Automated count Lymphocyt 10 - 50.0 % Normal No Apr 11 es 2016 [#/volume on in 10:30 AM ] in source Unspecifi data ed specimen by Automated count Erythrocy 27 - 31.2 pg Normal No Apr 11 te mean 2016 corpuscul on in 10:30 AM ar source hemoglobi data n [Entitic mass] Erythrocy 31.8 - g/dl Low No Apr 11 te mean 35.4 2016 corpuscul on in 10:30 AM ar source hemoglobi data n concentra tion [Mass/vol ume] by Automated count Erythrocy 82.2 - fl Normal No Apr 11 te mean 97.8 2016 corpuscul on in 10:30 AM ar volume source [Entitic data volume] by Automated count Monocytes 0.1 - 1.0 K/mm3 Normal No Apr [id number] [#/volume on in 10:30 AM ] in source Blood by data Automated count Monocytes 1.7 - 9.3 % Normal No Apr 8 /100 inform2016 leukocyte on in 10:30 AM s in source Blood by data Automated count Platelet 7.4 - fl Normal No Apr 8 mean 10.4 2016 volume on in 10:30 AM [Entitic source volume] data in Blood by Automated count Platelets 142 - 424 K/mm3 Normal No Apr 8 informati 2016 [#/volume on in 10:30 AM ] in source Blood data Erythrocy 4.2 - 5.4 M/mm3 Low No Apr 8 gloria informati 2016 [#/volume on in 10:30 AM ] in source Amniotic data fluid Erythrocy 11.5 - % Normal Apr 11 te 17.5 informati 2016 distribut on in 10:30 AM ion width source [Entitic data volume] by Automated count Leukocyte 4.8 - K/MM3 Normal No Apr 11 s 10.8 informati 2016 [#/volume on in 10:30 AM ] in source Blood data Glucose [Mass/volume] in Capillary blood by Glucometer Observa Value Referen Units Interpr Notes Date tion ce etation Range Glucose 70 - 110 mg/dl High No Apr 06 [Mass/vol alert 2016 ume] in on in 11:38 AM Capillary source blood by data Glucomete r Basic metabolic panel in Blood Observa Value Referen Units Interpr Notes Date tion ce etation Range Urea 7 - 18 mg/dL High No Apr 06 nitrogen informati 2016 6:30 [Mass/vol on in AM ume] in source Serum or data Plasma Calcium 8.5 - mg/dL Normal No Apr 06 [Mass/vol 10.1 informati 2016 6:30 ume] in on in AM Serum or source Plasma data Chloride 98 - 107 mmoL/L Normal No Apr 06 [Moles/vo informati 2016 6:30 lume] in on in AM Serum or source Plasma data Carbon 21.0 - mmoL/L Normal No Apr 06 dioxide, 32.0 informati 2017 6:30 total on in AM [Moles/vo source lume] in data Serum or Plasma Creatinin 0.55 - mg/dL High No Apr 06 e 1.02 informati 2016 6:30 [Mass/vol on in AM ume] in source Serum or data Plasma Creatinin 50 - 200 ML/MIN Low No Apr 06 e renal informati 2016 6:30 clearance on in AM source predicted data by Cockcroft -Gault formula Estimated 59- ML/MIN Low REFERENCE Apr 06 RANGE: 2016 6:30 glomerula >60 AM r ML/MIN/1. filtratio 73 SQUARE n rate METERSIf (GF this patient is -A merican, then multiply theresult by 1.210. Glucose 74 - 106 mg/dL High No Apr 06 [Mass/vol informati 2016 6:30 ume] in on in AM Serum or source Plasma data Potassium 3.5 - 5.1 mmoL/L High No Apr 06 informati 2016 6:30 [Moles/vo on in AM lume] in source Serum or data Plasma Sodium 136 - 145 mmoL/L Low No Apr 06 [Moles/vo informati 2016 6:30 lume] in on in AM Serum or source Plasma data CBC W Auto Differential panel in Blood Observa Value Referen Units Interpr Notes Date tion ce etation Range Basophils 0 - 0.2 K/MM3 Normal No Apr 06 informati 2016 6:30 [#/volume on in AM ] in source Blood by data Automated count Basophils 0.1 - 2.0 % Normal No Apr 06 /100 informati 2017 6:30 leukocyte on in AM s in source Blood by data Automated count Eosinophi 0.0 - 0.4 K/mm3 Normal No Apr 06 ls informati 2016 6:30 [#/volume on in AM ] in source Blood by data Automated count Eosinophi 0.1 - % Normal No Apr 06 ls/100 12.0 informati 2016 6:30 leukocyte on in AM s in source Blood by data Automated count Granulocy 1.8 - 7.8 K/mm3 Normal No Apr 06 gloria informati 2016 6:30 [#/volume on in AM ] in source Blood by data Automated count Granulocy 37.0 - % Normal No Apr 06 gloria/100 80.0 informati 2016 6:30 leukocyte on in AM s in source Blood by data Automated count Hematocri 37.0 - % Low No Apr 06 t [Volume 47.0 informati 2016 6:30 on in AM Fraction] source of Blood data Hemoglobi 12.2 - g/dL Low No Apr 06 n 16.2 informati 2016 6:30 [Mass/vol on in AM ume] in source Blood data Lymphocyt 0.7 - 4.5 K/mm3 Normal No Apr 06 es informati 2017 6:30 [#/volume on in AM ] in source Unspecifi data ed specimen by Automated count Lymphocyt 10 - 50.0 % Normal No Apr 06 es informati 2016 6:30 [#/volume on in AM ] in source Unspecifi data ed specimen by Automated count Erythrocy 27 - 31.2 pg Normal No Apr 06 te mean informati 2017 6:30 corpuscul on in AM ar source hemoglobi data n [Entitic mass] Erythrocy 31.8 - g/dl Low No Apr 06 te mean 35.4 informati 2017 6:30 corpuscul on in AM ar source hemoglobi data n concentra tion [Mass/vol ume] by Automated count Erythrocy 82.2 - fl Normal No Apr 06 te mean 97.8 informati 2016 6:30 corpuscul on in AM ar volume source [Entitic data volume] by Automated count Monocytes 0.1 - 1.0 K/mm3 Normal No Apr 06 informati 2016 6:30 [#/volume on in AM ] in source Blood by data Automated count Monocytes 1.7 - 9.3 % Normal No Apr 06 /100 informati 2017 6:30 leukocyte on in AM s in source Blood by data Automated count Platelet 7.4 - fl Normal No Apr 06 mean 10.4 informati 2017 6:30 volume on in AM [Entitic source volume] data in Blood by Automated count Platelets 142 - 424 K/mm3 Normal No Apr 06 informati 2017 6:30 [#/volume on in AM ] in source Blood data Erythrocy 4.2 - 5.4 M/mm3 Low No Apr 06 gloria informati 2017 6:30 [#/volume on in AM ] in source Amniotic data fluid Erythrocy 11.5 - % Normal No Apr 06 te 17.5 informati 2017 6:30 distribut on in AM ion width source [Entitic data volume] by Automated count Leukocyte 4.8 - K/MM3 Normal No Apr 06 s 10.8 informati 2016 6:30 [#/volume on in AM ] in source Blood data Glucose [Mass/volume] in Capillary blood by Glucometer Observa Value Referen Units Interpr Notes Date tion ce etation Range Glucose 70 - 110 mg/dl High No Apr 06 [Mass/vol informati 2017 6:13 ume] in on in AM Capillary source blood by data Glucomete r Glucose [Mass/volume] in Capillary blood by Glucometer Observa Value Referen Units Interpr Notes Date tion ce etation Range Glucose 70 - 110 mg/dl High No Apr 2 [Mass/vol informati 2017 8:19 ume] in on in PM Capillary source blood by data Glucomete r Glucose [Mass/volume] in Capillary blood by Glucometer Observa Value Referen Units Interpr Notes Date tion ce etation Range Glucose 70 - 110 mg/dl High No Apr 2 [Mass/vol informati 2017 4:40 ume] in on in PM Capillary source blood by data Glucomete r Glucose [Mass/volume] in Capillary blood by Glucometer Observa Value Referen Units Interpr Notes Date tion ce etation Range Glucose 70 - 110 mg/dl High No Apr 2 [Mass/vol alert informati 2017 ume] in on in 11:42 AM Capillary source blood by data Glucomete r Glucose [Mass/volume] in Capillary blood by Glucometer Observa Value Referen Units Interpr Notes Date tion ce etation Range Glucose 70 - 110 mg/dl High No Apr 2 [Mass/vol informati 2017 6:19 ume] in on in AM Capillary source blood by data Glucomete r Glucose [Mass/volume] in Capillary blood by Glucometer Observa Value Referen Units Interpr Notes Date tion ce etation Range Glucose 70 - 110 mg/dl High No Apr 04 [Mass/vol alert informati 2017 9:08 ume] in on in PM Capillary source blood by data Glucomete r Glucose [Mass/volume] in Capillary blood by Glucometer Observa Value Referen Units Interpr Notes Date tion ce etation Range Glucose 70 - 110 mg/dl High No Apr 04 [Mass/vol informati 2017 4:41 ume] in on in PM Capillary source blood by data Glucomete r Glucose [Mass/volume] in Capillary blood by Glucometer Observa Value Referen Units Interpr Notes Date tion ce etation Range Glucose 70 - 110 mg/dl High No Apr 1 [Mass/vol alert informati 2017 ume] in on in 11:53 AM Capillary source blood by data Glucomete r Basic metabolic panel in Blood Observa Value Referen Units Interpr Notes Date tion ce etation Range Urea 7 - 18 mg/dL High No Apr 04 nitrogen informati 2016 6:30 [Mass/vol on in AM ume] in source Serum or data Plasma Calcium 8.5 - mg/dL Normal No Apr 04 [Mass/vol 10.1 informati 2016 6:30 ume] in on in AM Serum or source Plasma data Chloride 98 - 107 mmoL/L Normal No Apr 04 [Moles/vo informati 2016 6:30 lume] in on in AM Serum or source Plasma data Carbon 21.0 - mmoL/L Normal No Apr 04 dioxide, 32.0 informati 2016 6:30 total on in AM [Moles/vo source lume] in data Serum or Plasma Creatinin 0.55 - mg/dL High No Apr 04 e 1.02 informati 2016 6:30 [Mass/vol on in AM ume] in source Serum or data Plasma Creatinin 50 - 200 ML/MIN Low No Apr 04 e renal informati 2016 6:30 clearance on in AM source predicted data by Cockcroft -Gault formula Estimated 59- ML/MIN Low REFERENCE Apr 04 RANGE: 2016 6:30 glomerula >60 AM r ML/MIN/1. filtratio 73 SQUARE n rate METERSIf (GF this patient is -A merican, then multiply theresult by 1.210. Glucose 74 - 106 mg/dL High No Apr 04 [Mass/vol informati 2016 6:30 ume] in on in AM Serum or source Plasma data Potassium 3.5 - 5.1 mmoL/L Normal No Apr 04 informati 2016 6:30 [Moles/vo on in AM lume] in source Serum or data Plasma Sodium 136 - 145 mmoL/L Low No Apr 04 [Moles/vo informati 2016 6:30 lume] in on in AM Serum or source Plasma data CBC W Auto Differential panel in Blood Observa Value Referen Units Interpr Notes Date tion ce etation Range Basophils 0 - 0.2 K/MM3 Normal No Apr 04 informati 2016 6:30 [#/volume on in AM ] in source Blood by data Automated count Basophils 0.1 - 2.0 % Normal No Apr 04 /100 informati 2017 6:30 leukocyte on in AM s in source Blood by data Automated count Eosinophi 0.0 - 0.4 K/mm3 Normal No Apr 04 ls informati 2016 6:30 [#/volume on in AM ] in source Blood by data Automated count Eosinophi 0.1 - % Normal No Apr 04 ls/100 12.0 informati 2017 6:30 leukocyte on in AM s in source Blood by data Automated count Granulocy 1.8 - 7.8 K/mm3 Normal No Apr 04 gloria informati 2017 6:30 [#/volume on in AM ] in source Blood by data Automated count Granulocy 37.0 - % Normal No Apr 04 gloria/100 80.0 informati 2017 6:30 leukocyte on in AM s in source Blood by data Automated count Hematocri 37.0 - % Low No Apr 04 t [Volume 47.0 informati 2016 6:30 on in AM Fraction] source of Blood data Hemoglobi 12.2 - g/dL Low No Apr 04 n 16.2 informati 2017 6:30 [Mass/vol on in AM ume] in source Blood data Lymphocyt 0.7 - 4.5 K/mm3 Normal No Apr 04 es informati 2017 6:30 [#/volume on in AM ] in source Unspecifi data ed specimen by Automated count Lymphocyt 10 - 50.0 % Normal No Apr 04 es informati 2017 6:30 [#/volume on in AM ] in source Unspecifi data ed specimen by Automated count Erythrocy 27 - 31.2 pg Normal No Apr 04 te mean informati 2017 6:30 corpuscul on in AM ar source hemoglobi data n [Entitic mass] Erythrocy 31.8 - g/dl Low No Apr 04 te mean 35.4 informati 2017 6:30 corpuscul on in AM ar source hemoglobi data n concentra tion [Mass/vol ume] by Automated count Erythrocy 82.2 - fl Normal No Apr 04 te mean 97.8 informati 2016 6:30 corpuscul on in AM ar volume source [Entitic data volume] by Automated count Monocytes 0.1 - 1.0 K/mm3 Normal No Apr 04 informati 2017 6:30 [#/volume on in AM ] in source Blood by data Automated count Monocytes 1.7 - 9.3 % Normal No Apr 04 / informati 2017 6:30 leukocyte on in AM s in source Blood by data Automated count Platelet 7.4 - fl Normal No Apr 04 mean 10.4 informati 2016 6:30 volume on in AM [Entitic source volume] data in Blood by Automated count Platelets 142 - 424 K/mm3 Normal No Apr 04 informati 2017 6:30 [#/volume on in AM ] in source Blood data Erythrocy 4.2 - 5.4 M/mm3 Low No Apr 04 gloria informati 2017 6:30 [#/volume on in AM ] in source Amniotic data fluid Erythrocy 11.5 - % Normal No Apr 04 te 17.5 informati 2017 6:30 distribut on in AM ion width source [Entitic data volume] by Automated count Leukocyte 4.8 - K/MM3 Normal No Apr 04 s 10.8 informati 2017 6:30 [#/volume on in AM ] in source Blood data Glucose [Mass/volume] in Capillary blood by Glucometer Observa Value Referen Units Interpr Notes Date tion ce etation Range Glucose 70 - 110 mg/dl High No Apr 04 [Mass/vol informati 2016 6:20 ume] in on in AM Capillary source blood by data Glucomete r Glucose [Mass/volume] in Capillary blood by Glucometer Observa Value Referen Units Interpr Notes Date tion ce etation Range Glucose 70 - 110 mg/dl High No Apr 03 [Mass/vol informati 2017 9:06 ume] in on in PM Capillary source blood by data Glucomete r Glucose [Mass/volume] in Capillary blood by Glucometer Observa Value Referen Units Interpr Notes Date tion ce etation Range Glucose 70 - 110 mg/dl High No Apr 03 [Mass/vol informati 2017 4:58 ume] in on in PM Capillary source blood by data Glucomete r Glucose [Mass/volume] in Capillary blood by Glucometer Observa Value Referen Units Interpr Notes Date tion ce etation Range Glucose 70 - 110 mg/dl High No Apr 03 [Mass/vol informati 2016 ume] in on in 11:58 AM Capillary source blood by data Glucomete r Basic metabolic panel in Blood Observa Value Referen Units Interpr Notes Date tion ce etation Range Urea 7 - 18 mg/dL High No Apr 03 nitrogen informati 2017 6:55 [Mass/vol on in AM ume] in source Serum or data Plasma Calcium 8.5 - mg/dL Normal No Apr 03 [Mass/vol 10.1 informati 2017 6:55 ume] in on in AM Serum or source Plasma data Chloride 98 - 107 mmoL/L Low No Apr 03 [Moles/vo informati 2016 6:55 lume] in on in AM Serum or source Plasma data Carbon 21.0 - mmoL/L High No Apr 03 dioxide, 32.0 informati 2016 6:55 total on in AM [Moles/vo source lume] in data Serum or Plasma Creatinin 0.55 - mg/dL High No Apr 03 e 1.02 informati 2016 6:55 [Mass/vol on in AM ume] in source Serum or data Plasma Creatinin 50 - 200 ML/MIN Low No Apr 03 e renal informati 2016 6:55 clearance on in AM source predicted data by Cockcroft -Gault formula Estimated 59- ML/MIN Low REFERENCE Apr 03 RANGE: 2017 6:55 glomerula >60 AM r ML/MIN/1. filtratio 73 SQUARE n rate METERSIf (GF this patient is -A merican, then multiply theresult by 1.210. Glucose 74 - 106 mg/dL High No Apr 03 [Mass/vol informati 2016 6:55 ume] in on in AM Serum or source Plasma data Potassium 3.5 - 5.1 mmoL/L Normal No Apr 03 informati 2016 6:55 [Moles/vo on in AM lume] in source Serum or data Plasma Sodium 136 - 145 mmoL/L Low No Apr 03 [Moles/vo informati 2016 6:55 lume] in on in AM Serum or source Plasma data CBC W Auto Differential panel in Blood Observa Value Referen Units Interpr Notes Date tion ce etation Range Basophils 0 - 0.2 K/MM3 Normal No Apr 03 informati 2016 6:55 [#/volume on in AM ] in source Blood by data Automated count Basophils 0.1 - 2.0 % Normal No Apr 03 informati 2016 6:55 leukocyte on in AM s in source Blood by data Automated count Eosinophi 0.0 - 0.4 K/mm3 Normal No Apr 03 ls informati 2016 6:55 [#/volume on in AM ] in source Blood by data Automated count Eosinophi 0.1 - % Normal No Apr 03 ls/100 12.0 informati 2016 6:55 leukocyte on in AM s in source Blood by data Automated count Granulocy 1.8 - 7.8 K/mm3 Normal No Apr 03 gloria informati 2016 6:55 [#/volume on in AM ] in source Blood by data Automated count Granulocy 37.0 - % Normal No Apr 03 gloria/100 80.0 informati 2017 6:55 leukocyte on in AM s in source Blood by data Automated count Hematocri 37.0 - % Low No Apr 03 t [Volume 47.0 informati 2017 6:55 on in AM Fraction] source of Blood data Hemoglobi 12.2 - g/dL Low No Apr 03 n 16.2 informati 2017 6:55 [Mass/vol on in AM ume] in source Blood data Lymphocyt 0.7 - 4.5 K/mm3 Normal No Apr 03 es informati 2017 6:55 [#/volume on in AM ] in source Unspecifi data ed specimen by Automated count Lymphocyt 10 - 50.0 % Normal No Apr 03 es informati 2017 6:55 [#/volume on in AM ] in source Unspecifi data ed specimen by Automated count Erythrocy 27 - 31.2 pg Normal No Apr 03 te mean informati 2017 6:55 corpuscul on in AM ar source hemoglobi data n [Entitic mass] Erythrocy 31.8 - g/dl Low No Apr 03 te mean 35.4 informati 2017 6:55 corpuscul on in AM ar source hemoglobi data n concentra tion [Mass/vol ume] by Automated count Erythrocy 82.2 - fl Normal No Apr 03 te mean 97.8 informati 2017 6:55 corpuscul on in AM ar volume source [Entitic data volume] by Automated count Monocytes 0.1 - 1.0 K/mm3 Normal No Apr 03 informati 2017 6:55 [#/volume on in AM ] in source Blood by data Automated count Monocytes 1.7 - 9.3 % Normal No Apr 03 informati 2017 6:55 leukocyte on in AM s in source Blood by data Automated count Platelet 7.4 - fl Normal No Apr 03 mean 10.4 informati 2017 6:55 volume on in AM [Entitic source volume] data in Blood by Automated count Platelets 142 - 424 K/mm3 Normal No Apr 03 informati 2017 6:55 [#/volume on in AM ] in source Blood data Erythrocy 4.2 - 5.4 M/mm3 Low No Apr 03 gloria informati 2017 6:55 [#/volume on in AM ] in source Amniotic data fluid Erythrocy 11.5 - % Normal No Apr 03 te 17.5 informati 2017 6:55 distribut on in AM ion width source [Entitic data volume] by Automated count Leukocyte 4.8 - K/MM3 Normal No Apr 03 s 10.8 informati 2016 6:55 [#/volume on in AM ] in source Blood data Glucose [Mass/volume] in Capillary blood by Glucometer Observa Value Referen Units Interpr Notes Date tion ce etation Range Glucose 70 - 110 mg/dl High No Apr 03 [Mass/vol informati 2016 6:39 ume] in on in AM Capillary source blood by data Glucomete r Lactate [Moles/volume] in Serum or Plasma Observa Value Referen Units Interpr Notes tion ce etation Range Lactate 0.4 - 2.0 MMOL/L Normal No Apr 02 [Moles/vo informati 2017 9:40 lume] in on in PM Serum or source Plasma data Natriutietic peptide B [Mass/volume] in Serum or Plasma Observa Value Referen Units Interpr Notes Date ti ce etation Range Natriutie 0 - 100 pg/mL High No Apr 02 tic informati 2016 8:23 peptide B on in PM source [Mass/vol data ume] in Serum or Plasma Lactate [Moles/volume] in Blood Observa Value Referen Units Interpr Notes ti ce etation Range Lactate 0.4 - [...] Low No Apr 02 lobulin informati informati 2017 8:23 [Mass on in on in PM ratio] in source source Serum or data data Plasma Albumin 3.4 - 5.0 gm/dL Low No Apr 02 [Mass/vol informati 2016 8:23 ume] in on in PM Serum or source Plasma data Alkaline 46 - 116 U/L High No Apr 02 phosphata informati 2017 8:23 se on in PM [Enzymati source [...] Normal No Apr 02 dioxide, 32.0 informati 2017 8:23 total on in PM [Moles/vo source [...] 59- ML/MIN Low REFERENCE Apr 02 RANGE: 2017 8:23 glomerula >60 PM r ML/MIN/1. filtratio 73 SQUARE n rate METERSIf (GF this patient is -A merican, then multiply theresult by 1.210. Globulin 1.3 - 3.2 gm/dL High No Apr 02 [Mass/vol informati 2017 8:23 ume] in on in PM Serum source data Glucose 74 - 106 mg/dL High No Apr 02 [Mass/vol informati 2016 8:23 ume] in on in PM Serum or source Plasma data Potassium 3.5 - 5.1 mmoL/L Normal No Apr 02 informati 2017 8:23 [Moles/vo on in PM lume] in source Serum or data Plasma Sodium 136 - 145 mmoL/L Low No Apr 02 [Moles/vo informati 2017 8:23 lume] in on in PM Serum or source Plasma data Aspartate 15 - 37 U/L Normal No Apr 02 informati 2017 8:23 aminotran on in PM sferase source [Enzymati data c activity/ volume] in Serum or Plasma Alanine 12 - 78 U/L Normal No Apr 02 aminotran informati 2017 8:23 sferase on in PM [Enzymati source c data activity/ volume] in Serum or Plasma Protein 6.4 - 8.2 gm/dL Normal No Apr 02 [Mass/vol informati 2017 8:23 ume] in on in [...] - 2.0 % Normal No Apr 02 /100 informati 2017 8:23 leukocyte on in PM [...] K/mm3 Normal No Apr 02 es informati 2016 [...] No Apr 02 te mean 35.4 informati 2016 8:23 corpuscul on in PM ar source hemoglobi data n concentra tion [Mass/vol ume] by Automated count Erythrocy 82.2 - fl Normal No Apr 02 te mean 97.8 informati 2016 8:23 corpuscul on in PM ar volume source [Entitic data volume] by Automated count Monocytes 0.1 - 1.0 K/mm3 Normal No Apr 022016 8:23 [#/volume on in PM ] in [...] 142 - 424 K/mm3 Normal No Apr 022016 8:23 [#/volume on in PM ] in source Blood data Erythrocy 4.2 - 5.4 M/mm3 Low No Apr 02 gloria ati 2016 8:23 [#/volume on in PM ] in source Amniotic data fluid Erythrocy 11.5 - % Normal No Apr 02 te 17.5 informati 2016 8:23 distribut on in PM ion width source [Entitic data volume] by Automated count Leukocyte 4.8 - K/MM3 Normal No Apr 02 s 10.8 ati 2016 8:23 [#/volume on in PM ] [...] mmoL/L Normal No Mar 28 [Moles/vo informati 2017 lume] in on in 10:15 AM Serum [...] gm/dL Normal No Mar 28 [Mass/vol informati 2017 ume] in on in 10:15 AM Serum or source Plasma data CBC W Auto Differential panel in Blood Observa Value Referen Units Interpr Notes Date tion ce etation Range Basophils 0 - 0.2 K/MM3 Normal No Mar 28 inform2016 [#/volume on in 10:15 AM ] in source Blood by data Automated count Basophils 0.1 - 2.0 % Normal No Mar 28 /100 inform2016 leukocyte on in 10:15 AM s [...] 7.8 K/mm3 High No Mar 28 gloria 2016 [#/volume on in 10:15 AM ] in source Blood by data Automated count Granulocy 37.0 - % High No Mar 28 gloria/100 80.0 2016 leukocyte on in 10:15 AM s in source Blood by data Automated count Hematocri 37.0 - % Low No Mar 28 t [Volume 47.0 ati 2016 on in 10:15 AM Fraction] source [...] pg Normal No Mar 28 te mean inform2016 corpuscul on in 10:15 AM ar source hemoglobi data n [Entitic mass] Erythrocy 31.8 - g/dl Low No Mar 28 te mean 35.4 informati 2016 corpuscul on in 10:15 AM [...] 9.3 % Normal No Mar 28 /100 inform2016 leukocyte on in 10:15 AM s in source Blood by data Automated count Platelet 7.4 - fl Normal No Mar 28 mean 10.4 2016 volume on in 10:15 AM [Entitic [...] K/MM3 High No Mar 28 s 10.8 2016 [#/volume on in 10:15 AM ] [...] strip Specific 1.005 - No Normal No Jaspreet 15 gravity 1.030 informati informati 2016 of Urine on in on in 11:00 AM source source data data Urobili 0.2 NEG E.U./dL No No Mar 18 nogen informa informa 2016 [Presen tion in tion in 11:00 ce] in source source AM Urine data data by Test strip INR in Blood by Coagulation assay Observa Value Referen Units Interpr Notes Date ti etation Range IS PATIENT ON ANTICOAGULANTS? N [...] Units Interpr Notes Date ti etation Range IS PATIENT ON ANTICOAGULANTS? N [...] 0.4 K/mm3 Normal No Mar 18 ls ati 2016 [#/volume on in 10:02 AM ] in source Blood by data Automated count Eosinophi 0.1 - % Normal No Mar 18 ls/100 12.0 2016 leukocyte on in 10:02 AM s in source Blood by data Automated count Granulocy 1.8 - 7.8 K/mm3 High No Mar 18 gloria inform2016 [#/volume on in 10:02 AM ] in source Blood by data Automated count Granulocy 37.0 - % High No Mar 18 gloria/100 80.0 2016 leukocyte on in 10:02 AM s in source Blood by data Automated count Hematocri 37.0 - % Low No Mar 18 t [Volume 47.0 ati 2016 on in 10:02 AM Fraction] source of Blood data Hemoglobi 12.2 - g/dL Low No Mar 18 n 16.2 informati 2016 [Mass/vol on in 10:02 AM ume] in source Blood data Lymphocyt 0.7 - 4.5 K/mm3 Normal No Mar 18 es inform2016 [#/volume on [...] K/MM3 High No Mar 18 s 10.8 informati 2016 [#/volume on in 10:02 AM [...] Mar 18 omia informa informa informa informa 2016 [Presen tion in tion in tion in tion in 10:02 ce] in source source source source AM Blood data data data data LYMPH 10 10 - 50 % Normal No Mar 18 inform2016 tion in 10:02 source AM data Blood 1+ No No No No Mar 18 smear informa informa informa informa 2016 finding tion in tion in tion in [...] 0.4 - 2.0 mmol/L Normal No Mar 15 [Moles/vo informati 2016 lume] in on in [...] gm/dL Low No Feb 20 [Mass/vol informati 2016 ume] [...] mg/dL Normal No Feb 21 nitrogen informati 2016 [Mass/vol on in 10:00 AM ume] in source Serum or data Plasma Calcium 8.5 - mg/dL Normal No Feb 21 [Mass/vol 10.1 informati 2016 ume] in on in 10:00 AM Serum or source Plasma data Chloride 98 - 107 mmoL/L Low No Feb 20 [Moles/vo informati 2016 lume] in on in 10:00 AM [...] mg/dL High No Feb 20 [Mass/vol informati 2016 ume] in on in 10:00 AM Serum or source Plasma data Potassium 3.5 - 5.1 mmoL/L Normal No Feb 212016 [Moles/vo on in 10:00 AM lume] in source Serum or data Plasma Sodium 136 - 145 mmoL/L Low No Feb 21 [Moles/vo informati 2016 lume] in on in 10:00 AM [...] 8.2 gm/dL Low No Feb 21 [Mass/vol informati [...] Normal No Feb 21 t [Volume 47.0 informati 2016 on in 10:00 AM Fraction] source of Blood data Hemoglobi 12.2 - g/dL No No Feb 21 n 16.2 informati inform2016 [Mass/vol on in on in 10:00 AM ume] in source source Blood data data Lymphocyt 0.7 - 4.5 K/mm3 Normal No Feb 21 es inform2016 [#/volume on in 10:00 AM ] in source Unspecifi data ed specimen by Automated count Lymphocyt 10 - 50.0 % Normal No Feb 21 es inform2016 [#/volume on in 10:00 AM ] in source Unspecifi data ed specimen by Automated count Erythrocy 27 - 31.2 pg Normal No Feb 21 te mean inform2016 corpuscul on in 10:00 AM ar source hemoglobi data n [Entitic mass] Erythrocy 31.8 - g/dl Low No Feb 21 te mean 35.4 2016 corpuscul on in 10:00 AM ar source hemoglobi data n concentra tion [Mass/vol ume] by Automated count Erythrocy 82.2 - fl Normal No Feb 21 te mean 97.8 inform2016 corpuscul on in 10:00 AM ar volume source [Entitic data volume] by Automated count Monocytes 0.1 - 1.0 K/mm3 Normal No Feb 212016 [#/volume on in 10:00 AM ] in source Blood by data Automated count Monocytes 1.7 - 9.3 % Normal No Feb 20 /100 2016 leukocyte on in 10:00 AM s in source Blood by data Automated count Platelet 7.4 - fl Normal No Feb 21 mean 10.4 inform2016 volume on in 10:00 AM [Entitic source volume] data in Blood by Automated count Platelets 142 - 424 K/mm3 No No Feb 21 informati informati 2016 [#/volume on in on in 10:00 AM ] in source source Blood data data Erythrocy 4.2 - 5.4 M/mm3 Normal No Feb 21 gloria informati 2016 [#/volume on in 10:00 AM ] in source Amniotic data fluid Erythrocy 11.5 - % High No Feb 21 te 17.5 inform2016 distribut on in 10:00 AM ion width source [Entitic data volume] by Automated count Leukocyte 4.8 - K/MM3 Normal No Feb 21 s 10.8 informati 2016 [#/volume on in 10:00 AM ] in source Blood data CBC W Auto Differential panel in Blood Observa Value Referen Units Interpr Notes Date tion ce etation Range Basophils 0 - 0.2 K/MM3 Normal No Feb 15 informati 2016 6:15 [#/volume on in [...] High No Feb 15 gloria/100 80.0 informati 2016 6:15 leukocyte on in AM [...] 1.0 K/mm3 Normal No Chris 15 informati 2017 [...] 0.2 - 1.0 mg/dL Normal No Feb 15 .total informati 2017 6:15 [Mass/vol on [...] Carbon 21.0 - mmoL/L Normal No Feb 16 dioxide, 32.0 informati 2017 6:15 total on in AM [Moles/vo source lume] in data Serum or Plasma Creatinin 0.55 - mg/dL Normal No Feb 15 e 1.02 informati 2017 6:15 [Mass/vol on in AM ume] in source Serum or data Plasma Creatinin 50 - 200 ML/MIN Normal No Feb 16 e renal informati 2017 6:15 clearance on [...] mg/dL High No Feb 15 [Mass/vol informati 2017 6:15 ume] in on in AM Serum or source Plasma data Potassium 3.5 - 5.1 mmoL/L High No Feb 15 informati 2017 6:15 [Moles/vo on in AM lume] in source Serum or data Plasma Sodium 136 - 145 mmoL/L Normal No Chris 15 [Moles/vo informati 2017 6:15 lume] in on in AM Serum or source Plasma data Aspartate 15 - 37 U/L Normal No Feb 15 informati 2017 6:15 aminotran on in AM sferase source [Enzymati data c activity/ volume] in Serum or Plasma Alanine 12 - 78 U/L Normal No Feb 15 aminotran informati 2017 6:15 sferase on in AM [Enzymati source [...] 70 - 110 mg/dl High No Chris 15 [Mass/vol informati 2017 6:09 ume] in on in AM Capillary source blood by data Glucomete r Glucose [Mass/volume] in Capillary blood by Glucometer Observa Value Referen Units Interpr Notes Date ti ce etation Range Glucose 70 - 110 mg/dl High No Chris 14 [Mass/vol informati 2016 8:06 ume] in on in PM Capillary source blood by data Glucomete r Glucose [Mass/volume] in Capillary blood by Glucometer Observa Value Referen Units Interpr Notes Date ti ce etation Range Glucose 70 - 110 mg/dl High No Chris 14 [Mass/vol alert informati 2016 4:31 ume] in on in PM Capillary source blood by data Glucomete r MISCELLANEOUS TEST Observa Value Referen Units Interpr Notes Date ti ce etation Range MISC TEST FOR PROCALCITONIN # [id number] TEST: RESULTS: REFERENCE: PROCALCITONIN 0.15 HIGH 0.00-0.08 [...] LATER) AND ON DAY 4, GO TO [facility] [id number] TEST: RESULTS: REFERENCE: PROCALCITONIN 0.15 HIGH 0.00-0.08 [...] LATER) AND ON DAY 4, GO TO [id number] Glucose [Mass/volume] in Capillary blood by Glucometer [...] High No Feb 15 [Mass/vol informati 2016 6:45 ume] in on in AM Capillary source blood by data Glucomete r Glucose [Mass/volume] in Capillary blood by Glucometer Observa Value Referen Units Interpr Notes Date ti ce etation Range Glucose 70 - 110 mg/dl High No Feb 13 [Mass/vol informati 2016 9:36 ume] in on in PM Capillary source blood by data Glucomete r Hemoglobin & Hematocrit panel in Blood Observa Value Referen Units Interpr Notes Date ti ce etation Range COMMENTS TO FACILITIES SPECIALIST: POST TRANSFUSION Hematocri 37.0 - % Low No Feb 13 t [Volume 47.0 informati 2017 9:11 on in PM Fraction] source of Blood data Hemoglobi 12.2 - g/dL Low No Feb 13 n 16.2 informati 2017 9:11 [Mass/vol on in PM ume] in source Blood data Blood product special preparation [Type] Observa Value Referen Units Interpr Notes Date ti ce etation Range Blood BLOOD No No No BLOOD Feb 14 product UNIT informa informa informa UNIT # 2017 RELEASE in in in : [id number] 6:26 PM special source source source 17 data data data [id number] prepara O tion POSRELE [Type] ASED 7 Mir,A madeleine Glucose [Mass/volume] in Capillary blood by Glucometer Observa Value Referen Units Interpr Notes Date ti ce etation Range Glucose 70 - 110 mg/dl High No Feb 13 [Mass/vol informati 2016 4:37 ume] in on in PM Capillary source blood by data Glucomete r Glucose [Mass/volume] in Capillary blood by Glucometer Observa Value Referen Units Interpr Notes Date ti ce etation Range Glucose 70 - 110 mg/dl High No Feb 13 [Mass/vol informati 2016 ume] in on in 11:53 AM Capillary source blood by data Glucomete r Blood product special preparation [Type] Observa Value Referen Units Interpr Notes Date tion ce etation Range Blood BLOOD No No No BLOOD Feb 14 product UNIT informa informa informa UNIT # 2017 RELEASE ti in in in : [id number] 11:15 special source source source 17 AM data data data [id number] prepara RELEASE tion D [Type] 7Boyers ,Lucind [...] 14 [Type] E informa informa informa informa 2016 in tion in tion in tion in [...] mg/dL Low No Feb 14 nitrogen informati 2017 6:30 [Mass/vol on in AM ume] in source Serum or data Plasma Calcium 8.5 - mg/dL Low No Feb 14 [Mass/vol 10.1 informati 2017 6:30 ume] in on in AM Serum [...] 0.2 K/MM3 Normal No Feb 14 informati 2017 6:30 [...] - 9.3 % Normal No Feb 14 / informati 2016 6:30 leukocyte on in AM s in source Blood by data Automated count Platelet 7.4 - fl Normal No Chris 13 mean 10.4 informati 2017 6:30 volume on in AM [Entitic source volume] data in Blood by Automated count Platelets 142 - 424 K/mm3 Normal No Feb 13 informati 2017 6:30 [#/volume on in AM ] in source Blood data Erythrocy 4.2 - 5.4 M/mm3 Low No Feb 13 gloria informati 2017 6:30 [#/volume on in [...] High No Feb 13 [Mass/vol informati 2017 6:16 ume] in on [...] High No Feb 12 [Mass/vol informati 2017 8:48 ume] in on in PM Capillary source blood by data Glucomete r Glucose [Mass/volume] in Capillary blood by Glucometer Observa Value Referen Units Interpr Notes Date tion ce etation Range Glucose 70 - 110 mg/dl Low No Feb 12 [Mass/vol informati 2017 4:57 ume] in on in PM Capillary source blood by data Glucomete r Glucose [Mass/volume] in Capillary blood by Glucometer Observa Value Referen Units Interpr Notes Date ti ce etation Range Glucose 70 - 110 mg/dl High No Feb 12 [Mass/vol informati 2016 ume] in on in 11:48 AM Capillary [...] mg/dL Low No Feb 12 nitrogen informati 2016 5:05 [Mass/vol on in AM [...] Normal No Feb 13 dioxide, 32.0 informati 2016 5:05 total on in AM [Moles/vo source [...] formula Estimated 59- ML/MIN No REFERENCE Chris 12 informati RANGE: 2017 5:05 glomerula on in [...] Plasma RESU LTS CALLED TO: S CALL BOBBY 02/13/17 0557 Nisha Kirkland Sodium 136 - 145 mmoL/L Normal No Feb 13 [Moles/vo informati 2016 5:05 lume] in on in AM Serum or source Plasma data CBC W Auto Differential panel in Blood Observa Value Referen Units Interpr Notes Date tion ce etation Range Basophils 0 - 0.2 K/MM3 Normal No Feb 12 informati 2016 5:05 [#/volume on in AM ] in source Blood by data Automated count Basophils 0.1 - 2.0 % Normal No Feb 12 /100 informati [...] count Erythrocy 82.2 - fl Normal No Chris 12 te mean 97.8 informati 2017 5:05 corpuscul [...] Erythrocy 11.5 - % High No Feb 13 te 17.5 informati 2017 5:05 distribut on [...] Urea 7 - 18 mg/dL Low No Chris 11 nitrogen informati 2016 4:20 [Mass/vol on in AM [...] formula Estimated 59- ML/MIN No REFERENCE Chris 11 informati RANGE: 2017 4:20 glomerula on in [...] 0 - 0.2 K/MM3 Normal No Feb 11 informati 2016 4:20 [#/volume on in AM ] in source Blood by data Automated count Basophils 0.1 - 2.0 % Normal No Feb 11 /100 informati [...] High No Feb 12 gloria/100 80.0 informati 2016 4:20 leukocyte on in [...] % Normal No Feb 12 es informati 2016 4:20 [#/volume on in AM [...] No Feb 12 te mean 97.8 informati 2016 4:20 corpuscul on in AM ar volume source [Entitic data volume] by Automated count Monocytes 0.1 - 1.0 K/mm3 Normal No Feb 12 informati 2016 4:20 [#/volume on in AM ] in source Blood by data Automated count Monocytes 1.7 - 9.3 % Normal No Feb 11 / informati 2017 4:20 leukocyte on in AM s in source Blood by data Automated count Platelet 7.4 - fl Normal No Feb 12 mean 10.4 informati 2016 4:20 volume on in AM [Entitic source volume] data in Blood by Automated count Platelets 142 - 424 K/mm3 Normal No Feb 12 informati 2016 4:20 [#/volume on in AM ] in source Blood data Erythrocy 4.2 - 5.4 M/mm3 Low No Feb 12 gloria informati 2016 4:20 [#/volume on in AM ] in source Amniotic data fluid Erythrocy 11.5 - % High No Feb 12 te 17.5 informati 2016 4:20 distribut on in AM ion width source [Entitic data volume] by Automated count Leukocyte 4.8 - K/MM3 Low No Feb 12 s 10.8 informati 2016 4:20 [#/volume on in AM ] in source Blood data Glucose [Mass/volume] in Capillary blood by Glucometer Observa Value Referen Units Interpr Notes Date tion ce etation Range Glucose 70 - 110 mg/dl High No Feb 11 [Mass/vol informati 2017 8:40 ume] in on in PM Capillary source blood by data Glucomete r Glucose [Mass/volume] in Capillary blood by Glucometer Observa Value Referen Units Interpr Notes Date tion ce etation Range Glucose 70 - 110 mg/dl High No Feb 11 [Mass/vol informati 2017 4:58 ume] in on in PM Capillary source blood by data Glucomete r Glucose [Mass/volume] in Capillary blood by Glucometer Observa Value Referen Units Interpr Notes Date tion ce etation Range Glucose 70 - 110 mg/dl High No Feb 10 [Mass/vol alert informati 2016 ume] in on in 11:58 AM Capillary source blood by data Glucomete r Glucose [Mass/volume] in Capillary blood by Glucometer Observa Value Referen Units Interpr Notes Date tion ce etation Range Glucose 70 - 110 mg/dl No No Feb 11 [Mass/vol informati informati 2017 5:56 ume] in [...] High No Feb 9 [Mass/vol informati 2017 ume] in on in 11:11 AM Capillary source blood by data Glucomete r Basic metabolic panel in Blood Observa Value Referen Units Interpr Notes Date ti ce etation Range Urea 7 - 18 mg/dL No No Feb 9 nitrogen informati informati 2017 6:38 [Mass/vol on in [...] Carbon 21.0 - mmoL/L Normal No Feb 9 dioxide, 32.0 informati 2017 6:38 total [...] 5.1 mmoL/L Normal No Feb 9 informati 2016 6:38 [Moles/vo on in AM [...] - 2.0 % Normal No Feb 9 / informati 2017 6:38 leukocyte on in [...] K/mm3 Normal No Feb 9 gloria informati 2016 6:38 [#/volume on in AM ] in source Blood by data Automated count Granulocy 37.0 - % Normal No Feb 9 gloria/100 80.0 informati 2017 6:38 leukocyte on in AM s in source Blood by data Automated count Hematocri 37.0 - % Low No Feb 9 t [Volume 47.0 informati 2017 6:38 on in AM Fraction] source of Blood data Hemoglobi 12.2 - g/dL Low No Feb 9 n 16.2 informati 2017 6:38 [Mass/vol on in AM ume] in source Blood data Lymphocyt 0.7 - 4.5 K/mm3 Normal No Feb 9 es informati 2016 6:38 [#/volume on in AM ] in source Unspecifi data ed specimen by Automated count Lymphocyt 10 - 50.0 % Normal No Feb 9 es informati 2017 6:38 [#/volume on in [...] Platelet 7.4 - fl Normal No Feb 10 mean 10.4 informati 2017 6:38 volume on [...] Erythrocy 11.5 - % High No Feb 10 te 17.5 informati 2017 6:38 distribut on [...] High No Feb 8 [Mass/vol alert informati 2016 4:48 ume] in on in PM Capillary [...] Clostri NOT NOT No No No Feb 09 dium DETECTE DETECTE informa informa informa 2017 [...] Vibrio NOT NOT No No No Feb 8 sp DETECTE DETECTE informa informa informa 2017 identif D tion in tion in tion in 2:40 PM ied in source source source Stool data data data by Klarissa m specifi c culture CBC W Auto Differential panel in Blood Observa Value Referen Units Interpr Notes Date tion ce etation Range Granulocy 1.8 - 7.8 K/mm3 Normal No Feb 8 gloria 2016 [#/volume on in 12:00 PM ] in source Blood by data Automated count Granulocy 37.0 - % High No Feb 8 gloria/100 80.0 informati 2016 leukocyte on in 12:00 PM s in source Blood by data Automated count Hematocri 37.0 - % Low No Feb 09 t [Volume 47.0 2016 on in 12:00 PM Fraction] source of Blood data Hemoglobi 12.2 - g/dL Low No Feb 09 n 16.2 inform2016 [Mass/vol on in 12:00 PM ume] in source Blood data Lymphocyt 0.7 - 4.5 K/mm3 Low No Feb 8 es 2016 [#/volume on in 12:00 PM ] in source Unspecifi data ed specimen by Automated count Lymphocyt 10 - 50.0 % Low No Feb 09 es 2016 [#/volume on in 12:00 PM ] in source Unspecifi data ed specimen by Automated count Erythrocy 27 - 31.2 pg Normal No Feb 09 te mean 2016 corpuscul on in 12:00 PM ar source hemoglobi data n [Entitic mass] Erythrocy 31.8 - g/dl Normal No Feb 8 te mean 35.4 2016 corpuscul on in 12:00 PM ar source hemoglobi data n concentra tion [Mass/vol ume] by Automated count Erythrocy 82.2 - fL Normal No Feb 09 te mean 97.8 inform2016 corpuscul on in 12:00 PM ar volume source [Entitic data volume] by Automated count Monocytes 0.1 - 1.0 K/mm3 Normal No Feb 8 inform2016 [#/volume on in 12:00 PM ] in source Blood by data Automated count Monocytes 1.7 - 9.3 % Normal No Feb 8 /2016 leukocyte on in 12:00 PM s in [...] % High No Feb 8 te 17.5 inform2016 distribut on in 12:00 PM ion width source [Entitic data volume] by Automated count Leukocyte 4.8 - K/mm3 Normal No Feb 8 s 10.8 inform2016 [#/volume on in 12:00 PM ] in source Blood data Differential panel, method unspecified - Observa Value Referen Units Interpr Notes Date tion ce etation Range LYMPH 9 10 - 50 % Low No Feb 8 inform2016 tion in 12:00 source PM data Monocytes 2 - 9 % Normal No Feb 8 2016 leukocyte [...] Automated count Cells No #CELLS No No Feb 8 Counted informati ati ati 2016 Total [#] on in on in on in 12:00 PM in Blood source source source data data data Mycoplasma pneumoniae IgM Ab [Presence] in Serum by Immunoassay Observa Value Referen Units Interpr Notes Date tion ce etation Range Mycopla NON-NAVA NONREAC No No No Feb 8 sma CTIVE TIVE informa informa informa 2017 pneumon tion in tion in tion in 12:00 iae IgM source source source PM Ab data data data [Presen ce] in Serum by Immunoa ssay Basic metabolic panel in Blood Observa Value Referen Units Interpr Notes Date tion ce etation Range Urea 7 - 18 mg/dL Normal No Feb 8 nitrogen informati 2016 [Mass/vol on in 12:00 PM ume] in source Serum or data Plasma Calcium 8.5 - mg/dL Normal No Feb 8 [Mass/vol 10.1 informati 2017 ume] in on in 12:00 [...] 74 - 106 mg/dL High No Feb 8 [Mass/vol informati 2017 ume] in on in 12:00 PM Serum or source Plasma data Potassium 3.5 - 5.1 mmoL/L Normal No Feb 8 informati 2017 [Moles/vo on in 12:00 PM lume] in [...] Feb 06 nce of informa informa informa 2016 Urine [...] data data Eosinophi NONE #/lpf No No Chris 5 ls/100 informati informati 2017 leukocyte on in [...] field Urobili 1.0 NEG E.U./dL No No Feb 06 nogen informa informa 2016 [Presen tion in [...] Mucus TRACE NEG No Abnorma No Feb 5 [Presen informa l informa 2016 ce] in tion in tion in 12:45 Urine source source PM sedimen data data t by Light microsc opy Nitrite NEGATIV NEG No No No Feb 5 E informa informa informa 2016 [Presen tion in tion in tion in 12:45 ce] in source source source PM Urine data data data by Test strip pH of 5.0 - 8.5 No Normal No Chris 5 Urine informati informati 2017 on in on in 12:45 PM source source data data Protein NEG mg/dL High No Feb 5 [Mass/vol informati 2016 ume] in on in 12:45 PM Urine by source Automated data test strip Specific 1.005 - No Normal No Feb 5 gravity 1.030 informati informati 2016 of Urine on in on in 12:45 PM source source data data Urobili 1.0 NEG E.U./dL No No Feb 5 nogen informa informa 2016 [Presen tion in tion in 12:45 ce] in source source PM Urine data data by Test strip Glucose [Mass/volume] in Capillary blood by Glucometer Observa Value Referen Units Interpr Notes Date tion ce etation Range Glucose 70 - 110 mg/dl High No Feb 5 [Mass/vol informati 2016 ume] in on in 12:22 PM Capillary source blood by data Glucomete r Comprehensive metabolic 2000 panel in Serum or Plasma Observa Value Referen Units Interpr Notes Date tion ce etation Range Albumin/G 1.1 - 1.8 No Low No Chris 5 lobulin informati informati 2016 6:25 [Mass on in on in AM ratio] in source source Serum or data data Plasma Albumin 3.4 - 5.0 gm/dL Low No Feb 5 [Mass/vol informati [...] Calcium 8.5 - mg/dL Low No Feb 5 [Mass/vol 10.1 informati 2017 6:25 ume] [...] Creatinin 0.55 - mg/dL Normal No Feb 06 e 1.02 informati 2016 6:25 [Mass/vol on in AM ume] in source Serum or data Plasma Creatinin 50 - 200 ML/MIN Normal No Feb 06 e renal informati 2016 6:25 clearance on in AM source predicted [...] 74 - 106 mg/dL High No Feb 5 [Mass/vol informati 2016 6:25 ume] in on in AM Serum or source Plasma data Potassium 3.5 - 5.1 mmoL/L Normal No Feb 06 informati 2016 6:25 [Moles/vo on in AM [...] % Normal No Chris 5 /100 informati 2016 6:25 leukocyte on in AM s in source Blood by data Automated count Eosinophi 0.0 - 0.4 K/mm3 Normal No Chris 5 ls informati 2016 6:25 [#/volume on in AM ] in source Blood by data Automated count Eosinophi 0.1 - % Normal No Feb 5 ls/100 12.0 informati 2016 6:25 leukocyte on in AM s in source Blood by data Automated count Granulocy 1.8 - 7.8 K/mm3 Normal No Feb 5 gloria informati 2016 6:25 [#/volume on in AM ] in source Blood by data Automated count Granulocy 37.0 - % Normal No Chris 5 gloria/100 80.0 informati 2016 6:25 leukocyte on in AM s in source Blood by data Automated count Hematocri 37.0 - % Low No Feb 06 t [Volume 47.0 informati 2016 6:25 on in AM Fraction] source of Blood data Hemoglobi 12.2 - g/dL Low No Feb 06 n 16.2 informati 2016 6:25 [Mass/vol on in AM ume] in source Blood data Lymphocyt 0.7 - 4.5 K/mm3 Normal No Feb 06 es informati 2016 6:25 [#/volume on in AM ] in source Unspecifi data ed specimen by Automated count Lymphocyt 10 - 50.0 % Normal No Feb 06 es informati 2016 6:25 [#/volume on in AM ] in source Unspecifi data ed specimen by Automated count Erythrocy 27 - 31.2 pg Normal No Feb 06 te mean informati 2016 6:25 corpuscul on in AM ar source hemoglobi data n [Entitic mass] Erythrocy 31.8 - g/dl Low No Feb 06 te mean 35.4 informati 2016 6:25 corpuscul on in AM [...] Erythrocy 4.2 - 5.4 M/mm3 Low No Chris 5 gloria informati 2017 6:25 [#/volume on [...] High No Chris 5 [Mass/vol informati 2017 6:23 ume] in [...] gm/dL High No Chris 4 [Mass/vol informati 2017 [...] mmoL/L Low No Chris 4 [Moles/vo informati 2016 lume] in on in 11:45 AM Serum or source Plasma data Aspartate 15 - 37 U/L Normal MAY BE Chris 4 ELEVATED 2017 aminotran DUE TO 11:45 AM sferase SLIGHT [Enzymati HEMOLYSIS c activity/ volume] in Serum or Plasma Alanine 12 - 78 U/L Normal No Feb 4 aminotran informati 2016 sferase on in 11:45 AM [Enzymati source [...] 7.8 K/mm3 Normal No Feb 4 gloria inform2016 [#/volume on [...] pg Normal No Feb 4 te mean 2016 corpuscul on in 11:45 AM ar source [...] 9.3 % Normal No Chris 4 /100 2016 leukocyte on in 11:45 AM s in source Blood by data Automated count Platelet 7.4 - fl Low No Feb 05 mean 10.4 2016 volume on in 11:45 AM [Entitic source volume] data in Blood by Automated count Platelets 142 - 424 K/mm3 Normal No Feb 4 2016 [#/volume on in 11:45 AM ] [...] Interpr Notes Date tion ce etation Range Hemoglo 8.6 0.0 - % [...] No No January 26 [Mass/vol informati informati 2017 ume] in on in on in 11:20 [...] mg/dl High No January 25 [Mass/vol informati 2017 4:34 ume] in on in PM Capillary source blood by data Glucomete r Glucose [Mass/volume] in Capillary blood by Glucometer Observa Value Referen Units Interpr Notes Date tion ce etation Range Glucose 70 - 110 mg/dl High No January 25 [Mass/vol informati 2017 ume] in on in 11:57 AM Capillary [...] Date ti ce etation Range COMMENTS TO FACILITIES SPECIALIST: FINGERSTICK TO LOW TO READ Glucose 74 [...] 10 - 50 % Low No January [id number] tion in 6:00 AM source data Monocytes 2 - 9 % Low No January 23 /100 informati 2016 6:00 leukocyte on in AM [...] mmoL/L Low No January 23 [Moles/vo informati 2017 6:00 lume] in on in AM Serum [...] High No January 21 [Mass/vol alert informati 2017 ume] in on in 11:15 AM Capillary [...] No No January 20 [Mass/vol informati informati 2017 ume] in on in on in 12:03 [...] High No January 16 [Mass/vol informati 2016 8:30 ume] in on in PM Capillary source blood by data Glucomete r Glucose [Mass/volume] in Capillary blood by Glucometer Observa Value Referen Units Interpr Notes Date tion ce etation Range Glucose 70 - 110 mg/dl High No January 16 [Mass/vol alert informati 2016 4:41 ume] in on in PM Capillary source blood by data Glucomete r Glucose [Mass/volume] in Capillary blood by Glucometer Observa Value Referen Units Interpr Notes Date tion ce etation Range Glucose 70 - 110 mg/dl High No January 16 [Mass/vol informati 2016 ume] in on [...] 110 mg/dl High No January 16 [Mass/vol alert informati 2016 9:14 ume] in [...] a : PCR- informa informa informa informa 2017 identif STREPTO tion in tion in tion in tion in 4:10 PM ied in COCCUS source source source source Blood data data data data by Aer[employer] culture Bacteri GRAM No No No No January 11 a STAIN- informa informa informa informa 2017 identif GRAM tion in tion in tion [...] No No No No January 11 a Fany pacheco informa informa informa informa 2017 identif herine tion in tion in tion [...]
--- OUTSIDE RECORDS SUMMARY | 2017-04-18 01:35 | External Medical Summary Rpt ---
[...] etation Range MISC TEST FOR PROCALCITONIN # [id number] TEST: RESULTS: REFERENCE: PROCALCITONIN 0.15 HIGH 0.00-0.08 [...] LATER) AND ON DAY 4, GO TO [facility][id number] TEST: RESULTS: REFERENCE: PROCALCITONIN 0.15 HIGH 0.00-0.08 [...] LATER) AND ON DAY 4, GO TO [email or web address][facility] Glucose [Mass/volume] in Capillary blood by Glucometer [...] Date ti ce etation Range COMMENTS TO [employer] OPERATOR: POST TRANSFUSION Hematocri 37.0 - % Low [...] source source source 17 data data data [id number] prepara O tion POSRELE [Type] ASED 7 [...] source source 17 AM data data data [id number] prepara RELEASE tion D [Type] 7Boyers ,Lucind [...] count Platelet 7.4 - fl Normal No Hcris 13 mean 10.4 informati 2017 6:30 volume [...] Date ti ce etation Range COMMENTS TO [employer] OPERATOR: FINGERSTICK TO LOW TO READ Glucose 74 [...]
[2017-04-18 01:47] LABS: BUN 19 mg/dL (7-18)
[2017-04-18 01:55] LABS: GFR (ESTIMATED) 26 ML/MIN (59-)
--- OUTSIDE RECORDS SUMMARY | 2017-04-18 02:30 | External Medical Summary Rpt ---
Author Author , JUSTIN JEFFRIESABDULKADIR Address Unknown Phone [email or web address] Purpose Continuity of Care Document - 01-11-2017 [...]
--- OUTSIDE RECORDS SUMMARY | 2017-04-18 02:30 | External Medical Summary Rpt ---
Demographics Preferred Language Mongolian Marital Status Unknown Baptism Affiliation Unknown Race Unknown Ethnic Group Unknown Author Author NEERU Address Unknown Phone Immunization No patient found.
--- OUTSIDE RECORDS SUMMARY | 2017-04-18 02:30 | External Medical Summary Rpt ---
Author Author , JUSTIN JEFFRIESABDULKADIR Address Unknown Phone [email or web address] Purpose Continuity of Care Document - 01-11-2017 [...]
--- OUTSIDE RECORDS SUMMARY | 2017-04-18 02:30 | External Medical Summary Rpt ---
Demographics Preferred Language Algerian Marital Status Unknown Hoahaoism Affiliation Unknown Race Unknown Ethnic Group Unknown Author Author NEERU Address Unknown Phone Immunization No patient found.
--- OUTSIDE RECORDS SUMMARY | 2017-04-18 02:36 | External Medical Summary Rpt ---
Author Author JUSTIN Jocelyn, [employer] Organization [employer] Address Unknown Phone Unavailable Results CBC W Auto Differential panel in Blood Observa Value Referen Units Interpr Notes Date tion ce etation Range Basophils 0 - 0.2 K/MM3 Normal No Apr 15 informati 2016 1:13 [#/volume on in AM ] in source Blood by data Automated count Basophils 0.1 - 2.0 % Normal No Apr 18 /100 informati 2016 1:13 leukocyte on in AM s in source Blood by data Automated count Eosinophi 0.0 - 0.4 K/mm3 Normal No Apr 18 ls informati 2016 1:13 [#/volume on in AM ] in source Blood by data Automated count Eosinophi 0.1 - % Normal No Apr 18 ls/100 12.0 informati 2016 1:13 leukocyte on in AM s in source Blood by data Automated count Granulocy 1.8 - 7.8 K/mm3 Normal No Apr 18 gloria informati 2016 1:13 [#/volume on in AM ] in source Blood by data Automated count Granulocy 37.0 - % Normal No Apr 18 gloria/100 80.0 informati 2016 1:13 leukocyte on in AM s in source Blood by data Automated count Hematocri 37.0 - % Low No Apr 18 t [Volume 47.0 informati 2016 1:13 on in AM Fraction] source of Blood data Hemoglobi 12.2 - g/dL Low No Apr 18 n 16.2 informati 2016 1:13 [Mass/vol on in AM ume] in source Blood data Lymphocyt 0.7 - 4.5 K/mm3 Normal No Apr 18 es informati 2016 1:13 [#/volume on in AM ] in source Unspecifi data ed specimen by Automated count Lymphocyt 10 - 50.0 % Normal No Apr 18 es informati 2016 1:13 [#/volume on in AM ] in source Unspecifi data ed specimen by Automated count Erythrocy 27 - 31.2 pg Normal No Apr 18 te mean informati 2016 1:13 corpuscul on in AM ar source hemoglobi data n [Entitic mass] Erythrocy 31.8 - g/dl Normal No Apr 18 te mean 35.4 informati 2016 1:13 corpuscul on in AM ar source hemoglobi data n concentra tion [Mass/vol ume] by Automated count Erythrocy 82.2 - fl Normal No Apr 18 te mean 97.8 informati 2016 1:13 corpuscul on in AM ar volume source [Entitic data volume] by Automated count Monocytes 0.1 - 1.0 K/mm3 Normal No Apr 18 informati 2016 1:13 [#/volume on in AM ] in source Blood by data Automated count Monocytes 1.7 - 9.3 % Normal No Apr 15 /100 informati 2016 1:13 leukocyte on in AM s in source Blood by data Automated count Platelet 7.4 - fl Normal No Apr 18 mean 10.4 informati 2016 1:13 volume on in AM [Entitic source volume] data in Blood by Automated count Platelets 142 - 424 K/mm3 Normal No Apr 182016 1:13 [#/volume on in AM ] in source Blood data Erythrocy 4.2 - 5.4 M/mm3 Low No Apr 15 gloria informati 2016 1:13 [#/volume on in AM ] in source Amniotic data fluid Erythrocy 11.5 - % Normal No Apr 18 te 17.5 informati 2016 1:13 distribut on in AM ion width source [Entitic data volume] by Automated count Leukocyte 4.8 - K/MM3 Normal No Apr 15 s 10.8 informati 2016 1:13 [#/volume on in AM ] in source Blood data Magnesium [Moles/volume] in Unspecified specimen Observa Value Referen Units Interpr Notes Date tion ce etation Range Magnesium 1.4 - 2.2 mg/dL Normal No Apr 15 informati 2016 1:13 [Moles/vo on in AM lume] in source Unspecifi data ed specimen Basic metabolic panel in Blood Observa Value Referen Units Interpr Notes Date tion ce etation Range Urea 7 - 18 mg/dL Normal No Apr 8 nitrogen 2016 [Mass/vol on in 10:30 AM ume] in source Serum or data Plasma Calcium 8.5 - mg/dL Normal No Apr 11 [Mass/vol 10.1 inform2016 ume] in on in 10:30 AM Serum or source Plasma data Chloride 98 - 107 mmoL/L Normal No Apr 11 [Moles/vo informati 2016 lume] in on in 10:30 AM Serum or source Plasma data Carbon 21.0 - mmoL/L Normal No Apr 11 dioxide, 32.0 ati 2016 total on in 10:30 AM [Moles/vo [...] 3.5 - 5.1 mmoL/L Normal No Apr 112016 [Moles/vo on in 10:30 AM lume] in source Serum or data Plasma Sodium 136 - 145 mmoL/L Normal No Apr 11 [Moles/vo informati 2016 lume] in on in 10:30 AM Serum or source Plasma data CBC W Auto Differential panel in Blood Observa Value Referen Units Interpr Notes Date tion ce etation Range Basophils 0 - 0.2 K/MM3 Normal No Apr 112016 [#/volume on in 10:30 AM ] in source Blood by data Automated count Basophils 0.1 - 2.0 % Normal No Apr 11 /100 informati 2017 leukocyte on in 10:30 AM s in source Blood by data Automated count Eosinophi 0.0 - 0.4 K/mm3 Normal No Apr 11 ls ati 2016 [#/volume on in 10:30 AM ] in source Blood by data Automated count Eosinophi 0.1 - % Normal No Apr 11 ls/100 12.0 inform2016 leukocyte on in 10:30 AM s in source Blood by data Automated count Granulocy 1.8 - 7.8 K/mm3 Normal No Apr 11 gloria informati 2016 [#/volume on in 10:30 AM ] in source Blood by data Automated count Granulocy 37.0 - % Normal No Apr 11 gloria/100 80.0 2016 leukocyte on in 10:30 AM s in source Blood by data Automated count Hematocri 37.0 - % Low No Apr 11 t [Volume 47.0 ati 2016 on in 10:30 AM Fraction] source of Blood data Hemoglobi 12.2 - g/dL Low No Apr 11 n 16.2 informati 2016 [Mass/vol on in 10:30 AM [...] Normal No Apr 11 te mean 97.8 inform2016 corpuscul on in 10:30 AM ar volume source [Entitic data volume] by Automated count Monocytes 0.1 - 1.0 K/mm3 Normal No Apr 112016 [#/volume on in 10:30 AM ] in source Blood by data Automated count Monocytes 1.7 - 9.3 % Normal No Apr 11 /100 inform 2017 leukocyte on in 10:30 AM s in source Blood by data Automated count Platelet 7.4 - fl Normal No Apr 11 mean 10.4 2016 volume on in 10:30 AM [Entitic source volume] data in Blood by Automated count Platelets 142 - 424 K/mm3 Normal No Apr 112016 [#/volume on in 10:30 AM ] in source Blood data Erythrocy 4.2 - 5.4 M/mm3 Low No Apr 11 gloria 2016 [#/volume on in 10:30 AM ] in source Amniotic data fluid Erythrocy 11.5 - % Normal No Apr 11 te 17.5 2016 distribut on in 10:30 AM ion width source [Entitic data volume] by Automated count Leukocyte 4.8 - K/MM3 Normal No Apr 8 s 10.8 informati 2016 [#/volume on in 10:30 AM ] in source Blood data Glucose [Mass/volume] in Capillary blood by Glucometer Observa Value Referen Units Interpr Notes Date tion ce etation Range Glucose 70 - 110 mg/dl High No Apr 06 [Mass/vol alert informati 2016 ume] in on in 11:38 AM [...] Normal No Apr 06 [Mass/vol 10.1 informati 2017 6:30 ume] in [...] High No Apr 06 e 1.02 informati 2017 6:30 [Mass/vol on in AM ume] in source Serum or data Plasma Creatinin 50 - 200 ML/MIN Low No Apr 06 e renal informati 2017 6:30 clearance on in AM source predicted data by Cockcroft -Gault formula Estimated 59- ML/MIN Low REFERENCE Apr 06 RANGE: 2017 6:30 glomerula >60 AM r ML/MIN/1. filtratio 73 SQUARE n rate METERSIf (GF this patient is -A merican, then multiply theresult by 1.210. Glucose 74 - 106 mg/dL High No Apr 06 [Mass/vol informati 2017 6:30 ume] in on in AM Serum or source Plasma data Potassium 3.5 - 5.1 mmoL/L High No Apr 3 informati 2017 6:30 [Moles/vo on in AM lume] in source Serum or data Plasma Sodium 136 - 145 mmoL/L Low No Aug 3 [Moles/vo informati 2017 6:30 lume] in on in AM Serum [...] % Normal No Apr 06 /100 informati 2016 6:30 leukocyte on in AM s in source Blood by data Automated count Eosinophi 0.0 - 0.4 K/mm3 Normal No Apr 06 ls informati 2016 6:30 [#/volume on in AM ] in source Blood by data Automated count Eosinophi 0.1 - % Normal No Apr 06 ls/100 12.0 informati 2017 6:30 leukocyte on [...] No Apr 06 t [Volume 47.0 informati 2017 6:30 on in AM Fraction] source of Blood data Hemoglobi 12.2 - g/dL Low No Apr 06 n 16.2 informati 2016 6:30 [Mass/vol on in AM ume] in source Blood data Lymphocyt 0.7 - 4.5 K/mm3 Normal No Apr 06 es informati 2016 6:30 [#/volume on in AM ] in source Unspecifi data ed specimen by Automated count Lymphocyt 10 - 50.0 % Normal No Apr 06 es informati 2016 6:30 [#/volume on in AM ] in source Unspecifi data ed specimen by Automated count Erythrocy 27 - 31.2 pg Normal No Apr 06 te mean informati 2016 6:30 corpuscul on in AM ar source hemoglobi data n [Entitic mass] Erythrocy 31.8 - g/dl Low No Apr 06 te mean 35.4 informati 2016 6:30 corpuscul on in AM ar source hemoglobi data n concentra tion [Mass/vol ume] by Automated count Erythrocy 82.2 - fl Normal No Apr 06 te mean 97.8 informati 2016 6:30 corpuscul on in AM ar volume source [Entitic data volume] by Automated count Monocytes 0.1 - 1.0 K/mm3 Normal No Apr 3 informati 2016 6:30 [#/volume on in AM ] in source Blood by data Automated count Monocytes 1.7 - 9.3 % Normal No Apr 3 /100 informati 2017 6:30 leukocyte on in AM s in source Blood by data Automated count Platelet 7.4 - fl Normal No Apr 06 mean 10.4 informati 2017 6:30 volume on in AM [Entitic source volume] data in Blood by Automated count Platelets 142 - 424 K/mm3 Normal No Apr 3 informati 2017 6:30 [#/volume on in AM ] in source Blood data Erythrocy 4.2 - 5.4 M/mm3 Low No Apr 06 gloria informati 2016 6:30 [#/volume on in AM ] in source Amniotic data fluid Erythrocy 11.5 - % Normal Apr 06 te 17.5 informati 2016 6:30 distribut on in AM ion width source [Entitic data volume] by Automated count Leukocyte 4.8 - K/MM3 Normal No Apr 06 s 10.8 informati 2016 6:30 [#/volume on in AM ] in source Blood data Glucose [Mass/volume] in Capillary blood by Glucometer Observa Value Referen Units Interpr Notes Date ti etation Range Glucose 70 - 110 mg/dl High No Apr 3 [Mass/vol informati 2017 6:13 ume] in on in AM Capillary source blood by data Glucomete r Glucose [Mass/volume] in Capillary blood by Glucometer Observa Value Referen Units Interpr Notes Date ti ce etation Range Glucose 70 - 110 mg/dl High No Apr 2 [Mass/vol informati 2016 8:19 ume] in on in PM Capillary [...] High No Apr 1 [Mass/vol alert informati 2016 9:08 ume] in on in PM Capillary source blood by data Glucomete r Glucose [Mass/volume] in Capillary blood by Glucometer Observa Value Referen Units Interpr Notes Date tion ce etation Range Glucose 70 - 110 mg/dl High No Apr 04 [Mass/vol informati 2016 4:41 ume] in on in PM Capillary source blood by data Glucomete r Glucose [Mass/volume] in Capillary blood by Glucometer Observa Value Referen Units Interpr Notes Date tion ce etation Range Glucose 70 - 110 mg/dl High No Apr 04 [Mass/vol alert informati 2016 ume] in on in 11:53 AM Capillary source blood by data Glucomete r Basic metabolic panel in Blood Observa Value Referen Units Interpr Notes Date ti ce etation Range Urea 7 - 18 mg/dL High No Apr 04 nitrogen informati 2017 6:30 [Mass/vol on in AM ume] in source Serum or data Plasma Calcium 8.5 - mg/dL Normal No Apr 04 [Mass/vol 10.1 informati 2017 6:30 ume] in on in AM Serum or source Plasma data Chloride 98 - 107 mmoL/L Normal No Apr 04 [Moles/vo informati 2017 6:30 lume] in on in AM Serum or source Plasma data Carbon 21.0 - mmoL/L Normal No Apr 04 dioxide, 32.0 informati 2017 6:30 total on in AM [Moles/vo source lume] in data Serum or Plasma Creatinin 0.55 - mg/dL High No Apr 04 e 1.02 informati 2017 6:30 [Mass/vol on in AM ume] in source Serum or data Plasma Creatinin 50 - 200 ML/MIN Low No Apr 04 e renal informati 2017 6:30 clearance on in AM source predicted data by Cockcroft -Gault formula Estimated 59- ML/MIN Low REFERENCE Apr 04 RANGE: 2017 6:30 glomerula >60 AM r ML/MIN/1. filtratio 73 SQUARE n rate METERSIf (GF this patient is -A merican, then multiply theresult by 1.210. Glucose 74 - 106 mg/dL High No Apr 04 [Mass/vol informati 2017 6:30 ume] in on in [...] 0.2 K/MM3 Normal No Apr 04 informati 2017 6:30 [#/volume on in AM ] in source Blood by data Automated count Basophils 0.1 - 2.0 % Normal No Apr 04 informati 2017 6:30 leukocyte on in AM s in source Blood by data Automated count Eosinophi 0.0 - 0.4 K/mm3 Normal No Apr 04 ls informati 2016 6:30 [#/volume on in AM ] in source Blood by data Automated count Eosinophi 0.1 - % Normal No Apr 04 ls/100 12.0 informati 2016 6:30 leukocyte on [...] No Apr 04 te mean 97.8 informati 2017 6:30 corpuscul on in AM ar volume source [Entitic data volume] by Automated count Monocytes 0.1 - 1.0 K/mm3 Normal No Apr 04 informati 2017 6:30 [#/volume on in AM ] in source Blood by data Automated count Monocytes 1.7 - 9.3 % Normal No Apr 1 /100 informati 2017 6:30 leukocyte on in AM s in source Blood by data Automated count Platelet 7.4 - fl Normal No Apr 04 mean 10.4 informati 2017 6:30 volume on [...] Normal No Apr 04 s 10.8 informati 2016 6:30 [#/volume on in AM ] in source Blood data Glucose [Mass/volume] in Capillary blood by Glucometer Observa Value Referen Units Interpr Notes Date tion ce etation Range Glucose 70 - 110 mg/dl High No Apr 04 [Mass/vol informati 2017 6:20 ume] in on in AM Capillary source blood by data Glucomete r Glucose [Mass/volume] in Capillary blood by Glucometer Observa Value Referen Units Interpr Notes Date tion ce etation Range Glucose 70 - 110 mg/dl High No Apr 03 [Mass/vol informati 2016 9:06 ume] in on in PM Capillary source blood by data Glucomete r Glucose [Mass/volume] in Capillary blood by Glucometer Observa Value Referen Units Interpr Notes Date ti etation Range Glucose 70 - 110 mg/dl High No Apr 03 [Mass/vol informati 2016 4:58 ume] in on in PM Capillary [...] mg/dL High No Apr 03 nitrogen informati 2016 6:55 [Mass/vol on in AM ume] in source Serum or data Plasma Calcium 8.5 - mg/dL Normal No Apr 03 [Mass/vol 10.1 informati 2017 6:55 ume] in on in AM Serum or source Plasma data Chloride 98 - 107 mmoL/L Low No Apr 03 [Moles/vo informati 2017 6:55 lume] in on in AM Serum or source Plasma data Carbon 21.0 - mmoL/L High No Apr 03 dioxide, 32.0 informati 2017 6:55 total on in AM [Moles/vo source lume] in data Serum or Plasma Creatinin 0.55 - mg/dL High No Apr 03 e 1.02 informati 2017 6:55 [Mass/vol on in AM ume] in source Serum or data Plasma Creatinin 50 - 200 ML/MIN Low No Apr 03 e renal informati 2017 6:55 clearance on in AM source predicted data by Cockcroft -Gault formula Estimated 59- ML/MIN Low REFERENCE Apr 03 RANGE: 2017 6:55 glomerula >60 AM r ML/MIN/1. filtratio 73 SQUARE n rate METERSIf (GF this patient is -A merican, then multiply theresult by 1.210. Glucose 74 - 106 mg/dL High No Apr 03 [Mass/vol informati 2017 6:55 ume] in on in AM Serum or source Plasma data Potassium 3.5 - 5.1 mmoL/L Normal No Apr 03 informati 2017 6:55 [Moles/vo on in AM lume] in source Serum or data Plasma Sodium 136 - 145 mmoL/L Low No Apr 03 [Moles/vo informati 2017 6:55 lume] in on in AM Serum or source Plasma data CBC W Auto Differential panel in Blood Observa Value Referen Units Interpr Notes Date tion ce etation Range Basophils 0 - 0.2 K/MM3 Normal No Apr 03 informati 2017 6:55 [#/volume on in AM ] in source Blood by data Automated count Basophils 0.1 - 2.0 % Normal No Apr 03 informati 2017 6:55 leukocyte on in AM s in source Blood by data Automated count Eosinophi 0.0 - 0.4 K/mm3 Normal No Apr 03 ls informati 2016 6:55 [#/volume on in AM ] in source Blood by data Automated count Eosinophi 0.1 - % Normal No Apr 03 ls/100 12.0 informati 2017 6:55 leukocyte on in AM s in source Blood by data Automated count Granulocy 1.8 - 7.8 K/mm3 Normal No Apr 03 gloria informati 2017 6:55 [#/volume on in AM ] in source Blood by data Automated count Granulocy 37.0 - % Normal No Apr 03 gloria/100 80.0 informati 2016 6:55 leukocyte on in AM s in source Blood by data Automated count Hematocri 37.0 - % Low No Apr 03 t [Volume 47.0 informati 2017 6:55 on in AM Fraction] source of Blood data Hemoglobi 12.2 - g/dL Low No Apr 03 n 16.2 informati 2016 6:55 [Mass/vol on in AM ume] in source Blood data Lymphocyt 0.7 - 4.5 K/mm3 Normal No Apr 03 es informati 2017 6:55 [#/volume on in AM ] in source Unspecifi data ed specimen by Automated count Lymphocyt 10 - 50.0 % Normal No Apr 03 es informati 2016 6:55 [#/volume on in AM ] in source Unspecifi data ed specimen by Automated count Erythrocy 27 - 31.2 pg Normal No Apr 03 te mean informati 2016 6:55 corpuscul on in AM ar source hemoglobi data n [Entitic mass] Erythrocy 31.8 - g/dl Low No Apr 03 te mean 35.4 informati 2016 6:55 corpuscul on in AM ar source hemoglobi data n concentra tion [Mass/vol ume] by Automated count Erythrocy 82.2 - fl Normal No Apr 03 te mean 97.8 informati 2016 6:55 corpuscul on in AM ar volume source [Entitic data volume] by Automated count Monocytes 0.1 - 1.0 K/mm3 Normal No Apr 03 informati 2016 6:55 [#/volume on in AM ] in source Blood by data Automated count Monocytes 1.7 - 9.3 % Normal No Apr 03 /100 informati 2017 6:55 leukocyte on in AM s in source Blood by data Automated count Platelet 7.4 - fl Normal No Apr 03 mean 10.4 informati 2016 6:55 volume on in AM [Entitic source [...] Normal No Apr 03 te 17.5 informati 2016 6:55 distribut on in AM ion width [...] gm/dL Low No Apr 02 [Mass/vol informati 2017 8:23 [...] 3.5 - 5.1 mmoL/L Normal No Apr 022016 8:23 [Moles/vo on in PM lume] in [...] Normal No Apr 02 ls/100 12.0 informati 2017 8:23 leukocyte on in PM [...] - 424 K/mm3 Normal No Apr 02 inform2016 8:23 [#/volume on in PM ] in source Blood data Erythrocy 4.2 - 5.4 M/mm3 Low No Apr 02 gloria inform2016 8:23 [#/volume on in PM ] in [...] 18 mg/dL High No Mar 28 nitrogen inform2016 [Mass/vol on in 10:15 AM ume] [...] ML/MIN Low alert REFERENCE Mar 28 RANGE: 2016 glomerula >60 10:15 AM r ML/MIN/1. filtratio [...] - 2.0 % Normal No Mar 28 /2016 leukocyte on in 10:15 AM s in source Blood by data Automated count Eosinophi 0.0 - 0.4 K/mm3 Normal No Mar 28 ls 2016 [#/volume on in 10:15 AM ] in source Blood by data Automated count Eosinophi 0.1 - % Normal No Mar 28 ls/100 12.0 2016 leukocyte on in 10:15 AM s in source Blood by data Automated count Granulocy 1.8 - 7.8 K/mm3 High No Mar 28 gloria informati 2016 [#/volume on in 10:15 AM ] in source Blood by data Automated count Granulocy 37.0 - % High No Mar 28 gloria/100 80.0 inform2016 leukocyte on in 10:15 AM s [...] % Normal No Mar 28 te 17.5 ati 2016 distribut on in 10:15 AM ion width source [Entitic data volume] by Automated count Leukocyte 4.8 - K/MM3 High No Mar 28 s 10.8 inform2016 [#/volume on in 10:15 AM ] [...] No Mar 18 E informa informa informa 2017 [Presen tion [...] No No Mar 18 cytes informa informa 2017 [Presen tion in tion [...] No No Mar 18 nogen informa informa 2017 [Presen tion in [...] Mar 18 in E informa informa informa 2017 [Presen tion [...] Normal No Mar 18 in time 11.8 2016 (PT) in on in 10:02 AM [...] % Normal No Mar 18 / informati 2016 leukocyte on in 10:02 AM s [...] gm/dL Low No Feb 21 [Mass/vol informati 2017 ume] in on in 10:00 AM Serum or source Plasma data Alkaline 46 - 116 U/L High No Feb 21 phosphata informati 2017 se on in 10:00 [...] 5.1 mmoL/L Normal No Feb 20 informati 2017 [Moles/vo on in 10:00 AM lume] in source Serum or data Plasma Sodium 136 - 145 mmoL/L Low No Chris 20 [Moles/vo informati 2017 lume] in on in 10:00 AM Serum or source Plasma data Aspartate 15 - 37 U/L Low No Feb 20 informati 2017 aminotran on in 10:00 AM sferase source [...] Erythrocy 31.8 - g/dl Low No Feb 20 te mean 35.4 inform2016 corpuscul on in 10:00 AM ar source hemoglobi data n concentra tion [Mass/vol ume] by Automated count Erythrocy 82.2 - fl Normal No Feb 20 te mean 97.8 2016 corpuscul on in 10:00 AM ar volume source [Entitic data volume] by Automated count Monocytes 0.1 - 1.0 K/mm3 Normal No Feb 21 inform2016 [#/volume on in 10:00 AM ] [...] 4.2 - 5.4 M/mm3 Normal No Feb 20 gloria inform2016 [#/volume on in 10:00 AM ] in source Amniotic data fluid Erythrocy 11.5 - % High No Feb 21 te 17.5 inform2016 distribut on in 10:00 AM ion width source [Entitic data volume] by Automated count Leukocyte 4.8 - K/MM3 Normal No Feb 20 s 10.8 inform2016 [#/volume on in 10:00 AM ] in source Blood data CBC W Auto Differential panel in Blood Observa Value Referen Units Interpr Notes Date tion ce etation Range Basophils 0 - 0.2 K/MM3 Normal No Feb 15 inform2016 6:15 [#/volume on in AM ] in [...] K/mm3 Normal No Feb 15 gloria informati 2017 6:15 [...] 4.2 - 5.4 M/mm3 Low No Chris 15 gloria informati 2017 6:15 [#/volume on in AM ] in source Amniotic data fluid Erythrocy 11.5 - % High No Feb 15 te 17.5 informati 2017 6:15 distribut on in AM ion width source [Entitic data volume] by Automated count Leukocyte 4.8 - K/MM3 No No Chris 15 s 10.8 informati informati 2017 6:15 [#/volume on in on in AM ] in source source Blood data data Comprehensive metabolic 2000 panel in Serum or Plasma Observa Value Referen Units Interpr Notes Date tion ce etation Range Albumin/G 1.1 - 1.8 No Low No Chris 15 lobulin informati informati 2017 6:15 [Mass on in on in AM ratio] in source source Serum or data data Plasma Albumin 3.4 - 5.0 gm/dL Low No Chris 15 [Mass/vol informati 2017 6:15 ume] in [...] gm/dL High No Feb 15 [Mass/vol informati 2017 6:15 ume] in on in AM Serum source data Glucose 74 - 106 mg/dL High No Feb 15 [Mass/vol informati 2017 6:15 ume] in on in AM Serum or source Plasma data Potassium 3.5 - 5.1 mmoL/L High No Feb 16 informati 2017 6:15 [Moles/vo on in AM lume] in source Serum or data Plasma Sodium 136 - 145 mmoL/L Normal No Feb 15 [Moles/vo informati 2016 6:15 lume] in on in AM Serum [...] High No Feb 15 [Mass/vol informati 2016 8:06 ume] in on [...] Interpr Notes Date tion ce etation Range MIS TEST FOR PROCALCITONIN # [id number] TEST: RESULTS: REFERENCE: PROCALCITONIN 0.15 HIGH 0.00-0.08 [...] LATER) AND ON DAY 4, GO TO [id number] TEST: RESULTS: REFERENCE: PROCALCITONIN 0.15 HIGH 0.00-0.08 [...] LATER) AND ON DAY 4, GO TO [id number] Glucose [Mass/volume] in Capillary blood by Glucometer [...] High No Feb 14 [Mass/vol informati 2016 6:45 ume] in on in AM Capillary source blood by data Glucomete r Glucose [Mass/volume] in Capillary blood by Glucometer Observa Value Referen Units Interpr Notes Date ce etation Range Glucose 70 - 110 mg/dl High No Feb 14 [Mass/vol informati 2016 9:36 ume] in on in PM Capillary source blood by data Glucomete r Hemoglobin & Hematocrit panel in Blood Observa Value Referen Units Interpr Notes Date ti ce etation Range COMMENTS TO WHEAT GROWER: POST TRANSFUSION Hematocri 37.0 - % Low [...] RELEASE tion in in in : [id number] 6:26 PM special source source source 17 data data data [id number] prepara O tion POSRELE [Type] ASED 7 [...] source source 17 AM data data data [id number] prepara RELEASE tion D [Type] 7[place] ,Lucind [...] 5.1 mmoL/L Normal No Feb 14 informati 2017 6:30 [Moles/vo on in AM lume] in [...] - 2.0 % Normal No Feb 14 /100 informati [...] 1.0 K/mm3 Normal No Feb 14 informati 2017 6:30 [#/volume on in AM ] in source Blood by data Automated count Monocytes 1.7 - 9.3 % Normal No Feb 14 /100 informati 2017 6:30 leukocyte on in AM s in source Blood by data Automated count Platelet 7.4 - fl Normal No Feb 14 mean 10.4 informati 2016 6:30 volume on [...] High No Feb 14 te 17.5 informati 2016 6:30 distribut on in AM ion width [...] High No Feb 13 [Mass/vol informati 2016 1:02 ume] in on in AM Capillary [...] Normal No Feb 13 e 1.02 informati 2017 5:05 [Mass/vol on in AM [...] S CALL RN 02/13/17 0557 Nisha Kirkland hn Sodium 136 - 145 mmoL/L Normal No [...] 2.0 % Normal No Feb 13 informati 2017 5:05 leukocyte on in AM [...] Normal No Feb 12 gloria informati 2017 5:05 [#/volume on in AM ] in source Blood by data Automated count Granulocy 37.0 - % Normal No Feb 12 gloria/100 80.0 informati 2017 5:05 leukocyte [...] No Feb 12 te mean informati 2017 5:05 corpuscul on in AM ar source hemoglobi data n [Entitic mass] Erythrocy 31.8 - g/dl Low No Feb 13 te mean 35.4 informati 2017 5:05 corpuscul on in AM ar source [...] High No Feb 11 [Mass/vol informati 2016 6:40 ume] in on [...] 98 - 107 mmoL/L Normal No Feb 11 [Moles/vo informati 2017 4:20 lume] in on in AM Serum or source Plasma data Carbon 21.0 - mmoL/L Normal No Chris 11 dioxide, 32.0 informati 2016 4:20 total on in AM [Moles/vo source [...] Sherif CHICAS RN 02/12/17 0559 Nisha Kirkland hn Sodium 136 - 145 mmoL/L Normal No [...] No Feb 12 t [Volume 47.0 informati 2016 4:20 on in AM Fraction] source of [...] No Feb 12 te mean informati 2016 4:20 corpuscul on in AM [...] Normal No Feb 12 /100 informati 2017 4:20 leukocyte on in [...] Erythrocy 11.5 - % High No Feb 11 te 17.5 informati 2017 4:20 distribut on [...] No No Chris 9 nitrogen informati informati 2017 6:38 [Mass/vol on in on in AM ume] in source source Serum or data data Plasma Calcium 8.5 - mg/dL Low No Feb 10 [Mass/vol 10.1 informati 2017 6:38 ume] in [...] 3.5 - 5.1 mmoL/L Normal No Chris 9 informati 2017 6:38 [Moles/vo on in AM lume] in source Serum or data Plasma Sodium 136 - 145 mmoL/L Low No Chris 9 [Moles/vo informati 2017 6:38 lume] in [...] K/mm3 Normal No Feb 9 ls informati 2016 6:38 [#/volume on in AM [...] Normal No Feb 10 gloria/100 80.0 informati 2016 6:38 leukocyte on in AM s in [...] % Normal No Feb 10 es informati 2016 6:38 [#/volume on in AM ] in source Unspecifi data ed specimen by Automated count Erythrocy 27 - 31.2 pg Normal No Feb 10 te mean informati 2017 6:38 corpuscul on [...] Astrovi NOT NOT No No No Feb 8 betsy DETECTE DETECTE informa informa informa 2017 [Presen D tion in tion in tion in 2:40 PM ce] in source source source Stool data data data by Electro n microsc opy Campylo NOT NOT No No No Feb 8 bacter DETECTE DETECTE informa informa informa [...] n Escheri NOT NOT No No No Feb 8 adria DETECTE DETECTE informa informa informa 2017 coli D tion in tion in tion in 2:40 PM [Presen source source source ce] in data data data Unspeci fied specime n by Culture FDA method Escheri NOT NOT No No No Feb 8 adria DETECTE DETECTE informa informa informa 2017 coli D tion in tion in tion in 2:40 PM [Presen source source source ce] in data data data Unspeci fied specime n by Culture FDA method Escheri NOT NOT No No No Feb 8 adria DETECTE DETECTE informa informa informa 2017 coli D tion in tion in tion in 2:40 PM Shiga-l source source source jovi data data data toxin 1 assa Escheri NOT NOT No No No Feb 8 adria DETECTE DETECTE informa informa informa 2016 coli D tion in tion in tion in 2:40 PM [id number] source source source data data data [Presen ce] in Stool by Organis m specifi c culture Entamoe NOT NOT No No No Feb 8 ba DETECTE DETECTE informa informa informa 2017 histoly D tion in tion in tion in 2:40 PM juan antonio source source source [Presen data data data ce] in Stool by Trichro me stain Giardia NOT NOT No No No Feb 8 DETECTE DETECTE informa informa informa 2017 lamblia D tion in tion in tion in 2:40 PM Ag source source source [Presen data data data ce] in Stool Norovir NOT NOT No No No Feb 8 us Ag DETECTE DETECTE informa informa informa 2017 [Presen D tion in tion in tion in 2:40 PM ce] in source source source Stool data data data Stool NOT NOT No No No Feb 8 Plesiom DETECTE DETECTE informa informa informa 2017 onas D tion in tion in tion in 2:40 PM shigell source source source oides data data data DNA detec Rotavir NOT NOT No No No Feb 8 us RNA DETECTE DETECTE informa informa [...] % High No Feb 09 gloria/100 80.0 informati 2016 leukocyte on in 12:00 PM s in source Blood by data Automated count Hematocri 37.0 - % Low No Feb 8 t [Volume 47.0 2016 on in 12:00 PM Fraction] source of Blood data Hemoglobi 12.2 - g/dL Low No Feb 8 n 16.2 inform2016 [Mass/vol on in 12:00 [...] 9.3 % Normal No Feb 8 /100 2016 [...] 50 % Low No Chris 8 informa 2017 tion in 12:00 source PM data Monocytes 2 - 9 % Normal No Chris 8 /100 inform 2017 leukocyte on in 12:00 PM s [...] 76 % High No Feb 8 ls informati 2016 [#/volume on in [...] Calcium 8.5 - mg/dL Normal No Feb 09 [Mass/vol 10.1 inform2016 ume] in on in 12:00 PM Serum or source Plasma data Chloride 98 - 107 mmoL/L Low No Feb 8 [Moles/vo informati 2016 lume] in on in 12:00 PM Serum or source Plasma data Carbon 21.0 - mmoL/L Normal No Feb 09 dioxide, 32.0 informati 2016 total on in [...] - 5.1 mmoL/L Normal No Feb 8 inform2016 [Moles/vo on in 12:00 PM lume] [...] Color YELLOW YELLOW No No No Feb 5 of informa informa informa 2017 Urine tion in tion in tion in 12:45 source source source PM data data data Eosinophi NONE #/lpf No No Feb 06 ls/100 informati informati 2017 leukocyte on in on in 12:45 PM s in source source Urine data data sediment by Manual count Glucose NEG No High No Feb 5 [...] Mucus 1+ OCC No No No Feb 5 [Presen informa informa informa 2016 ce] in [...] No Feb 5 gravity 1.030 informati informati 2017 of [...] Chris 5 cytes YSED informa informa informa 2016 [Presen tion in tion in tion in 12:45 ce] in source source source PM Urine data data data Color YELLOW YELLOW No No No Chris 5 of informa informa informa 2017 Urine tion in tion in tion in 12:45 source source source PM data data data Glucose NEG No High No Feb 5 [Mass/vol informati informati 2016 ume] in on in on in 12:45 [...] No Feb 5 gravity 1.030 informati informati 2017 of [...] Plasma Calcium 8.5 - mg/dL Low No Chrsi 5 [Mass/vol 10.1 informati 2017 6:25 ume] [...] gm/dL High No Chris 5 [Mass/vol informati 2016 6:25 ume] in on in AM Serum source data Glucose 74 - 106 mg/dL High No Feb 5 [Mass/vol informati 2016 6:25 ume] in on in AM Serum or source Plasma data Potassium 3.5 - 5.1 mmoL/L Normal No Chris 5 inform2016 6:25 [Moles/vo on in AM lume] in source Serum or data Plasma Sodium 136 - 145 mmoL/L Low No Feb 5 [Moles/vo informati 2016 6:25 lume] in on in AM Serum or source Plasma data Aspartate 15 - 37 U/L No No Feb 06 informati informati 2017 6:25 aminotran on in on in AM [...] - 0.2 K/MM3 Normal No Feb 5 inform2016 6:25 [#/volume on in AM ] in source Blood by data Automated count Basophils 0.1 - 2.0 % Normal No Chris 5 /100 informati 2017 6:25 leukocyte on in AM s in source Blood by data Automated count Eosinophi 0.0 - 0.4 K/mm3 Normal No Feb 5 ls informati 2016 6:25 [#/volume on [...] % Normal No Feb 06 es informati 2017 6:25 [#/volume on in AM ] in source Unspecifi data ed specimen by Automated count Erythrocy 27 - 31.2 pg Normal No Feb 5 te mean informati 2017 6:25 corpuscul on in AM ar source hemoglobi data n [Entitic mass] Erythrocy 31.8 - g/dl Low No Feb 06 te mean 35.4 informati 2017 6:25 corpuscul on in AM ar source hemoglobi data n concentra tion [Mass/vol ume] by Automated count Erythrocy 82.2 - fl Normal No Feb 06 te mean 97.8 informati 2017 6:25 corpuscul [...] gm/dL Low No Chris 4 [Mass/vol informati 2016 ume] [...] 50 - 200 ML/MIN Normal No Feb 4 e renal informati 2017 clearance on [...] Protein 6.4 - 8.2 gm/dL Normal No Chris 4 [Mass/vol informati 2017 ume] in on in 11:45 AM Serum or source Plasma data CBC W Auto Differential panel in Blood Observa Value Referen Units Interpr Notes Date tion ce etation Range Basophils 0 - 0.2 K/MM3 Normal No Chris 4 informati 2016 [#/volume on in 11:45 AM ] in source Blood by data Automated count Basophils 0.1 - 2.0 % Normal No Chris 4 /100 inform2016 leukocyte on in 11:45 AM s in source Blood by data Automated count Eosinophi 0.0 - 0.4 K/mm3 Normal No Chris 4 ls inform2016 [#/volume on in 11:45 AM ] in source Blood by data Automated count Eosinophi 0.1 - % Normal No Chris 4 ls/100 12.0 inform2016 leukocyte on in [...] Low No Feb 4 t [Volume 47.0 2016 on in 11:45 AM Fraction] source of Blood data Hemoglobi 12.2 - g/dL Low No Feb 4 n 16.2 inform2016 [Mass/vol on in 11:45 [...] Normal No Feb 05 te mean 97.8 2016 corpuscul on in [...] % High No Feb 05 te 17.5 inform2016 distribut on in 11:45 AM ion width source [Entitic data volume] by Automated count Leukocyte 4.8 - K/MM3 Normal No Feb 05 s 10.8 inform2016 [#/volume on in 11:45 AM ] in source Blood data Hemoglobin A1c in Blood Observa Value Referen Units Interpr Notes Date ti etation Range Hemoglo 8.6 0.0 - [...] Date tion ce etation Range COMMENTS TO WHEAT GROWER: FINGERSTICK TO LOW TO READ Glucose 74 [...] - 0.2 K/MM3 Normal No January 23 inform2016 6:00 [#/volume on in AM ] in [...] Automated count Hypochr 1+ No No No January 23 omia informa informa informa informa 2016 [Presen tion in tion in tion in tion in 6:00 AM ce] in source source source source Blood data data data data LYMPH 4 10 - 50 % Low No January 23 inform2016 tion in 6:00 AM source data Monocytes 2 - 9 % Low No January 23 / informati [...] mg/dl High No January 17 [Mass/vol informati 2017 ume] in on in 11:06 AM Capillary source blood by data Glucomete r Glucose [Mass/volume] in Capillary blood by Glucometer Observa Value Referen Units Interpr Notes Date ti ce etation Range Glucose 70 - 110 mg/dl High No May 16 [Mass/vol informati 2016 6:29 ume] in [...]
--- OUTSIDE RECORDS SUMMARY | 2017-04-18 02:36 | External Medical Summary Rpt ---
[...] etation Range MIS TEST FOR PROCALCITONIN # [id number] TEST: RESULTS: REFERENCE: PROCALCITONIN 0.15 HIGH 0.00-0.08 [...] LATER) AND ON DAY 4, GO TO [email or web address] TEST: RESULTS: REFERENCE: PROCALCITONIN 0.15 HIGH [...] LATER) AND ON DAY 4, GO TO [email or web address] Glucose [Mass/volume] in Capillary blood by Glucometer [...] Date ti ce etation Range COMMENTS TO ART PSYCHOTHERAPIST: POST TRANSFUSION Hematocri 37.0 - % Low [...] source source source 17 data data data [id number] prepara O tion POSRELE [Type] ASED 7 [...] source source 17 AM data data data [id number] prepara RELEASE tion D [Type] 7[place] ,Lucind [...] - 5.4 M/mm3 Low No Feb 5 lgoria informati 2017 6:25 [#/volume on in AM [...] Date tion ce etation Range COMMENTS TO ART PSYCHOTHERAPIST: FINGERSTICK TO LOW TO READ Glucose 74 [...]
[2017-04-18 03:39] VITALS: BP 150/82
[2017-04-18 04:10] VITALS: BP 119/62
[2017-04-18] MEDS ORDERED: METFORMIN 500M500 MG PO (04:19)
[2017-04-18] MEDS ORDERED: NYSTATIN100000 U/M PO (04:28)
[2017-04-18] MEDS ORDERED: REMERON15 MG PO (04:36)
--- NOTE | 2017-04-18 07:13 | PHARMACY CLINIC NOTE ---
Patient Demographics Patient Demographics Admission date: 04/18/17 Date: 04/18/17 Time: 0711 Allergies Coded Allergies: Sulfa (Sulfonamide Antibiotics) (03/18/17) azithromycin (From ZITHROMAX) (04/18/17) codeine (04/18/17) HEIGHT- FT: 5 IN: 2.00 K.432 VTE General Information Labs: Laboratory Tests 04/18 011 Hematology Hgb (12.2 - 16.2 g/dL) 8.8 L Hct (37.0 - 47.0 %) 27.6 L Plt Count (142 - 424 K/mm3) 280 Disclaimer The following section includes nursing documentation that has been pulled in for pharmacy review. Patient's VTE score: 2 Patient's VTE Risk: VERY LOW RISK Clinical trial participant? No VTE prophylaxis NQF [id number] VTE prophylaxis ordered? Yes Type of prophylaxis/treatment: MARIANA at 0712
--- NOTE | 2017-04-18 07:28 | RADIOLOGY REPORT PS360 ---
CHEST-PORTABLE HISTORY: Shortness of air SYNCOPAL EPISODE AT HOME ORDERING PHYSICIAN: Alan Schulte MD PATIENT AGE: 77 years COMPARISON: 04/02/2017 FINDINGS: There is cardiomegaly without failure. Multiple old right rib fractures with persistent right upper lobe parenchymal opacity once again noted as before. Previously noted bibasilar airspace disease and left effusion has improved. IMPRESSION: Improved bilateral lower lobe pneumonia and left effusion. No change right upper lobe parenchymal opacity with old right rib fractures. Cardiomegaly
[2017-04-18 07:53] VITALS: BP 140/76
--- NOTE | 2017-04-18 09:17 | HISTORY AND PHYSICAL REPORT ---
Demographics: Admit date: 04/18/17 Chief complaint: syncope PRIMARY DIAGNOSIS: syncopal episode Allergies: Coded Allergies: Sulfa (Sulfonamide Antibiotics) (03/18/17) azithromycin (From ZITHROMAX) (04/18/17) codeine (04/18/17) History of present illness: History of present illness: 77-year-old white female with ongoing lung cancer, type 2 diabetes, renal insufficiency, chronic end-stage oxygen requiring COPD and chronic anxiety disorder with recurrent insomnia, presented to the emergency department following a syncopal episode at home. Patient reports she was sleeping on the cough when she got up to use the bedside commode. She went to get onto the commode and had a syncopal event in which her daughter states she was unresponsive for 15 minutes. Patient does not remember the fall. First memory after the event is waking up in her daughter's arm. Denies any dizziness, headache or other neurological symptoms. No chest pain, palpitations or CV symptoms. She was transported by EMS to [facility] for evaluation. In the ED, she was found to be anemic at baseline with a creatinine of 1.9. CXR showed some chronic infiltrates which are improved from previous. Patient was admitted to acute care for further evaluation. Past medical history: Family HX Diabetes Yes CAD Yes Hypertension No Hyperlipidemia No Cancer Yes TB No Immunization HX Ped.Immunizations UTD No DT/Tetanus 1-4 Years Ago Flu 2015-FSN Pneumonia Received In Past TB Test in last year No General CAD? Yes Angina: Yes [place]: Yes Hypertension? No Hyperlipidemia? Yes CHF? No DVT? No PE? No COPD? Yes Asthma? No Anemia? No GERD? Yes Gastric ulcers? No GI Bleed? No Hernia? Yes Thyroid Problems? No Hypothyroidism? No CVA? Yes Seizures? No Diabetes? 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 No UTI? No Stones? No BPH? No GB Disease: Yes Nephritic Syndrome? No Asplenia? No Hepatitis? No Sickle Cell Disease? No Arthritis? Yes Migraines? No Cataracts? Yes Glaucoma? No MRSA? No HIV? No TB? No Anxiety? Yes Depression? 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 Current home meds: Active Scripts INSUL REG 30%ISOPHAN 70% HUMAN (Humulin 70-30 Vial) 10 UNITS SC BID #1 INJ Prov: 02/16/17 Trazodone Hcl (Trazodone HCl) 100 MG PO QHS #30 TAB Prov: 04/06/17 Reported Medications BUDESONIDE/FORMOTEROL FUMARATE (Symbicort 80-4.5 Mcg Inhaler) 2 PUFF IH BID Ipratropium [place] (Ipratropium 0.5MG Neb Soln) 0.5 MG INH TID Aspirin (Adult Low Dose Aspirin EC) 81 MG PO DAILY ATENOLOL (Atenolol 50MG) 25 MG PO DAILY OMEPRAZOLE MAGNESIUM (Prilosec 20MG) 20 MG PO DAILY ALBUTEROL (Albuterol 0.083% Neb) 1.25 MG INH TID Temazepam (Restoril 30MG) 30 MG PO QHS Phenazopyridine HCl (Pyridium) 200 MG PO TID PRN URINARY SPASM Lactobacillus Combo No.11 (Probiotic) 1 EACH PO DAILY Lorazepam (Lorazepam 0.5MG) 0.5 MG FT BID Risperidone (Risperdal) 2 MG PO BEDTIME METFORMIN HCL (Metformin 500MG) 500 MG PO BID Nystatin 100,000 UNITS PO Q6 Mirtazapine (Remeron) 15 MG PO QHS Phenazopyridine HCl (Pyridium) 200 MG PO TID PRN URINARY SPASM Social Hx: Smoking HX Tobacco No Type Cigarettes Packs/day 1 1/2 - 2 PACKS Alcohol Alcohol: No Hx of Drug Use Drug Use? No Patient's support system is good Review of systems: Constitutional malaise, weakness. No: no symptoms reported, chills, diaphoresis, fever. Eyes No: no symptoms reported. Ears, Nose, Mouth, Throat No no symptoms reported Respiratory cough, shortness of breath (at baseline). Cardiovascular No no symptoms reported Gastrointestinal/Abdominal No no symptoms reported Genitourinary No: no symptoms reported. Musculoskeletal other (generalized weakness). Skin No: no symptoms reported. Neurological Yes: weakness. No: headache, numbness, tingling, tremors, parasthesia. Psychiatric No: no symptoms reported. Exam: Lab data for last 24 hours: Laboratory Tests 04/18/17 0534: POC Glucose 255 H 04/18/17 0113: Magnesium 1.4 04/18/17 0113: Sodium 133 L, Potassium 4.5, Chloride 96 L, Carbon Dioxide 30, BUN 19 H, Creatinine 1.9 H, Estimated Creat Clear 22 L, Estimated GFR (MDRD) 26 L, Glucose 187 H, Calcium 8.6, Total Bilirubin 0.4, AST 16, ALT 13, Alkaline Phosphatase 91, Creatine Kinase 38, CK-MB (CK-2) Rel Index 2.1, CK and CKMB Interp 0.8, Troponin I < 0.02, Total Protein 7.7, Albumin 2.9 L, Globulin 4.8 H, Albumin/Globulin Ratio 0.6 L, WBC 9.3, RBC 3.12 L, Hgb 8.8 L, Hct 27.6 L, MCV 88.4, RDW 16.7, Plt Count 280, MPV 7.5, Gran % 65.5, Gran # 6.1, Lymphocytes % 25.3, Monocytes % 5.7, Eosinophils % 2.9, Basophils % 0.6, Lymphocytes # 2.3, Monocytes # 0.5, Eosinophils # 0.3, Basophils # 0.1, PUBS MCHC 31.9, MCH 28.2 Admission vital signs: 1ST Vital Signs Result Date Time Pulse Ox 95 04/18 33 B/P 155/68 04/18 33 O2 Flow Rate 2 04/18 33 Pulse 86 04/18 33 Resp 20 04/18 33 O2 Delivery OXYGEN 04/18 339 Temp 98.0 04/18 339 Exam General appearance: alert, face symmetric, no acute distress Eyes: anicteric ENT: mucous membranes moist Neck: non-tender, no carotid bruit, no JVD Cardiovascular: regular rate & rhythm, no murmur, normal peripheral pulses Respiratory: fairly clear ABD: non-distended, normal bowel sounds, no rebound, soft, no tenderness Genitourinary: no dysuria, no hematuria Extremities: moves all Musculoskeletal: equal muscle strength, sensation intact Skin: dry, intact, normal color Neuro: alert, intact, no deficit, normal mood/affect, oriented, speech clear Plan: Problem List 1. Syncope Assessment/Plan She has not had any dizziness or further episodes since her admission. She had an echo on 01/18 that showed some inferobasal hypokinesis with an ejection fraction of 50%. Will obtain carotid dopplers and have PT/OT evaluate today. May consider d/c home later today, pending results. 2. Renal insufficiency Assessment/Plan Creatinine 1.9, at baseline. 3. Anemia Assessment/Plan H/H 8.8/27 at baseline. 4. Lung cancer Plan: See above. at 1022
[2017-04-18 10:40] VITALS: BP 140/76
[2017-04-18] MEDS ORDERED: NOVOLOG MI100 UNITS/ SC (13:10)
[2017-04-18] MEDS ORDERED: ONDANSETRON 4MG4 M1 PO (13:14)
[2017-04-18] MEDS ORDERED: MORPHINE SUL20 MG/ML NG ×2 (13:15→13:29)
[2017-04-18] MEDS ORDERED: ATORVASTATIN CA40 MG PO (13:15)
[2017-04-18] MEDS ORDERED: FLUOXETINE 10MG10 MG PO (13:16)
--- NOTE | 2017-04-18 13:35 | DISCHARGE SUMMARY STANDARD ---
Demographics Admit date: 04/18/17 Discharge date: 04/18/17 History of present illness History of present illness 77-year-old white female with ongoing lung cancer, type 2 diabetes, renal insufficiency, chronic end-stage oxygen requiring COPD and chronic anxiety disorder with recurrent insomnia, presented to the emergency department following a syncopal episode at home. Patient reports she was sleeping on the cough when she got up to use the bedside commode. She went to get onto the commode and had a syncopal event in which her daughter states she was unresponsive for 15 minutes. Patient does not remember the fall. First memory after the event is waking up in her daughter's arm. Denies any dizziness, headache or other neurological symptoms. No chest pain, palpitations or CV symptoms. She was transported by EMS to [facility] for evaluation. In the ED, she was found to be anemic at baseline with a creatinine of 1.9. CXR showed some chronic infiltrates which are improved from previous. Patient was admitted to acute care for further evaluation. Hospital Course Hospital Course: Patient was admitted to acute care for further evaluation. Telemetry was placed which was uneventful. Carotid Doppler was ordered; however patient was unable to tolerate laying flat for the procedure. Family report patient had been taking morphine every 2 hours which may have contributed to her syncopal event. Physical therapy was consulted who cleared patient for discharge back home with family. She has had no further syncopal or near syncopal events since admission. She does report some mild intermittent dizziness with ambulation. Discharge home with family on Hospice. Advised to have standby assistance for ambulation until seen in the office on . Follow-up with Dr. Schulte at that time in [place] office. Decrease morphine to 10 mg sublingual every 4 hours as needed for pain or shortness of breath. See medication reconciliation for complete list. Discharge diagnoses Problem List 1. Syncope 2. Renal insufficiency 3. Anemia 4. Lung cancer Medications Medications: Discharge meds are as noted. Follow up Follow up in office in: 2 DAYS with: Alan Schulte MD at 2320
[2017-04-18 15:45] VITALS: BP 140/76
== END 2017-04-18 15:45 | disposition hospice, home (50) | DRG 312 ==
LOC: ER 00:27 → 2ND 02:24 → ER 02:24 → ICU 02:27 → 2ND 02:27 → ICU 02:57
PROVIDERS: Emergency Medicine
DX: R55 Syncope and collapse (principal); Z99.81 Dependence on supplemental oxygen; J44.9 Chronic obstructive pulmonary disease, unspecified; E11.9 Type 2 diabetes mellitus without complications; I25.10 Atherosclerotic heart disease of native coronary artery without angina pectoris
CPT/HCPCS: J2405

== ENCOUNTER → 2017-05-09 | Outpatient (CLI) | payer OTHER, MEDICARE ==
[~2017-05-09] MED LIST changes: +ATORVASTATIN CA40 MG PO; +LORAZEPAM0.5 MG/TAB PO; +METFORMIN 500M500 MG PO; +MORPHINE SUL20 MG/ML NG; +NYSTATIN100000 U/M PO; +ONDANSETRON 4MG4 M1 PO; +PROBIOTIC1 EAC3 PO; +PYRIDIUM200 M2 PO; +REMERON15 MG PO; +RISPERDAL2 M1 PO
[2017-05-09 14:23] LABS: HEMOGLOBIN 9.6 g/dL (12.2-16.2); LYMPH % 40.2 % (10-50.0)
[2017-05-09 16:04] LABS: BUN 17 mg/dL (7-18)
[2017-05-09 16:13] LABS: GFR (ESTIMATED) 37 ML/MIN (59-)
== END ==
LOC: CARL-LAB 09:58
PROVIDERS: Internal Medicine Adolescent Medicine
DX: I25.10 Atherosclerotic heart disease of native coronary artery without angina pectoris (principal); E11.9 Type 2 diabetes mellitus without complications; J44.1 Chronic obstructive pulmonary disease with (acute) exacerbation

== ENCOUNTER 2017-07-21 11:35 | Inpatient (IN) | payer OTHER, MEDICARE ==
[~2017-07-21] VITALS: Ht 160 cm; Wt 51.5 kg
--- OUTSIDE RECORDS SUMMARY | 2017-07-21 11:40 | External Medical Summary Rpt ---
Author Author [facility] Organization [facility] Address Unknown Phone Unavailable Care Team Providers Care Manager R D Name Role Phone KIARA (REF) PCP [phone] Encounter [facility] [id number] Date(s): 03/23/17 - 05/30/17 [facility] [address] [place] [address]- Attending Physician: CHRISTOPHER OATES MD-ONC Admitting Physician: [...] (albuterol-ipratropium 2.5 mg-0.5 mg/3 mL inhalation solution)3 Milliliter(s) Nebulized Inhalation Three Times A Day. aspirin (Aspirin Low Dose) 81 Milligram(s) Oral Every Day. atenolol (atenolol 50 mg oral tablet) 0.5 Tablet(s) Oral Every Day. atorvastatin (atorvastatin 40 mg oral tablet) 1 Tablet(s) Oral At Bedtime. bifidobacterium-lactobacillus (Probiotic Formula oral capsule)1 Capsule(s) Oral Every Day. budesonide-formoterol (Symbicort 80 mcg-4.5 mcg/inh inhalation aerosol)2 Puff(s) Inhalation Two Times A Day. clopidogrel (Plavix 75 mg oral tablet) 1 Tablet(s) Oral Every Day. insulin aspart-insulin aspart protamine (insulin aspart-insulin aspart protamine 70/30)20 Unit(s) SubCutaneous Before Breakfast. insulin aspart-insulin aspart protamine (insulin aspart-insulin aspart protamine 70/30)15 Unit(s) SubCutaneous Before Dinner. LORazepam (lorazepam 1 mg oral tablet)1 Tablet(s) Oral Three Times A Day as needed for anxiety. nitroglycerin (Nitrostat 0.4 mg sublingual tablet)1 Tablet(s) SubLINgual every 5 minutes as needed Chest Pain. omeprazole (omeprazole 20 mg oral delayed release capsule)1 Capsule(s) Oral Every Day. traZODone (trazodone 150 mg oral tablet) 1 Tablet(s) Oral At Bedtime. Results No data available for this section Immunizations No data available for this section Procedures No data available for this section Social History Social History Response Type Smoking Status Current every day smoker; Years of Tobacco Use 55; Packs/Tins Daily 0.5; Month Tobacco Last Used yesterday; Assessment and Plan No data available for this section Hospital Discharge Instructions No data available for this section
--- OUTSIDE RECORDS SUMMARY | 2017-07-21 11:40 | External Medical Summary Rpt ---
Author Author [facility] Organization [facility] Address Unknown Phone Unavailable Care Team Providers Care Screen Printing Equipment Setter Name Role Phone KIARA (REF) PCP [phone] Encounter [facility] [id number] Date(s): 03/23/17 - 05/30/17 [facility] [address] [place] [address]- Attending Physician: CHRISTOPHER OATES MD-ONC Admitting Physician: [...]
--- OUTSIDE RECORDS SUMMARY | 2017-07-21 11:41 | External Medical Summary Rpt | CCD ---
Author Author , JUSTIN Organization [facility] Address Unknown Phone [email or web address] Purpose Continuity of Care Document - 01-11-2017 through 2016 Problems Code Diagnosis DOS Provider Status D64.9 ANEMIA, UNSPECIFIED J18.9 PNEUMONIA, UNSPECIFIED ORGANISM J20.9 ACUTE BRONCHITIS, UNSPECIFIED J32.9 CHRONIC SINUSITIS, UNSPECIFIED J44.0 CHRONIC OBSTRUCTIVE PULMON DISEASE W ACUTE LOWER RESP INFCT J44.1 CHRONIC OBSTRUCTIVE PULMONARY DISEASE W (ACUTE) EXACERBATIO N N28.9 DISORDER OF KIDNEY AND URETER, UNSPECIFIED N39.0 URINARY TRACT INFECTION, SITE NOT SPECIFIED R07.9 CHEST PAIN, UNSPECIFIED R22.2 LOCALIZED SWELLING, MASS AND LUMP, TRUNK R42 DIZZINESS AND GIDDINESS R53.1 WEAKNESS R55 SYNCOPE AND COLLAPSE R68.83 CHILLS (WITHOUT FEVER) R94.31 ABNORMAL ELECTROCARD IOGRAM [ECG] [EKG] W19.XXXA UNSPECIFIED FALL, INITIAL ENCOUNTER Z00.6 Encounter for examination for normal comparison and control in clinical research program Z78.0 ASYMPTOMATI C MENOPAUSAL STATE Results Labs Lab Lab Date Result Refere Interp Status Commen Order Detail nces retati t Range on Hemoglobin A1c in Blood (05-09-2017 10:10) Hemoglo 8.9 % 0.0% High complet bin A1c 017 - ed in 10:10 7.0% Blood Urinalysis dipstick W Reflex Microscopic panel in [...] panel, method unspecified - (01-23-2017 06:00) Hypochr 01-23-2 1+ complet omia 017 ed [Presen 06:00 [...]
--- OUTSIDE RECORDS SUMMARY | 2017-07-21 11:41 | External Medical Summary Rpt | CCD ---
Author Author , JUSTIN Organization [facility] Address Unknown Phone [email or web address] Purpose Continuity of Care Document - 01-11-2017 [...]
--- OUTSIDE RECORDS SUMMARY | 2017-07-21 11:41 | External Medical Summary Rpt | CCD ---
Author Author , JUSTIN ANDERSON Address Unknown Phone Immunization Name Date Rout CVX Reac Dose Comm Prov Is Faci e tion ent ider Refu lity Give sed n Infl 10-0 Intr 135 0.5 Hist PD20 No PD20 uenz 3-20 amus mL oric 256 256 a, 17 cula al High r Info rmat Dose ion - Sour ce Unsp ecif ied
--- OUTSIDE RECORDS SUMMARY | 2017-07-21 11:47 | External Medical Summary Rpt ---
Author Author [employer] Banks, [employer] Organization [employer] Address Unknown Phone Unavailable Results Comprehensive metabolic 2000 panel in Serum or Plasma Observa Value Referen Units Interpr Notes Date tion ce etation Range Albumin/G 1.1 - 1.8 No Low No Sep 5 lobulin informati informati 2017 [Mass on in on in 10:10 AM ratio] in source source Serum or data data Plasma Albumin 3.4 - 5.0 gm/dL Low No Sep 5 [Mass/vol informati 2017 ume] in on in 10:10 AM Serum or source Plasma data Alkaline 46 - 116 U/L Normal No Sep 5 phosphata informati 2017 se on in 10:10 AM [Enzymati source c data activity/ volume] in Serum or Plasma Bilirubin 0.2 - 1.0 mg/dL Normal No Sep 5 .total informati 2017 [Mass/vol on in 10:10 AM ume] in source Serum or data Plasma Urea 7 - 18 mg/dL Normal No Sep 5 nitrogen informati 2017 [Mass/vol on in 10:10 AM ume] in source Serum or data Plasma Calcium 8.5 - mg/dL Normal No Sep 5 [Mass/vol 10.1 informati 2017 ume] in on in 10:10 AM Serum or source Plasma data Chloride 98 - 107 mmoL/L Normal No Sep 5 [Moles/vo informati 2017 lume] in on in 10:10 AM Serum or source Plasma data Carbon 21.0 - mmoL/L Normal No Sep 5 dioxide, 32.0 informati 2017 total on in 10:10 AM [Moles/vo source lume] in data Serum or Plasma Creatinin 0.55 - mg/dL High No Sep 5 e 1.02 informati 2017 [Mass/vol on in 10:10 AM ume] in source Serum or data Plasma Estimated 59- ML/MIN Low REFERENCE Sep 5 RANGE: 2017 glomerula >60 10:10 AM r ML/MIN/1. filtratio 73 SQUARE n rate METERSIf (GF this patient is -A merican, then multiply theresult by 1.210. Globulin 1.3 - 3.2 gm/dL High No Sep 5 [Mass/vol informati 2017 ume] in on in 10:10 AM Serum source data Glucose 74 - 106 mg/dL Normal No Sep 5 [Mass/vol informati 2017 ume] in on in 10:10 AM Serum or source Plasma data Potassium 3.5 - 5.1 mmoL/L Normal No Sep 5 inform 2017 [Moles/vo on in 10:10 AM lume] in source Serum or data Plasma Sodium 136 - 145 mmoL/L Low No Sep 5 [Moles/vo informati 2016 lume] in on in 10:10 AM Serum or source Plasma data Aspartate 15 - 37 U/L Low No Sep 5 inform 2017 aminotran on in 10:10 AM sferase source [Enzymati data c activity/ volume] in Serum or Plasma Alanine 12 - 78 U/L Normal No Sep 5 aminotran inform 2017 sferase on in 10:10 AM [Enzymati source c data activity/ volume] in Serum or Plasma Protein 6.4 - 8.2 gm/dL Normal No Sep 5 [Mass/vol informati 2017 ume] in on in 10:10 AM Serum or source Plasma data Lipid 1996 panel in Serum or Plasma Observa Value Referen Units Interpr Notes Date tion ce etation Range Cholester < 200 mg/dL No No Sep 5 ol informati inform2016 [Moles/vo on in on in 10:10 AM lume] in source source Unspecifi data data ed specimen Cholester 40 - 60 MG/DL Normal No Sep 5 ol in HDL informati 2016 on in 10:10 AM [Mass/vol source ume] in data Serum or Plasma Cholester 0 - 130 mg/dL Normal No Sep 5 ol in LDL informati 2017 on in 10:10 AM [Mass/vol source ume] in data Serum or Plasma by calculati on Triglycer 30 - 200 mg/dL Normal No Sep 5 lenin inform2016 [Moles/vo on in 10:10 AM lume] in source Serum or data Plasma Cholester 0 - 40 No Normal No Sep 5 ol in informati informati 2017 VLDL on in on in 10:10 AM [Mass/vol source source ume] in data data Serum or Plasma Hemoglobin A1c in Blood Observa Value Referen Units Interpr Notes Date tion ce etation Range Hemoglo 8.9 0.0 - % High < 6% Sep 5 bin A1c 7.0 NON-MARIELA 2017 in BETIC 10:10 Blood LEVEL< AM 7% CONTROL LED DIABETI C LEVEL> 8% POORLY CONTROL LED DIABETI C LEVEL CBC W Auto Differential panel in Blood Observa Value Referen Units Interpr Notes Date tion ce etation Range Basophils 0 - 0.2 K/MM3 Normal No Sep 5 inform2016 [#/volume on in 10:10 AM ] in source Blood by data Automated count Basophils 0.1 - 2.0 % Normal No Sep 5 /100 inform2016 leukocyte on in 10:10 AM s in source Blood by data Automated count Eosinophi 0.0 - 0.4 K/mm3 Normal No Sep 5 ls inform2016 [#/volume on in 10:10 AM ] in source Blood by data Automated count Eosinophi 0.1 - % Normal No Sep 5 ls/100 12.0 inform2016 leukocyte on in 10:10 AM s in source Blood by data Automated count Granulocy 1.8 - 7.8 K/mm3 Normal No Sep 5 gloria inform2016 [#/volume on in 10:10 AM ] in source Blood by data Automated count Granulocy 37.0 - % Normal No Sep 5 gloria/100 80.0 inform2016 leukocyte on in 10:10 AM s in source Blood by data Automated count Hematocri 37.0 - % Low No Sep 5 t [Volume 47.0 informati 2016 on in 10:10 AM Fraction] source of Blood data Hemoglobi 12.2 - g/dL Low No Sep 5 n 16.2 inform2016 [Mass/vol on in 10:10 AM ume] in source Blood data Lymphocyt 0.7 - 4.5 K/mm3 Normal No Sep 5 es inform 2017 [#/volume on in 10:10 AM ] in source Unspecifi data ed specimen by Automated count Lymphocyt 10 - 50.0 % Normal No Sep 5 es inform 2017 [#/volume on in 10:10 AM ] in source Unspecifi data ed specimen by Automated count Erythrocy 27 - 31.2 pg Normal No Sep 5 te mean inform 2017 corpuscul on in 10:10 AM ar source hemoglobi data n [Entitic mass] Erythrocy 31.8 - g/dl Normal No Sep 5 te mean 35.4 2016 corpuscul on in 10:10 AM ar source hemoglobi data n concentra tion [Mass/vol ume] by Automated count Erythrocy 82.2 - fl Normal No Sep 5 te mean 97.8 2016 corpuscul on in 10:10 AM ar volume source [Entitic data volume] by Automated count Monocytes 0.1 - 1.0 K/mm3 Normal No Sep 5 2016 [#/volume on in 10:10 AM ] in source Blood by data Automated count Monocytes 1.7 - 9.3 % Normal No Sep 5 /100 2017 leukocyte on in 10:10 AM s in source Blood by data Automated count Platelet 7.4 - fl Normal No Sep 5 mean 10.4 2016 volume on in 10:10 AM [Entitic source volume] data in Blood by Automated count Platelets 142 - 424 K/mm3 Normal No Sep 5 2016 [#/volume on in 10:10 AM ] in source Blood data Erythrocy 4.2 - 5.4 M/mm3 Low No Sep 5 gloria 2016 [#/volume on in 10:10 AM ] in source Amniotic data fluid Erythrocy 11.5 - % Normal No Sep 5 te 17.5 2016 distribut on in 10:10 AM ion width source [Entitic data volume] by Automated count Leukocyte 4.8 - K/MM3 Normal No Sep 5 s 10.8 2016 [#/volume on in 10:10 AM ] in source Blood data Glucose [Mass/volume] in Capillary blood by Glucometer Observa Value Referen Units Interpr Notes Date ti etation Range Glucose 70 - 110 mg/dl High No Apr 18 [Mass/vol alert ati 2016 ume] in on in 12:03 PM Capillary source blood by data Glucomete r Glucose [Mass/volume] in Capillary blood by Glucometer Observa Value Referen Units Interpr Notes Date ti etation Range Glucose 70 - 110 mg/dl High No Apr 18 [Mass/vol inform2016 5:34 ume] in on in AM Capillary source blood by data Glucomete r CBC W Auto Differential panel in Blood Observa Value Referen Units Interpr Notes Date ti etation Range Basophils 0 - 0.2 K/MM3 Normal No Apr 182016 1:13 [#/volume on in AM ] in source Blood by data Automated count Basophils 0.1 - 2.0 % Normal No Apr 15 /100 informati 2016 1:13 leukocyte on in AM s in source Blood by data Automated count Eosinophi 0.0 - 0.4 K/mm3 Normal No Apr 15 ls informati 2016 1:13 [#/volume on in AM ] in source Blood by data Automated count Eosinophi 0.1 - % Normal No Apr 18 ls/100 12.0 informati 2016 1:13 leukocyte on in AM s in source Blood by data Automated count Granulocy 1.8 - 7.8 K/mm3 Normal No Apr 15 gloria informati 2016 1:13 [...] No Apr 18 te mean 35.4 informati 2017 1:13 corpuscul on in AM ar source [...] Platelet 7.4 - fl Normal No Apr 15 mean 10.4 inform2016 1:13 volume on in AM [Entitic source [...] K/MM3 Normal No Apr 15 s 10.8 ati 2016 1:13 [#/volume on in AM ] in source Blood data Magnesium [Moles/volume] in Unspecified specimen Observa Value Referen Units Interpr Notes Date tion ce etation Range Magnesium 1.4 - 2.2 mg/dL Normal No Apr 182016 1:13 [Moles/vo on in AM lume] in source Unspecifi data ed specimen Basic metabolic panel in Blood Observa Value Referen Units Interpr Notes Date tion ce etation Range Urea 7 - 18 mg/dL Normal No Apr 11 nitrogen 2016 [Mass/vol on in 10:30 AM ume] in source Serum or data Plasma Calcium 8.5 - mg/dL Normal No Apr 11 [Mass/vol 10.1 2016 ume] in on in 10:30 AM Serum or source Plasma data Chloride 98 - 107 mmoL/L Normal No Apr 11 [Moles/vo ati 2016 lume] in on in 10:30 AM Serum or source Plasma data Carbon 21.0 - mmoL/L Normal No Apr 11 dioxide, 32.0 2016 total on in 10:30 AM [Moles/vo source lume] in data Serum or Plasma Creatinin 0.55 - mg/dL High No Apr 11 e 1.02 2016 [Mass/vol on in 10:30 AM ume] in source Serum or data Plasma Estimated 59- ML/MIN Low REFERENCE Apr 11 RANGE: 2017 glomerula >60 10:30 AM r ML/MIN/1. filtratio 73 SQUARE n rate METERSIf (GF this patient is -A merican, then multiply theresult by 1.210. Glucose 74 - 106 mg/dL High No Apr 11 [Mass/vol 2016 ume] in on in 10:30 AM [...] - 2.0 % Normal No Apr 11 /2016 leukocyte on in 10:30 AM s in source Blood by data Automated count Eosinophi 0.0 - 0.4 K/mm3 Normal No Apr 11 ls 2016 [#/volume on in 10:30 AM ] in source Blood by data Automated count Eosinophi 0.1 - % Normal No Apr 11 ls/100 12.0 2016 leukocyte on in 10:30 AM s in source Blood by data Automated count Granulocy 1.8 - 7.8 K/mm3 Normal No Apr 11 gloria 2016 [#/volume on [...] 10 - 50.0 % Normal No Apr 8 es 2017 [#/volume on in 10:30 AM ] in [...] 9.3 % Normal No Apr 8 /100 2016 leukocyte on in 10:30 AM s in source Blood by data Automated count Platelet 7.4 - fl Normal No Apr 11 mean 10.4 2016 volume on in 10:30 AM [Entitic source volume] data in Blood by Automated count Platelets 142 - 424 K/mm3 Normal No Apr 8 2016 [#/volume on in 10:30 AM ] in source Blood data Erythrocy 4.2 - 5.4 M/mm3 Low No Apr 8 gloria 2016 [#/volume on in 10:30 AM ] in source Amniotic data fluid Erythrocy 11.5 - % Normal No Apr 11 te 17.5 2016 distribut on in 10:30 AM ion width source [Entitic data volume] by Automated count Leukocyte 4.8 - K/MM3 Normal No Apr 8 s 10.8 2016 [#/volume on in 10:30 AM ] in source Blood data Glucose [Mass/volume] in Capillary blood by Glucometer Observa Value Referen Units Interpr Notes Date tion ce etation Range Glucose 70 - 110 mg/dl High No Apr 3 [Mass/vol alert informati 2017 ume] in on in 11:38 AM Capillary [...] Normal No Apr 06 dioxide, 32.0 informati 2016 6:30 total on [...] K/mm3 Normal No Apr 06 ls informati 2017 6:30 [#/volume on in AM ] in source Blood by data Automated count Eosinophi 0.1 - % Normal No Apr 06 ls/100 12.0 informati 2017 6:30 leukocyte on in AM s in source Blood by data Automated count Granulocy 1.8 - 7.8 K/mm3 Normal No Apr 06 gloria informati 2017 6:30 [#/volume on in AM ] in source Blood by data Automated count Granulocy 37.0 - % Normal No Apr 06 gloria/100 80.0 informati 2017 6:30 leukocyte on in AM s in source Blood by data Automated count Hematocri 37.0 - % Low No Apr 06 t [Volume 47.0 informati 2017 6:30 on in AM Fraction] source of Blood data Hemoglobi 12.2 - g/dL Low No Apr 06 n 16.2 informati 2017 6:30 [Mass/vol on in AM ume] in source Blood data Lymphocyt 0.7 - 4.5 K/mm3 Normal No Apr 06 es informati 2017 6:30 [#/volume on in AM ] in source Unspecifi data ed specimen by Automated count Lymphocyt 10 - 50.0 % Normal No Apr 06 es informati 2017 [...] No Apr 06 te mean 97.8 informati 2017 6:30 corpuscul on in AM ar volume source [Entitic data volume] by Automated count Monocytes 0.1 - 1.0 K/mm3 Normal No Apr 06 informati 2017 6:30 [#/volume on in AM ] in source Blood by data Automated count Monocytes 1.7 - 9.3 % Normal No Apr 06 /100 informati 2017 6:30 leukocyte on in AM s in source Blood by data Automated count Platelet 7.4 - fl Normal No Apr 06 mean 10.4 informati 2016 6:30 volume on in AM [Entitic source volume] data in Blood by Automated count Platelets 142 - 424 K/mm3 Normal No Apr 3 informati 2017 6:30 [#/volume on in AM ] in source Blood data Erythrocy 4.2 - 5.4 M/mm3 Low No Apr 3 gloria informati 2017 6:30 [#/volume on in AM ] in source Amniotic data fluid Erythrocy 11.5 - % Normal No Apr 3 te 17.5 informati 2017 6:30 distribut on in AM ion width source [Entitic data volume] by Automated count Leukocyte 4.8 - K/MM3 Normal No Apr 3 s 10.8 informati 2017 6:30 [#/volume on [...] 5.1 mmoL/L Normal No Apr 04 informati 2017 6:30 [Moles/vo on in AM [...] - 2.0 % Normal No Apr 04 / informati 2017 6:30 leukocyte on in AM s in source Blood by data Automated count Eosinophi 0.0 - 0.4 K/mm3 Normal No Apr 04 ls informati 2017 6:30 [#/volume on in AM [...] No Apr 04 t [Volume 47.0 informati 2017 6:30 on [...] - 9.3 % Normal No Apr 04 /100 informati [...] High No Apr 03 [Mass/vol informati 2017 ume] in on in 11:58 [...] M/mm3 Low No Apr 03 gloria informati 2016 6:55 [...] High No Apr 03 [Mass/vol informati 2017 6:39 ume] in on in AM Capillary [...] mg/dL Normal No Apr 02 .total informati 2016 8:23 [Mass/vol on in PM [...] High No Apr 02 e 1.02 informati 2017 8:23 [Mass/vol on in PM ume] in source Serum or data Plasma Creatinin 50 - 200 ML/MIN Low No Apr 02 e renal informati 2017 8:23 clearance on in PM source predicted [...] 145 mmoL/L Low No Apr 02 [Moles/vo ati 2016 8:23 lume] in on in PM Serum or source Plasma data Aspartate 15 - 37 U/L Normal Apr 02 informati 2016 8:23 aminotran on in PM sferase source [Enzymati data c activity/ volume] in Serum or Plasma Alanine 12 - 78 U/L Normal No Apr 02 aminotran 2016 8:23 sferase on in PM [Enzymati source c data activity/ volume] in Serum or Plasma Protein 6.4 - 8.2 gm/dL Normal Apr 02 [Mass/vol informati 2016 8:23 ume] in on in PM Serum or source Plasma data CBC W Auto Differential panel in Blood Observa Value Referen Units Interpr Notes Date tion ce etation Range Basophils 0 - 0.2 K/MM3 Normal No Apr 022016 8:23 [#/volume on in PM ] in source Blood by data Automated count Basophils 0.1 - 2.0 % Normal No Apr 02 informati 2017 8:23 leukocyte on in PM [...] No Apr 02 t [Volume 47.0 informati 2017 8:23 on in PM Fraction] source of Blood data Hemoglobi 12.2 - g/dL Low No Apr 02 n 16.2 informati 2017 8:23 [Mass/vol on in PM ume] in source Blood data Lymphocyt 0.7 - 4.5 K/mm3 Normal No Apr 02 es informati 2017 8:23 [#/volume on in PM ] in source Unspecifi data ed specimen by Automated count Lymphocyt 10 - 50.0 % Normal No Apr 02 es informati 2017 8:23 [#/volume on in PM ] in source Unspecifi data ed specimen by Automated count Erythrocy 27 - 31.2 pg Normal No Apr 02 te mean informati 2017 8:23 corpuscul on in PM ar source hemoglobi data n [Entitic mass] Erythrocy 31.8 - g/dl Low No Apr 02 te mean 35.4 informati 2017 8:23 corpuscul on in PM ar source hemoglobi data n concentra tion [Mass/vol ume] by Automated count Erythrocy 82.2 - fl Normal No Apr 02 te mean 97.8 informati 2017 8:23 corpuscul on in PM ar volume source [Entitic data volume] by Automated count Monocytes 0.1 - 1.0 K/mm3 Normal No Apr 02 informati 2017 8:23 [#/volume on in PM ] in source Blood by data Automated count Monocytes 1.7 - 9.3 % Normal No Apr 02 /100 informati 2017 8:23 leukocyte on in PM s in source Blood by data Automated count Platelet 7.4 - fl Normal No Apr 02 mean 10.4 informati 2017 8:23 volume on in PM [Entitic source volume] data in Blood by Automated count Platelets 142 - 424 K/mm3 Normal No Apr 02 informati 2017 8:23 [#/volume on in PM ] in source Blood data Erythrocy 4.2 - 5.4 M/mm3 Low No Apr 02 gloria informati 2017 8:23 [#/volume on in PM ] in source Amniotic data fluid Erythrocy 11.5 - % Normal No Apr 02 te 17.5 informati 2017 8:23 distribut on in PM ion width source [Entitic data volume] by Automated count Leukocyte 4.8 - K/MM3 Normal No Apr 02 s 10.8 informati 2017 8:23 [#/volume on in PM [...] 145 mmoL/L Normal No Mar 28 [Moles/vo 2016 lume] in on in 10:15 AM [...] 8.2 gm/dL Normal No Mar 28 [Mass/vol 2016 ume] in on in 10:15 AM [...] Low No Mar 28 t [Volume 47.0 2016 on in 10:15 AM Fraction] source of Blood data Hemoglobi 12.2 - g/dL Low No Mar 28 n 16.2 2016 [Mass/vol on in 10:15 AM ume] in source Blood data Lymphocyt 0.7 - 4.5 K/mm3 Normal No Mar 28 es inform2016 [#/volume on in 10:15 AM ] in source Unspecifi data ed specimen by Automated count Lymphocyt 10 - 50.0 % Normal No Mar 28 es inform2016 [#/volume on in 10:15 AM ] in source Unspecifi data ed specimen by Automated count Erythrocy 27 - 31.2 pg Normal No Mar 28 te mean 2016 corpuscul on in 10:15 AM ar source hemoglobi data n [Entitic mass] Erythrocy 31.8 - g/dl Low No Mar 28 te mean 35.4 2016 corpuscul on in 10:15 AM ar source hemoglobi data n concentra tion [Mass/vol ume] by Automated count Erythrocy 82.2 - fl Normal No Mar 28 te mean 97.8 2016 corpuscul on in 10:15 AM ar [...] 142 - 424 K/mm3 Normal No Mar 282016 [#/volume on in 10:15 AM ] in source Blood data Erythrocy 4.2 - 5.4 M/mm3 Low No Mar 28 gloria 2016 [#/volume on [...] informa informa 2017 r Casts tion in in 11:00 source source AM [Presen data data ce] in Urine sedimen t by Light microsc opy Color DK YELLOW No No No Mar 18 of YELLOW informa informa informa 2016 Urine tion in tion in ti in 11:00 source source source AM data [...] informa 2016 [Presen tion in tion in ti in 11:00 ce] in source source source AM Urine data data data by Test strip pH of 5.0 - 8.5 No Normal No Mar 18 Urine informati informati 2017 on in on in 11:00 AM source source data data Protein NEG mg/dL High No Mar 15 [Mass/vol informati 2017 ume] in on [...] - 2.0 % Normal No Mar 18 / inform2016 [...] Normal No Mar 18 te mean 97.8 inform2016 corpuscul on in 10:02 AM ar volume source [Entitic data volume] by Automated count Monocytes 0.1 - 1.0 K/mm3 Normal No Mar 18 inform2016 [#/volume on in 10:02 AM ] in source Blood by data Automated count Monocytes 1.7 - 9.3 % Normal No Mar 18 /100 informati 2016 leukocyte on in 10:02 AM s in source Blood by data Automated count Platelet 7.4 - fl Normal No Mar 18 mean 10.4 informati 2016 volume on in 10:02 AM [Entitic source volume] data in Blood by Automated count Platelets 142 - 424 K/mm3 Normal No Mar 18 inform2016 [#/volume on in 10:02 AM ] in source Blood data Erythrocy 4.2 - 5.4 M/mm3 Low No Mar 18 gloria informati 2016 [#/volume on in 10:02 AM ] in source Amniotic data fluid Erythrocy 11.5 - % Normal No Mar 18 te 17.5 informati 2016 distribut on in 10:02 AM ion [...] 2 - 9 % Normal No Mar 15 /100 informati 2016 leukocyte on in 10:02 AM s in source Blood by data Automated count Platele NORMAL No No No No Mar 18 ts informa informa informa informa 2017 [Presen tion [...] 0.2 - 1.0 mg/dL Normal No Feb 20 .total informati 2016 [Mass/vol on in 10:00 [...] 3.5 - 5.1 mmoL/L Normal No Feb 21 inform2016 [Moles/vo on in 10:00 AM lume] in source Serum or data Plasma Sodium 136 - 145 mmoL/L Low No Feb 20 [Moles/vo informati 2017 lume] in on in 10:00 AM Serum or source Plasma data Aspartate 15 - 37 U/L Low No Feb 21 inform2016 aminotran on in 10:00 AM sferase source [Enzymati data c activity/ volume] in Serum or Plasma Alanine 12 - 78 U/L Normal No Feb 21 aminotran inform2016 sferase on in 10:00 AM [Enzymati source c data activity/ volume] in Serum or Plasma Protein 6.4 - 8.2 gm/dL Low No Feb 20 [Mass/vol informati 2016 ume] in on in 10:00 AM Serum or source Plasma data CBC W Auto Differential panel in Blood Observa Value Referen Units Interpr Notes Date tion ce etation Range Basophils 0 - 0.2 K/MM3 Normal No Feb 21 inform2016 [#/volume on in 10:00 AM ] in source Blood by data Automated count Basophils 0.1 - 2.0 % Normal No Feb 20 /100 inform2016 leukocyte on in 10:00 AM s in source Blood by data Automated count Eosinophi 0.0 - 0.4 K/mm3 Normal No Feb 20 ls informati 2016 [#/volume on in 10:00 AM ] in source Blood by data Automated count Eosinophi 0.1 - % Normal No Feb 21 ls/100 12.0 inform2016 leukocyte on in 10:00 AM s in source Blood by data Automated count Granulocy 1.8 - 7.8 K/mm3 Normal No Feb 21 gloria inform2016 [#/volume on in 10:00 AM ] in source Blood by data Automated count Granulocy 37.0 - % Normal No Feb 21 gloria/100 80.0 inform2016 leukocyte on in 10:00 AM s [...] Low No Feb 21 te mean 35.4 inform2016 corpuscul on in [...] - 424 K/mm3 No No Feb 20 informati informati 2016 [#/volume on in on in 10:00 AM ] in source source Blood data data Erythrocy 4.2 - 5.4 M/mm3 Normal No Feb 20 gloria inform2016 [#/volume on in 10:00 AM ] in source Amniotic data fluid Erythrocy 11.5 - % High No Feb 20 te 17.5 informati 2016 distribut on in 10:00 AM ion [...] Normal No Feb 15 te mean informati 2017 6:15 corpuscul on in AM [...] 1.7 - 9.3 % Normal No Feb 15 /100 informati 2017 6:15 leukocyte on [...] 5.1 mmoL/L High No Feb 15 informati 2016 6:15 [Moles/vo on in AM lume] in source Serum or data Plasma Sodium 136 - 145 mmoL/L Normal No Feb 15 [Moles/vo informati 2016 6:15 lume] in on in AM Serum or source Plasma data Aspartate 15 - 37 U/L Normal No Feb 15 informati 2016 6:15 aminotran on in AM [...] Interpr Notes Date tion ce etation Range MISC TEST FOR PROCALCITONIN # [id number] TEST: RESULTS: REFERENCE: PROCALCITONIN 0.15 HIGH 0.00-0.08 [...] LATER) AND ON DAY 4, GO TO [id number] TEST: RESULTS: REFERENCE: PROCALCITONIN 0.15 HIGH 0.00-0.08 [...] LATER) AND ON DAY 4, GO TO [email or web address] Glucose [Mass/volume] in Capillary blood by Glucometer Observa Value Referen Units Interpr Notes Date tion ce etation Range Glucose 70 - 110 mg/dl High No Chris 14 [Mass/vol informati 2017 ume] in on [...] Date ti ce etation Range COMMENTS TO CHEMICAL INSPECTOR: POST TRANSFUSION Hematocri 37.0 - % Low [...] # 2017 RELEASE tion in tion in tion in : [id number] 6:26 PM special source source source 17 data data data [id number] prepara O tion POSRELE [Type] ASED 7 Karrie Hestera Glucose [Mass/volume] in Capillary blood by Glucometer Observa Value Referen Units Interpr Notes Date tion ce etation Range Glucose 70 - 110 mg/dl High No Feb 13 [Mass/vol informati 2017 4:37 ume] in on in PM Capillary source blood by data Glucomete r Glucose [Mass/volume] in Capillary blood by Glucometer Observa Value Referen Units Interpr Notes Date ti ce etation Range Glucose 70 - 110 mg/dl High No Feb 14 [Mass/vol informati 2017 ume] in on in 11:53 [...] source source 17 AM data data data [id number] prepara RELEASE ti D [Type] 7BMerced morrell aO POSITIV E Blood type & Crossmatch panel in Blood Observa Value Referen Units Interpr Notes Date ti ce etation Range Major COMPAT No No No No Feb 14 crossma informa informa informa informa 2017 tch tion in in in in 7:25 AM [interp source source source source retatio data data data data n] Major COMPAT No No No No Feb 14 crossma informa informa informa informa 2016 tch tion in in in in 7:25 AM [interp source source source source retatio data data data data n] by Immedia te spin Blood type & Crossmatch panel in Blood Observa Value Referen Units Interpr Notes Date ce etation Range Hold? Y Blood NEGATIV NEGATIV No No No Feb 14 group E E informa informa informa 2016 antibod tion in ti in in 7:25 AM y source source source screen data data data [Presen ce] in Serum or Plasma Rh POSITIV No No No No Feb 14 [Type] E informa informa informa informa 2016 in tion in tion in ti in ti in 7:25 AM Blood source source source source data data data data ABO O No No No No Feb 14 group informa informa informa informa 2016 [Type] tion in ti in ti in ti in 7:25 AM in source source source source Blood data data data data Blood type & Crossmatch panel in Blood Observa Value Referen Units Interpr Notes Date tion ce etation Range Hold? Y Major COMPAT [...] mmoL/L Normal No Feb 14 [Moles/vo informati 2017 6:30 lume] in on [...] mg/dL High No Feb 14 [Mass/vol informati 2017 6:30 ume] in on [...] No Feb 14 te mean 97.8 informati 2017 6:30 corpuscul [...] High No Feb 14 [Mass/vol informati 2017 1:02 ume] in on [...] mg/dL Low No Feb 13 nitrogen informati 2016 5:05 [Mass/vol on in [...] - 2.0 % Normal No Feb 13 / informati 2017 5:05 leukocyte on in AM [...] No Feb 13 n 16.2 informati 2017 5:05 [Mass/vol on in AM ume] in source Blood data Lymphocyt 0.7 - 4.5 K/mm3 Normal No Feb 12 es informati 2017 5:05 [#/volume on in AM ] in source Unspecifi data ed specimen by Automated count Lymphocyt 10 - 50.0 % Normal No Feb 12 es informati 2017 5:05 [#/volume on in [...] Platelet 7.4 - fl Normal No Feb 13 mean 10.4 informati 2017 5:05 volume on [...] High No Feb 13 te 17.5 informati 2016 5:05 distribut on in AM ion width source [Entitic data volume] by Automated count Leukocyte 4.8 - K/MM3 Low No Feb 12 s 10.8 informati 2016 5:05 [#/volume on in AM ] in source Blood data Glucose [Mass/volume] in Capillary blood by Glucometer Observa Value Referen Units Interpr Notes Date tion ce etation Range Glucose 70 - 110 mg/dl High No Feb 12 [Mass/vol informati 2016 8:26 ume] in on in PM Capillary source blood by data Glucomete r Glucose [Mass/volume] in Capillary blood by Glucometer Observa Value Referen Units Interpr Notes Date ti ce etation Range Glucose 70 - 110 mg/dl High No Feb 12 [Mass/vol informati 2016 5:28 ume] in on [...] Range Glucose 70 - 110 mg/dl High Feb 12 [Mass/vol informati 2016 6:40 ume] in on in AM Capillary source blood by data Glucomete r Basic metabolic panel in Blood Observa Value Referen Units Interpr Notes Date ti ce etation Range Urea 7 - 18 mg/dL Low No Feb 12 nitrogen informati 2016 4:20 [Mass/vol on in [...] Normal No Feb 12 e 1.02 informati 2017 4:20 [Mass/vol on [...] - 5.1 mmoL/L Low alert Feb 12 2017 4:20 [Moles/vo CRITICAL AM lume] in RESULTS [...] - 2.0 % Normal No Feb 12 / informati 2017 4:20 leukocyte on in [...] Low No Feb 12 n 16.2 informati 2016 4:20 [Mass/vol on in AM ume] in source Blood data Lymphocyt 0.7 - 4.5 K/mm3 Low No Feb 12 es informati 2016 4:20 [...] Low No Feb 11 s 10.8 informati 2016 4:20 [#/volume on [...] 70 - 110 mg/dl High No Chris 10 [Mass/vol informati 2017 4:58 ume] in on in PM Capillary source blood by data Glucomete r Glucose [Mass/volume] in Capillary blood by Glucometer Observa Value Referen Units Interpr Notes Date tion ce etation Range Glucose 70 - 110 mg/dl High No Chris 10 [Mass/vol alert informati 2017 ume] in on in 11:58 AM Capillary source blood by data Glucomete r Glucose [Mass/volume] in Capillary blood by Glucometer Observa Value Referen Units Interpr Notes Date tion ce etation Range Glucose 70 - 110 mg/dl No No Chris 10 [Mass/vol informati informati 2017 5:56 ume] in on in on in AM Capillary source source blood by data data Glucomete r Glucose [Mass/volume] in Capillary blood by Glucometer Observa Value Referen Units Interpr Notes Date tion ce etation Range Glucose 70 - 110 mg/dl High No Chris 9 [Mass/vol alert informati 2017 8:32 ume] [...] Calcium 8.5 - mg/dL Low No Chris 9 [Mass/vol 10.1 informati 2017 6:38 ume] in on in AM Serum or source Plasma data Chloride 98 - 107 mmoL/L Normal No Feb 9 [Moles/vo informati 2016 6:38 lume] in on in AM Serum or source Plasma data Carbon 21.0 - mmoL/L Normal No Feb 9 dioxide, 32.0 informati 2016 6:38 total on in AM [Moles/vo source lume] in data Serum or Plasma Creatinin 0.55 - mg/dL No No Feb 10 e 1.02 informati informati 2016 6:38 [Mass/vol [...] mmoL/L Low No Feb 9 [Moles/vo informati 2016 6:38 [...] Low No Feb 10 ls/100 12.0 informati 2016 6:38 leukocyte on in AM [...] K/mm3 Normal No Feb 9 es informati 2017 6:38 [#/volume on in AM ] in source Unspecifi data ed specimen by Automated count Lymphocyt 10 - 50.0 % Normal No Feb 9 es informati 2016 [...] 1.7 - 9.3 % Normal No Chris 9 /100 informati 2017 6:38 leukocyte on [...] Lactate 0.4 - 2.0 MMOL/L Normal No Chris 8 [Moles/vo informati 2017 lume] in on [...] Interpr Notes Date ti ce etation Range Adenovi NOT NOT No [...] 8 bacter DETECTE DETECTE informa informa informa 2016 [...] 8 poridiu DETECTE DETECTE informa informa informa 2016 m sp Ag D tion in tion [...] Feb 8 DETECTE DETECTE informa informa informa 2016 lamblia [...] 09 adria DETECTE DETECTE informa informa informa 2017 [...] sp DNA DETECTE DETECTE informa informa informa 2017 [Identi D tion in tion in tion in 2:40 PM fier] source source source in data data data Unspeci fied specime n by Probe & target amplifi cation method Vibrio NOT NOT No No No Feb 09 sp DETECTE DETECTE informa informa informa 2017 [...] Low No Feb 09 t [Volume 47.0 informati 2016 on in 12:00 PM Fraction] source of Blood data Hemoglobi 12.2 - g/dL Low No Feb 09 n 16.2 informati 2016 [Mass/vol on in 12:00 PM ume] in source Blood data Lymphocyt 0.7 - 4.5 K/mm3 Low No Feb 09 es informati 2016 [#/volume on in 12:00 PM ] in source Unspecifi data ed specimen by Automated count Lymphocyt 10 - 50.0 % Low No Feb 09 es informati 2016 [#/volume on in 12:00 PM [...] Erythrocy 82.2 - fL Normal No Feb 8 te mean 97.8 inform2016 corpuscul on in 12:00 PM ar volume source [Entitic data volume] by Automated count Monocytes 0.1 - 1.0 K/mm3 Normal No Feb 8 inform2016 [#/volume on in 12:00 PM ] in source Blood by data Automated count Monocytes 1.7 - 9.3 % Normal No Chris 8 2016 leukocyte on in 12:00 PM s in source Blood by data Automated count Platelets 142 - 424 K/mm3 Normal No Feb 8 inform2016 [#/volume on in 12:00 PM ] in source Blood data Erythrocy 4.2 - 5.4 M/mm3 Low No Chris 8 gloria inform2016 [#/volume on in 12:00 [...] - 50 % Low No Chris 8 inform2016 tion in 12:00 source PM [...] No Chris 8 Counted informati informati informati 2017 Total [#] [...] 18 mg/dL Normal No Chris 8 nitrogen informati 2016 [Mass/vol on in [...] Carbon 21.0 - mmoL/L Normal No Chris 8 dioxide, 32.0 informati 2017 total on in 12:00 PM [Moles/vo source lume] in data Serum or Plasma Creatinin 0.55 - mg/dL Normal No Chris 8 e 1.02 informati 2016 [Mass/vol on [...] 3.5 - 5.1 mmoL/L Normal No Chris 8 informati 2017 [Moles/vo on in 12:00 PM lume] in source Serum or data Plasma Sodium 136 - 145 mmoL/L Low No Chris 8 [Moles/vo informati 2017 lume] in on [...] No Feb 06 a informa informa informa 2017 [Presen tion in [...] Specific 1.005 - No Normal No Feb 06 gravity 1.030 informati informati 2017 of Urine on in on in 12:45 PM source source data data Epithel 5-10 0 - 5 #/hpf No No Feb 06 ial informa informa 2017 cells.s tion in tion in 12:45 quamous source source PM data data [Presen ce] in Urine sedimen t by Microsc opy high power field Urobili 1.0 NEG E.U./dL No No Feb 06 nogen informa informa 2016 [Presen tion in tion in 12:45 ce] in source source PM Urine data data by Test strip Leukocy [5 O wbc/hpf No No Feb 06 gloria wbc/hpf informa informa 2016 [#/volu ; [...] mg/dL High No Chris 5 [Mass/vol informati 2016 ume] in on [...] 5.1 mmoL/L Normal No Chris 5 informati 2017 6:25 [Moles/vo on in AM lume] in [...] Granulocy 37.0 - % Normal No Feb 06 gloria/100 80.0 informati 2016 6:25 leukocyte on [...] K/mm3 Normal No Feb 5 es informati 2016 6:25 [#/volume on in AM ] in source Unspecifi data ed specimen by Automated count Lymphocyt 10 - 50.0 % Normal No Feb 06 es informati 2016 6:25 [#/volume on in AM ] in source Unspecifi data ed specimen by Automated count Erythrocy 27 - 31.2 pg Normal No Chris 5 te mean informati 2016 6:25 corpuscul on in AM ar source hemoglobi data n [Entitic mass] Erythrocy 31.8 - g/dl Low No Feb 5 te mean 35.4 informati 2017 6:25 corpuscul on in AM ar source hemoglobi data n concentra tion [Mass/vol ume] by Automated count Erythrocy 82.2 - fl Normal No Feb 5 te mean 97.8 informati 2016 6:25 corpuscul on in AM ar volume source [Entitic data volume] by Automated count Monocytes 0.1 - 1.0 K/mm3 Normal No Chris 5 informati 2016 6:25 [#/volume on in AM ] in source Blood by data Automated count Monocytes 1.7 - 9.3 % Normal No Chris 5 /100 informati 2017 6:25 leukocyte on in AM s in source Blood by data Automated count Platelet 7.4 - fl Low No Feb 5 mean 10.4 informati 2017 6:25 volume [...] Low No Feb 5 s 10.8 informati 2016 6:25 [#/volume on in AM [...] 70 - 110 mg/dl High No Feb 4 [Mass/vol alert informati 2017 8:08 ume] [...] ML/MIN Normal No Feb 4 e renal inform2016 clearance on in 11:45 AM source predicted [...] 3.5 - 5.1 mmoL/L Normal MAY BE Feb 05 ELEVATED 2016 [Moles/vo DUE TO 11:45 AM lume] in SLIGHT Serum or HEMOLYSIS Plasma Sodium 136 - 145 mmoL/L Low No Feb 4 [Moles/vo informati 2016 lume] in on in 11:45 AM Serum or source Plasma data Aspartate 15 - 37 U/L Normal MAY BE Chris ELEVATED 2016 aminotran DUE TO 11:45 AM sferase SLIGHT [Enzymati HEMOLYSIS c activity/ volume] in Serum or Plasma Alanine 12 - 78 U/L Normal No Feb 4 aminotran inform2016 sferase on in 11:45 AM [Enzymati source c data activity/ volume] in Serum or Plasma Protein 6.4 - 8.2 gm/dL Normal No Chris 4 [Mass/vol informati 2016 ume] in on in 11:45 AM Serum or source Plasma data CBC W Auto Differential panel in Blood Observa Value Referen Units Interpr Notes Date tion ce etation Range Basophils 0 - 0.2 K/MM3 Normal No Feb 4 informati 2016 [#/volume on in 11:45 AM ] in source Blood by data Automated count Basophils 0.1 - 2.0 % Normal No Feb 05 /100 informati 2016 leukocyte on in 11:45 AM s in source Blood by data Automated count Eosinophi 0.0 - 0.4 K/mm3 Normal No Feb 4 ls informati 2016 [#/volume on in 11:45 AM ] in source Blood by data Automated count Eosinophi 0.1 - % Normal No Feb 05 ls/100 12.0 informati 2016 leukocyte on in 11:45 AM s [...] No Feb 4 t [Volume 47.0 informati 2017 on in 11:45 AM Fraction] source of Blood data Hemoglobi 12.2 - g/dL Low No Feb 4 n 16.2 informati 2016 [Mass/vol on in 11:45 AM ume] in [...] Erythrocy 27 - 31.2 pg Normal No Chris 4 te mean inform2016 corpuscul on in 11:45 AM ar source hemoglobi data n [Entitic mass] Erythrocy 31.8 - g/dl Low No Chris 4 te mean 35.4 inform2016 corpuscul on in 11:45 AM ar source hemoglobi data n concentra tion [Mass/vol ume] by Automated count Erythrocy 82.2 - fl Normal No Feb 4 te mean 97.8 inform2016 corpuscul on in 11:45 AM ar volume source [Entitic data volume] by Automated count Monocytes 0.1 - 1.0 K/mm3 Normal No Chris 4 informati 2017 [#/volume on in 11:45 AM ] in source Blood by data Automated count Monocytes 1.7 - 9.3 % Normal No Chris 4 /100 informati 2017 leukocyte on in 11:45 AM s in source Blood by data Automated count Platelet 7.4 - fl Low No Chris 4 mean 10.4 informati 2016 volume on in 11:45 AM [Entitic source volume] data in Blood by Automated count Platelets 142 - 424 K/mm3 Normal No Chris 4 informati 2016 [#/volume on in 11:45 AM ] in source Blood data Erythrocy 4.2 - 5.4 M/mm3 Low No Feb 4 gloria informati 2016 [#/volume on in 11:45 AM ] in source Amniotic data fluid Erythrocy 11.5 - % High No Feb 05 te 17.5 informati 2016 distribut on in 11:45 AM ion width source [Entitic data volume] by Automated count Leukocyte 4.8 - K/MM3 Normal No Feb 4 s 10.8 informati 2016 [#/volume on in 11:45 AM ] in source Blood data Hemoglobin A1c in Blood Observa Value Referen Units Interpr Notes Date ti ce etation Range Hemoglo 8.6 0.0 - [...] Date tion ce etation Range COMMENTS TO CHEMICAL INSPECTOR: FINGERSTICK TO LOW TO READ Glucose 74 - 106 mg/dL Low alert No January 25 [Mass/vol informati 2017 1:44 ume] in on in AM Serum [...] No No January 24 [Mass/vol informati informati 2016 ume] in on in on in 11:54 [...] mg/dl High No January 23 [Mass/vol informati 2017 ume] in on in 11:21 AM Capillary [...] - 2.0 % Low No January 23 /100 informati [...] Blood data Hemoglobi 12.2 - g/dL Low January 23 n 16.2 informati 2016 6:00 [...] 0.1 - 1.0 K/mm3 Normal No January 232016 6:00 [#/volume on in AM ] in source Blood by data Automated count Monocytes 1.7 - 9.3 % Normal No January 23 informati 2016 6:00 leukocyte [...] 5.4 M/mm3 Low No January 23 gloria ati 2016 6:00 [#/volume on in AM ] in source Amniotic data fluid Erythrocy 11.5 - % Normal No January 23 te 17.5 ati 2016 6:00 distribut on in AM ion width source [Entitic data volume] by Automated count Leukocyte 4.8 - K/MM3 High No January 23 s 10.8 informati 2016 6:00 [#/volume on in AM ] in source Blood data Differential panel, method unspecified - Observa Value Referen Units Interpr Notes Date tion ce etation Range Neutrophi 0 - 8 % Normal No January 23 ls.band ati 2016 6:00 form/100 on in AM leukocyte [...] Plasma data Carbon 21.0 - mmoL/L High January 23 dioxide, 32.0 informati 2016 6:00 [...] mg/dl High No January 19 [Mass/vol informati 2017 ume] in on in 11:27 AM Capillary [...] mg/dl High No January 16 [Mass/vol informati 2017 4:54 ume] in on in PM Capillary [...]
--- OUTSIDE RECORDS SUMMARY | 2017-07-21 11:47 | External Medical Summary Rpt ---
[...] - 7.8 K/mm3 Normal No Apr 02 golria informati 2016 8:23 [#/volume on in PM [...] etation Range MISC TEST FOR PROCALCITONIN # [id number] TEST: RESULTS: REFERENCE: PROCALCITONIN 0.15 HIGH 0.00-0.08 [...] LATER) AND ON DAY 4, GO TO [email or web address] TEST: RESULTS: REFERENCE: PROCALCITONIN 0.15 HIGH 0.00-0.08 [...] LATER) AND ON DAY 4, GO TO [email or web address] Glucose [Mass/volume] in Capillary blood by Glucometer [...] Date ti ce etation Range COMMENTS TO INDUSTRIAL RELATIONS MANAGER: POST TRANSFUSION Hematocri 37.0 - % [...] source source source 17 data data data [id number] prepara O tion POSRELE [Type] ASED 7 [...] source source 17 AM data data data [id number] prepara RELEASE ti D [Type] 7BMerced morrell [...] strip Ketones 1+ NEG mg/dL Abnorma No Chrsi 5 l informa 2017 [Presen tion in [...] Date tion ce etation Range COMMENTS TO INDUSTRIAL RELATIONS MANAGER: FINGERSTICK TO LOW TO READ Glucose [...]
[2017-07-21 12:55] VITALS: BP 124/70
[2017-07-21 13:08] VITALS: BP 103/48
[2017-07-21 13:10] VITALS: BP 103/48
[2017-07-21 13:19] LABS: HEMOGLOBIN 9.5 g/dL (12.2-16.2); LYMPH # 1.4 K/mm3 (0.7-4.5); LYMPH % 21.7 % (10-50.0)
--- NOTE | 2017-07-21 15:09 | RADIOLOGY REPORT PS360 ---
CHEST(2 VIEWS-NOT PORTABLE) HISTORY: R/O PNEUMONIA Patient Age: 77 years: Female Ordering Physician: Alan Schulte MD TECHNIQUE: PA and lateral COMPARISON :Portable chest 04/18/2017, portable chest 04/02/2017. PA and lateral chest 02/11/2017 CT chest studies: 07/21 and 02/15/2017 FINDINGS no significant new findings Focal ensity at the periphery of the right upper lobe is again noted. Appears fairly linear in character. With straining towards the right angi. The patient has had a previously treated neoplasm in this area findings here similar to February 2017 CT Suboptimal positioning with chest rotated to the left. However the left lung appears clear with no new findings. There is mild hyperexpansion mild chronic changes throughout reflecting COPD. Heart is normal in size. IMPRESSION: 1. Residual density from treated neoplasm at periphery the RUL, with associated rib abnormalities again noted. No significant change since prior studies from earlier this year. 2. Underlying COPD hyperexpansion. 3. No acute cardiopulmonary findings. No discrete focal pneumonia identified. Only minimal linear scarring and atelectasis at the left lung base on final review
[2017-07-21 15:29] VITALS: BP 104/51
[2017-07-21 20:00] VITALS: BP 103/51
[2017-07-21 20:16] VITALS: BP 103/51
[2017-07-22] VITALS (7 sets, daily range): BP systolic 104–127; BP diastolic 49–74
--- NOTE | 2017-07-22 06:11 | HISTORY AND PHYSICAL REPORT ---
Demographics: Admit date: 07/21/17 Chief complaint: Anorexia, malaise PRIMARY DIAGNOSIS: PNEUMONIA Allergies: Coded Allergies: Sulfa (Sulfonamide Antibiotics) (03/18/17) azithromycin (From ZITHROMAX) (04/18/17) codeine (04/18/17) History of present illness: History of present illness: 77 y/o WF with history of lung cancer with probable recurrence, but with endstage COPD - on Hospice care at home - and not with functional status to undergo further cancer treatment. Called yesterday with weakness, cough, subjective fevers. Has been on outpt levaquin. Noted with weight loss, worsening symptoms of BLOOM and SOA at rest. More sputum production. Admitted to [facility] given failure of outpt treatments for COPD and symptom control. Past medical history: Family HX Diabetes Yes CAD Yes Hypertension No Hyperlipidemia No Cancer Yes TB No Immunization HX DT/Tetanus 1-4 Years Ago Flu 2016-18FSN Pneumonia Received In Past TB Test in last year No General CAD? Yes Angina: Yes MO: Yes Hypertension? No Hyperlipidemia? Yes CHF? No DVT? No PE? No COPD? Yes Asthma? No Anemia? No GERD? Yes Gastric ulcers? No GI Bleed? No Hernia? Yes Thyroid Problems? No Hypothyroidism? No CVA? Yes Seizures? No Diabetes? 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 No UTI? No Stones? No BPH? No GB Disease: Yes Nephritic Syndrome? No Asplenia? No Hepatitis? No Sickle Cell Disease? No Arthritis? Yes Migraines? No Cataracts? Yes Glaucoma? No MRSA? No HIV? No TB? No Anxiety? Yes Depression? 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 Current home meds: Active Scripts Trazodone Hcl (Trazodone HCl) 100 MG PO QHS #30 TAB Prov: 04/06/17 Reported Medications Risperidone (Risperdal) 4 MG PO QHS BUDESONIDE/FORMOTEROL FUMARATE (Symbicort 80-4.5 Mcg Inhaler) 2 PUFF IH BID Aspirin (Adult Low Dose Aspirin EC) 81 MG PO DAILY ATENOLOL (Atenolol 50MG) 25 MG PO DAILY OMEPRAZOLE MAGNESIUM (Prilosec 20MG) 20 MG PO DAILY ALBUTEROL (Albuterol 0.083% Neb) 1.25 MG INH TID Lorazepam (Lorazepam 0.5MG) 1 MG PO TID Lactobacillus Combo No.11 (Probiotic) 1 EACH PO DAILY Ins Asp-Prt 70/Asp 30(Nvlogmx) (Novolog Mix 70-30 Flexpen Syrn) 1 UNIT SC BID Atorvastatin Calcium 40 MG PO QHS #90 Fluoxetine Hcl (Fluoxetine 10MG) 10 MG PO DAILY 30 Days Social Hx: Smoking HX Packs/day 1 1/2 - 2 PACKS Are you/the child exposed to second-hand smoke: No Alcohol Alcohol: No Hx of Drug Use Drug Use? No Patien't marital status is Patient's support system is excellent Review of systems: Constitutional fever, malaise, weakness. Respiratory cough, orthopnea, shortness of breath, SOB with excertion, SOB at rest. Cardiovascular chest pain, No edema, palpitations, No syncope Gastrointestinal/Abdominal No diarrhea, No difficulty swallowing, nausea, No poor fluid intake, No vomiting Genitourinary No: no symptoms reported. Musculoskeletal back pain, joint pain, muscle pain. No: joint swelling. Neurological Yes: headache, tremors, weakness. Exam: Lab data for last 24 hours: Laboratory Tests 07/21/17 2001: POC Glucose 123 H 07/21/17 1715: POC Glucose 156 H 07/21/17 1629: Mycoplasma pneumon IgM NON-REACTIVE 07/21/17 1250: Sodium 131 L, Potassium 3.8, Chloride 97 L, Carbon Dioxide 27, BUN 15, Creatinine 1.4 H, Estimated Creat Clear 27 L, Estimated GFR (MDRD) 37 L, Glucose 165 H, Calcium 8.8, WBC 6.4, RBC 3.23 L, Hgb 9.5 L, Hct 29.0 L, MCV 89.8, RDW 13.7, Plt Count 251, MPV 8.0, Gran % 64.5, Gran # 4.1, Lymphocytes % 21.7, Monocytes % 9.3, Eosinophils % 4.3, Basophils % 0.3, Lymphocytes # 1.4, Monocytes # 0.6, Eosinophils # 0.3, Basophils # 0.0, PUBS MCHC 32.9, MCH 29.5 Microbiology 07/21 1250 BLOOD: Anaerobic Blood Culture - RECD 07/21 1250 BLOOD: Aerobic Blood Culture - RECD 07/21 1250 BLOOD: Anaerobic Blood Culture - RECD 07/21 1250 BLOOD: Aerobic Blood Culture - RECD Admission vital signs: 1ST Vital Signs Result Date Time Pulse Ox 96 07/21 1255 O2 Delivery OXYGEN 07/21 1255 B/P 124/70 07/21 1255 Temp 98.6 07/21 1255 Pulse 78 07/21 1255 Resp 20 07/21 1255 O2 Flow Rate 2 07/21 1320 Exam General appearance: alert, thin, cachetic Eyes: anicteric, pupils reactive to light ENT: dry mucous membranes Neck: full range of motion, supple Cardiovascular: no JVD, murmur (HSM - as prior) Respiratory: dyspnea, basilar rales, diminished breath sounds, cough, crackles ABD: soft, no tenderness Extremities: full range of motion, moves all, warm Musculoskeletal: very weak symmetrically Skin: dry, intact Neuro: alert, oriented, speech clear Plan: Problem List 1. Pneumonia 2. Chronic obstructive pulmonary disease with acute exacerbation 3. Weakness 4. COPD (chronic obstructive pulmonary disease) with acute bronchitis Plan: Significant symptom constellation. Admit for IV abx, fluid support and ongoing pulmonary toilet. at 0610
--- NOTE | 2017-07-22 07:46 | ACUTE CARE PROGRESS NOTE (QUA) ---
Progress Notes Subjective Date 07/22/17 Time 0745 Note Feels about the same, eating gravy well this morning, continues to feel weak, has not really coughed up much. Lungs with lots of rhonchi, heart rate regular, abdomen soft, very weak in her extremities. Objective Findings Last VS-Temp:97.5 B/P:127/62 Pulse:91 Resp:20 SaO2:98 OXYGEN Last weight lbs:110 oz:3 K.981 Method:Bed Scales Assessment/Plan Problem List 1. Pneumonia 2. Chronic obstructive pulmonary disease with acute exacerbation 3. Weakness 4. COPD (chronic obstructive pulmonary disease) with acute bronchitis Patient condition Stable Plan: continue current care, watch labs tomorrow. This inpt stay is expected to cross 2 MNs from start of care Yes at 0745
[2017-07-22] MEDS ORDERED: NOVOLOG MI100 UNITS/ SC (11:11)
--- NOTE | 2017-07-22 11:14 | PHARMACY CLINIC NOTE ---
Patient Demographics Patient Demographics Admission date: 07/21/17 Date: 07/22/17 Time: 1113 Allergies Coded Allergies: Sulfa (Sulfonamide Antibiotics) (03/18/17) azithromycin (From ZITHROMAX) (04/18/17) codeine (04/18/17) HEIGHT- FT: 5 IN: 3.00 K.981 VTE General Information Labs: Laboratory Tests 07/21 1250 Hematology Hgb (12.2 - 16.2 g/dL) 9.5 L Hct (37.0 - 47.0 %) 29.0 L Plt Count (142 - 424 K/mm3) 251 Disclaimer The following section includes nursing documentation that has been pulled in for pharmacy review. Patient's VTE score: 3 Patient's VTE Risk: LOW RISK Clinical trial participant? No VTE prophylaxis [id number] VTE prophylaxis ordered? Yes Type of prophylaxis/treatment: MARIANA at 1113
[2017-07-22] MEDS ORDERED: ATIVAN1 MG PO (13:46)
[2017-07-23] VITALS (8 sets, daily range): BP systolic 106–134; BP diastolic 50–69
[2017-07-23 07:39] LABS: LYMPH # 1.4 K/mm3 (0.7-4.5); LYMPH % 18.3 % (10-50.0)
--- NOTE | 2017-07-23 07:54 | ACUTE CARE PROGRESS NOTE (QUA) ---
Progress Notes Subjective Date 07/23/17 Time 0753 Note Patient feels a little stronger, she is alert, awake, did not get much sleep in the hospital setting last night. Lungs have fairly good air movement bilaterally. Heart rate regular. Abdomen is soft, perfusion is about the same. Objective Findings Last VS-Temp:97.7 B/P:134/65 Pulse:94 Resp:16 SaO2:95 OXYGEN Last weight lbs:110 oz:3 K.981 Method:Bed Scales Assessment/Plan Problem List 1. Pneumonia 2. Chronic obstructive pulmonary disease with acute exacerbation 3. Weakness 4. COPD (chronic obstructive pulmonary disease) with acute bronchitis Patient condition Improving Plan: continue current care, no medication changes. Continue her current IV medication given failure of by mouth therapy for her chronic obstructive pulmonary disease exacerbation. Advance activity today and try to get her up in a chair for lunch and supper. This inpt stay is expected to cross 2 MNs from start of care Yes at 0754
[2017-07-24] VITALS (7 sets, daily range): BP systolic 114–163; BP diastolic 53–93
--- NOTE | 2017-07-24 08:01 | ACUTE CARE PROGRESS NOTE (QUA) ---
Progress Notes Subjective Date 07/24/17 Time 0758 Note Patient is awake, alert, pleasant and talkative. Patient had a good breakfast. Notes that she still is very weak but was able to get in a chair for meals with two-person assistance. Lungs have poor air movement, bilateral rhonchi, heart rate regular. Abdomen soft, no significant edema. No skin breakdown. Objective Findings Last VS-Temp:99.9 B/P:120/57 Pulse:97 Resp:20 SaO2:96 OXYGEN Last weight lbs:115 oz:6 K.333 Method:Bed Scales Assessment/Plan Problem List 1. Pneumonia 2. Chronic obstructive pulmonary disease with acute exacerbation 3. Weakness 4. COPD (chronic obstructive pulmonary disease) with acute bronchitis Patient condition Stable Plan: continue current care, somewhat difficult endpoint for hospitalization with this unfortunate case of end-stage chronic obstructive pulmonary disease. I will discuss with her family today. They are to have hospice at home, her primary problem is weakness and pulmonary cachexia with ongoing weight loss and spite of good oral intake. This inpt stay is expected to cross 2 MNs from start of care Yes at 0800
--- NOTE | 2017-07-24 10:34 | ACUTE CARE PROGRESS NOTE (QUA) ---
Progress Notes Subjective Date 07/24/17 Time 1034 Assessment/Plan Problem List 1. Pneumonia 2. Chronic obstructive pulmonary disease with acute exacerbation 3. Weakness 4. COPD (chronic obstructive pulmonary disease) with acute bronchitis This inpt stay is expected to cross 2 MNs from start of care Yes Antibiotic Stewardship (2) Current Culture Results Microbiology 07/21 1250 BLOOD: Anaerobic Blood Culture - RES 07/21 1250 BLOOD: Aerobic Blood Culture - RES Infxn that will respond? Yes Right drug,dose,and route? Yes More targeted antbx? No at 1033
[2017-07-25 00:30] VITALS: BP 140/70
[2017-07-25 03:49] VITALS: BP 142/77
[2017-07-25 08:00] VITALS: BP 118/59
[2017-07-25] MEDS ORDERED: DEXAMETHASONE4 MG PO (08:33)
[2017-07-25] MEDS ORDERED: LEVAQUIN 750 M750 MG PO (08:34)
--- NOTE | 2017-07-25 08:39 | ACUTE CARE PROGRESS NOTE (QUA) ---
Progress Notes Subjective Date 07/25/17 Time 0740 Note Patient is resting in bed. States she feels "a little better than yesterday." Alert and oriented x3. Rate and rhythm regular. No edema. Pulses 2+ bilaterally. Lung sounds with loose rhonchi anteriorly, decent air movement. Abdomen, soft and non-tender. Patient/family reports: feeling better Nursing reports: no complaints Objective Findings Last VS-Temp:98.2 B/P:142/77 Pulse:101 Resp:22 SaO2:94 OXYGEN Last weight lbs:113 oz:9 K.511 Method:Bed Scales Reviewed: medications, vital signs, lab results, radiology report Assessment/Plan Problem List 1. Pneumonia 2. Chronic obstructive pulmonary disease with acute exacerbation 3. Weakness 4. COPD (chronic obstructive pulmonary disease) with acute bronchitis Patient condition Improving Plan: initiate discharge plan This inpt stay is expected to cross 2 MNs from start of care Yes Comments: Discharge home with Hospice. at 0839
--- NOTE | 2017-07-25 08:41 | DISCHARGE SUMMARY STANDARD ---
Demographics Admit date: 07/21/17 Discharge date: 07/25/17 History of present illness History of present illness 77 y/o WF with history of lung cancer with probable recurrence, but with endstage COPD - on Hospice care at home - and not with functional status to undergo further cancer treatment. Called yesterday with weakness, cough, subjective fevers. Has been on outpt levaquin. Noted with weight loss, worsening symptoms of BLOOM and SOA at rest. More sputum production. Admitted to [facility] given failure of outpt treatments for COPD and symptom control. Hospital Course Hospital Course: Patient was admitted to acute care. CXR was obtained and showed no acute pathology. IV levaquin infusions, steroids and duonebs were administered. She continues to suffer from pulmonary cachexia and weight loss despite good oral intake. Shortness of breath has improved some throughout her stay. Family is aware of her end-stage terminal condition and desires for her to return home with Hospice. Discharge home with Hospice. See medication reconciliation for complete list. FU with Dr. Schulte in one week. Discharge diagnoses Problem List 1. Pneumonia 2. Chronic obstructive pulmonary disease with acute exacerbation 3. Weakness 4. COPD (chronic obstructive pulmonary disease) with acute bronchitis Medications Medications: Discharge meds are as noted. Follow up Follow up in office in: 7 DAYS with: Alan Schulte MD at 0846
[2017-07-25 09:03] VITALS: BP 118/59
[2017-07-25 10:46] VITALS: BP 118/59
== END 2017-07-25 10:37 | disposition hospice, home (50) | DRG 190 ==
LOC: 2ND 11:35
PROVIDERS: Internal Medicine Adolescent Medicine
DX: J44.0 Chronic obstructive pulmonary disease with (acute) lower respiratory infection (principal); J18.9 Pneumonia, unspecified organism; E11.9 Type 2 diabetes mellitus without complications; C34.11 Malignant neoplasm of upper lobe, right bronchus or lung; Z99.81 Dependence on supplemental oxygen; J20.9 Acute bronchitis, unspecified; J44.1 Chronic obstructive pulmonary disease with (acute) exacerbation; Z95.5 Presence of coronary angioplasty implant and graft; Z79.4 Long term (current) use of insulin; Z85.51 Personal history of malignant neoplasm of bladder; Z87.891 Personal history of nicotine dependence
CPT/HCPCS: J1956